=== PATIENT | male | born 1955 | race Caucasian/White ===

== ENCOUNTER 2024-07-18 14:52 | Inpatient (IN) | payer OTHER ==
[~2024-07-18] VITALS: Ht 193 cm; Wt 127.5 kg
[~2024-07-18 14:52] MED LIST: ALBU18HF7 IH; AMIO200T68 PO; APIX5TAB PO; ATOR10 PO; BUDE0.5A3 IH; BUPR-113 PO; DAPA10TA PO; FISH1CAP27 PO; FLUT1BLS3 IH; FURO20TA6 PO; IBUP-1554 PO; LEVO750T68 PO; MELA5TAB66 PO; METO-408 PO; METO2.5T2 PO; PANT40TA PO; ZOLP5TAB8 PO
--- NOTE | 2024-07-18 15:03 | ERN ---
ED Note History of Present Illness Stated Complaint: FLUID RETENTION Chief Complaint: Shortness of Breath Time Seen by MD: 14:56 Dictation: PATIENT IS A 69-YEAR-OLD MALE COMING IN TODAY WITH A APPROXIMATE 30 LB WEIGHT LOSS IN THE LAST TWO WEEKS AND THREE TO 4+ EDEMA TO LOWER EXTREMITIES. HE HAS SHORTNESS A BREATH ON EXERTION. ADDITIONALLY HIS ABDOMEN IS DISTENDED HE HAS A HISTORY OF CHF/STAGE 3 CHRONIC KIDNEY DISEASE AND HAS BEEN ON TWO DIFFERENT TYPES OF DIURETICS PER THE AND LAST SEVERAL YEARS HOWEVER WAS CUT DOWN TO ONE DIURETIC. SAW TODAY WHO ADVISED HIM GO TO THE EMERGENCY ROOM FOR IV DIURETICS AND ADMISSION. NO FEVER NO CHILLS NO CHEST PAIN. Allergies: Coded Allergies: No Known Allergies (Verified Allergy, Unknown, 10/31/23) Home Meds Active Scripts Bumetanide (Bumex) 1 Mg Tab, 1 TAB PO BID for 30 Days, #30 TAB 1 Refill Prov:JEAN FERNANDEZ MD 07/30/24 [miDODRine HCL 5 MG TABLET] 5 MG TABLET No Conflict Check, 5 MG PO TID for 30 Days, #90 1 Refill Prov:JEAN FERNANDEZ MD 07/30/24 [Folic Acid/Vitamin B Comp W-C] 1 CAP TAB No Conflict Check, 1 CAP PO DAILY for 30 Days, #30 1 Refill Prov:JEAN FERNANDEZ MD 07/30/24 Pantoprazole Sodium (Protonix) 40 Mg Tablet.dr, 40 MG PO DAILY, #60 TAB Prov:JOAQUIM MOMIN [facility] 06/11/24 Melatonin (Melatonin) 5 Mg Tablet, 10 MG PO HS, #15 TAB Prov:JOAQUIM MOMIN [facility] 06/11/24 Apixaban (Eliquis) 5 Mg Tablet, 5 MG PO BID, #60 TAB Prov:JOAQUIM MOMIN [facility] 06/11/24 Reported Medications Gabapentin (Gabapentin) 100 Mg Capsule, 1 CAP PO HS for 30 Days, #90 CAP 0 Refills 07/18/24 Levothyroxine Sodium (Levothyroxine Sodium) 25 Mcg Tablet, 1 TAB PO DAILY for 30 Days, #30 TAB 0 Refills 07/18/24 Potassium Citrate (Potassium Citrate ER) 15 Meq (1620 Mg) Tablet.er, 20 MEQ PO DAILY, TAB 07/18/24 Dapagliflozin Propanediol (Farxiga) 10 Mg Tablet, 1 TAB PO DAILY for 30 Days, #30 TAB 0 Refills 05/31/24 Amiodarone HCl (Amiodarone HCl) 200 Mg Tablet, 1 TAB PO QMOWEFR for 30 Days, #30 TAB 0 Refills 05/31/24 Albuterol Sulfate (Ventolin Hfa) 90 Mcg Hfa.aer.ad, 2 PUFF IH Q4HPRN PRN for wheezing for 30 Days, #18 GM 0 Refills 05/31/24 Bupropion HCl (Bupropion HCl Sr) 150 Mg Tablet.er, 1 TAB PO BID for 30 Days, #60 TAB 0 Refills 05/31/24 Metoprolol Succinate (Metoprolol Succinate) 25 Mg Tab.er.24h, 25 MG PO DAILY, TAB 10/31/23 Frederick-3 Fatty Acids/Fish Oil ([place] 3 1,000 mg Softgel) 300 Mg-1,000 Mg Capsule, 2 EACH PO BID, CAP 10/31/23 Atorvastatin Calcium (LIPITOR) 10 Mg Tab, 10 MG PO HS, TAB 10/31/23 Discontinued Reported Medications Furosemide (Furosemide) 40 Mg Tablet, 1 TAB PO HS for 30 Days, #30 TAB 0 Refills 07/18/24 Furosemide (Furosemide) 20 Mg Tablet, 1 TAB PO DAILY for 30 Days, #30 TAB 0 Refills 07/18/24 Amiodarone HCl (Amiodarone HCl) 200 Mg Tablet, 200 MG PO AD, TAB 10/31/23 Discontinued Scripts Metolazone (Metolazone) 2.5 Mg Tablet, 5 MG PO DAILY, #60 TAB Prov:JOAQUIM MOMIN [employer] 06/11/24 Past Medical History Past Medical History: High Cholesterol, Heart Disease, Hypertension, Liver Disease, Renal Disese Additional Past Medical Hx: CARDIAC VALVE REPLACEMENT, LT KNEE SX, LT SHOULDER SX Surgical History: Other Surgical History Other: AORTIC VALVE REPLAEMENT RN Note Reviewed/Agreed w/PFSH: Yes Review of System Dictation CONSTITUTIONAL: NEGATIVE EXCEPT FOR HPI HEAD/FACE: NEGATIVE EXCEPT FOR HPI EENT: NEGATIVE EXCEPT FOR HPI RESPIRATORY: NEGATIVE EXCEPT FOR HPI SHORTNESS A BREATH THREE TO 4+ EDEMA LOWER EXTREMITY GASTROINTESTINAL/ABDOMINAL: NEGATIVE EXCEPT FOR HPI DISTENTION GENITOURINARY: NEGATIVE EXCEPT FOR HPI MUSCULOSKELETAL: NEGATIVE EXCEPT FOR HPI INTEGUMENTARY: NEGATIVE EXCEPT FOR HPI NEUROLOGICAL/PSYCH: NEGATIVE EXCEPT FOR HPI HEMATOLOGIC/LYMPHATIC: NEGATIVE EXCEPT FOR HPI ALL SYSTEMS NEGATIVE, EXCEPT NOTED ABOVE. 13 POINT REVIEW OF SYSTEMS ASSESSED AND ALL NEGATIVE EXCEPT FOR ABOVE. Initial Vital Sign VS Vital Signs Date Time Temp Pulse Resp B/P (MAP) Pulse Ox O2 Delivery O2 Flow Rate FiO2 07/18/24 14:54 98.2 89 16 121/57 92 Room Air* 0 21 Physical Exam Dictation VITAL SIGNS REVIEWED GENERAL APPEARANCE: ALERT, ORIENTED X 3, NO ACUTE DISTRESS, WELL DEVELOPED, NOURISHED. OBESE HEAD AND FACE: NON-TRAUMATIC. EYES: PERRL, PINK CONJUNCTIVAS, EYELID NO TRAUMA, ANTERIOR CHAMBER WITH ARCUS SENILIS. EARS: PINNAS INTACT AND NO SIGNS OF TRAUMA OR ERYTHEMA EAR CANALS CLEAR AND NO DISCHARGE TM NO ERYTHEMA NOSE: NO DISCHARGE, NO BLEEDING. OROPHARYNX: MOUTH NORMAL, TONGUE PINK, PHARYNX CLEAR,NO ERYTHEMA, TONSILS NO EXUDATES, NO ABSCESSES NOTED, MUCOUS MEMBRANE MOIST NECK: SUPPLE, NON-TENDER, NO THYROMEGALY, NO MASSES, NO JVD, NO BRUITS BREAST:DEFERRED CHEST:NO TENDERNESS, NO CREPITUS, NO PARADOXICAL MOVEMENT, NO RETRACTIONS LUNGS:CLEAR, WELL-VENTILATED, SYMMETRIC, NO RALES, NO WHEEZING, NO RHONCHI, NO STRIDOR, GOOD BREATH SOUNDS BILATERALLY HEART: REGULAR RATE, REGULAR RHYTHM, NO MURMUR, NO GALLOPS VASCULAR: THREE TO 4+ EDEMA PERIPHERAL MERVIN LATERAL LOWER EXTREMITIES TO KNEES, ABDOMEN: SOFT, POSITIVE BOWEL SOUNDS, NONDISTENDED, NO GUARDING, NONTENDER, NO REBOUND, NO MASSES NO HEPATOMEGALY, NO SPLENOMEGALY, NO HARTMAN'S SIGN, NO HERNIAS. RECTAL: DEFERRED GENITAL: DEFERRED NEUROLOGICAL: NORMAL SPEECH, MOTOR FUNCTION INTACT, SENSORY FUNCTION INTACT MUSCULOSKELETAL: NECK NONTENDER, FULL RANGE OF MOTION, BACK NONTENDER, FULL RANGE OF MOTION, EXTREMITIES: NONTENDER, FULL RANGE OF MOTION SKIN: COLOR PINK, DRY, NO TURGOR, NO RASH, NO LACERATIONS, NO ABRASIONS, NO CONTUSIONS. LYMPHATIC: DEFERRED Results (Laboratory/Radiology) Laboratory/Radiology Laboratory Tests Test 07/28/24 05:03 07/29/24 03:16 07/30/24 05:56 White Blood Count 7.5 K/uL (4.8-10.8) 7.8 K/uL (4.8-10.8) 8.2 K/uL (4.8-10.8) Red Blood Count 4.54 MIL/uL (4.50-6.20) 4.65 MIL/uL (4.50-6.20) 4.68 MIL/uL (4.50-6.20) Hemoglobin 13.9 g/dL (14.0-18.0) L 14.2 g/dL (14.0-18.0) 14.4 g/dL (14.0-18.0) Hematocrit 42.4 % (42-54) 43.6 % (42-54) 43.9 % (42-54) Mean Corpuscular Volume 93.4 fL (79-99) 93.8 fL (79-99) 93.8 fL (79-99) Mean Corpuscular Hemoglobin 30.6 pg (27.0-33.0) 30.5 pg (27.0-33.0) 30.8 pg (27.0-33.0) Mean Corpuscular Hemoglobin Concent 32.8 g/dL (32.0-36.0) 32.6 g/dL (32.0-36.0) 32.8 g/dL (32.0-36.0) Red Cell Distribution Width 15.9 % (11.0-15.5) H 15.9 % (11.0-15.5) H 15.9 % (11.0-15.5) H Platelet Count 140 K/uL (130-400) 135 K/uL (130-400) 139 K/uL (130-400) Mean Platelet Volume 12.1 fL (7.5-10.5) H 12.2 fL (7.5-10.5) H 11.9 fL (7.5-10.5) H Immature Granulocyte % (Auto) 0.4 % (0-1) 0.4 % (0-1) 0.4 % (0-1) Neutrophils (%) (Auto) 67.3 % (40.0-77.0) 71.8 % (40.0-77.0) 65.7 % (40.0-77.0) Lymphocytes (%) (Auto) 19.4 % (21.0-51.0) L 15.9 % (21.0-51.0) L 20.3 % (21.0-51.0) L Monocytes (%) (Auto) 10.2 % (3.0-13.0) 9.3 % (3.0-13.0) 10.9 % (3.0-13.0) Eosinophils (%) (Auto) 1.5 % (0.0-8.0) 1.2 % (0.0-8.0) 1.7 % (0.0-8.0) Basophils (%) (Auto) 1.2 % (0.0-5.0) 1.4 % (0.0-5.0) 1.0 % (0.0-5.0) Neutrophils # (Auto) 5.0 K/uL (1.8-7.7) 5.6 K/uL (1.8-7.7) 5.4 K/uL (1.8-7.7) Lymphocytes # (Auto) 1.5 K/uL (1.0-4.8) 1.2 K/uL (1.0-4.8) 1.7 K/uL (1.0-4.8) Monocytes # (Auto) 0.8 K/uL (0.1-1.0) 0.7 K/uL (0.1-1.0) 0.9 K/uL (0.1-1.0) Eosinophils # (Auto) 0.11 K/uL (0.00-0.70) 0.09 K/uL (0.00-0.70) 0.14 K/uL (0.00-0.70) Basophils # (Auto) 0.09 K/uL (0.00-0.20) 0.11 K/uL (0.00-0.20) 0.08 K/uL (0.00-0.20) Absolute Immature Granulocyte (auto 0.03 K/uL (0-1) 0.03 K/uL (0-1) 0.03 K/uL (0-1) Nucleated Red Blood Cells 0.0 % (0.0-0.19) 0.0 % (0.0-0.19) 0.0 % (0.0-0.19) Sodium Level 141 mmol/L (136-145) 141 mmol/L (136-145) 139 mmol/L (136-145) Potassium Level 3.3 mmol/L (3.5-5.1) L 4.3 mmol/L (3.5-5.1) 3.8 mmol/L (3.5-5.1) Chloride Level 101 mmol/L (101-111) 103 mmol/L (101-111) 101 mmol/L (101-111) Carbon Dioxide Level 32 mmol/L (21-32) 33 mmol/L (21-32) H 30 mmol/L (21-32) Blood Urea Nitrogen 55 mg/dL (7-18) H 57 mg/dL (7-18) H 58 mg/dL (7-18) H Creatinine 2.7 mg/dL (0.5-1.3) H 2.7 mg/dL (0.5-1.3) H 2.7 mg/dL (0.5-1.3) H Glomerular Filtration Rate Calc 25 mL/min (>90) 25 mL/min (>90) 25 mL/min (>90) Random Glucose 103 mg/dL (70-105) 106 mg/dL (70-105) H 96 mg/dL (70-105) Total Calcium 9.4 mg/dL (8.5-10.1) 9.3 mg/dL (8.5-10.1) 9.5 mg/dL (8.5-10.1) Phosphorus Level 4.0 mg/dL (2.5-4.9) 3.9 mg/dL (2.5-4.9) Magnesium Level 2.40 mg/dL (1.80-2.40) 2.40 mg/dL (1.80-2.40) Total Bilirubin 2.9 mg/dL (0.2-1.0) H Aspartate Amino Transf (AST/SGOT) 50 U/L (10-37) H Alanine Aminotransferase (ALT/SGPT) 53 U/L (12-78) Alkaline Phosphatase 84 U/L (50-136) Total Protein 6.1 g/dL (6.0-8.3) Albumin 3.1 g/dL (3.5-5.0) L HEST 1VW HISTORY: Shortness of breath COMPARISON: None FINDINGS: A frontal projection of the chest was obtained. Mild bilateral pulmonary infiltrates are seen may be related to mild pulmonary vascular congestion with possible superimposed pneumonitis. Small bilateral pleural effusions are seen. The heart is borderline enlarged. Degenerative changes are seen. Aortic calcifications are seen. IMPRESSION: 1. Mild bilateral pulmonary infiltrates are seen may be related to mild pulmonary vascular congestion with possible superimposed pneumonitis. Small bilateral pleural effusions are seen. Labs Reviewed?: Yes EKG Comment: EKG IS ATRIAL FIBRILLATION VENTRICULAR RATE 87/LEFT AXIS DEVIATION ED Course ED Course Orders Procedure Category Date Status Time Midodrine Hcl 5 Mg PHA 07/28/24 Complete Tablet (Proamatine 5 13:00 Midodrine Hcl 5 Mg PHA 07/28/24 Complete Tablet (Proamatine 5 21:00 Orthostatic Vital CPOE 07/28/24 Transmitted Signs 15:11 Comprehensive LAB 07/30/24 Complete Metabolic Panel 04:00 Magnesium LAB 07/30/24 Complete 04:00 Phosphorus LAB 07/30/24 Complete 04:00 *Nursing CPOE 07/30/24 Transmitted Communication: 11:18 *General Dc DS 07/30/24 Transmitted Instructions 11:19 Vital Signs Date Time Temp Pulse Resp B/P (MAP) Pulse Ox O2 Delivery O2 Flow Rate FiO2 07/30/24 12:50 97.9 72 20 100/52 97 Room Air 07/30/24 08:10 97 Room Air* 0 07/30/24 07:35 97.3 74 20 104/51 97 Room Air 07/30/24 04:09 98.2 71 18 105/59 97 Room Air 07/30/24 02:00 97 Room Air* 0 07/30/24 00:00 97.5 75 18 110/42 98 Room Air 07/29/24 20:00 97.5 71 20 118/47 94 Room Air 07/29/24 20:00 94 Room Air* 0 07/29/24 17:23 98.1 88 19 109/54 99 Room Air 07/29/24 12:00 98.6 77 19 103/47 97 Room Air 07/29/24 08:00 94 Room Air* 0 07/29/24 08:00 98.2 66 19 117/49 97 Room Air 07/29/24 04:00 98.2 89 20 105/48 94 Room Air 07/29/24 00:00 96.4 78 20 101/60 99 Room Air 07/28/24 20:00 97.3 79 20 97/48 92 Room Air 07/28/24 16:15 76 92/50 Room Air 07/28/24 16:13 73 86/45 Room Air 07/28/24 16:11 87 93/55 Room Air 07/28/24 16:00 97.5 80 18 88/43 95 Room Air 07/28/24 12:00 97.5 77 20 96/54 92 Room Air 07/28/24 08:00 97 Room Air* 0 07/28/24 08:00 97.0 67 18 98/38 97 Room Air 07/28/24 04:00 97.3 73 22 97/63 96 Room Air 07/28/24 00:00 97.3 101 20 105/70 98 Room Air 07/27/24 20:00 93 Room Air* 0 07/27/24 20:00 97.5 72 20 100/41 99 Room Air SIXTEEN 40, PATIENT IN ATRIAL FIBRILLATION WITH CONTROLLED RATE, 87. HISTORY OF AFIB AND IS ON ELIQUIS. HE IS ALSO HAS A BNP OF 12 80 WITH VASCULAR CONGESTION IN HIS CHEST X-RAY. AND DEPENDENT EDEMA THREE TO 4+. WE WILL BEGIN DIURESIS WIT LASIX 80 MG AND PATIENT WILL BE ADMITTED TO THE HOSPITAL. SPOKE WITH AND PATIENT AT BEDSIDE AND THEY AGREED TO ADMISSION [id number] SPOKE WITH REVIEWED CHEST X-RAY EKG LABS AND INTERVENTIONS FOR CHF EXACERBATION. HE AGREED TO ADMIT HEART Score Response (Comments) Value EKG: Repolarization changes 1 Age: > 65yrs (+2) 2 Risk Factors: 1-2 risk factors (+1) 1 Initial Troponin: Normal limit (0) 0 Total 4 Medical Decision Making MDM MDM: DIFFERENTIAL DIAGNOSIS: ACS/AMI/CHF EXACERBATION/CHRONIC KIDNEY DISEASE/FLUID OVERLOAD/ELECTROLYTE IMBALANCE/DEHYDRATION/PNEUMONIA RATIONALE: TESTS CONSIDERED AND ORDERED SECONDARY TO SHARED DECISION MAKING INCLUDE: LABS, ECG AND RADIOLOGY PREVIOUS OUTSIDE RECORDS REVIEWED: OLD ER VISITS. REVIEWED RISK OF COMPLICATION AND/OR MORBIDITY OR MORTALITY OF PATIENT MANAGEMENT: MODERATE MEDICATIONS-PER MEDICATION RECONCILIATION REVIEWED NEED FOR HOSPITALIZATION: PATIENT DOES MEET CRITERIA FOR HOSPITALIZATION. PATIENT WILL NEED ADMISSION FOR DIURESIS ELECTROLYTE MAINTENANCE AND POSSIBLE NEPHROLOGY CONSULTATION DUE TO GFR 30 NEED FOR EMERGENCY MAJOR/MINOR SURGERY: NO THERE ARE NO SOCIAL CONCERNS WITH THIS PATIENT. PRESCRIPTION DRUG MANAGEMENT PRESCRIPTIONS WILL INCLUDE SYMPTOMATIC CARE PATIENT'S PRIOR EXTERNAL MEDICAL RECORDS FROM OTHER ER VISITS WERE REVIEWED BY ME INDICATED. PRIOR TESTING AND RESULTS FROM PREVIOUS VISITS WERE REVIEWED. PRIOR TESTS WERE TAKEN INTO ACCOUNT WITH MEDICAL DECISION MAKING AND RESOURCE UTILIZATION, INDEPENDENT HISTORIAN/HISTORIANS WERE USED TO OBTAIN COMPLETE MEDICAL HISTORY. I INDEPENDENTLY INTERPRETED THE TEST THAT WERE PERFORMED, RESULTS WERE REVIEWED BY ME AND CONSIDERED FINDINGS ON RADIOLOGY IF ORDERED. MEDICAL MANAGEMENT AND EXAMINATION INTERPRETATION DISCUSSIONS WERE HAD BY ME WITH OTHER QUALIFIED HEALTHCARE PROFESSIONALS INDICATED FOR THE PATIENT'S CARE. DX & DISP Disposition: Inpatient Decision to Admit Time: 16:45 Departure Impression: Primary Impression: Acute exacerbation of CHF (congestive heart failure) Additional Impressions: Atrial fibrillation by electrocardiogram, Stage 3 chronic kidney disease, Dyspnea on minimal exertion Condition: Stable Scripts Bumetanide (Bumex) 1 Mg Tab 1 TAB PO BID for 30 Days, #30 TAB 1 Refill Prov: JEAN FERNANDEZ MD 07/30/24 [miDODRine HCL 5 MG TABLET] 5 MG TABLET No Conflict Check 5 MG PO TID for 30 Days, #90 1 Refill Prov: JEAN FERNANDEZ MD 07/30/24 [Folic Acid/Vitamin B Comp W-C] 1 CAP TAB No Conflict Check 1 CAP PO DAILY for 30 Days, #30 1 Refill Prov: JEAN FERNANDEZ MD 07/30/24 Referrals: CARO ANDERSON NP (PCP) Time of Disposition: 16:45 I have reviewed the case, and I agree with, Diagnosis and Plan I performed this substantive portion of this visit. I have reviewed and personally made and approve the management plan that is documented in the note by myself or the [facility]. I acknowledge full responsibility for the patient's management plan. CINTHIA VICENTE NP Jul 18, 2024 15:02 DERRICK WHITE MD Jul 30, 2024 18:37
--- NOTE | 2024-07-18 15:17 | EKG ---
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 : 1955 Requested By: CINTHIA VICENTE Order Number: [id number] Reading MD: Pedro Owens Measurements Intervals [place] Rate: 87 P: 0 NV: 0 QRS: -33 QRSD: 98 T: 68 QT: 384 QTc: 463 Interpretive Statements Atrial fibrillation Ventricular premature complex Left axis deviation Compared to ECG 05/31/2024 13:22:32 Ventricular premature complex(es) now present Left-axis deviation now present Myocardial infarct finding no longer present T-wave abnormality no longer present Electronically Signed On 07-21-2024 17:29:17 RESOURCE PARAPROFESSIONAL by Pedro Owens Please click the below link to view image of tracing.
[2024-07-18] MEDS: furoSEMIDE 100MG VIAL 10 MG/ML VIAL IVP ONE (15:25)
--- NOTE | 2024-07-18 15:32 | HMCIMG ---
CHEST 1VW HISTORY: Shortness of breath COMPARISON: 06/11/2024 FINDINGS: A frontal projection of the chest was obtained. Mild bilateral pulmonary infiltrates are seen may be related to mild pulmonary vascular congestion with possible superimposed pneumonitis. The heart is enlarged. Degenerative changes are seen. No evidence of aortic calcification is seen. IMPRESSION: 1. Mild bilateral pulmonary infiltrates are seen may be related to mild pulmonary vascular congestion with possible superimposed pneumonitis.
[2024-07-18 15:33] LABS: BASOPHILS # (AUTO) 0.08 K/uL (0.00-0.20); BASOPHILS % (AUTO) 0.8 % (0.0-5.0); EOSINOPHILS # (AUTO) 0.12 K/uL (0.00-0.70); EOSINOPHILS % (AUTO) 1.3 % (0.0-8.0); HEMATOCRIT 45.7 % (42-54); IMMATURE GRANULOCYTE ABSOLUTE 0.04 K/uL (0-1); LYMPHOCYTES # (AUTO) 1.4 K/uL (1.0-4.8); LYMPHOCYTES % (AUTO) 15.2 % (21.0-51.0); MEAN CORPUSCULAR HEMOGLOBIN 30.6 pg (27.0-33.0); MEAN CORPUSCULAR HGB CONC 32.4 g/dL (32.0-36.0); MEAN CORPUSCULAR VOLUME 94.4 fL (79-99); MONOCYTES # (AUTO) 0.8 K/uL (0.1-1.0); MONOCYTES % (AUTO) 8.6 % (3.0-13.0); NEUTROPHILS % (AUTO) 73.7 % (40.0-77.0); PLATELET COUNT (AUTO) 166 K/uL (130-400); RED BLOOD CELL COUNT(AUTO) 4.84 MIL/uL (4.50-6.20); RED CELL DISTRIBUTION WIDTH 16.6 % (11.0-15.5); WHITE BLOOD COUNT (AUTO) 9.5 K/uL (4.8-10.8)
[2024-07-18 16:13] LABS: B-TYPE NATRIURETIC PEPTIDE 1210 pg/mL (0-100)
[2024-07-18 16:16] LABS: CREATININE 2.3 mg/dL (0.5-1.3); POTASSIUM 4.2 mmol/L (3.5-5.1)
[2024-07-18 17:03] LABS: APPEARANCE,URINE CLEAR (CLEAR); BILIRUBIN,URINE NEGATIVE (NEGATIVE); COLOR,URINE LIGHT-YELLOW (YELLOW); GLUCOSE, URINE (UA) 30 mg/dL (NEGATIVE); KETONES,URINE NEGATIVE (NEGATIVE); LEUKOCYTE ESTERASE ,URINE NEGATIVE Leu/uL (NEGATIVE); NITRATE,URINE NEGATIVE (NEGATIVE); OCCULT BLOOD,URINE NEGATIVE (NEGATIVE); PROTEIN,URINE NEGATIVE (NEGATIVE); UROBILINOGEN,URINE 0.2 mg/dL (0.2-1.0)
[2024-07-18 17:05] LABS: ADD UA MICROSCOPIC YES
[2024-07-18 17:08] LABS: RBC,URINE 0-1 /HPF (0-1); WBC,URINE 0-1 /HPF (0-1)
--- NOTE | 2024-07-18 17:50 | NUR ---
NEPHROLOGY CONSULT: DR VALENZUELA GIVEN PT REPORT BY DR JESUS
--- NOTE | 2024-07-18 17:59 | NUR ---
CARDIO CONSULT: DR ARLYN KAPOOR PAGED. NO ANSWER.
[2024-07-18] MEDS ORDERED: IpraTROPium 0.5 MG/2.5 ML INH IH PRN (18:00)
[2024-07-18] MEDS ORDERED: acetaMINOPHEN 500 MG TABLET PO PRN ×2 (18:00)
[2024-07-18] MEDS ORDERED: MAGNESIUM 2GM PREMIX 50ML 50 ML IV SCH (18:00)
[2024-07-18 18:30] LABS: ALBUMIN 3.6 g/dL (3.5-5.0); BILIRUBIN,DIRECT 0.6 mg/dL (0.0-0.3); BILIRUBIN,TOTAL 1.8 mg/dL (0.2-1.0); MAGNESIUM 2.3 mg/dL (1.80-2.40); TOTAL PROTEIN, SERUM 7.1 g/dL (6.0-8.3)
--- NOTE | 2024-07-18 18:39 | HMCIMG ---
ULTRASOUND VENOUS DOPPLER, BILATERAL LOWER EXTREMITIES INDICATION: Bilateral lower extremity pain and swelling TECHNIQUE: Routine grayscale and color Doppler ultrasound of the bilateral lower extremity veins performed. COMPARISON: No priors. FINDINGS: The demonstrated veins of the bilateral lower extremity including the common femoral vein, femoral vein, and popliteal vein are associated with normal compressibility, augmentation, and flow. Normal respiratory variation was identified. No evidence for echogenic intraluminal thrombus formation. Pulsatile flow may be related to known history of congestive heart failure. IMPRESSION: No sonographic evidence for deep venous thrombosis within the bilateral lower extremity veins.
--- NOTE | 2024-07-18 18:44 | NUR ---
CARDIOGLOGY CONSULT: DR JESUS GAVE PATIENT REPORT TO DR STODDARD
--- NOTE | 2024-07-18 18:45 | NUR ---
PULMO CONSULT: DR JESUS GAVE PATIENT REPORT TO [facility]
[2024-07-18] MEDS: BUDESONIDE 0.5 MG/2 ML INH IH SCH (18:48)
[2024-07-18 18:52] VITALS: PULSE 77; PULSE 79; RESP 18; O2SAT 95
--- NOTE | 2024-07-18 20:09 | HP ---
[facility] HISTORY AND PHYSICAL Date of Service: Jul 18, 2024 Time of Service: 20:09 HISTORY OF PRESENT ILLNESS: Date of service: 07/18/2024, patient was seen in ER room 15 69-year-old male with underlying history of hypertension, hyperlipidemia, CKD stage 3, underlying history of atrial fibrillation, heart failure with mildly reduced ejection fraction of 45-50% (RVSP of 54 concerning for severe pulmonary hypertension), history of chronic anticoagulation with Eliquis, history of severe aortic stenosis secondary to bicuspid aortic valve status post bioprosthetic aortic valve replacement in 2018 who presented to the ER for further evaluation of progressive lower extremity edema and weight gain. Patient was hospitalized in [facility] on 05/31/2024 and discharged from the hospital on 06/12/2024 for heart failure exacerbation, respiratory failure, MYA on CKD and received IV diuretics, IV antibiotics and steroids during hospitalization. Patient states that over the past two weeks, he has noticed significant lower extremity edema with weight gain of 30 lb. He had seen his primary care provider recently who stopped his outpatient Lasix and was recommended to continue with metolazone. Since stopping Lasix, patient has continued to develop significant lower extremity edema, shortness of breath, dyspnea on exertion as well. Denies any active chest pain, nausea, vomiting or abdominal pain. He reports having significant abdominal distention as well. Patient states that prior to February,, he was very active and could walk about 3-4 miles daily. After February, he has had progressive loss of functional status with significant dyspnea on exertion. Currently shortness of breath is worse with minimal activity. Patient is followed by Dr. Bocanegra with Cardiology as outpatient. Patient is followed by Dr. Deras with pulmonology as outpatient. Patient will be admitted for further management of decompensated heart failure and will receive IV diuresis with Bumex. Anticipate hospitalization for 72 hours at least. Renal function will be monitored closely. We will request consultation with Cardiology, pulmonology, Nephrology this admission. Patient may need further workup for pulmonary hypertension this admission and may need to consider workup to rule out pulmonary arterial/pre capillary pulmonary hypert ension given significantly elevated RVSP on previous 2D echocardiogram 05/2024. REVIEW OF SYSTEMS CONSTITUTIONAL: Denies fevers, chills, or night sweats. No unintentional weight loss reported. NEUROLOGICAL: Denies headache, amaurosis fugax, motor weakness, sensory deficit, vertigo/spinning sensation, gait abnormalities, or tremors. ENT: No hearing loss, otalgia, otorrhea, rhinitis, rhinorrhea, hoarseness, or sore throat. CARDIOVASCULAR: Denies any exertional angina, dyspnea on exertion, orthopnea, paroxysmal nocturnal dyspnea, palpitations, life-threatening arrhythmias, claudication. PULMONARY: Shortness of breath, dyspnea on exertion, PND, orthopnea SLEEP: Denies morning headaches, daytime somnolence or napping. Denies difficulty falling asleep, staying asleep, waking from sleep. Denies knowledge of snoring. GASTROINTESTINAL: Denies any type of dysphagia to either liquids or solids. Denies nausea, vomiting, pyrosis, early satiety, abdominal pain, diarrhea, c onstipation, or changes in stool consistency or caliber. Denies coffee-ground emesis, hematemesis, hematochezia, or melanotic stools. GENITOURINARY: Denies frequency, urgency, nocturia, hematuria or incontinence (Storage/Irritative symptoms.) Low urinary stream, straining to void, urinary intermittency or hesitancy, splitting of the voiding stream, terminal dribbling. ENDOCRINOLOGIC: Denies polyuria, polydipsia, polyphagia or heat/cold intolerances. HEMATOLOGIC: Denies thrombophilia/previous clots, or coagulopathy/bleeding disorders. ONCOLOGIC: Denies personal history of malignancy. DERMATOLOGIC: Denies rashes or pruritus. PSYCHIATRIC: Denies any suicidal or homicidal ideation. Denies hallucinations. PAST MEDICAL HISTORY: Underlying history of hypertension, hyperlipidemia, atrial fibrillation maintained on chronic anticoagulation with Eliquis, history of pulmonary hypertension attributed to underlying heart disease, history of cardiomyopathy with LVEF of 45-50% with diastolic dysfunction, history of moderate aortic regurgitation, history of moderate tricuspid regurgitation, history of severe aortic stenosis secondary to bicuspid aortic valve status post surgical aortic valve replacement in 2018, CKD stage 3 PAST SURGICAL HISTORY: Surgical aortic wall replacement in 2018, left knee ACL surgery, history of left shoulder surgery PAST SOCIAL HISTORY: Patient is a retired tanker truck driver, currently denies active smoking or alcohol consumption, quit vaping FAMILY HISTORY: Patient has a family history of heart disease, hypertension Allergies: Patient denies known drug allergies Medications: Home medications will be reconciled and updated once available Coded Allergies: No Known Allergies (Verified Allergy, Unknown, 10/31/23) PHYSICAL EXAM GENERAL APPEARANCE: The patient is awake, alert, and oriented, in no acute cardiopulmonary distress. NEUROLOGICAL: Cranial nerves II-XII grossly intact. Motor is 5/5 in bilateral upper and lower extremities proximal to distal. No sensory deficits. HEENT: Face is symmetric. Pupils are equal and reactive. Extraocular movements are intact. NECK: Supple. No JVD. No thyromegaly. No submental, submandibular, pre- /postauricular, occipital or supraclavicular lymphadenopathy. CHEST: Normal chest expansion. No Telemetry. LUNGS: Crackles noted at bilateral lung base CARDIOVASCULAR: Regular. S1 and S2 normal. No appreciable rubs, murmurs or gallops. ABDOMEN: Soft, nontender, and nondistended. There is no rebound, voluntary guarding, or rigidity. : Deferred. No [place]. EXTREMITIES: 3+ pitting edema noted of bilateral lower extremities SKIN: No skin breakdown. Vital Sign (Last 24 Hours) 07/18/24 19:28 Temp 98.4 Pulse 82 Resp 17 B/P (MAP) 120/48 Pulse Ox 100 O2 Delivery Room Air* O2 Flow Rate 0 FiO2 21 LABS: Laboratory: Test 07/18/24 16:36 07/18/24 16:00 07/18/24 15:20 Range/Units Urine Color LIGHT-YELLOW YELLOW Urine Appearance CLEAR CLEAR Urine pH 6.0 5.0-8.0 Urine Specific [place] 1.009 1.001-1.031 Urine Protein NEGATIVE NEGATIVE mg/dL Urine Glucose (UA) 30 H NEGATIVE mg/dL Urine Ketones NEGATIVE NEGATIVE mg/dL Urine Occult Blood NEGATIVE NEGATIVE Urine Nitrate NEGATIVE NEGATIVE Urine Bilirubin NEGATIVE NEGATIVE mg/dL Urine Urobilinogen 0.2 0.2-1.0 mg/dL Urine Leukocyte Esterase NEGATIVE NEGATIVE Rolanda/uL Urine RBC 0-1 0-1 /HPF Urine WBC 0-1 0-1 /HPF Urine Bacteria None None Seen /HPF Sodium Level 141 136-145 mmol/L Potassium Level 4.2 3.5-5.1 mmol/L Chloride Level 102 101-111 mmol/L Carbon Dioxide Level 31 21-32 mmol/L Blood Urea Nitrogen 52 H 7-18 mg/dL Creatinine 2.3 H 0.5-1.3 mg/dL Glomerular Filtration Rate Calc 30 >90 mL/min Random Glucose 106 H 70-105 mg/dL Total Calcium 9.8 8.5-10.1 mg/dL Magnesium Level 2.30 1.80-2.40 mg/dL Total Bilirubin 1.8 H 0.2-1.0 mg/dL Direct Bilirubin 0.6 H 0.0-0.3 mg/dL Aspartate Amino Transf (AST/SGOT) 57 H 10-37 U/L Alanine Aminotransferase (ALT/SGPT) 61 12-78 U/L Alkaline Phosphatase 107 50-136 U/L C-Reactive Protein, Quantitative 10.00 H 0.5-3.0 mg/L Total Protein 7.1 6.0-8.3 g/dL Albumin 3.6 3.5-5.0 g/dL Procalcitonin 0.07 0.05-0.5 ng/mL White Blood Count 9.5 4.8-10.8 K/uL Red Blood Count 4.84 4.50-6.20 MIL/uL Hemoglobin 14.8 14.0-18.0 g/dL Hematocrit 45.7 42-54 % Mean Corpuscular Volume 94.4 79-99 fL Mean Corpuscular Hemoglobin 30.6 27.0-33.0 pg Mean Corpuscular Hemoglobin Concent 32.4 32.0-36.0 g/dL Red Cell Distribution Width 16.6 H 11.0-15.5 % Platelet Count 166 130-400 K/uL Mean Platelet Volume 10.9 H 7.5-10.5 fL Immature Granulocyte % (Auto) 0.4 0-1 % Neutrophils (%) (Auto) 73.7 40.0-77.0 % Lymphocytes (%) (Auto) 15.2 L 21.0-51.0 % Monocytes (%) (Auto) 8.6 3.0-13.0 % Eosinophils (%) (Auto) 1.3 0.0-8.0 % Basophils (%) (Auto) 0.8 0.0-5.0 % Neutrophils # (Auto) 7.0 1.8-7.7 K/uL Lymphocytes # (Auto) 1.4 1.0-4.8 K/uL Monocytes # (Auto) 0.8 0.1-1.0 K/uL Eosinophils # (Auto) 0.12 0.00-0.70 K/uL Basophils # (Auto) 0.08 0.00-0.20 K/uL Absolute Immature Granulocyte (auto 0.04 0-1 K/uL Nucleated Red Blood Cells 0.0 0.0-0.19 % Troponin I High Sensitivity 27 4-75 ng/L B-Type Natriuretic Peptide 1210 H 0-100 pg/mL Current Medications Medications (Trade) Dose Ordered Sig/Samantha Route PRN Reason Start Time Stop Time Status Last Admin Dose Admin Acetaminophen (TYLenol 500MG TAB) 500 mg Q6H PRN PO MILD PAIN (1-3) 07/18/24 18:00 08/17/24 17:59 Acetaminophen (TYLenol 500MG TAB) 500 mg Q6H PRN PO MILD PAIN (1-3) 07/18/24 18:00 08/17/24 17:59 Amiodarone HCl (pacERONE 200MG) 200 mg QMOWEFR PO 07/19/24 09:00 08/18/24 08:59 Apixaban (EliquIS) 5 mg BID PO 07/18/24 21:00 08/17/24 20:59 Atorvastatin Calcium (LIPItor 10MG) 10 mg DAILY PO 07/19/24 09:00 08/18/24 08:59 Budesonide (Pulmicort 0.5 Mg/2ml) 0.5 mg BIDRESP IH 07/18/24 18:00 08/17/24 17:59 07/18/24 18:48 0.5 MG Bumetanide (Bumex 1mg Vial) 1 mg Q8H IVP 07/18/24 21:00 08/17/24 20:59 Ipratropium Malone (AtrovENT UD) 1 mg Q6H PRN IH SHORTNESS OF BREATH 07/18/24 18:00 08/17/24 17:59 Levothyroxine Sodium (SYNTHroid 25MCG TAB) 25 mcg DAILY@0630 PO 07/19/24 06:30 08/18/24 06:29 Magnesium Sulfate 50 ml @ 0 mls/hr PROTOCOL IV 07/18/24 18:00 08/17/24 17:59 Metoprolol Succinate (TopROL XL) 25 mg DAILY PO 07/19/24 09:00 08/18/24 08:59 Ondansetron HCl (zoFRAN 4MG INJ) 4 mg Q6H PRN IVP NAUSEA/VOMITING 07/18/24 18:00 1/4/25 17:59 Pantoprazole Sodium (PROTonix 40MG TAB) 40 mg DAILY PO 07/19/24 09:00 08/18/24 08:59 Potassium Chloride 100 ml @ 100 mls/hr AD PRN IV POTASSIUM PROTOCOL 07/18/24 18:00 08/17/24 17:59 Potassium Chloride (K-Dur/Klor-Con 20meq) 10 meq AD PRN PO POTASSIUM PROTOCOL 07/18/24 18:00 08/17/24 17:59 Potassium Chloride (KCl 10% Elixir 20meq/15ml) 10 meq AD PRN PO POTASSIUM PROTOCOL 07/18/24 18:00 08/17/24 17:59 Vitamin B Complex/ Vit C/Folic Acid (Nephrovite Tablet) 1 cap DAILY PO 07/19/24 09:00 08/18/24 08:59 DIAGNOSTICS / RADIOLOGY: SERVICE 777 REASON: significant lower extremity edema, r/o any DVT ORDERING PHYSICIAN: BETO ADAME MD PROCEDURE: VENOUS JACE - US VENOUS DOPPLER BILATERAL ULTRASOUND VENOUS DOPPLER, BILATERAL LOWER EXTREMITIES INDICATION: Bilateral lower extremity pain and swelling TECHNIQUE: Routine grayscale and color Doppler ultrasound of the bilateral lower extremity veins performed. COMPARISON: No priors. FINDINGS: The demonstrated veins of the bilateral lower extremity including the common femoral vein, femoral vein, and popliteal vein are associated with normal compressibility, augmentation, and flow. Normal respiratory variation was identified. No evidence for echogenic intraluminal thrombus formation. Pulsatile flow may be related to known history of congestive heart failure. IMPRESSION: No sonographic evidence for deep venous thrombosis within the bilateral lower extremity veins. DICTATED BY: MARLON PINZON MD DATE: 07/18/241836 ELECTRONICALLY SIGNED BY: MARLON PINZON MD DATE: 07/18/241838 SERVICE 1500 REASON: SHORTNESS A BREATH ORDERING PHYSICIAN: CINTHIA VICENTE NP PROCEDURE: CXR1VW - CHEST 1VW CHEST 1VW HISTORY: Shortness of breath COMPARISON: 06/11/2024 FINDINGS: A frontal projection of the chest was obtained. Mild bilateral pulmonary infiltrates are seen may be related to mild pulmonary vascular congestion with possible superimposed pneumonitis. The heart is enlarged. Degenerative changes are seen. No evidence of aortic calcification is seen. IMPRESSION: 1. Mild bilateral pulmonary infiltrates are seen may be related to mild pulmonary vascular congestion with possible superimposed pneumonitis. DICTATED BY: LORE KNIGHT MD DATE: 07/18/241528 ELECTRONICALLY SIGNED BY: LORE KNIGHT MD DATE: 07/18/24 153 ASSESSMENT: 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, POA, (LV EF 45-50%) Acute hypoxemic respiratory failure, POA History of severe pulmonary hypertension with RVSP of 54, attributed secondary t o underlying cardiac comorbidities, group 2, POA Rule out pulmonary arterial hypertension, POA History of moderate aortic regurgitation, POA History of moderate tricuspid regurgitation, POA Severe volume overload, POA Congestive hepatopathy, POA CKD stage 3, likely chronic cardiorenal syndrome, POA Underlying history of atrial fibrillation, POA History of chronic anticoagulation with Eliquis as outpatient, POA Obesity, POA History of severe aortic stenosis status post bioprosthetic aortic valve repla cement in 2018, POA PLAN: Patient will be admitted to PCCU under telemetry monitoring Patient is significantly volume overloaded, patient received 80 mg of IV Lasix in the ER, we will start IV diuresis with Bumex 1 mg q.8 hour Monitor urine output closely, obtain daily weight Monitor renal function closely Maintain K greater than four and magnesium greater than two, electrolytes will be repleted per protocol We will obtain 2D echocardiogram to assess LVEF as well as right-sided pressures We will request consultation with Cardiology, pulmonology and Nephrology We will discuss with pulmonology and Cardiology if patient will benefit from right heart catheterization once volume status is optimized, patient has underlying diagnosis of pulmonary hypertension attributed to underlying cardiac comorbidities (group two), we will see if we need to rule out pulmonary arterial hypertension/ pre capillary hypertension as well significantly elevated RVSP on 2D echocardiogram from 06/06 Patient to resume home dose of amiodarone, Eliquis, metoprolol succinate and home medications were reconciled and updated once available We will monitor BMP closely tonight and All labs will be repeated in the morning We will see if patient has undergone prior sleep study to rule out obstructive sleep apnea Date of service: 07/18/2024, Plan of care was discussed with patient at bedside, Beto Adame MD Advanced Care Planning: Which of the following were discussed: Hospice care: Yes __ No _X_ Therapeutic options: Yes _X_ No __ Advance directives: Yes _X_ No __ Other discussions: Discussed with who?: Patient Voluntary nature of this service was explained to the patient? Yes _x_ No __ Amount of time spent: 20 minutes BETO ADAME MD Jul 18, 2024 20:09
[2024-07-18 20:30] LABS: CREATININE 2.3 mg/dL (0.5-1.3); MAGNESIUM 2.3 mg/dL (1.80-2.40); POTASSIUM 3.7 mmol/L (3.5-5.1)
[2024-07-18] MEDS ORDERED: MELATONIN 5 MG TABLET PO PRN (20:30)
[2024-07-18] MEDS: APIXaban 5 MG TABLET PO SCH (21:02)
[2024-07-18] MEDS: BUMETANIDE 1MG/4ML VIAL IVP SCH (21:02)
[2024-07-18 21:45] VITALS: BP 118/51; PULSE 86; RESP 20; TEMP 97.6
--- NOTE | 2024-07-18 21:45 | NUR ---
ADMIT NOTE ADMIT TO ROOM 432 VIA WHEEL CHAIR, AWAKE, ALERT, OX3, NO SOB AT THIS TIME, PER PATIENT SOB WITH EXERTION ONLY, NO FAMILY AT BEDSIDE, TEACH PATIENT PLAN OF CARE, STRICT 1 AND 0 , FLUID RESTRICTION 1.5 L, EXPECTED OUTCOME, PATIENT VERBALIZES UNDERSTANDING VIA TEACH BACK
[2024-07-18] MEDS ORDERED: LEVO25TA54 PO (22:00)
[2024-07-18] MEDS ORDERED: FURO20TA4 PO (22:00)
[2024-07-18] MEDS ORDERED: POTA15TA11 PO (22:00)
[2024-07-18] MEDS ORDERED: GABA-529 PO (22:00)
[2024-07-18] MEDS ORDERED: FURO40TA5 PO (22:00)
--- NOTE | 2024-07-18 22:25 | NUR ---
CT DOWN TO CT VIA W/C FOR CT ABD AND CHEST
--- NOTE | 2024-07-18 22:45 | NUR ---
RADIOLOGY BACK FROM CT, BACK TO ROOM , TOLERATED WELL, CALL FIGUEROA AT REACH
[2024-07-18 23:07] LABS: CREATININE,URINE RANDOM 36.69 mg/dL (30-135); PROTEIN,URINE RANDOM 19.6 mg/dL (0-11.9)
--- NOTE | 2024-07-18 23:17 | HMCIMG ---
CT CHEST/ABD/PELV W/O CONTRAST HISTORY: Pleural effusion COMPARISON: None TECHNIQUE: Multiple sequential axial images of the chest were obtained from the thoracic inlet through upper abdomen. Patient was not given contrast through intravenous route. FINDINGS: There are small bilateral pleural effusions with compressive atelectasis. Bibasilar linear atelectasis changes are seen. Aortic calcifications are seen. Minimal left lower lung pulmonary infiltrates are seen. No pericardial effusion is seen. There is no evidence of pneumothorax. There are normal size mediastinal and hilar lymph nodes. The heart is not enlarged. Degenerative changes of the thoracolumbar spine are present. There is no evidence of adrenal nodule. IMPRESSION: 1. Small bilateral pleural effusions with compressive atelectasis. Minimal left lower lung pulmonary infiltrates are seen. Minimal left lower lung pulmonary infiltrates are seen. CT CHEST/ABD/PELV W/O CONTRAST HISTORY: Elevated liver enzymes COMPARISON: None TECHNIQUE: Multiple sequential axial images of the abdomen and pelvis were obtained from the dome of the diaphragm through symphysis pubis. Patient was not given contrast through intravenous route. Oral contrast was not given. FINDINGS: Liver is enlarged measuring 21 cm. The liver, spleen, adrenal glands and pancreas are unremarkable. There is no evidence of hydronephrosis bilaterally. No evidence of renal stone is seen. Fecal material is seen in the colon. There are normal size retroperitoneal and mesenteric lymph nodes. Small ascites fluid is seen in the pelvis. Atherosclerotic changes are present. There is left iliac stent. Pelvic sidewalls are symmetric bilaterally. Bladder is poorly distended. Fat stranding is seen adjacent to the bladder may be related to cystitis and urinary analysis correlation may be helpful. There is mild diverticulosis. IMPRESSION: 1. Small amount of fluid is seen in the pelvis. CT was performed with one or more following dose reduction techniques: automated exposure control, adjustment of the mA and kv according to patient's size, or use of a iterative reconstruction technique.
[2024-07-18 23:27] VITALS: BP 106/51; PULSE 87; RESP 20; TEMP 97.6
[2024-07-19] VITALS (10 sets, daily range): BP systolic 98–121; BP diastolic 44–72; PULSE 72–87; RESP 17–19; TEMP 97.6–98.6; O2SAT 96–97
[2024-07-19] MEDS: levoTHYROxine 25 MCG TABLET PO SCH (05:06)
[2024-07-19 05:37] LABS: BASOPHILS # (AUTO) 0.09 K/uL (0.00-0.20); BASOPHILS % (AUTO) 1.1 % (0.0-5.0); EOSINOPHILS # (AUTO) 0.18 K/uL (0.00-0.70); EOSINOPHILS % (AUTO) 2.2 % (0.0-8.0); IMMATURE GRANULOCYTE ABSOLUTE 0.03 K/uL (0-1); LYMPHOCYTES # (AUTO) 1.5 K/uL (1.0-4.8); LYMPHOCYTES % (AUTO) 17.9 % (21.0-51.0); MEAN CORPUSCULAR HEMOGLOBIN 30.3 pg (27.0-33.0); MEAN CORPUSCULAR HGB CONC 32.3 g/dL (32.0-36.0); MEAN CORPUSCULAR VOLUME 93.9 fL (79-99); MONOCYTES # (AUTO) 0.8 K/uL (0.1-1.0); NEUTROPHILS # (AUTO) 5.8 K/uL (1.8-7.7); NEUTROPHILS % (AUTO) 69.4 % (40.0-77.0); NUCLEATED RED BLOOD CELLS 0.2 % (0.0-0.19); PLATELET COUNT (AUTO) 141 K/uL (130-400); RED BLOOD CELL COUNT(AUTO) 4.58 MIL/uL (4.50-6.20); RED CELL DISTRIBUTION WIDTH 16.2 % (11.0-15.5); WHITE BLOOD COUNT (AUTO) 8.3 K/uL (4.8-10.8)
[2024-07-19 06:05] LABS: ALBUMIN 3.1 g/dL (3.5-5.0); BILIRUBIN,TOTAL 1.7 mg/dL (0.2-1.0); CREATININE 2.2 mg/dL (0.5-1.3); MAGNESIUM 2.1 mg/dL (1.80-2.40); POTASSIUM 3.2 mmol/L (3.5-5.1)
[2024-07-19] MEDS: PoTASSium chloRIDE 20MEQ ER 20 MEQ ERTAB PO PRN (06:21)
--- NOTE | 2024-07-19 07:15 | NUR ---
NUCLEAR MEDICINE PATIENT WAS EXPLAINED PROCEDURE FOR V/Q SCAN PATIENT INFORMED BOTH NURSE GENESIS AND I, HE IS NOT ABLE TO LAY FLAT DUE TO SHORTNESS OF BREATH.
[2024-07-19] MEDS: AMIOdarone 200 MG TABLET PO SCH (09:16)
[2024-07-19] MEDS: PANTOPrazole 40 MG TAB DR PO SCH (09:16)
[2024-07-19] MEDS: metOPROLol sucCINATE 25 MG TAB.SR.24H PO SCH (09:16)
[2024-07-19] MEDS: atorVAStatin 10 MG TABLET PO SCH (09:16)
[2024-07-19] MEDS: Vitamin B Complex/Vit C/Folic Acid PO SCH (09:16)
--- NOTE | 2024-07-19 10:26 | PN ---
[facility] PROGRESS NOTE Date of Service: Jul 19, 2024 Time of Service: 10:26 SUBJECTIVE: [ ] The patient has been seen and examined today during my rounding, no acute events overnight, patient resting comfortably in bed, alert oriented x3, hemodynamically stable, BP 121/62, afebrile, saturating normal on room air. The patient continue diuretics, having good urine output, has urinated several times throughout this hospitalization. He admits less swollen to both lower extremities. Results of Doppler extremities negative for DVT. The patient with the elevated D-dimer. No chest pain, no shortness a breath at the time of my visit, unable to do V/Q scan or CT PE protocol as the patient elevated creatinine and unable to stay flat on his back. is at bedside during my visit. REVIEW OF SYSTEMS CONSTITUTIONAL: Denies fevers, chills, or night sweats. No unintentional weight loss reported. NEUROLOGICAL: Denies headache, amaurosis fugax, motor weakness, sensory deficit, vertigo/spinning sensation, gait abnormalities, or tremors. ENT: No hearing loss, otalgia, otorrhea, rhinitis, rhinorrhea, hoarseness, or sore throat. CARDIOVASCULAR: Denies any exertional angina, dyspnea on exertion, orthopnea, paroxysmal nocturnal dyspnea, palpitations, life-threatening arrhythmias, claudication. PULMONARY: Shortness of breath, dyspnea on exertion, PND, orthopnea SLEEP: Denies morning headaches, daytime somnolence or napping. Denies difficulty falling asleep, staying asleep, waking from sleep. Denies knowledge of snoring. GASTROINTESTINAL: Denies any type of dysphagia to either liquids or solids. Denies nausea, vomiting, pyrosis, early satiety, abdominal pain, diarrhea, constipation, or changes in stool consistency or caliber. Denies coffee-ground emesis, hematemesis, hematochezia, or melanotic stools. GENITOURINARY: Denies frequency, urgency, nocturia, hematuria or incontinence (Storage/Irritative symptoms.) Low urinary stream, straining to void, urinary intermittency or hesitancy, splitting of the voiding stream, terminal dribbling. ENDOCRINOLOGIC: Denies polyuria, polydipsia, polyphagia or heat/cold intolerances. HEMATOLOGIC: Denies thrombophilia/previous clots, or coagulopathy/bleeding disorders. ONCOLOGIC: Denies personal history of malignancy. DERMATOLOGIC: Denies rashes or pruritus. PSYCHIATRIC: Denies any suicidal or homicidal ideation. Denies hallucinations. PHYSICAL EXAM GENERAL APPEARANCE: The patient is awake, alert, and oriented, in no acute cardiopulmonary distress. NEUROLOGICAL: Cranial nerves II-XII grossly intact. Motor is 5/5 in bilateral upper and lower extremities proximal to distal. No sensory deficits. HEENT: Face is symmetric. Pupils are equal and reactive. Extraocular movements are intact. NECK: Supple. No JVD. No thyromegaly. No submental, submandibular, pre- /postauricular, occipital or supraclavicular lymphadenopathy. CHEST: Normal chest expansion. No Telemetry. LUNGS: Crackles noted at bilateral lung base CARDIOVASCULAR: Regular. S1 and S2 normal. No appreciable rubs, murmurs or gallops. ABDOMEN: Soft, nontender, and nondistended. There is no rebound, voluntary guarding, or rigidity. : Deferred. No [place]. EXTREMITIES: 3+ pitting edema noted of bilateral lower extremities SKIN: No skin breakdown. Vital Signs (last 8hr) Date Time Temp Pulse Resp B/P (MAP) Pulse Ox O2 Delivery O2 Flow Rate FiO2 07/19/24 08:00 98.2 87 17 115/44 91 Room Air 21 07/19/24 06:48 80 18 N/A Room Air 07/19/24 06:45 80 18 07/19/24 05:00 97.7 72 18 114/72 97 Room Air 21 07/19/24 04:26 97.5 76 19 98/58 96 Room Air 21 LABS: Laboratory: Test 07/19/24 05:00 07/18/24 22:00 07/18/24 16:36 07/18/24 16:00 Range/Units White Blood Count 8.3 4.8-10.8 K/uL Red Blood Count 4.58 4.50-6.20 MIL/uL Hemoglobin 13.9 L 14.0-18.0 g/dL Hematocrit 43.0 42-54 % Mean Corpuscular Volume 93.9 79-99 fL Mean Corpuscular Hemoglobin 30.3 27.0-33.0 pg Mean Corpuscular Hemoglobin Concent 32.3 32.0-36.0 g/dL Red Cell Distribution Width 16.2 H 11.0-15.5 % Platelet Count 141 130-400 K/uL Mean Platelet Volume 11.3 H 7.5-10.5 fL Immature Granulocyte % (Auto) 0.4 0-1 % Neutrophils (%) (Auto) 69.4 40.0-77.0 % Lymphocytes (%) (Auto) 17.9 L 21.0-51.0 % Monocytes (%) (Auto) 9.0 3.0-13.0 % Eosinophils (%) (Auto) 2.2 0.0-8.0 % Basophils (%) (Auto) 1.1 0.0-5.0 % Neutrophils # (Auto) 5.8 1.8-7.7 K/uL Lymphocytes # (Auto) 1.5 1.0-4.8 K/uL Monocytes # (Auto) 0.8 0.1-1.0 K/uL Eosinophils # (Auto) 0.18 0.00-0.70 K/uL Basophils # (Auto) 0.09 0.00-0.20 K/uL Absolute Immature Granulocyte (auto 0.03 0-1 K/uL Nucleated Red Blood Cells 0.2 H 0.0-0.19 % Sodium Level 142 136-145 mmol/L Potassium Level 3.2 L 3.5-5.1 mmol/L Chloride Level 102 101-111 mmol/L Carbon Dioxide Level 30 21-32 mmol/L Blood Urea Nitrogen 50 H 7-18 mg/dL Creatinine 2.2 H 0.5-1.3 mg/dL Glomerular Filtration Rate Calc 32 >90 mL/min Random Glucose 91 70-105 mg/dL Total Calcium 9.7 8.5-10.1 mg/dL Magnesium Level 2.10 1.80-2.40 mg/dL Total Bilirubin 1.7 H 0.2-1.0 mg/dL Aspartate Amino Transf (AST/SGOT) 44 H 10-37 U/L Alanine Aminotransferase (ALT/SGPT) 42 # 12-78 U/L Alkaline Phosphatase 80 # 50-136 U/L Total Protein 6.0 6.0-8.3 g/dL Albumin 3.1 L 3.5-5.0 g/dL D-Dimer Quantitative (PE/DVT) 2368 *H 0-500 ng/mL Urine Color LIGHT-YELLOW YELLOW Urine Appearance CLEAR CLEAR Urine pH 6.0 5.0-8.0 Urine Specific [place] 1.009 1.001-1.031 Urine Protein NEGATIVE NEGATIVE mg/dL Urine Glucose (UA) 30 H NEGATIVE mg/dL Urine Ketones NEGATIVE NEGATIVE mg/dL Urine Occult Blood NEGATIVE NEGATIVE Urine Nitrate NEGATIVE NEGATIVE Urine Bilirubin NEGATIVE NEGATIVE mg/dL Urine Urobilinogen 0.2 0.2-1.0 mg/dL Urine Leukocyte Esterase NEGATIVE NEGATIVE Rolanda/uL Urine RBC 0-1 0-1 /HPF Urine WBC 0-1 0-1 /HPF Urine Bacteria None None Seen /HPF Urine Random Creatinine 36.69 30-135 mg/dL Urine Random Total Protein 19.6 H 0-11.9 mg/dL Direct Bilirubin 0.6 H 0.0-0.3 mg/dL C-Reactive Protein, Quantitative 10.00 H 0.5-3.0 mg/L Procalcitonin 0.07 0.05-0.5 ng/mL Test 07/18/24 15:20 Range/Units Troponin I High Sensitivity 27 4-75 ng/L B-Type Natriuretic Peptide 1210 H 0-100 pg/mL Current Medications Medications (Trade) Dose Ordered Sig/Samantha Route PRN Reason Start Time Stop Time Status Last Admin Dose Admin Acetaminophen (TYLenol 500MG TAB) 500 mg Q6H PRN PO MILD PAIN (1-3) 07/18/24 18:00 08/17/24 17:59 Acetaminophen (TYLenol 500MG TAB) 500 mg Q6H PRN PO MILD PAIN (1-3) 07/18/24 18:00 08/17/24 17:59 Amiodarone HCl (pacERONE 200MG) 200 mg QMOWEFR PO 07/19/24 09:00 08/18/24 08:59 07/19/24 09:16 200 MG Apixaban (EliquIS) 5 mg BID PO 07/18/24 21:00 08/17/24 20:59 07/19/24 09:17 5 MG Atorvastatin Calcium (LIPItor 10MG) 10 mg DAILY PO 07/19/24 09:00 08/18/24 08:59 07/19/24 09:16 10 MG Budesonide (Pulmicort 0.5 Mg/2ml) 0.5 mg BIDRESP IH 07/18/24 18:00 08/17/24 17:59 07/19/24 06:45 0.5 MG Bumetanide (Bumex 1mg Vial) 1 mg Q8H IVP 07/18/24 21:00 08/17/24 20:59 07/19/24 05:03 1 MG Ipratropium [place] (AtrovENT UD) 1 mg Q6H PRN IH SHORTNESS OF BREATH 07/18/24 18:00 08/17/24 17:59 Levothyroxine Sodium (SYNTHroid 25MCG TAB) 25 mcg DAILY@0630 PO 07/19/24 06:30 08/18/24 06:29 07/19/24 05:06 25 MCG Magnesium Sulfate 50 ml @ 0 mls/hr PROTOCOL IV 07/18/24 18:00 08/17/24 17:59 Melatonin (Melatonin) 5 mg HS PRN PO insomnia 07/18/24 20:30 08/17/24 20:29 Metoprolol Succinate (TopROL XL) 25 mg DAILY PO 07/19/24 09:00 08/18/24 08:59 07/19/24 09:16 25 MG Ondansetron HCl (zoFRAN 4MG INJ) 4 mg Q6H PRN IVP NAUSEA/VOMITING 07/18/24 18:00 08/17/24 17:59 Pantoprazole Sodium (PROTonix 40MG TAB) 40 mg DAILY PO 07/19/24 09:00 08/18/24 08:59 07/19/24 09:16 40 MG Potassium Chloride 100 ml @ 100 mls/hr AD PRN IV POTASSIUM PROTOCOL 07/18/24 18:00 08/17/24 17:59 Potassium Chloride (K-Dur/Klor-Con 20meq) 10 meq AD PRN PO POTASSIUM PROTOCOL 07/18/24 18:00 08/17/24 17:59 07/19/24 09:17 10 MEQ Potassium Chloride (KCl 10% Elixir 20meq/15ml) 10 meq AD PRN PO POTASSIUM PROTOCOL 07/18/24 18:00 08/17/24 17:59 Vitamin B Complex/ Vit C/Folic Acid (Nephrovite Tablet) 1 cap DAILY PO 07/19/24 09:00 08/18/24 08:59 07/19/24 09:16 1 CAP DIAGNOSTICS / RADIOLOGY: [ ] ASSESSMENT: 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, POA, (LV EF 45-50%) Acute hypoxemic respiratory failure, POA History of severe pulmonary hypertension with RVSP of 54, attributed secondary to underlying cardiac comorbidities, group 2, POA Rule out pulmonary arterial hypertension, POA History of moderate aortic regurgitation, POA History of moderate tricuspid regurgitation, POA Severe volume overload, POA Congestive hepatopathy, POA CKD stage 3, likely chronic cardiorenal syndrome, POA Underlying history of atrial fibrillation, POA History of chronic anticoagulation with Eliquis as outpatient, POA Obesity, POA History of severe aortic stenosis status post bioprosthetic aortic wall replacement in 2018, POA PLAN: Patient remains admitted to PCCU under telemetry monitoring Patient is significantly volume overloaded, patient received 80 mg of IV Lasix in the ER, continue with Bumex 1 mg q.8 hour Monitor urine output closely, obtain daily weight Monitor renal function closely Maintain K greater than four and magnesium greater than two, electrolytes will be repleted per protocol We will obtain 2D echocardiogram to assess LVF as well as right-sided pressures We will request consultation with Cardiology, pulmonology and Nephrology, we will follow input and recommendation. Patient to continue home dose of amiodarone, Eliquis, metoprolol succinate and home medications were reconciled and updated once available We will monitor BMP closely tonight and All labs will be repeated in the morning We will see if patient has undergone prior sleep study to rule out obstructive sleep apnea GI and DVT prophylaxis Plan of action discussed with both the patient and the at bedside, all questions answered, agreed and understood the information provided. Date of service: 07/18/2024, Plan of care was discussed with patient at bedside, Diony Adame MD Advanced Care Planning: Which of the following were discussed: Hospice care: Yes __ No _X_ Therapeutic options: Yes _X_ No __ Advance directives: Yes _X_ No __ Other discussions: Discussed with who?: Patient Voluntary nature of this service was explained to the patient? Yes _x_ No __ Amount of time spent: 20 minutes JEAN EFRNANDEZ MD Jul 19, 2024 10:26
--- NOTE | 2024-07-19 10:28 | HMCIMG ---
US ABDOMINAL COMPLETE HISTORY: Abdominal distention, ascites COMPARISON: None TECHNIQUE: Multiple transverse and longitudinal ultrasound images of the abdomen were obtained. FINDINGS: Abdominal aorta and inferior vena cava are unremarkable. There are bilateral pleural effusions. Pancreas is not well seen. Liver measures 16 cm. Liver is echogenic consistent with liver parenchymal disease. No gallstone is seen. Common duct measures 4 mm. No evidence of gallbladder wall thickening is seen. Both kidneys are seen. Right kidney measures 10 x 6 x 7 cm. Left kidney measures 11 x 7 x 6 cm. No hydronephrosis is seen of the both kidneys. The spleen is grossly unremarkable. IMPRESSION: 1. No gallstone or ductal dilatation is seen. Bilateral pleural effusions. 2. No hydronephrosis is seen.
[2024-07-19 11:43] LABS: ABG HCO3 27.8 mmol/L (21.0-28.0); ABG OXYGEN SATURATION 92.3 % (94.0-98.0); ABG PCO2 39 mmHg (35-48); DEVICE COMMENT RR CATHY; PO2, ARTERIAL BG 59.4 mmHg (83.0-108.0); VENT MODE, BG RA (ROOM AIR)
--- NOTE | 2024-07-19 12:15 | NUR ---
Nutritional Note: Chart, meds, and labs Reviewed. Patient states that over the past two weeks, he has noticed significant lower extremity edema with weight gain of 30 lb. Recommend: -fluid restriction 1500ml -add Heart healthy modifier to diet order targe <2000mg/day -Check HA1C to obtain the three-month average of blood sugar. -Check folate, iron, vit b12, and Vit D levels to rule out deficiencies. Per research low vitamin D may contribute to insulin resistance + vit. D deficiency may impair wound healing. -Check Lipid Panel -Pending labs to provide nutrition education, educate prior to d/c. educate on low na diet guidelines. -Monitor PO intake%, wt, and labs -If No BM >3days consider bowel stimulant. - Please notify RD if additional nutrition concerns arise. SEE RD Nutritional Assessment for additional assessment information. Addendum: 07/19/24 at [address] Amended: Links added.
--- NOTE | 2024-07-19 15:37 | NUR ---
DCP: HOME met with pt and his Pam Vences [phone]. Pt reports he is very active, independent of "everything". Unhappy that he is missing another weekend of deer hunting due to hospitalization. Pt uses no DME or in home care services. PCP is Kat Coley and uses [facility] for rx. DCP is home Addendum: 07/19/24 at 1543 by CHINA ANTONIO Amended: Links added.
[2024-07-19] MEDS ORDERED: PHARMACY COMMUNICATION 1 EACH EACH MISC SCH (17:30)
--- NOTE | 2024-07-19 18:45 | CONS ---
[facility] CONSULTATION NOTE Date Patient Seen: Jul 19, 2024 Time of Visit: 1234 Supervising Physician: Dr. Cook Reason for Consultation: Respiratory failure pulmonary hypertension volume overload Inpatient Consults: ERIC PROBLEM LIST: Acute on chronic HEART FAILURE REDUCED EJECTION FRACTION EXACERBATION EF 45-50% PER ECHOCARDIOGRAM 06/01/2024 WITH STAGE II DIASTOLIC DYSFUNCTION POA, Acute hypoxemic respiratory failure, POA Severe pulmonary hypertension with RVSP of 54mmHg, attributed secondary to underlying cardiac comorbidities, group 2, POA Rule out pulmonary arterial hypertension, POA History of moderate aortic regurgitation, POA History of moderate tricuspid regurgitation, POA Congestive hepatopathy, POA CKD stage 3, likely chronic cardiorenal syndrome, POA Underlying history of atrial fibrillation, POA History of chronic anticoagulation with Eliquis as outpatient, POA Obesity, POA History of severe aortic stenosis status post bioprosthetic aortic wall replacement in 2018, POA HPI: 69-year-old male with underlying history of hypertension, hyperlipidemia, CKD stage 3, underlying history of atrial fibrillation, heart failure with mildly reduced ejection fraction of 45-50% (RVSP of 54 concerning for severe pulmonary hypertension), history of chronic anticoagulation with Eliquis, history of severe aortic stenosis secondary to bicuspid aortic valve status post bioprost hetic aortic valve replacement in 2018 who presented to the ER for further evaluation of progressive lower extremity edema and weight gain. Patient was hospitalized in [facility] on 05/31/2024 and discharged from the hospital on 06/12/2024 for heart failure exacerbation, respiratory failure, MYA on CKD and received IV diuretics, IV antibiotics and steroids during hospitalization. Patient states that over the past two weeks, he has noticed significant lower extremity edema with weight gain of 30 lb. He had seen his primary care provider recently who stopped his outpatient Lasix and was recommended to continue with metolazone. Since stopping Lasix, patient has continued to develop significant lower extremity edema, shortness of breath, dyspnea on exertion as well. Denies any active chest pain, nausea, vomiting or abdominal pain. He reports having significant abdominal distention as well. Patient states that prior to February,, he was very active and could walk about 3-4 miles daily. After February, he has had progressive loss of functional status with significant dyspnea on exertion. Currently shortness of breath is worse with minimal activity. Patient is followed by Dr. oBcanegra with Cardiology as outpatient. Patient is followed by Dr. Deras with pulmonology as outpatient. Patient will be admitted for further management of decompensated heart failure and will receive IV diuresis with Bumex. Anticipate hospitalization for 72 hours at least. Renal function will be monitored closely. We will request consultation with Cardiology, pulmonology, Nephrology this admission. Patient may need further workup for pulmonary hypertension this admission and may need to consider workup to rule out pulmonary arterial/pre capillary pulmonary hypertension significantly elevated RVSP on previous 2D echocardiogram 05/2024. Patient was seen and examined by bedside with present. Patient is awake alert able to answer simple questions appropriately. Patient denies any chest pain denies any shortness of breath at this time, however does report shortness of breath upon minimal to moderate exertion. Patient is currently on room air appears to be tolerating well. Patient denies nausea vomiting or abdominal pain. Patient noted to have some bilateral plus two lower extremity edema. Patient's [id number] upon admission, with an elevated D-dimer of 2368, is currently pending V/Q scan. However patient states can not tolerate lying flat. Pulmonology were consulted for respiratory failure pulmonary hypertension volume overload. Thank you for allowing us to participate in the care of this patient we will continue to monitor while patient is in the hospital. Recommendations listed below. Plan summary Patient has pulmonary hypertension from most recent echocardiogram done on 06/01/2024 shows RVSP of 54 mmHg which which is classified as WHO group two classification Recommend treatment is to continue with current cardiac medications, at this time no indication for right heart catheterization Patient has respiratory issues appears to be more cardiac related in pulmonary, patient to continue with Bumex1 mg every 8 hours Patient is bilateral effusion not enough fluid to safely remove, so no indication for thoracentesis at this time Follow up patient's V/Q scan Continue to monitor respiratory status and maintain adequate oxygenation Keep O2 sats greater or equal to 90% Patient require 6 minute walk prior to discharge Patient will need to follow [facility] with sports medicine masseur Dr. Deras within 3-5 days upon discharge We will continue to monitor closely PAST MEDICAL HX: see above PAST SURGICAL HX: noncontributory SOCIAL HISTORY: No tobacco, ETOH, or illicit drug use Coded Allergies: No Known Allergies (Verified Allergy, Unknown, 10/31/23) REVIEW OF SYSTEMS: 12 point ROS reviewed with patient. Pertinent positives mentioned above. Otherwise negative. PHYSICAL EXAM: GENERAL: alert, weak, awake oriented x 3 HEENT: EOMI, Sclera non icteric, moist mucosa NECK: Supple, no JVD, trachea midline LUNGS: Clear breath sounds bilaterally. No wheezes HEART: Regular rate and rhythm. Normal S1 and S2, without murmurs ABD: Abdomen soft, nontender. Bowel sounds present EXT: No clubbing cyanosis or edema NEURO: Alert and oriented to person, follows commands Vital Signs (last 8hr) Date Time Temp Pulse Resp B/P (MAP) Pulse Ox O2 Delivery O2 Flow Rate FiO2 07/19/24 18:14 82 18 07/19/24 18:14 79 18 N/A Room Air 21 07/19/24 17:04 98.1 72 17 106/54 95 Room Air 21 07/19/24 11:27 98.1 77 18 121/62 96 Room Air 21 LABS: Hematology Labs: Test 07/19/24 05:00 Range/Units White Blood Count 8.3 4.8-10.8 K/uL Red Blood Count 4.58 4.50-6.20 MIL/uL Hemoglobin 13.9 L 14.0-18.0 g/dL Hematocrit 43.0 42-54 % Mean Corpuscular Volume 93.9 79-99 fL Mean Corpuscular Hemoglobin 30.3 27.0-33.0 pg Mean Corpuscular Hemoglobin Concent 32.3 32.0-36.0 g/dL Red Cell Distribution Width 16.2 H 11.0-15.5 % Platelet Count 141 130-400 K/uL Mean Platelet Volume 11.3 H 7.5-10.5 fL Immature Granulocyte % (Auto) 0.4 0-1 % Neutrophils (%) (Auto) 69.4 40.0-77.0 % Lymphocytes (%) (Auto) 17.9 L 21.0-51.0 % Monocytes (%) (Auto) 9.0 3.0-13.0 % Eosinophils (%) (Auto) 2.2 0.0-8.0 % Basophils (%) (Auto) 1.1 0.0-5.0 % Neutrophils # (Auto) 5.8 1.8-7.7 K/uL Lymphocytes # (Auto) 1.5 1.0-4.8 K/uL Monocytes # (Auto) 0.8 0.1-1.0 K/uL Eosinophils # (Auto) 0.18 0.00-0.70 K/uL Basophils # (Auto) 0.09 0.00-0.20 K/uL Absolute Immature Granulocyte (auto 0.03 0-1 K/uL Nucleated Red Blood Cells 0.2 H 0.0-0.19 % Chemistry Labs: Test 07/19/24 05:00 07/18/24 16:00 07/18/24 15:20 Range/Units Sodium Level 142 136-145 mmol/L Potassium Level 3.2 L 3.5-5.1 mmol/L Chloride Level 102 101-111 mmol/L Carbon Dioxide Level 30 21-32 mmol/L Blood Urea Nitrogen 50 H 7-18 mg/dL Creatinine 2.2 H 0.5-1.3 mg/dL Glomerular Filtration Rate Calc 32 >90 mL/min Random Glucose 91 70-105 mg/dL Total Calcium 9.7 8.5-10.1 mg/dL Magnesium Level 2.10 1.80-2.40 mg/dL Total Bilirubin 1.7 H 0.2-1.0 mg/dL Aspartate Amino Transf (AST/SGOT) 44 H 10-37 U/L Alanine Aminotransferase (ALT/SGPT) 42 # 12-78 U/L Alkaline Phosphatase 80 # 50-136 U/L Total Protein 6.0 6.0-8.3 g/dL Albumin 3.1 L 3.5-5.0 g/dL Direct Bilirubin 0.6 H 0.0-0.3 mg/dL C-Reactive Protein, Quantitative 10.00 H 0.5-3.0 mg/L Procalcitonin 0.07 0.05-0.5 ng/mL Troponin I High Sensitivity 27 4-75 ng/L B-Type Natriuretic Peptide 1210 H 0-100 pg/mL Coagulation Labs: Test 07/18/24 22:00 Range/Units D-Dimer Quantitative (PE/DVT) 2368 *H 0-500 ng/mL DIAGNOSTICS / RADIOLOGY RESULTS: na PLAN NEURO: Minimize central acting medications as possible. Maintain fall precautions, adequate lighting during the day PULMONARY: Supplemental 02 as needed. Maintain aspiration precautions at all times CARDIOVASCULAR: Follow hemodynamics. Vital signs per facility protocol GI & NUTRITION: Continue with nutritional support. Continue stool softeners and laxatives as needed. KIDNEYS & ELECTROLYTES: Strict monitoring of intake, output and overall fluid balance. Avoid nephrotoxic medications to the extent possible. Medications to be dosed according to renal function. Monitor electrolytes and replace as needed ENDOCRINE: Maintain blood glucose between 100-180 at all times. Hypoglycemia protocol in place INFECTIOUS DISEASE: Trend temperature, WBC and procalcitonin level Follow cultures, deescalate antibiotics as soon as possible. Panculture if new onset fever ONCOLOGY/HEMATOLOGY/COAGULATION: Monitor for s/s of bleeding Monitor hemoglobin, coagulation studies as needed SKIN: Pressure ulcer prevention per facility protocol Specialty mattress ORTHO/REHAB: Continue PT/OT Prophylaxis: Continue GI and DVT prophylaxis Code Status: Full Resuscitation Disposition: Per primary team Other: Case discussed with supervising physician plan of care agreed upon Total critical care: 35 minutes ROSA LONGO Jul 19, 2024 18:[address] MD Jul 20, 2024 07:21
--- NOTE | 2024-07-19 19:06 | CONS ---
NEPHROLOGY CONSULTATION NOTE Date/Time Patient Seen: Jul 19, 2024 Reason for Consultation: 18:53 HISTORY OF PRESENT ILLNESS: This is a 69-year-old male with underlying history of hypertension, hyperlipidemia, CKD stage 3, underlying history of atrial fibrillation, heart failure with mildly reduced ejection fraction of 45-50% (RVSP of 54 concerning for severe pulmonary hypertension), history of chronic anticoagulation with Eliquis, history of severe aortic stenosis secondary to bicuspid aortic valve status post bioprosthetic aortic valve replacement in 2018 who presented to the ER for further evaluation of progressive lower extremity edema and weight gain. He has been started on Diuretics He was noted to have elevated BUN/creatinine We are consulted for renal failure Renal function remains [id number] Electrolytes are stable REVIEW OF SYSTEMS: GENERAL: Negative for any nausea, vomiting, fevers, chills, or weight loss. NEUROLOGIC: Negative for any blurry vision, blind spots, double vision, facial asymmetry, dysphagia, dysarthria, hemiparesis, hemisensory deficits, vertigo, ataxia. HEENT: Negative for any head trauma, neck trauma, neck stiffness, photophobia, phonophobia, sinusitis, rhinitis. CARDIAC: Negative for any chest pain, dyspnea on exertion, paroxysmal nocturnal dyspnea, peripheral edema. PULMONARY: Negative for any shortness of breath, wheezing, COPD, or TB exposure. GASTROINTESTINAL: Negative for any abdominal pain, nausea, vomiting, bright red blood per rectum, melena. GENITOURINARY: Negative for any dysuria, hematuria, incontinence. INTEGUMENTARY: Negative for any rashes, cuts, insect bites. RHEUMATOLOGIC: Negative for any joint pains, photosensitive rashes, history of vasculitis or kidney problems. HEMATOLOGIC: Negative for any abnormal bruising, frequent infections or bleeding. PAST MEDICAL HISTORY: Underlying history of hypertension, hyperlipidemia, atrial fibrillation maintained on chronic anticoagulation with Eliquis, history of pulmonary hypertension attributed to underlying heart disease, history of cardiomyopathy with LVEF of 45-50% with diastolic dysfunction, history of moderate aortic regurgitation, history of moderate tricuspid regurgitation, history of severe a ortic stenosis secondary to bicuspid aortic valve status post surgical aortic valve replacement in 2018, CKD stage 3 PAST SURGICAL HISTORY: Surgical aortic wall replacement in 2018, left knee ACL surgery, history of left shoulder surgery PAST SOCIAL HISTORY: Denies FAMILY HISTORY: Noncontributory PHYSICAL EXAM: GENERAL: Alert and oriented x 3. No acute distress. Well-nourished. EYES: EOMI. Anicteric. HENT: Moist mucous membranes. No scleral icterus. No cervical lymphadenopathy. LUNGS: Clear to auscultation bilaterally. No accessory muscle use. CARDIOVASCULAR: Regular rate and rhythm. No murmur. No JVD. ABDOMEN: Soft, non-tender and non-distended. No palpable masses. EXTREMITIES: No edema. Non-tender.?SKIN: No rashes or lesions. Warm. NEUROLOGIC: No focal neurological deficits. CN II-XII grossly intact, but not individually tested. PSYCHIATRIC: Cooperative. Appropriate mood and affect. MEDICATIONS: [ ] Current Medications Medications (Trade) Dose Ordered Sig/Samantha Route PRN Reason Start Time Stop Time Status Last Admin Dose Admin Acetaminophen (TYLenol 500MG TAB) 500 mg Q6H PRN PO MILD PAIN (1-3) 07/18/24 18:00 08/17/24 17:59 Acetaminophen (TYLenol 500MG TAB) 500 mg Q6H PRN PO MILD PAIN (1-3) 07/18/24 18:00 08/17/24 17:59 Amiodarone HCl (pacERONE 200MG) 200 mg QMOWEFR PO 07/19/24 09:00 08/18/24 08:59 07/19/24 09:16 200 MG Apixaban (EliquIS) 5 mg BID PO 07/18/24 21:00 08/17/24 20:59 07/19/24 09:17 5 MG Atorvastatin Calcium (LIPItor 10MG) 10 mg DAILY PO 07/19/24 09:00 08/18/24 08:59 07/19/24 09:16 10 MG Budesonide (Pulmicort 0.5 Mg/2ml) 0.5 mg BIDRESP IH 07/18/24 18:00 08/17/24 17:59 07/19/24 18:12 0.5 MG Bumetanide (Bumex 1mg Vial) 1 mg Q8H IVP 07/18/24 21:00 08/17/24 20:59 07/19/24 13:40 1 MG Bupropion HCl (WellBUTrin SR 150MG) 150 mg BID PO 07/19/24 21:00 08/18/24 20:59 Fish Oil (Fish Oil 1000 Mg/Cap) 1,000 mg BID PO 07/19/24 21:00 08/18/24 20:59 Gabapentin (NEURontin 100 mg CAP) 100 mg HS PO 07/19/24 21:00 08/18/24 20:59 Home Med (Home Medication) (Dapagliflozin Propanediol (Farxiga... DAILY PO 07/20/24 09:00 08/19/24 08:59 Ipratropium [place] (AtrovENT UD) 1 mg Q6H PRN IH SHORTNESS OF BREATH 07/18/24 18:00 08/17/24 17:59 Levothyroxine Sodium (SYNTHroid 25MCG TAB) 25 mcg DAILY@0630 PO 07/19/24 06:30 08/18/24 06:29 07/19/24 05:06 25 MCG Magnesium Sulfate 50 ml @ 0 mls/hr PROTOCOL IV 07/18/24 18:00 08/17/24 17:59 Melatonin (Melatonin) 5 mg HS PRN PO insomnia 07/18/24 20:30 08/17/24 20:29 Melatonin (Melatonin) 10 mg HS PO 07/19/24 21:00 08/18/24 20:59 Metoprolol Succinate (TopROL XL) 25 mg DAILY PO 07/19/24 09:00 08/18/24 08:59 07/19/24 09:16 25 MG Ondansetron HCl (zoFRAN 4MG INJ) 4 mg Q6H PRN IVP NAUSEA/VOMITING 07/18/24 18:00 08/17/24 17:59 Pantoprazole Sodium (PROTonix 40MG TAB) 40 mg DAILY PO 07/19/24 09:00 08/18/24 08:59 07/19/24 09:16 40 MG Pharmacy Profile Note (Lace Assessment) 1 each AD MISC 07/19/24 17:30 07/26/24 17:29 UNV Potassium Chloride 100 ml @ 100 mls/hr AD PRN IV POTASSIUM PROTOCOL 07/18/24 18:00 08/17/24 17:59 Potassium Chloride (K-Dur/Klor-Con 20meq) 10 meq AD PRN PO POTASSIUM PROTOCOL 07/18/24 18:00 08/17/24 17:59 07/19/24 09:17 10 MEQ Potassium Chloride (KCl 10% Elixir 20meq/15ml) 10 meq AD PRN PO POTASSIUM PROTOCOL 07/18/24 18:00 08/17/24 17:59 Vitamin B Complex/ Vit C/Folic Acid (Nephrovite Tablet) 1 cap DAILY PO 07/19/24 09:00 08/18/24 08:59 07/19/24 09:16 1 CAP Vital Signs (last 8hr) Date Time Temp Pulse Resp B/P (MAP) Pulse Ox O2 Delivery O2 Flow Rate FiO2 07/19/24 18:14 82 18 07/19/24 18:14 79 18 N/A Room Air 21 07/19/24 17:04 98.1 72 17 106/54 95 Room Air 21 07/19/24 11:27 98.1 77 18 121/62 96 Room Air 21 DIAGNOSTICS / RADIOLOGY: LABORATORY: [ ] Hematology Labs: Test 07/19/24 05:00 Range/Units White Blood Count 8.3 4.8-10.8 K/uL Red Blood Count 4.58 4.50-6.20 MIL/uL Hemoglobin 13.9 L 14.0-18.0 g/dL Hematocrit 43.0 42-54 % Mean Corpuscular Volume 93.9 79-99 fL Mean Corpuscular Hemoglobin 30.3 27.0-33.0 pg Mean Corpuscular Hemoglobin Concent 32.3 32.0-36.0 g/dL Red Cell Distribution Width 16.2 H 11.0-15.5 % Platelet Count 141 130-400 K/uL Mean Platelet Volume 11.3 H 7.5-10.5 fL Immature Granulocyte % (Auto) 0.4 0-1 % Neutrophils (%) (Auto) 69.4 40.0-77.0 % Lymphocytes (%) (Auto) 17.9 L 21.0-51.0 % Monocytes (%) (Auto) 9.0 3.0-13.0 % Eosinophils (%) (Auto) 2.2 0.0-8.0 % Basophils (%) (Auto) 1.1 0.0-5.0 % Neutrophils # (Auto) 5.8 1.8-7.7 K/uL Lymphocytes # (Auto) 1.5 1.0-4.8 K/uL Monocytes # (Auto) 0.8 0.1-1.0 K/uL Eosinophils # (Auto) 0.18 0.00-0.70 K/uL Basophils # (Auto) 0.09 0.00-0.20 K/uL Absolute Immature Granulocyte (auto 0.03 0-1 K/uL Nucleated Red Blood Cells 0.2 H 0.0-0.19 % Chemistry Labs: Test 07/19/24 05:00 07/18/24 16:00 07/18/24 15:20 Range/Units Sodium Level 142 136-145 mmol/L Potassium Level 3.2 L 3.5-5.1 mmol/L Chloride Level 102 101-111 mmol/L Carbon Dioxide Level 30 21-32 mmol/L Blood Urea Nitrogen 50 H 7-18 mg/dL Creatinine 2.2 H 0.5-1.3 mg/dL Glomerular Filtration Rate Calc 32 >90 mL/min Random Glucose 91 70-105 mg/dL Total Calcium 9.7 8.5-10.1 mg/dL Magnesium Level 2.10 1.80-2.40 mg/dL Total Bilirubin 1.7 H 0.2-1.0 mg/dL Aspartate Amino Transf (AST/SGOT) 44 H 10-37 U/L Alanine Aminotransferase (ALT/SGPT) 42 # 12-78 U/L Alkaline Phosphatase 80 # 50-136 U/L Total Protein 6.0 6.0-8.3 g/dL Albumin 3.1 L 3.5-5.0 g/dL Direct Bilirubin 0.6 H 0.0-0.3 mg/dL C-Reactive Protein, Quantitative 10.00 H 0.5-3.0 mg/L Procalcitonin 0.07 0.05-0.5 ng/mL Troponin I High Sensitivity 27 4-75 ng/L B-Type Natriuretic Peptide 1210 H 0-100 pg/mL Coagulation Labs: Test 07/18/24 22:00 Range/Units D-Dimer Quantitative (PE/DVT) 2368 *H 0-500 ng/mL ASSESSMENT: Acute on chronic renal failure 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, POA, (LV EF 45-50%) Acute hypoxemic respiratory failure, POA History of severe pulmonary hypertension with RVSP of 54, attributed secondary to underlying cardiac comorbidities, group 2, POA Rule out pulmonary arterial hypertension, POA History of moderate aortic regurgitation, POA History of moderate tricuspid regurgitation, POA Severe volume overload, POA Congestive hepatopathy, POA CKD stage 3, likely chronic cardiorenal syndrome, POA Underlying history of atrial fibrillation, POA History of chronic anticoagulation with Eliquis as outpatient, POA Obesity, POA History of severe aortic stenosis status post bioprosthetic aortic wall replacement in 2018, POA PLAN: Labs, diagnostic, radiologic exams reviewed and interpreted by myself and supervising physician. We have reviewed external records in detail Continue with diuretic Continue with Farxiga Require close monitoring of renal function and electrolytes Order CBC, CMP, uric acid, TSH and electrolytes in am Continue with antibiotics Renal diabetic diet BiPAP as necessary, for respiratory distress Monitor blood pressure adjust medication doses as needed Avoid hypotensive episodes May use Dilaudid 0.5 mg IV every 6 hours as needed for severe pain Monitor blood sugars Strict intake, output, and daily weight should be monitored Please renally adjust medications Avoid nephrotoxic and nonsteroidal drugs Avoid contrast if possible Will continue to monitor renal function, anemia, electrolytes Treatment plan discussed with patient Questions were answered We have discussed with the other team physicians in detail about the care plan We will continue to monitor the patient closely ATTESTATION BY PHYSICIAN I have seen and examined the patient. I reviewed the documentation, medical decision making, and treatment plan as noted by the mid-level provider above. I agree with the findings and plan of care. JOSS AYALA MD, [facility] Jul 19, 2024 19:06 JOSS AYALA MD Jul 19, 2024 22:30
[2024-07-19] MEDS: MELATONIN 5 MG TABLET PO SCH (19:50)
[2024-07-19] MEDS: buPROPion HCL 150 MG TABLET.SA PO SCH (19:50)
[2024-07-19] MEDS: FISH OIL 1000 MG/CAP PO SCH (19:50)
[2024-07-19] MEDS: GABApentin 100 MG CAPSULE PO SCH (19:50)
[2024-07-20] VITALS (10 sets, daily range): BP systolic 99–115; BP diastolic 45–56; PULSE 72–84; RESP 17–19; TEMP 97.5–98.2; O2SAT 93–96
[2024-07-20 04:15] LABS: HEMATOCRIT 40.6 % (42-54); MEAN CORPUSCULAR HEMOGLOBIN 30.8 pg (27.0-33.0); MEAN CORPUSCULAR HGB CONC 33.3 g/dL (32.0-36.0); MEAN CORPUSCULAR VOLUME 92.5 fL (79-99); RED BLOOD CELL COUNT(AUTO) 4.39 MIL/uL (4.50-6.20); RED CELL DISTRIBUTION WIDTH 16.1 % (11.0-15.5); WHITE BLOOD COUNT (AUTO) 8.5 K/uL (4.8-10.8)
[2024-07-20 05:02] LABS: BILIRUBIN,TOTAL 1.6 mg/dL (0.2-1.0); CREATININE 2.3 mg/dL (0.5-1.3); MAGNESIUM 1.9 mg/dL (1.80-2.40); POTASSIUM 3.1 mmol/L (3.5-5.1)
--- NOTE | 2024-07-20 07:00 | PN ---
[facility] PROGRESS NOTE Date of Service: Jul 20, 2024 Time of Service: 07:00 SUBJECTIVE: [ ] The patient has been seen and examined today during my rounding, no acute events overnight, patient resting comfortably in bed, alert oriented x3, hemodynamically stable, BP 121/62, afebrile, saturating normal on room air. The patient continue diuretics, having good urine output, has urinated several times throughout this hospitalization. He admits less swollen to both lower extremities. Results of Doppler extremities negative for DVT. The patient with the elevated D-dimer. No chest pain, no shortness a breath at the time of my visit, unable to do V/Q scan or CT PE protocol as the patient elevated creatinine and unable to stay flat on his back. is at bedside during my visit. 07/20 the patient has been seen and examined earlier this morning during my rounding, no acute events overnight, he remains hemodynamically stable, afebrile, saturating normal on room air. The patient has been very good urine output. Per my discussion with the nurse that is taking care of the patient, the patient's weight has improved from 291.8 lb to 283.4 today. He denies chest pain, no shortness a breath, he admits less swollen to both lower extremities compared to time of admission. is not present at the bedside during my visit. REVIEW OF SYSTEMS CONSTITUTIONAL: Denies fevers, chills, or night sweats. No unintentional weight loss reported. NEUROLOGICAL: Denies headache, amaurosis fugax, motor weakness, sensory deficit, vertigo/spinning sensation, gait abnormalities, or tremors. ENT: No hearing loss, otalgia, otorrhea, rhinitis, rhinorrhea, hoarseness, or sore throat. CARDIOVASCULAR: Denies any exertional angina, dyspnea on exertion, orthopnea, paroxysmal nocturnal dyspnea, palpitations, life-threatening arrhythmias, claudication. PULMONARY: Shortness of breath, dyspnea on exertion, PND, orthopnea SLEEP: Denies morning headaches, daytime somnolence or napping. Denies difficulty falling asleep, staying asleep, waking from sleep. Denies knowledge of snoring. GASTROINTESTINAL: Denies any type of dysphagia to either liquids or solids. Denies nausea, vomiting, pyrosis, early satiety, abdominal pain, diarrhea, constipation, or changes in stool consistency or caliber. Denies coffee-ground emesis, hematemesis, hematochezia, or melanotic stools. GENITOURINARY: Denies frequency, urgency, nocturia, hematuria or incontinence (Storage/Irritative symptoms.) Low urinary stream, straining to void, urinary intermittency or hesitancy, splitting of the voiding stream, terminal dribbling. ENDOCRINOLOGIC: Denies polyuria, polydipsia, polyphagia or heat/cold intolerances. HEMATOLOGIC: Denies thrombophilia/previous clots, or coagulopathy/bleeding disorders. ONCOLOGIC: Denies personal history of malignancy. DERMATOLOGIC: Denies rashes or pruritus. PSYCHIATRIC: Denies any suicidal or homicidal ideation. Denies hallucinations. PHYSICAL EXAM GENERAL APPEARANCE: The patient is awake, alert, and oriented, in no acute cardiopulmonary distress. NEUROLOGICAL: Cranial nerves II-XII grossly intact. Motor is 5/5 in bilateral upper and lower extremities proximal to distal. No sensory deficits. HEENT: Face is symmetric. Pupils are equal and reactive. Extraocular movements are intact. NECK: Supple. No JVD. No thyromegaly. No submental, submandibular, pre- /postauricular, occipital or supraclavicular lymphadenopathy. CHEST: Normal chest expansion. No Telemetry. LUNGS: Crackles noted at bilateral lung base CARDIOVASCULAR: Regular. S1 and S2 normal. No appreciable rubs, murmurs or gallops. ABDOMEN: Soft, nontender, and nondistended. There is no rebound, voluntary guarding, or rigidity. : Deferred. No [place]. EXTREMITIES: 3+ pitting edema noted of bilateral lower extremities SKIN: No skin breakdown. Vital Signs (last 8hr) Date Time Temp Pulse Resp B/P (MAP) Pulse Ox O2 Delivery O2 Flow Rate FiO2 07/20/24 06:58 79 18 N/A Room Air 21 07/20/24 04:00 98.1 72 18 99/45 96 Room Air 07/19/24 23:56 98.6 75 18 101/52 97 Room Air LABS: Laboratory: Test 07/20/24 04:02 07/19/24 11:41 07/19/24 05:00 07/18/24 22:00 Range/Units White Blood Count 8.5 4.8-10.8 K/uL Red Blood Count 4.39 L 4.50-6.20 MIL/uL Hemoglobin 13.5 L 14.0-18.0 g/dL Hematocrit 40.6 L 42-54 % Mean Corpuscular Volume 92.5 79-99 fL Mean Corpuscular Hemoglobin 30.8 27.0-33.0 pg Mean Corpuscular Hemoglobin Concent 33.3 32.0-36.0 g/dL Red Cell Distribution Width 16.1 H 11.0-15.5 % Platelet Count 143 130-400 K/uL Mean Platelet Volume 11.0 H 7.5-10.5 fL Nucleated Red Blood Cells 0.0 0.0-0.19 % Sodium Level 145 136-145 mmol/L Potassium Level 3.1 L 3.5-5.1 mmol/L Chloride Level 104 101-111 mmol/L Carbon Dioxide Level 33 H 21-32 mmol/L Blood Urea Nitrogen 48 H 7-18 mg/dL Creatinine 2.3 H 0.5-1.3 mg/dL Glomerular Filtration Rate Calc 30 >90 mL/min Random Glucose 107 H 70-105 mg/dL Total Calcium 9.2 8.5-10.1 mg/dL Magnesium Level 1.90 1.80-2.40 mg/dL Total Bilirubin 1.6 H 0.2-1.0 mg/dL Aspartate Amino Transf (AST/SGOT) 38 H 10-37 U/L Alanine Aminotransferase (ALT/SGPT) 51 # 12-78 U/L Alkaline Phosphatase 79 50-136 U/L Total Protein 6.0 6.0-8.3 g/dL Albumin 3.0 L 3.5-5.0 g/dL Blood Gas Specimen Type Arterial Arterial Blood pH 7.470 H 7.350-7.450 Arterial Blood Partial Pressure CO2 39 35-48 mmHg Arterial Blood Partial Pressure O2 59.4 L 83.0-108.0 mmHg Arterial Blood HCO3 27.8 21.0-28.0 mmol/L Arterial Blood Oxygen Saturation 92.3 L 94.0-98.0 % Arterial Blood Base Excess 4.0 H -2.0-3.0 mmol/L Blood Gas Temperature 37.0 35.5-37.0 CELSIUS Blood Gas Vent Mode RA ROOM AIR FiO2 21.0 % Blood Gas Specimen Comment RR GENESIS Immature Granulocyte % (Auto) 0.4 0-1 % Neutrophils (%) (Auto) 69.4 40.0-77.0 % Lymphocytes (%) (Auto) 17.9 L 21.0-51.0 % Monocytes (%) (Auto) 9.0 3.0-13.0 % Eosinophils (%) (Auto) 2.2 0.0-8.0 % Basophils (%) (Auto) 1.1 0.0-5.0 % Neutrophils # (Auto) 5.8 1.8-7.7 K/uL Lymphocytes # (Auto) 1.5 1.0-4.8 K/uL Monocytes # (Auto) 0.8 0.1-1.0 K/uL Eosinophils # (Auto) 0.18 0.00-0.70 K/uL Basophils # (Auto) 0.09 0.00-0.20 K/uL Absolute Immature Granulocyte (auto 0.03 0-1 K/uL D-Dimer Quantitative (PE/DVT) 2368 *H 0-500 ng/mL Test 07/18/24 16:36 07/18/24 16:00 07/18/24 15:20 Range/Units Urine Color LIGHT-YELLOW YELLOW Urine Appearance CLEAR CLEAR Urine pH 6.0 5.0-8.0 Urine Specific [place] 1.009 1.001-1.031 Urine Protein NEGATIVE NEGATIVE mg/dL Urine Glucose (UA) 30 H NEGATIVE mg/dL Urine Ketones NEGATIVE NEGATIVE mg/dL Urine Occult Blood NEGATIVE NEGATIVE Urine Nitrate NEGATIVE NEGATIVE Urine Bilirubin NEGATIVE NEGATIVE mg/dL Urine Urobilinogen 0.2 0.2-1.0 mg/dL Urine Leukocyte Esterase NEGATIVE NEGATIVE Rolanda/uL Urine RBC 0-1 0-1 /HPF Urine WBC 0-1 0-1 /HPF Urine Bacteria None None Seen /HPF Urine Random Creatinine 36.69 30-135 mg/dL Urine Random Total Protein 19.6 H 0-11.9 mg/dL Direct Bilirubin 0.6 H 0.0-0.3 mg/dL C-Reactive Protein, Quantitative 10.00 H 0.5-3.0 mg/L Procalcitonin 0.07 0.05-0.5 ng/mL Troponin I High Sensitivity 27 4-75 ng/L B-Type Natriuretic Peptide 1210 H 0-100 pg/mL Current Medications Medications (Trade) Dose Ordered Sig/Samantha Route PRN Reason Start Time Stop Time Status Last Admin Dose Admin Acetaminophen (TYLenol 500MG TAB) 500 mg Q6H PRN PO MILD PAIN (1-3) 07/18/24 18:00 08/17/24 17:59 Acetaminophen (TYLenol 500MG TAB) 500 mg Q6H PRN PO MILD PAIN (1-3) 07/18/24 18:00 08/17/24 17:59 Amiodarone HCl (pacERONE 200MG) 200 mg QMOWEFR PO 07/19/24 09:00 08/18/24 08:59 07/19/24 09:16 200 MG Apixaban (EliquIS) 5 mg BID PO 07/18/24 21:00 08/17/24 20:59 07/19/24 19:50 5 MG Atorvastatin Calcium (LIPItor 10MG) 10 mg DAILY PO 07/19/24 09:00 08/18/24 08:59 07/19/24 09:16 10 MG Budesonide (Pulmicort 0.5 Mg/2ml) 0.5 mg BIDRESP IH 07/18/24 18:00 08/17/24 17:59 07/20/24 06:56 0.5 MG Bumetanide (Bumex 1mg Vial) 1 mg Q8H IVP 07/18/24 21:00 08/17/24 20:59 07/20/24 05:21 1 MG Bupropion HCl (WellBUTrin SR 150MG) 150 mg BID PO 07/19/24 21:00 08/18/24 20:59 07/19/24 19:50 150 MG Fish Oil (Fish Oil 1000 Mg/Cap) 1,000 mg BID PO 07/19/24 21:00 08/18/24 20:59 07/19/24 19:50 1,000 MG Gabapentin (NEURontin 100 mg CAP) 100 mg HS PO 07/19/24 21:00 08/18/24 20:59 Home Med (Home Medication) (Dapagliflozin Propanediol (Farxiga... DAILY PO 07/20/24 09:00 08/19/24 08:59 Ipratropium [place] (AtrovENT UD) 1 mg Q6H PRN IH SHORTNESS OF BREATH 07/18/24 18:00 08/17/24 17:59 Levothyroxine Sodium (SYNTHroid 25MCG TAB) 25 mcg DAILY@0630 PO 07/19/24 06:30 08/18/24 06:29 07/20/24 06:34 25 MCG Magnesium Sulfate 50 ml @ 0 mls/hr PROTOCOL IV 07/18/24 18:00 08/17/24 17:59 Melatonin (Melatonin) 5 mg HS PRN PO insomnia 07/18/24 20:30 08/17/24 20:29 Melatonin (Melatonin) 10 mg HS PO 07/19/24 21:00 08/18/24 20:59 07/19/24 19:50 10 MG Metoprolol Succinate (TopROL XL) 25 mg DAILY PO 07/19/24 09:00 08/18/24 08:59 07/19/24 09:16 25 MG Ondansetron HCl (zoFRAN 4MG INJ) 4 mg Q6H PRN IVP NAUSEA/VOMITING 07/18/24 18:00 08/17/24 17:59 Pantoprazole Sodium (PROTonix 40MG TAB) 40 mg DAILY PO 07/19/24 09:00 08/18/24 08:59 07/19/24 09:16 40 MG Pharmacy Profile Note (Lace Assessment) 1 each AD MISC 07/19/24 17:30 07/19/24 20:58 DC Potassium Chloride 100 ml @ 100 mls/hr AD PRN IV POTASSIUM PROTOCOL 07/18/24 18:00 08/17/24 17:59 Potassium Chloride (K-Dur/Klor-Con 20meq) 10 meq AD PRN PO POTASSIUM PROTOCOL 07/18/24 18:00 08/17/24 17:59 07/20/24 06:35 10 MEQ Potassium Chloride (KCl 10% Elixir 20meq/15ml) 10 meq AD PRN PO POTASSIUM PROTOCOL 07/18/24 18:00 08/17/24 17:59 Vitamin B Complex/ Vit C/Folic Acid (Nephrovite Tablet) 1 cap DAILY PO 07/19/24 09:00 08/18/24 08:59 07/19/24 09:16 1 CAP DIAGNOSTICS / RADIOLOGY: [ ] ASSESSMENT: 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, POA, (LV EF 45-50%) Acute hypoxemic respiratory failure, POA History of severe pulmonary hypertension with RVSP of 54, attributed secondary to underlying cardiac comorbidities, group 2, POA Rule out pulmonary arterial hypertension, POA History of moderate aortic regurgitation, POA History of moderate tricuspid regurgitation, POA Severe volume overload, POA Congestive hepatopathy, POA CKD stage 3, likely chronic cardiorenal syndrome, POA Underlying history of atrial fibrillation, POA History of chronic anticoagulation with Eliquis as outpatient, POA Obesity, POA History of severe aortic stenosis status post bioprosthetic aortic valve replacement in 2018, POA PLAN: Patient remains admitted to the medical floor Continue monitor technician Continue diuresis Monitor urine output closely, obtain daily weight Monitor renal function closely Maintain K greater than four and magnesium greater than two, electrolytes will be repleted per protocol Echocardiogram to evaluate ejection fraction, follow Cardiology input and recommendation Replace electrolytes IV per protocol Continue amiodarone, Eliquis, metoprolol succinate and home medications were reconciled and updated once available We will monitor BMP closely tonight and All labs will be repeated in the morning We will see if patient has undergone prior sleep study to rule out obstructive sleep apnea Disposition: Overall the patient is doing better, continue current diuresis, continue daily weight, monitor intake and. Cardiology consultation requested, follow input and recommendation. Possible discharge home in the next 24 hours if medically stable. Plan of action discussed with the patient, agreed and understood the information provided. JEAN FERNANDEZ MD Jul 20, 2024 07:00
[2024-07-20] MEDS: DAPAGLIFLOZIN PROPANEDIOL PO SCH (09:00)
[2024-07-20] MEDS: PoTASSium chloRIDE 20MEQ ER 20 MEQ ERTAB PO ONE (09:35)
--- NOTE | 2024-07-20 10:07 | PN ---
NEPHROLOGY PROGRESS NOTE Date/Time Patient Seen: Jul 20, 2024 SUBJECTIVE: This is a 69-year-old male with underlying history of hypertension, hyperlipidemia, CKD stage 3, underlying history of atrial fibrillation, heart failure with mildly reduced ejection fraction of 45-50% (RVSP of 54 concerning for severe pulmonary hypertension), history of chronic anticoagulation with Eliquis, history of severe aortic stenosis secondary to bicuspid aortic valve status post bioprosthetic aortic valve replacement in 2018 who He presented to the ER for further evaluation of progressive lower extremity edema and weight gain. Patient states diuretics were stopped and his urine output decreased Pending further cardiology recommendations He has been started on Diuretics He was noted to have elevated BUN/creatinine We are consulted for renal failure Renal function is stable Electrolytes are stable 24 hour urine output was 1.6 L Weight is trending down. He was seen in the medical floor, in no acute distress Patient states symptoms have improved. REVIEW OF SYSTEMS: GENERAL: Negative for any nausea, vomiting, fevers, chills, or weight loss. NEUROLOGIC: Negative for any blurry vision, blind spots, double vision, facial asymmetry, dysphagia, dysarthria, hemiparesis, hemisensory deficits, vertigo, ataxia. HEENT: Negative for any head trauma, neck trauma, neck stiffness, photophobia, phonophobia, sinusitis, rhinitis. CARDIAC: Negative for any chest pain, dyspnea on exertion, paroxysmal nocturnal dyspnea, peripheral edema. PULMONARY: Negative for any shortness of breath, wheezing, COPD, or TB exposure. GASTROINTESTINAL: Negative for any abdominal pain, nausea, vomiting, bright red blood per rectum, melena. GENITOURINARY: Negative for any dysuria, hematuria, incontinence. INTEGUMENTARY: Negative for any rashes, cuts, insect bites. RHEUMATOLOGIC: Negative for any joint pains, photosensitive rashes, history of vasculitis or kidney problems. HEMATOLOGIC: Negative for any abnormal bruising, frequent infections or bleeding. PHYSICAL EXAM: GENERAL: Alert and oriented x 3. No acute distress. Well-nourished. EYES: EOMI. Anicteric. HENT: Moist mucous membranes. No scleral icterus. No cervical lymphadenopathy. LUNGS: Clear to auscultation bilaterally. No accessory muscle use. CARDIOVASCULAR: Regular rate and rhythm. No murmur. No JVD. ABDOMEN: Soft, non-tender and non-distended. No palpable masses. EXTREMITIES: No edema. Non-tender. SKIN: No rashes or lesions. Warm. NEUROLOGIC: No focal neurological deficits. CN II-XII grossly intact, but not individually tested. PSYCHIATRIC: Cooperative. Appropriate mood and affect. LABORATORY: [ ] Hematology Labs: Test 07/20/24 04:02 07/19/24 05:00 Range/Units White Blood Count 8.5 4.8-10.8 K/uL Red Blood Count 4.39 L 4.50-6.20 MIL/uL Hemoglobin 13.5 L 14.0-18.0 g/dL Hematocrit 40.6 L 42-54 % Mean Corpuscular Volume 92.5 79-99 fL Mean Corpuscular Hemoglobin 30.8 27.0-33.0 pg Mean Corpuscular Hemoglobin Concent 33.3 32.0-36.0 g/dL Red Cell Distribution Width 16.1 H 11.0-15.5 % Platelet Count 143 130-400 K/uL Mean Platelet Volume 11.0 H 7.5-10.5 fL Nucleated Red Blood Cells 0.0 0.0-0.19 % Immature Granulocyte % (Auto) 0.4 0-1 % Neutrophils (%) (Auto) 69.4 40.0-77.0 % Lymphocytes (%) (Auto) 17.9 L 21.0-51.0 % Monocytes (%) (Auto) 9.0 3.0-13.0 % Eosinophils (%) (Auto) 2.2 0.0-8.0 % Basophils (%) (Auto) 1.1 0.0-5.0 % Neutrophils # (Auto) 5.8 1.8-7.7 K/uL Lymphocytes # (Auto) 1.5 1.0-4.8 K/uL Monocytes # (Auto) 0.8 0.1-1.0 K/uL Eosinophils # (Auto) 0.18 0.00-0.70 K/uL Basophils # (Auto) 0.09 0.00-0.20 K/uL Absolute Immature Granulocyte (auto 0.03 0-1 K/uL Chemistry Labs: Test 07/20/24 04:02 07/18/24 16:00 07/18/24 15:20 Range/Units Sodium Level 145 136-145 mmol/L Potassium Level 3.1 L 3.5-5.1 mmol/L Chloride Level 104 101-111 mmol/L Carbon Dioxide Level 33 H 21-32 mmol/L Blood Urea Nitrogen 48 H 7-18 mg/dL Creatinine 2.3 H 0.5-1.3 mg/dL Glomerular Filtration Rate Calc 30 >90 mL/min Random Glucose 107 H 70-105 mg/dL Total Calcium 9.2 8.5-10.1 mg/dL Magnesium Level 1.90 1.80-2.40 mg/dL Total Bilirubin 1.6 H 0.2-1.0 mg/dL Aspartate Amino Transf (AST/SGOT) 38 H 10-37 U/L Alanine Aminotransferase (ALT/SGPT) 51 # 12-78 U/L Alkaline Phosphatase 79 50-136 U/L Total Protein 6.0 6.0-8.3 g/dL Albumin 3.0 L 3.5-5.0 g/dL Direct Bilirubin 0.6 H 0.0-0.3 mg/dL C-Reactive Protein, Quantitative 10.00 H 0.5-3.0 mg/L Procalcitonin 0.07 0.05-0.5 ng/mL Troponin I High Sensitivity 27 4-75 ng/L B-Type Natriuretic Peptide 1210 H 0-100 pg/mL Coagulation Labs: Test 07/18/24 22:00 Range/Units D-Dimer Quantitative (PE/DVT) 2368 *H 0-500 ng/mL DIAGNOSTICS / RADIOLOGY: REASON: PLEURAL EFFUSION/TRANSAMINITIS ORDERING PHYSICIAN: LEIDA THOMAS PROCEDURE: CAP WO - CT CHEST/ABD/PELV W/O CONTRAST CT CHEST/ABD/PELV W/O CONTRAST HISTORY: Pleural effusion COMPARISON: None TECHNIQUE: Multiple sequential axial images of the chest were obtained from the thoracic inlet through upper abdomen. Patient was not given contrast through intravenous route. FINDINGS: There are small bilateral pleural effusions with compressive atelectasis. Bibasilar linear atelectasis changes are seen. Aortic calcifications are seen. Minimal left lower lung pulmonary infiltrates are seen. No pericardial effusion is seen. There is no evidence of pneumothorax. There are normal size mediastinal and hilar lymph nodes. The heart is not enlarged. Degenerative changes of the thoracolumbar spine are present. There is no evidence of adrenal nodule. IMPRESSION: 1. Small bilateral pleural effusions with compressive atelectasis. Minimal left lower lung pulmonary infiltrates are seen. Minimal left lower lung pulmonary infiltrates are seen. CT CHEST/ABD/PELV W/O CONTRAST HISTORY: Elevated liver enzymes COMPARISON: None TECHNIQUE: Multiple sequential axial images of the abdomen and pelvis were obtained from the dome of the diaphragm through symphysis pubis. Patient was not given contrast through intravenous route. Oral contrast was not given. FINDINGS: Liver is enlarged measuring 21 cm. The liver, spleen, adrenal glands and pancreas are unremarkable. There is no evidence of hydronephrosis bilaterally. No evidence of renal stone is seen. Fecal material is seen in the colon. There are normal size retroperitoneal and mesenteric lymph nodes. Small ascites fluid is seen in the pelvis. Atherosclerotic changes are present. There is left iliac stent. Pelvic sidewalls are symmetric bilaterally. Bladder is poorly distended. Fat stranding is seen adjacent to the bladder may be related to cystitis and urinary analysis correlation may be helpful. There is mild diverticulosis. IMPRESSION: 1. Small amount of fluid is seen in the pelvis. CT was performed with one or more following dose reduction techniques: automated exposure control, adjustment of the mA and kv according to patient's size, or use of a iterative reconstruction technique. DICTATED BY: LORE KNIGHT MD DATE: 07/18/24 2301 REASON: assess for ascites, abdominal distension, hx of fatty liver ORDERING PHYSICIAN: BETO JESUS MD PROCEDURE: ABDOMEN - US ABDOMINAL COMPLETE US ABDOMINAL COMPLETE HISTORY: Abdominal distention, ascites COMPARISON: None TECHNIQUE: Multiple transverse and longitudinal ultrasound images of the abdomen were obtained. FINDINGS: Abdominal aorta and inferior vena cava are unremarkable. There are bilateral pleural effusions. Pancreas is not well seen. Liver measures 16 cm. Liver is echogenic consistent with liver parenchymal disease. No gallstone is seen. Common duct measures 4 mm. No evidence of gallbladder wall thickening is seen. Both kidneys are seen. Right kidney measures 10 x 6 x 7 cm. Left kidney measures 11 x 7 x 6 cm. No hydronephrosis is seen of the both kidneys. The spleen is grossly unremarkable. IMPRESSION: 1. No gallstone or ductal dilatation is seen. Bilateral pleural effusions. 2. No hydronephrosis is seen. DICTATED BY: LORE KNIGHT MD DATE: 07/19/24 1024 REASON: significant lower extremity edema, r/o any DVT ORDERING PHYSICIAN: BETO JESUS MD PROCEDURE: VENOUS JACE - US VENOUS DOPPLER BILATERAL ULTRASOUND VENOUS DOPPLER, BILATERAL LOWER EXTREMITIES INDICATION: Bilateral lower extremity pain and swelling TECHNIQUE: Routine grayscale and color Doppler ultrasound of the bilateral lower extremity veins performed. COMPARISON: No priors. FINDINGS: The demonstrated veins of the bilateral lower extremity including the common femoral vein, femoral vein, and popliteal vein are associated with normal compressibility, augmentation, and flow. Normal respiratory variation was identified. No evidence for echogenic intraluminal thrombus formation. Pulsatile flow may be related to known history of congestive heart failure. IMPRESSION: No sonographic evidence for deep venous thrombosis within the bilateral lower extremity veins. DICTATED BY: MARLON PINZON MD DATE: 07/18/24 183 REASON: SHORTNESS A BREATH ORDERING PHYSICIAN: CINTHIA VICENTE NP PROCEDURE: CXR1VW - CHEST 1VW CHEST 1VW HISTORY: Shortness of breath COMPARISON: 06/11/2024 FINDINGS: A frontal projection of the chest was obtained. Mild bilateral pulmonary infiltrates are seen may be related to mild pulmonary vascular congestion with possible superimposed pneumonitis. The heart is enlarged. Degenerative changes are seen. No evidence of aortic calcification is seen. IMPRESSION: 1. Mild bilateral pulmonary infiltrates are seen may be related to mild pulmonary vascular congestion with possible superimposed pneumonitis. 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, POA, (LV EF 45-50%) Acute hypoxemic respiratory failure, POA History of severe pulmonary hypertension with RVSP of 54, attributed secondary to underlying cardiac comorbidities, group 2, POA Rule out pulmonary arterial hypertension, POA History of moderate aortic regurgitation, POA History of moderate tricuspid regurgitation, POA Severe volume overload, POA Congestive hepatopathy, POA CKD stage 3, likely chronic cardiorenal syndrome, POA Underlying history of atrial fibrillation, POA History of chronic anticoagulation with Eliquis as outpatient, POA Obesity, POA History of severe aortic stenosis status post bioprosthetic aortic wall replacement in 2018, POA PLAN: Labs, diagnostic, radiologic exams reviewed and interpreted by myself and supervising physician. We have reviewed external records in detail Continue with Bumex 1.5 L fluid restriction is advised. Patient may be transitioned to p.o. Bumex or torsemide Require close monitoring of renal function and electrolytes Order CBC, CMP, uric acid, TSH and electrolytes in am Continue with antibiotics Renal diabetic diet BiPAP as necessary, for respiratory distress Monitor blood pressure adjust medication doses as needed Avoid hypotensive episodes May use Dilaudid 0.5 mg IV every 6 hours as needed for severe pain Monitor blood sugars Strict intake, output, and daily weight should be monitored Please renally adjust medications Avoid nephrotoxic and nonsteroidal drugs Avoid contrast if possible Will continue to monitor renal function, anemia, electrolytes Treatment plan discussed with patient Questions were answered We have discussed with the other team physicians in detail about the care plan We will continue to monitor the patient closely ATTESTATION BY PHYSICIAN I have seen and examined the patient. I reviewed the documentation, medical decision making, and treatment plan as noted by the mid-level provider above. I agree with the findings and plan of care. JOSS AYALA MD, [facility] Jul 20, 2024 10:07
--- NOTE | 2024-07-20 16:12 | PN ---
[facility] PROGRESS NOTE Date Patient Seen: Jul 20, 2024 Time of Visit: 1204 Supervising Physician: Dr. Cook Inpatient Consults: BIS PROBLEM LIST: Acute on chronic HEART FAILURE REDUCED EJECTION FRACTION EXACERBATION EF 45-50% PER ECHOCARDIOGRAM 06/01/2024 WITH STAGE II DIASTOLIC DYSFUNCTION POA, Acute hypoxemic respiratory failure, POA Severe pulmonary hypertension with RVSP of 54mmHg, attributed secondary to underlying cardiac comorbidities, group 2, POA Rule out pulmonary arterial hypertension, POA History of moderate aortic regurgitation, POA History of moderate tricuspid regurgitation, POA Congestive hepatopathy, POA CKD stage 3, likely chronic cardiorenal syndrome, POA Underlying history of atrial fibrillation, POA History of chronic anticoagulation with Eliquis as outpatient, POA Obesity, POA History of severe aortic stenosis status post bioprosthetic aortic wall replacement in 2018, POA INTERVAL HISTORY: 07/20 patient was seen and examined at bedside no family present. Patient is awake alert able to answer simple questions appropriately. Patient remains on room air appears to be tolerating well. Patient denies any chest pain report shortness of breath has improved significantly. Patient denies any nausea vomiting or abdominal pain. Patient currently pending evaluation from [facility]. As per primary nurse no acute events to be reported. Plan summary Patient has pulmonary hypertension from most recent echocardiogram done on 06/01/2024 shows RVSP of 54 mmHg which which is classified as WHO group two classification Recommend treatment is to continue with current cardiac medications, at this time no indication for right heart catheterization Patient has respiratory issues appears to be more cardiac related than pulmonary, patient to continue with Bumex1 mg every 8 hours Patient is bilateral effusion not enough fluid to safely remove, so no indication for thoracentesis at this time Follow up patient's V/Q scan Continue to monitor respiratory status and maintain adequate oxygenation Keep O2 sats greater or equal to 90% Patient require 6 minute walk prior to discharge Patient will need to follow up [facility] with 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 Deras within 3-5 days upon discharge We will continue to monitor closely REVIEW OF SYSTEMS: 12 point ROS reviewed with patient. Pertinent positives mentioned above. Otherwise negative. PHYSICAL EXAM: GENERAL: alert, weak, awake oriented x 3 HEENT: EOMI, Sclera non icteric, moist mucosa NECK: Supple, no JVD, trachea midline LUNGS: Clear breath sounds bilaterally. No wheezes HEART: Regular rate and rhythm. Normal S1 and S2, without murmurs ABD: Abdomen soft, nontender. Bowel sounds present EXT: No clubbing cyanosis or edema NEURO: Alert and oriented to person, follows commands Vital Signs (last 8hr) Date Time Temp Pulse Resp B/P (MAP) Pulse Ox O2 Delivery O2 Flow Rate FiO2 07/20/24 12:00 97.5 80 18 107/50 96 Room Air LABS: Hematology Labs: Test 07/20/24 04:02 07/19/24 05:00 Range/Units White Blood Count 8.5 4.8-10.8 K/uL Red Blood Count 4.39 L 4.50-6.20 MIL/uL Hemoglobin 13.5 L 14.0-18.0 g/dL Hematocrit 40.6 L 42-54 % Mean Corpuscular Volume 92.5 79-99 fL Mean Corpuscular Hemoglobin 30.8 27.0-33.0 pg Mean Corpuscular Hemoglobin Concent 33.3 32.0-36.0 g/dL Red Cell Distribution Width 16.1 H 11.0-15.5 % Platelet Count 143 130-400 K/uL Mean Platelet Volume 11.0 H 7.5-10.5 fL Nucleated Red Blood Cells 0.0 0.0-0.19 % Immature Granulocyte % (Auto) 0.4 0-1 % Neutrophils (%) (Auto) 69.4 40.0-77.0 % Lymphocytes (%) (Auto) 17.9 L 21.0-51.0 % Monocytes (%) (Auto) 9.0 3.0-13.0 % Eosinophils (%) (Auto) 2.2 0.0-8.0 % Basophils (%) (Auto) 1.1 0.0-5.0 % Neutrophils # (Auto) 5.8 1.8-7.7 K/uL Lymphocytes # (Auto) 1.5 1.0-4.8 K/uL Monocytes # (Auto) 0.8 0.1-1.0 K/uL Eosinophils # (Auto) 0.18 0.00-0.70 K/uL Basophils # (Auto) 0.09 0.00-0.20 K/uL Absolute Immature Granulocyte (auto 0.03 0-1 K/uL Chemistry Labs: Test 07/20/24 04:02 Range/Units Sodium Level 145 136-145 mmol/L Potassium Level 3.1 L 3.5-5.1 mmol/L Chloride Level 104 101-111 mmol/L Carbon Dioxide Level 33 H 21-32 mmol/L Blood Urea Nitrogen 48 H 7-18 mg/dL Creatinine 2.3 H 0.5-1.3 mg/dL Glomerular Filtration Rate Calc 30 >90 mL/min Random Glucose 107 H 70-105 mg/dL Total Calcium 9.2 8.5-10.1 mg/dL Magnesium Level 1.90 1.80-2.40 mg/dL Total Bilirubin 1.6 H 0.2-1.0 mg/dL Aspartate Amino Transf (AST/SGOT) 38 H 10-37 U/L Alanine Aminotransferase (ALT/SGPT) 51 # 12-78 U/L Alkaline Phosphatase 79 50-136 U/L Total Protein 6.0 6.0-8.3 g/dL Albumin 3.0 L 3.5-5.0 g/dL Coagulation Labs: Test 07/18/24 22:00 Range/Units D-Dimer Quantitative (PE/DVT) 2368 *H 0-500 ng/mL DIAGNOSTICS / RADIOLOGY RESULTS: na PLAN NEURO: Minimize central acting medications as possible. Maintain fall precautions, adequate lighting during the day PULMONARY: Supplemental 02 as needed. Maintain aspiration precautions at all times CARDIOVASCULAR: Follow hemodynamics. Vital signs per facility protocol GI & NUTRITION: Continue with nutritional support. Continue stool softeners and laxatives as needed. KIDNEYS & ELECTROLYTES: Strict monitoring of intake, output and overall fluid balance. Avoid nephrotoxic medications to the extent possible. Medications to be dosed according to renal function. Monitor electrolytes and replace as needed ENDOCRINE: Maintain blood glucose between 100-180 at all times. Hypoglycemia protocol in place INFECTIOUS DISEASE: Trend temperature, WBC and procalcitonin level Follow cultures, deescalate antibiotics as soon as possible. Panculture if new onset fever ONCOLOGY/HEMATOLOGY/COAGULATION: Monitor for s/s of bleeding Monitor hemoglobin, coagulation studies as needed SKIN: Pressure ulcer prevention per facility protocol Specialty mattress ORTHO/REHAB: Continue PT/OT Prophylaxis: Continue GI and DVT prophylaxis Code Status: Full Resuscitation Disposition: Per primary team Other: Case discussed with supervising physician plan of care agreed upon ROSA LONGO Jul 20, 2024 16:12
[2024-07-20] MEDS ORDERED: SIMETHICONE 40 MG/0.6 ML ML PO ONE (20:00)
[2024-07-20] MEDS ORDERED: SIMETHICONE 80 MG TAB.CHEW PO SCH (21:00)
[2024-07-20] MEDS: SIMETHICONE 80 MG TAB.CHEW PO ONE (21:12)
[2024-07-21] VITALS (13 sets, daily range): BP systolic 98–118; BP diastolic 50–67; PULSE 69–87; RESP 16–20; TEMP 97.5–98.1; O2SAT 93–96
[2024-07-21 04:30] LABS: HEMATOCRIT 41.9 % (42-54); MEAN CORPUSCULAR HEMOGLOBIN 30.3 pg (27.0-33.0); MEAN CORPUSCULAR VOLUME 94.8 fL (79-99); RED BLOOD CELL COUNT(AUTO) 4.42 MIL/uL (4.50-6.20); RED CELL DISTRIBUTION WIDTH 16.2 % (11.0-15.5); WHITE BLOOD COUNT (AUTO) 8.1 K/uL (4.8-10.8)
[2024-07-21 05:02] LABS: ALBUMIN 2.9 g/dL (3.5-5.0); BILIRUBIN,TOTAL 1.6 mg/dL (0.2-1.0); CREATININE 2.2 mg/dL (0.5-1.3); POTASSIUM 3.1 mmol/L (3.5-5.1); TOTAL PROTEIN, SERUM 5.9 g/dL (6.0-8.3)
[2024-07-21] MEDS: PoTASSium chloRIDE 20MEQ ER 20 MEQ ERTAB PO ONE (11:24)
[2024-07-21] MEDS: BUMETANIDE 1MG/4ML VIAL IM ONE (11:24)
--- NOTE | 2024-07-21 12:01 | PN ---
NEPHROLOGY PROGRESS NOTE Date/Time Patient Seen: Jul 21, 2024 SUBJECTIVE: This is a 69-year-old male with underlying history of hypertension, hyperlipidemia, CKD stage 3, underlying history of atrial fibrillation, heart failure with mildly reduced ejection fraction of 45-50% (RVSP of 54 concerning for severe pulmonary hypertension), history of chronic anticoagulation with Eliquis, history of severe aortic stenosis secondary to bicuspid aortic valve status post bioprosthetic aortic valve replacement in 2018 who He presented to the ER for further evaluation of progressive lower extremity edema and weight gain. Patient states diuretics were stopped and his urine output decreased Pending further cardiology recommendations He has been started on Diuretics He was noted to have elevated BUN/creatinine We are consulted for renal failure Renal function is stable Electrolytes are stable 24 hour urine output was noted Daily weight was noted. Patient reports decreased urine output today. He was seen in the medical floor, in no acute distress Patient states symptoms have improved. REVIEW OF SYSTEMS: GENERAL: Negative for any nausea, vomiting, fevers, chills, or weight loss. NEUROLOGIC: Negative for any blurry vision, blind spots, double vision, facial asymmetry, dysphagia, dysarthria, hemiparesis, hemisensory deficits, vertigo, ataxia. HEENT: Negative for any head trauma, neck trauma, neck stiffness, photophobia, phonophobia, sinusitis, rhinitis. CARDIAC: Negative for any chest pain, dyspnea on exertion, paroxysmal nocturnal dyspnea, peripheral edema. PULMONARY: Negative for any shortness of breath, wheezing, COPD, or TB exposure. GASTROINTESTINAL: Negative for any abdominal pain, nausea, vomiting, bright red blood per rectum, melena. GENITOURINARY: Negative for any dysuria, hematuria, incontinence. INTEGUMENTARY: Negative for any rashes, cuts, insect bites. RHEUMATOLOGIC: Negative for any joint pains, photosensitive rashes, history of vasculitis or kidney problems. HEMATOLOGIC: Negative for any abnormal bruising, frequent infections or bleeding. PHYSICAL EXAM: GENERAL: Alert and oriented x 3. No acute distress. Well-nourished. EYES: EOMI. Anicteric. HENT: Moist mucous membranes. No scleral icterus. No cervical lymphadenopathy. LUNGS: Clear to auscultation bilaterally. No accessory muscle use. CARDIOVASCULAR: Regular rate and rhythm. No murmur. No JVD. ABDOMEN: Soft, non-tender and non-distended. No palpable masses. EXTREMITIES: No edema. Non-tender. SKIN: No rashes or lesions. Warm. NEUROLOGIC: No focal neurological deficits. CN II-XII grossly intact, but not individually tested. PSYCHIATRIC: Cooperative. Appropriate mood and affect. LABORATORY: [ ] Hematology Labs: Test 07/21/24 03:45 Range/Units White Blood Count 8.1 4.8-10.8 K/uL Red Blood Count 4.42 L 4.50-6.20 MIL/uL Hemoglobin 13.4 L 14.0-18.0 g/dL Hematocrit 41.9 L 42-54 % Mean Corpuscular Volume 94.8 79-99 fL Mean Corpuscular Hemoglobin 30.3 27.0-33.0 pg Mean Corpuscular Hemoglobin Concent 32.0 32.0-36.0 g/dL Red Cell Distribution Width 16.2 H 11.0-15.5 % Platelet Count 135 130-400 K/uL Mean Platelet Volume 11.4 H 7.5-10.5 fL Nucleated Red Blood Cells 0.0 0.0-0.19 % Chemistry Labs: Test 07/21/24 03:45 Range/Units Sodium Level 144 136-145 mmol/L Potassium Level 3.1 L 3.5-5.1 mmol/L Chloride Level 104 101-111 mmol/L Carbon Dioxide Level 33 H 21-32 mmol/L Blood Urea Nitrogen 44 H 7-18 mg/dL Creatinine 2.2 H 0.5-1.3 mg/dL Glomerular Filtration Rate Calc 32 >90 mL/min Random Glucose 103 70-105 mg/dL Total Calcium 9.0 8.5-10.1 mg/dL Magnesium Level 2.00 1.80-2.40 mg/dL Total Bilirubin 1.6 H 0.2-1.0 mg/dL Aspartate Amino Transf (AST/SGOT) 33 10-37 U/L Alanine Aminotransferase (ALT/SGPT) 47 12-78 U/L Alkaline Phosphatase 72 50-136 U/L Total Protein 5.9 L 6.0-8.3 g/dL Albumin 2.9 L 3.5-5.0 g/dL DIAGNOSTICS / RADIOLOGY: REASON: PLEURAL EFFUSION/TRANSAMINITIS ORDERING PHYSICIAN: LEIDA THOMAS PROCEDURE: CAP WO - CT CHEST/ABD/PELV W/O CONTRAST CT CHEST/ABD/PELV W/O CONTRAST HISTORY: Pleural effusion COMPARISON: None TECHNIQUE: Multiple sequential axial images of the chest were obtained from the thoracic inlet through upper abdomen. Patient was not given contrast through intravenous route. FINDINGS: There are small bilateral pleural effusions with compressive atelectasis. Bibasilar linear atelectasis changes are seen. Aortic calcifications are seen. Minimal left lower lung pulmonary infiltrates are seen. No pericardial effusion is seen. There is no evidence of pneumothorax. There are normal size mediastinal and hilar lymph nodes. The heart is not enlarged. Degenerative changes of the thoracolumbar spine are present. There is no evidence of adrenal nodule. IMPRESSION: 1. Small bilateral pleural effusions with compressive atelectasis. Minimal left lower lung pulmonary infiltrates are seen. Minimal left lower lung pulmonary infiltrates are seen. CT CHEST/ABD/PELV W/O CONTRAST HISTORY: Elevated liver enzymes COMPARISON: None TECHNIQUE: Multiple sequential axial images of the abdomen and pelvis were obtained from the dome of the diaphragm through symphysis pubis. Patient was not given contrast through intravenous route. Oral contrast was not given. FINDINGS: Liver is enlarged measuring 21 cm. The liver, spleen, adrenal glands and pancreas are unremarkable. There is no evidence of hydronephrosis bilaterally. No evidence of renal stone is seen. Fecal material is seen in the colon. There are normal size retroperitoneal and mesenteric lymph nodes. Small ascites fluid is seen in the pelvis. Atherosclerotic changes are present. There is left iliac stent. Pelvic sidewalls are symmetric bilaterally. Bladder is poorly distended. Fat stranding is seen adjacent to the bladder may be related to cystitis and urinary analysis correlation may be helpful. There is mild diverticulosis. IMPRESSION: 1. Small amount of fluid is seen in the pelvis. CT was performed with one or more following dose reduction techniques: automated exposure control, adjustment of the mA and kv according to patient's size, or use of a iterative reconstruction technique. DICTATED BY: LORE KNIGHT MD DATE: 07/18/242300 REASON: assess for ascites, abdominal distension, hx of fatty liver ORDERING PHYSICIAN: BETO JESUS MD PROCEDURE: ABDOMEN - US ABDOMINAL COMPLETE US ABDOMINAL COMPLETE HISTORY: Abdominal distention, ascites COMPARISON: None TECHNIQUE: Multiple transverse and longitudinal ultrasound images of the abdomen were obtained. FINDINGS: Abdominal aorta and inferior vena cava are unremarkable. There are bilateral pleural effusions. Pancreas is not well seen. Liver measures 16 cm. Liver is echogenic consistent with liver parenchymal disease. No gallstone is seen. Common duct measures 4 mm. No evidence of gallbladder wall thickening is seen. Both kidneys are seen. Right kidney measures 10 x 6 x 7 cm. Left kidney measures 11 x 7 x 6 cm. No hydronephrosis is seen of the both kidneys. The spleen is grossly unremarkable. IMPRESSION: 1. No gallstone or ductal dilatation is seen. Bilateral pleural effusions. 2. No hydronephrosis is seen. DICTATED BY: LORE KNIGHT MD DATE: 07/19/24 1024 REASON: significant lower extremity edema, r/o any DVT ORDERING PHYSICIAN: BETO JESUS MD PROCEDURE: VENOUS JACE - US VENOUS DOPPLER BILATERAL ULTRASOUND VENOUS DOPPLER, BILATERAL LOWER EXTREMITIES INDICATION: Bilateral lower extremity pain and swelling TECHNIQUE: Routine grayscale and color Doppler ultrasound of the bilateral lower extremity veins performed. COMPARISON: No priors. FINDINGS: The demonstrated veins of the bilateral lower extremity including the common femoral vein, femoral vein, and popliteal vein are associated with normal compressibility, augmentation, and flow. Normal respiratory variation was identified. No evidence for echogenic intraluminal thrombus formation. Pulsatile flow may be related to known history of congestive heart failure. IMPRESSION: No sonographic evidence for deep venous thrombosis within the bilateral lower extremity veins. DICTATED BY: MARLON PINZON MD DATE: 07/18/24 1837 REASON: SHORTNESS A BREATH ORDERING PHYSICIAN: CINTHIA VICENTE NP PROCEDURE: CXR1VW - CHEST 1VW CHEST 1VW HISTORY: Shortness of breath COMPARISON: 06/11/2024 FINDINGS: A frontal projection of the chest was obtained. Mild bilateral pulmonary infiltrates are seen may be related to mild pulmonary vascular congestion with possible superimposed pneumonitis. The heart is enlarged. Degenerative changes are seen. No evidence of aortic calcification is seen. IMPRESSION: 1. Mild bilateral pulmonary infiltrates are seen may be related to mild pulmonary vascular congestion with possible superimposed pneumonitis. 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, POA, (LV EF 45-50%) Acute hypoxemic respiratory failure, POA History of severe pulmonary hypertension with RVSP of 54, attributed secondary to underlying cardiac comorbidities, group 2, POA Rule out pulmonary arterial hypertension, POA History of moderate aortic regurgitation, POA History of moderate tricuspid regurgitation, POA Severe volume overload, POA Congestive hepatopathy, POA CKD stage 3, likely chronic cardiorenal syndrome, POA Underlying history of atrial fibrillation, POA History of chronic anticoagulation with Eliquis as outpatient, POA Obesity, POA History of severe aortic stenosis status post bioprosthetic aortic wall replacement in 2018, POA PLAN: Labs, diagnostic, radiologic exams reviewed and interpreted by myself and supervising physician. We have reviewed external records in detail Patient to have extra dose of Bumex1 mg IV now Potassium replacement has been ordered He was counseled on the importance of 1.5 L fluid restriction Require close monitoring of renal function and electrolytes Order CBC, CMP, and electrolytes in am Continue with antibiotics Renal diabetic diet BiPAP as necessary, for respiratory distress Monitor blood pressure adjust medication doses as needed Avoid hypotensive episodes May use Dilaudid 0.5 mg IV every 6 hours as needed for severe pain Monitor blood sugars Strict intake, output, and daily weight should be monitored Please renally adjust medications Avoid nephrotoxic and nonsteroidal drugs Avoid contrast if possible Will continue to monitor renal function, anemia, electrolytes Treatment plan discussed with patient Questions were answered We have discussed with the other team physicians in detail about the care plan We will continue to monitor the patient closely ATTESTATION BY PHYSICIAN I have seen and examined the patient. I reviewed the documentation, medical decision making, and treatment plan as noted by the mid-level provider above. I agree with the findings and plan of care. JOSS AYALA MD, ELIZABETH FNP Jul 21, 2024 12:01
--- NOTE | 2024-07-21 13:32 | PN ---
[facility] PROGRESS NOTE Date of Service: Jul 21, 2024 Time of Service: 13:31 SUBJECTIVE: [ ] The patient has been seen and examined today during my rounding, no acute events overnight, patient resting comfortably in bed, alert oriented x3, hemodynamically stable, BP 121/62, afebrile, saturating normal on room air. The patient continue diuretics, having good urine output, has urinated several times throughout this hospitalization. He admits less swollen to both lower extremities. Results of Doppler extremities negative for DVT. The patient with the elevated D-dimer. No chest pain, no shortness a breath at the time of my visit, unable to do V/Q scan or CT PE protocol as the patient elevated creatinine and unable to stay flat on his back. is at bedside during my visit. 07/20 the patient has been seen and examined earlier this morning during my rounding, no acute events overnight, he remains hemodynamically stable, afebrile, saturating normal on room air. The patient has been very good urine output. Per my discussion with the nurse that is taking care of the patient, the patient's weight has improved from 291.8 lb to 283.4 today. He denies chest pain, no shortness a breath, he admits less swollen to both lower extremities compared to time of admission. is not present at the bedside during my visit. 07/21/24 patient was seen and examined and case discussed with RN. He feels that his swelling is going down. We will continue with Bumex. Monitor electrolytes. Monitor weight REVIEW OF SYSTEMS CONSTITUTIONAL: Denies fevers, chills, or night sweats. No unintentional weight loss reported. NEUROLOGICAL: Denies headache, amaurosis fugax, motor weakness, sensory deficit, vertigo/spinning sensation, gait abnormalities, or tremors. ENT: No hearing loss, otalgia, otorrhea, rhinitis, rhinorrhea, hoarseness, or sore throat. CARDIOVASCULAR: Denies any exertional angina, dyspnea on exertion, orthopnea, paroxysmal nocturnal dyspnea, palpitations, life-threatening arrhythmias, claudication. PULMONARY: Shortness of breath, dyspnea on exertion, PND, orthopnea SLEEP: Denies morning headaches, daytime somnolence or napping. Denies difficulty falling asleep, staying asleep, waking from sleep. Denies knowledge of snoring. GASTROINTESTINAL: Denies any type of dysphagia to either liquids or solids. Denies nausea, vomiting, pyrosis, early satiety, abdominal pain, diarrhea, constipation, or changes in stool consistency or caliber. Denies coffee-ground emesis, hematemesis, hematochezia, or melanotic stools. GENITOURINARY: Denies frequency, urgency, nocturia, hematuria or incontinence (Storage/Irritative symptoms.) Low urinary stream, straining to void, urinary intermittency or hesitancy, splitting of the voiding stream, terminal dribbling. ENDOCRINOLOGIC: Denies polyuria, polydipsia, polyphagia or heat/cold intolerances. HEMATOLOGIC: Denies thrombophilia/previous clots, or coagulopathy/bleeding disorders. ONCOLOGIC: Denies personal history of malignancy. DERMATOLOGIC: Denies rashes or pruritus. PSYCHIATRIC: Denies any suicidal or homicidal ideation. Denies hallucinations. PHYSICAL EXAM GENERAL APPEARANCE: The patient is awake, alert, and oriented, in no acute cardiopulmonary distress. NEUROLOGICAL: Cranial nerves II-XII grossly intact. Motor is 5/5 in bilateral upper and lower extremities proximal to distal. No sensory deficits. HEENT: Face is symmetric. Pupils are equal and reactive. Extraocular movements are intact. NECK: Supple. No JVD. No thyromegaly. No submental, submandibular, pre- /postauricular, occipital or supraclavicular lymphadenopathy. CHEST: Normal chest expansion. No Telemetry. LUNGS: Crackles noted at bilateral lung base CARDIOVASCULAR: Regular. S1 and S2 normal. No appreciable rubs, murmurs or gallops. ABDOMEN: Soft, nontender, and nondistended. There is no rebound, voluntary guarding, or rigidity. : Deferred. No [place]chard. EXTREMITIES: 3+ pitting edema noted of bilateral lower extremities SKIN: No skin breakdown. Vital Signs (last 8hr) Date Time Temp Pulse Resp B/P (MAP) Pulse Ox O2 Delivery O2 Flow Rate FiO2 07/21/24 11:11 98.1 85 16 108/50 100 Room Air 07/21/24 08:14 97.5 73 18 110/56 97 Room Air 07/21/24 07:50 93 Room Air* 0 21 07/21/24 06:56 82 16 N/A Room Air 21 07/21/24 06:55 82 16 07/21/24 06:00 118/56 LABS: Laboratory: Test 07/21/24 03:45 Range/Units White Blood Count 8.1 4.8-10.8 K/uL Red Blood Count 4.42 L 4.50-6.20 MIL/uL Hemoglobin 13.4 L 14.0-18.0 g/dL Hematocrit 41.9 L 42-54 % Mean Corpuscular Volume 94.8 79-99 fL Mean Corpuscular Hemoglobin 30.3 27.0-33.0 pg Mean Corpuscular Hemoglobin Concent 32.0 32.0-36.0 g/dL Red Cell Distribution Width 16.2 H 11.0-15.5 % Platelet Count 135 130-400 K/uL Mean Platelet Volume 11.4 H 7.5-10.5 fL Nucleated Red Blood Cells 0.0 0.0-0.19 % Sodium Level 144 136-145 mmol/L Potassium Level 3.1 L 3.5-5.1 mmol/L Chloride Level 104 101-111 mmol/L Carbon Dioxide Level 33 H 21-32 mmol/L Blood Urea Nitrogen 44 H 7-18 mg/dL Creatinine 2.2 H 0.5-1.3 mg/dL Glomerular Filtration Rate Calc 32 >90 mL/min Random Glucose 103 70-105 mg/dL Total Calcium 9.0 8.5-10.1 mg/dL Magnesium Level 2.00 1.80-2.40 mg/dL Total Bilirubin 1.6 H 0.2-1.0 mg/dL Aspartate Amino Transf (AST/SGOT) 33 10-37 U/L Alanine Aminotransferase (ALT/SGPT) 47 12-78 U/L Alkaline Phosphatase 72 50-136 U/L Total Protein 5.9 L 6.0-8.3 g/dL Albumin 2.9 L 3.5-5.0 g/dL Current Medications Medications (Trade) Dose Ordered Sig/Samantha Route PRN Reason Start Time Stop Time Status Last Admin Dose Admin Acetaminophen (TYLenol 500MG TAB) 500 mg Q6H PRN PO MILD PAIN (1-3) 07/18/24 18:00 08/17/24 17:59 Acetaminophen (TYLenol 500MG TAB) 500 mg Q6H PRN PO MILD PAIN (1-3) 07/18/24 18:00 08/17/24 17:59 Amiodarone HCl (pacERONE 200MG) 200 mg QMOWEFR PO 07/19/24 09:00 08/18/24 08:59 07/21/24 09:17 200 MG Apixaban (EliquIS) 5 mg BID PO 07/18/24 21:00 08/17/24 20:59 07/21/24 09:17 5 MG Atorvastatin Calcium (LIPItor 10MG) 10 mg DAILY PO 07/19/24 09:00 08/18/24 08:59 07/21/24 09:17 10 MG Budesonide (Pulmicort 0.5 Mg/2ml) 0.5 mg BIDRESP IH 07/18/24 18:00 08/17/24 17:59 07/21/24 06:54 0.5 MG Bumetanide (Bumex 1mg Vial) 1 mg Q8H IVP 07/18/24 21:00 08/17/24 20:59 07/21/24 06:02 1 MG Bupropion HCl (WellBUTrin SR 150MG) 150 mg BID PO 07/19/24 21:00 08/18/24 20:59 07/21/24 09:17 150 MG Fish Oil (Fish Oil 1000 Mg/Cap) 1,000 mg BID PO 07/19/24 21:00 08/18/24 20:59 07/21/24 09:17 1,000 MG Gabapentin (NEURontin 100 mg CAP) 100 mg HS PO 07/19/24 21:00 08/18/24 20:59 07/20/24 21:12 100 MG Home Med (Home Medication) (Dapagliflozin Propanediol (Farxiga... DAILY PO 07/20/24 09:00 08/19/24 08:59 Ipratropium Caruthers (AtrovENT UD) 1 mg Q6H PRN IH SHORTNESS OF BREATH 07/18/24 18:00 08/17/24 17:59 Levothyroxine Sodium (SYNTHroid 25MCG TAB) 25 mcg DAILY@0630 PO 07/19/24 06:30 08/18/24 06:29 07/21/24 06:07 25 MCG Magnesium Sulfate 50 ml @ 0 mls/hr PROTOCOL IV 07/18/24 18:00 08/17/24 17:59 Melatonin (Melatonin) 5 mg HS PRN PO insomnia 07/18/24 20:30 08/17/24 20:29 Melatonin (Melatonin) 10 mg HS PO 07/19/24 21:00 08/18/24 20:59 07/20/24 21:12 10 MG Metoprolol Succinate (TopROL XL) 25 mg DAILY PO 07/19/24 09:00 08/18/24 08:59 07/21/24 09:17 25 MG Ondansetron HCl (zoFRAN 4MG INJ) 4 mg Q6H PRN IVP NAUSEA/VOMITING 07/18/24 18:00 08/17/24 17:59 Pantoprazole Sodium (PROTonix 40MG TAB) 40 mg DAILY PO 07/19/24 09:00 08/18/24 08:59 07/21/24 09:17 40 MG Pharmacy Profile Note (Lace Assessment) 1 each AD MISC 07/19/24 17:30 07/19/24 20:58 DC Potassium Chloride 100 ml @ 100 mls/hr AD PRN IV POTASSIUM PROTOCOL 07/18/24 18:00 08/17/24 17:59 Potassium Chloride (K-Dur/Klor-Con 20meq) 10 meq AD PRN PO POTASSIUM PROTOCOL 07/18/24 18:00 08/17/24 17:59 07/21/24 09:17 10 MEQ Potassium Chloride (KCl 10% Elixir 20meq/15ml) 10 meq AD PRN PO POTASSIUM PROTOCOL 07/18/24 18:00 08/17/24 17:59 Simethicone (Mylicon) 40 mg ONCE PO 07/20/24 21:00 07/20/24 20:35 DC Vitamin B Complex/ Vit C/Folic Acid (Nephrovite Tablet) 1 cap DAILY PO 07/19/24 09:00 08/18/24 08:59 07/21/24 09:17 1 CAP DIAGNOSTICS / RADIOLOGY: [ ] ASSESSMENT: 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, POA, (LV EF 45-50%) Acute hypoxemic respiratory failure, POA History of severe pulmonary hypertension with RVSP of 54, attributed secondary to underlying cardiac comorbidities, group 2, POA Rule out pulmonary arterial hypertension, POA History of moderate aortic regurgitation, POA History of moderate tricuspid regurgitation, POA Severe volume overload, POA Congestive hepatopathy, POA CKD stage 3, likely chronic cardiorenal syndrome, POA Underlying history of atrial fibrillation, POA History of chronic anticoagulation with Eliquis as outpatient, POA Obesity, POA History of severe aortic stenosis status post bioprosthetic aortic valve replacement in 2018, POA PLAN: Patient remains admitted to the medical floor Continue quality assurance monitor body Continue diuresis Monitor urine output closely, obtain daily weight Monitor renal function closely Maintain K greater than four and magnesium greater than two, electrolytes will be repleted per protocol Echocardiogram to evaluate ejection fraction, follow Cardiology input and recommendation Replace electrolytes IV per protocol Continue amiodarone, Eliquis, metoprolol succinate and home medications were reconciled and updated once available We will monitor BMP closely tonight and All labs will be repeated in the morning We will see if patient has undergone prior sleep study to rule out obstructive sleep apnea Disposition: Overall the patient is doing better, continue current diuresis, continue daily weight, monitor intake and. Cardiology consultation requested, follow input and recommendation. Possible discharge home in the next 24 hours if medically stable. Plan of action discussed with the patient, agreed and understood the information provided. SHOSHANA PARRA MD Jul 21, 2024 13:32
--- NOTE | 2024-07-21 14:14 | PN ---
[facility] PROGRESS NOTE Date Patient Seen: Jul 21, 2024 Time of Visit: 1157 Supervising Physician: Dr. Cook Inpatient Consults: ERIC PROBLEM LIST: Acute on chronic HEART FAILURE REDUCED EJECTION FRACTION EXACERBATION EF 45-50% PER ECHOCARDIOGRAM 06/01/2024 WITH STAGE II DIASTOLIC DYSFUNCTION POA, Acute hypoxemic respiratory failure, POA Severe pulmonary hypertension with RVSP of 54mmHg, attributed secondary to underlying cardiac comorbidities, group 2, POA Rule out pulmonary arterial hypertension, POA History of moderate aortic regurgitation, POA History of moderate tricuspid regurgitation, POA Congestive hepatopathy, POA CKD stage 3, likely chronic cardiorenal syndrome, POA Underlying history of atrial fibrillation, POA History of chronic anticoagulation with Eliquis as outpatient, POA Obesity, POA History of severe aortic stenosis status post bioprosthetic aortic wall replacement in 2018, POA INTERVAL HISTORY: 07/20 patient was seen and examined at bedside no family present. Patient is awake alert able to answer simple questions appropriately. Patient remains on room air appears to be tolerating well. Patient denies any chest pain report shortness of breath has improved significantly. Patient denies any nausea vomiting or abdominal pain. Patient currently pending evaluation from [facility]ology. As per primary nurse no acute events to be reported. 07/21 patient was seen and examined at bedside no family present. Patient remains on room air tolerating well. At time of visit patient has no specific complaints. Patient remains hemodynamically stable. Patient's report shortness of breath has improved significantly. Is tolerating p.o. diet. He is having bowel movements. As per primary nurse no acute events to be reported. Patient is still currently pending evaluation from Cardiology. Plan summary Patient has pulmonary hypertension from most recent echocardiogram done on 06/01/2024 shows RVSP of 54 mmHg which which is classified as WHO group two classification Recommend treatment is to continue with current cardiac medications, at this time no indication for right heart catheterization Patient has respiratory issues appears to be more cardiac related than pulmonary, patient to continue with Bumex1 mg every 8 hours Patient is bilateral effusion not enough fluid to safely remove, so no indication for thoracentesis at this time Follow up patient's V/Q scan Continue to monitor respiratory status and maintain adequate oxygenation Keep O2 sats greater or equal to 90% Patient require 6 minute walk prior to discharge Patient will need to follow up [facility] with blood bank laboratory technologist Dr. Deras within 3-5 days upon discharge We will continue to monitor closely REVIEW OF SYSTEMS: 12 point ROS reviewed with patient. Pertinent positives mentioned above. Otherwise negative. PHYSICAL EXAM: GENERAL: alert, weak, awake oriented x 3 HEENT: EOMI, Sclera non icteric, moist mucosa NECK: Supple, no JVD, trachea midline LUNGS: Clear breath sounds bilaterally. No wheezes HEART: Regular rate and rhythm. Normal S1 and S2, without murmurs ABD: Abdomen soft, nontender. Bowel sounds present EXT: No clubbing cyanosis or edema NEURO: Alert and oriented to person, follows commands Vital Signs (last 8hr) Date Time Temp Pulse Resp B/P (MAP) Pulse Ox O2 Delivery O2 Flow Rate FiO2 07/21/24 11:11 98.1 85 16 108/50 100 Room Air 07/21/24 08:14 97.5 73 18 110/56 97 Room Air 07/21/24 07:50 93 Room Air* 0 21 07/21/24 06:56 82 16 N/A Room Air 07/21/24 06:55 82 16 LABS: Hematology Labs: Test 07/21/24 03:45 Range/Units White Blood Count 8.1 4.8-10.8 K/uL Red Blood Count 4.42 L 4.50-6.20 MIL/uL Hemoglobin 13.4 L 14.0-18.0 g/dL Hematocrit 41.9 L 42-54 % Mean Corpuscular Volume 94.8 79-99 fL Mean Corpuscular Hemoglobin 30.3 27.0-33.0 pg Mean Corpuscular Hemoglobin Concent 32.0 32.0-36.0 g/dL Red Cell Distribution Width 16.2 H 11.0-15.5 % Platelet Count 135 130-400 K/uL Mean Platelet Volume 11.4 H 7.5-10.5 fL Nucleated Red Blood Cells 0.0 0.0-0.19 % Chemistry Labs: Test 07/21/24 03:45 Range/Units Sodium Level 144 136-145 mmol/L Potassium Level 3.1 L 3.5-5.1 mmol/L Chloride Level 104 101-111 mmol/L Carbon Dioxide Level 33 H 21-32 mmol/L Blood Urea Nitrogen 44 H 7-18 mg/dL Creatinine 2.2 H 0.5-1.3 mg/dL Glomerular Filtration Rate Calc 32 >90 mL/min Random Glucose 103 70-105 mg/dL Total Calcium 9.0 8.5-10.1 mg/dL Magnesium Level 2.00 1.80-2.40 mg/dL Total Bilirubin 1.6 H 0.2-1.0 mg/dL Aspartate Amino Transf (AST/SGOT) 33 10-37 U/L Alanine Aminotransferase (ALT/SGPT) 47 12-78 U/L Alkaline Phosphatase 72 50-136 U/L Total Protein 5.9 L 6.0-8.3 g/dL Albumin 2.9 L 3.5-5.0 g/dL DIAGNOSTICS / RADIOLOGY RESULTS: na PLAN NEURO: Minimize central acting medications as possible. Maintain fall precautions, adequate lighting during the day PULMONARY: Supplemental 02 as needed. Maintain aspiration precautions at all times CARDIOVASCULAR: Follow hemodynamics. Vital signs per facility protocol GI & NUTRITION: Continue with nutritional support. Continue stool softeners and laxatives as needed. KIDNEYS & ELECTROLYTES: Strict monitoring of intake, output and overall fluid balance. Avoid nephrotoxic medications to the extent possible. Medications to be dosed according to renal function. Monitor electrolytes and replace as needed ENDOCRINE: Maintain blood glucose between 100-180 at all times. Hypoglycemia protocol in place INFECTIOUS DISEASE: Trend temperature, WBC and procalcitonin level Follow cultures, deescalate antibiotics as soon as possible. Panculture if new onset fever ONCOLOGY/HEMATOLOGY/COAGULATION: Monitor for s/s of bleeding Monitor hemoglobin, coagulation studies as needed SKIN: Pressure ulcer prevention per facility protocol Specialty mattress ORTHO/REHAB: Continue PT/OT Prophylaxis: Continue GI and DVT prophylaxis Code Status: Full Resuscitation Disposition: Per primary team Other: Case discussed with supervising physician plan of care agreed upon ROSA LONGO Jul 21, 2024 14:13
[2024-07-22] VITALS (11 sets, daily range): BP systolic 104–124; BP diastolic 46–70; PULSE 74–88; RESP 16–20; TEMP 96.3–99.2; O2SAT 95–98
[2024-07-22 04:18] LABS: BASOPHILS # (AUTO) 0.09 K/uL (0.00-0.20); BASOPHILS % (AUTO) 1.1 % (0.0-5.0); EOSINOPHILS # (AUTO) 0.12 K/uL (0.00-0.70); EOSINOPHILS % (AUTO) 1.5 % (0.0-8.0); HEMATOCRIT 41.4 % (42-54); IMMATURE GRANULOCYTE ABSOLUTE 0.04 K/uL (0-1); LYMPHOCYTES # (AUTO) 1.7 K/uL (1.0-4.8); LYMPHOCYTES % (AUTO) 21.3 % (21.0-51.0); MEAN CORPUSCULAR HEMOGLOBIN 30.2 pg (27.0-33.0); MEAN CORPUSCULAR HGB CONC 32.4 g/dL (32.0-36.0); MEAN CORPUSCULAR VOLUME 93.5 fL (79-99); MONOCYTES # (AUTO) 0.8 K/uL (0.1-1.0); MONOCYTES % (AUTO) 9.7 % (3.0-13.0); NEUTROPHILS # (AUTO) 5.2 K/uL (1.8-7.7); NEUTROPHILS % (AUTO) 65.9 % (40.0-77.0); PLATELET COUNT (AUTO) 134 K/uL (130-400); RED BLOOD CELL COUNT(AUTO) 4.43 MIL/uL (4.50-6.20); RED CELL DISTRIBUTION WIDTH 16.2 % (11.0-15.5); WHITE BLOOD COUNT (AUTO) 7.8 K/uL (4.8-10.8)
[2024-07-22 04:43] LABS: ALBUMIN 2.9 g/dL (3.5-5.0); BILIRUBIN,TOTAL 1.6 mg/dL (0.2-1.0); CREATININE 2.4 mg/dL (0.5-1.3); POTASSIUM 3.2 mmol/L (3.5-5.1); TOTAL PROTEIN, SERUM 5.8 g/dL (6.0-8.3)
[2024-07-22] MEDS: PoTASSium chl 10% ELIXIR 20MEQ 20 MEQ/15 ML UDCUP PO PRN (09:07)
[2024-07-22] MEDS: PoTASSium chloRIDE 10MEQ SR 10 MEQ/TAB TAB.SR.24H PO PRN (12:15)
[2024-07-22] MEDS: metoLAZONE 2.5 MG TABLET PO STA (14:24)
--- NOTE | 2024-07-22 14:32 | NUR ---
PAGED AGAIN DR. TITUS'S OFFICE PAGED AGAIN FOR NEW CONSULT FOR CHF EXACERBATION. PER BRENNAN REBOLLEDO DR. HAD GIVEN REPORT TO DR. TITUS. PER NOTES WAS PAGED, BUT NO ANSWER. PATIENT'S DAUGHTER AT BEDSIDE UPSET BECAUSE NO ONE FROM DR. TITUS'S TEAM HAS SEEN THE PATIENT. ADVISED PATIENT AND FAMILY THAT DR. AYALA HAD ADDED AN ADDITIONAL MEDICATION TO AID WITH EDEMA AND THAT WE ARE MONITORING URINE OUTPUT AT THIS TIME.
--- NOTE | 2024-07-22 15:01 | PN ---
NEPHROLOGY PROGRESS NOTE Date/Time Patient Seen: Jul 22, 2024 SUBJECTIVE: This is a 69-year-old male with underlying history of hypertension, hyperlipidemia, CKD stage 3, underlying history of atrial fibrillation, heart failure with mildly reduced ejection fraction of 45-50% (RVSP of 54 concerning for severe pulmonary hypertension), history of chronic anticoagulation with Eliquis, history of severe aortic stenosis secondary to bicuspid aortic valve status post bioprosthetic aortic valve replacement in 2018 who He presented to the ER for further evaluation of progressive lower extremity edema and weight gain. Patient states diuretics were stopped and his urine output decreased Pending further cardiology recommendations He has been started on Diuretics He was noted to have elevated BUN/creatinine We are consulted for renal failure Renal function is stable Electrolytes are stable 24 hour urine output was noted Daily weight was noted. Patient reports continues with decreased urine output He was seen in the medical floor, in no acute distress Family at the bedside. REVIEW OF SYSTEMS: GENERAL: Negative for any nausea, vomiting, fevers, chills, or weight loss. NEUROLOGIC: Negative for any blurry vision, blind spots, double vision, facial asymmetry, dysphagia, dysarthria, hemiparesis, hemisensory deficits, vertigo, ataxia. HEENT: Negative for any head trauma, neck trauma, neck stiffness, photophobia, phonophobia, sinusitis, rhinitis. CARDIAC: Negative for any chest pain, dyspnea on exertion, paroxysmal nocturnal dyspnea, peripheral edema. PULMONARY: Negative for any shortness of breath, wheezing, COPD, or TB exposure. GASTROINTESTINAL: Negative for any abdominal pain, nausea, vomiting, bright red blood per rectum, melena. GENITOURINARY: Negative for any dysuria, hematuria, incontinence. INTEGUMENTARY: Negative for any rashes, cuts, insect bites. RHEUMATOLOGIC: Negative for any joint pains, photosensitive rashes, history of vasculitis or kidney problems. HEMATOLOGIC: Negative for any abnormal bruising, frequent infections or bleeding. PHYSICAL EXAM: GENERAL: Alert and oriented x 3. No acute distress. Well-nourished. EYES: EOMI. Anicteric. HENT: Moist mucous membranes. No scleral icterus. No cervical lymphadenopathy. LUNGS: Clear to auscultation bilaterally. No accessory muscle use. CARDIOVASCULAR: Regular rate and rhythm. No murmur. No JVD. ABDOMEN: Soft, non-tender and non-distended. No palpable masses. EXTREMITIES: No edema. Non-tender. SKIN: No rashes or lesions. Warm. NEUROLOGIC: No focal neurological deficits. CN II-XII grossly intact, but not individually tested. PSYCHIATRIC: Cooperative. Appropriate mood and affect. LABORATORY: [ ] Hematology Labs: Test 07/22/24 03:38 Range/Units White Blood Count 7.8 4.8-10.8 K/uL Red Blood Count 4.43 L 4.50-6.20 MIL/uL Hemoglobin 13.4 L 14.0-18.0 g/dL Hematocrit 41.4 L 42-54 % Mean Corpuscular Volume 93.5 79-99 fL Mean Corpuscular Hemoglobin 30.2 27.0-33.0 pg Mean Corpuscular Hemoglobin Concent 32.4 32.0-36.0 g/dL Red Cell Distribution Width 16.2 H 11.0-15.5 % Platelet Count 134 130-400 K/uL Mean Platelet Volume 11.5 H 7.5-10.5 fL Immature Granulocyte % (Auto) 0.5 0-1 % Neutrophils (%) (Auto) 65.9 40.0-77.0 % Lymphocytes (%) (Auto) 21.3 21.0-51.0 % Monocytes (%) (Auto) 9.7 3.0-13.0 % Eosinophils (%) (Auto) 1.5 0.0-8.0 % Basophils (%) (Auto) 1.1 0.0-5.0 % Neutrophils # (Auto) 5.2 1.8-7.7 K/uL Lymphocytes # (Auto) 1.7 1.0-4.8 K/uL Monocytes # (Auto) 0.8 0.1-1.0 K/uL Eosinophils # (Auto) 0.12 0.00-0.70 K/uL Basophils # (Auto) 0.09 0.00-0.20 K/uL Absolute Immature Granulocyte (auto 0.04 0-1 K/uL Nucleated Red Blood Cells 0.0 0.0-0.19 % Chemistry Labs: Test 07/22/24 03:38 07/21/24 03:45 Range/Units Sodium Level 144 136-145 mmol/L Potassium Level 3.2 L 3.5-5.1 mmol/L Chloride Level 105 101-111 mmol/L Carbon Dioxide Level 30 21-32 mmol/L Blood Urea Nitrogen 45 H 7-18 mg/dL Creatinine 2.4 H 0.5-1.3 mg/dL Glomerular Filtration Rate Calc 28 >90 mL/min Random Glucose 102 70-105 mg/dL Total Calcium 8.8 8.5-10.1 mg/dL Total Bilirubin 1.6 H 0.2-1.0 mg/dL Aspartate Amino Transf (AST/SGOT) 33 10-37 U/L Alanine Aminotransferase (ALT/SGPT) 42 12-78 U/L Alkaline Phosphatase 74 50-136 U/L Total Protein 5.8 L 6.0-8.3 g/dL Albumin 2.9 L 3.5-5.0 g/dL Magnesium Level 2.00 1.80-2.40 mg/dL DIAGNOSTICS / RADIOLOGY: REASON: PLEURAL EFFUSION/TRANSAMINITIS ORDERING PHYSICIAN: LEIDA THOMAS PROCEDURE: CAP WO - CT CHEST/ABD/PELV W/O CONTRAST CT CHEST/ABD/PELV W/O CONTRAST HISTORY: Pleural effusion COMPARISON: None TECHNIQUE: Multiple sequential axial images of the chest were obtained from the thoracic inlet through upper abdomen. Patient was not given contrast through intravenous route. FINDINGS: There are small bilateral pleural effusions with compressive atelectasis. Bibasilar linear atelectasis changes are seen. Aortic calcifications are seen. Minimal left lower lung pulmonary infiltrates are seen. No pericardial effusion is seen. There is no evidence of pneumothorax. There are normal size mediastinal and hilar lymph nodes. The heart is not enlarged. Degenerative changes of the thoracolumbar spine are present. There is no evidence of adrenal nodule. IMPRESSION: 1. Small bilateral pleural effusions with compressive atelectasis. Minimal left lower lung pulmonary infiltrates are seen. Minimal left lower lung pulmonary infiltrates are seen. CT CHEST/ABD/PELV W/O CONTRAST HISTORY: Elevated liver enzymes COMPARISON: None TECHNIQUE: Multiple sequential axial images of the abdomen and pelvis were obtained from the dome of the diaphragm through symphysis pubis. Patient was not given contrast through intravenous route. Oral contrast was not given. FINDINGS: Liver is enlarged measuring 21 cm. The liver, spleen, adrenal glands and pancreas are unremarkable. There is no evidence of hydronephrosis bilaterally. No evidence of renal stone is seen. Fecal material is seen in the colon. There are normal size retroperitoneal and mesenteric lymph nodes. Small ascites fluid is seen in the pelvis. Atherosclerotic changes are present. There is left iliac stent. Pelvic sidewalls are symmetric bilaterally. Bladder is poorly distended. Fat stranding is seen adjacent to the bladder may be related to cystitis and urinary analysis correlation may be helpful. There is mild diverticulosis. IMPRESSION: 1. Small amount of fluid is seen in the pelvis. CT was performed with one or more following dose reduction techniques: automated exposure control, adjustment of the mA and kv according to patient's size, or use of a iterative reconstruction technique. DICTATED BY: LORE KNIGHT MD DATE: 07/18/24 230 REASON: assess for ascites, abdominal distension, hx of fatty liver ORDERING PHYSICIAN: BETO JESUS MD PROCEDURE: ABDOMEN - US ABDOMINAL COMPLETE US ABDOMINAL COMPLETE HISTORY: Abdominal distention, ascites COMPARISON: None TECHNIQUE: Multiple transverse and longitudinal ultrasound images of the abdomen were obtained. FINDINGS: Abdominal aorta and inferior vena cava are unremarkable. There are bilateral pleural effusions. Pancreas is not well seen. Liver measures 16 cm. Liver is echogenic consistent with liver parenchymal disease. No gallstone is seen. Common duct measures 4 mm. No evidence of gallbladder wall thickening is seen. Both kidneys are seen. Right kidney measures 10 x 6 x 7 cm. Left kidney measures 11 x 7 x 6 cm. No hydronephrosis is seen of the both kidneys. The spleen is grossly unremarkable. IMPRESSION: 1. No gallstone or ductal dilatation is seen. Bilateral pleural effusions. 2. No hydronephrosis is seen. DICTATED BY: LORE KNIGHT MD DATE: 07/19/24 1024 REASON: significant lower extremity edema, r/o any DVT ORDERING PHYSICIAN: BETO JESUS MD PROCEDURE: VENOUS JACE - US VENOUS DOPPLER BILATERAL ULTRASOUND VENOUS DOPPLER, BILATERAL LOWER EXTREMITIES INDICATION: Bilateral lower extremity pain and swelling TECHNIQUE: Routine grayscale and color Doppler ultrasound of the bilateral lower extremity veins performed. COMPARISON: No priors. FINDINGS: The demonstrated veins of the bilateral lower extremity including the common femoral vein, femoral vein, and popliteal vein are associated with normal compressibility, augmentation, and flow. Normal respiratory variation was identified. No evidence for echogenic intraluminal thrombus formation. Pulsatile flow may be related to known history of congestive heart failure. IMPRESSION: No sonographic evidence for deep venous thrombosis within the bilateral lower extremity veins. DICTATED BY: MARLON PINZON MD DATE: 07/18/24 183 REASON: SHORTNESS A BREATH ORDERING PHYSICIAN: CINTHIA VICENTE NP PROCEDURE: CXR1VW - CHEST 1VW CHEST 1VW HISTORY: Shortness of breath COMPARISON: 06/11/2024 FINDINGS: A frontal projection of the chest was obtained. Mild bilateral pulmonary infiltrates are seen may be related to mild pulmonary vascular congestion with possible superimposed pneumonitis. The heart is enlarged. Degenerative changes are seen. No evidence of aortic calcification is seen. IMPRESSION: 1. Mild bilateral pulmonary infiltrates are seen may be related to mild pulmonary vascular congestion with possible superimposed pneumonitis. 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, POA, (LV EF 45-50%) Acute hypoxemic respiratory failure, POA History of severe pulmonary hypertension with RVSP of 54, attributed secondary to underlying cardiac comorbidities, group 2, POA Rule out pulmonary arterial hypertension, POA History of moderate aortic regurgitation, POA History of moderate tricuspid regurgitation, POA Severe volume overload, POA Congestive hepatopathy, POA CKD stage 3, likely chronic cardiorenal syndrome, POA Underlying history of atrial fibrillation, POA History of chronic anticoagulation with Eliquis as outpatient, POA Obesity, POA History of severe aortic stenosis status post bioprosthetic aortic wall replacement in 2018, POA PLAN: Labs, diagnostic, radiologic exams reviewed and interpreted by myself and supervising physician. We have reviewed external records in detail Give one dose of Zaroxolyn5 mg p.o. Continue 1.5 L fluid restriction Pending further cardiology recommendations Require close monitoring of renal function and electrolytes Order CBC, CMP, and electrolytes in am Continue with antibiotics Renal diabetic diet BiPAP as necessary, for respiratory distress Monitor blood pressure adjust medication doses as needed Avoid hypotensive episodes May use Dilaudid 0.5 mg IV every 6 hours as needed for severe pain Monitor blood sugars Strict intake, output, and daily weight should be monitored Please renally adjust medications Avoid nephrotoxic and nonsteroidal drugs Avoid contrast if possible Will continue to monitor renal function, anemia, electrolytes Treatment plan discussed with patient Questions were answered We have discussed with the other team physicians in detail about the care plan We will continue to monitor the patient closely ATTESTATION BY PHYSICIAN I have seen and examined the patient. I reviewed the documentation, medical decision making, and treatment plan as noted by the mid-level provider above. I agree with the findings and plan of care. JOSS AYALA MD, [facility] Jul 22, 2024 15:01
--- NOTE | 2024-07-22 15:16 | PN ---
[facility] PROGRESS NOTE Date Patient Seen: Jul 22, 2024 Time of Visit: 1133 Supervising Physician: Dr. Pastrana Inpatient Consults: BIS PROBLEM LIST: Acute on chronic HEART FAILURE REDUCED EJECTION FRACTION EXACERBATION EF 45-50% PER ECHOCARDIOGRAM 06/01/2024 WITH STAGE II DIASTOLIC DYSFUNCTION POA, Acute hypoxemic respiratory failure, POA Severe pulmonary hypertension with RVSP of 54mmHg, attributed secondary to underlying cardiac comorbidities, group 2, POA Rule out pulmonary arterial hypertension, POA History of moderate aortic regurgitation, POA History of moderate tricuspid regurgitation, POA Congestive hepatopathy, POA CKD stage 3, likely chronic cardiorenal syndrome, POA Underlying history of atrial fibrillation, POA History of chronic anticoagulation with Eliquis as outpatient, POA Obesity, POA History of severe aortic stenosis status post bioprosthetic aortic wall replacement in 2018, POA INTERVAL HISTORY: 07/20 patient was seen and examined at bedside no family present. Patient is awake alert able to answer simple questions appropriately. Patient remains on room air appears to be tolerating well. Patient denies any chest pain report shortness of breath has improved significantly. Patient denies any nausea vomiting or abdominal pain. Patient currently pending evaluation from Cardiolo gy. As per primary nurse no acute events to be reported. 07/21 patient was seen and examined at bedside no family present. Patient remains on room air tolerating well. At time of visit patient has no specific complaints. Patient remains hemodynamically stable. Patient's report shortness of breath has improved significantly. Is tolerating p.o. diet. He is having bowel movements. As per primary nurse no acute events to be reported. Patient is still currently pending evaluation from Cardiology. 07/22 patient was seen and examined at bedside with present. Patient remains on room air is tolerating well. At time of visit patient denies chest pain, however still reporting shortness of breath upon minimal exertion, patient states is now feeling that is getting worse. Patient states does not urinating as much as she was before with the Bumex. Patient is still currently pending evaluation from Cardiology. We will follow up for results. Patient to continue with all cardiac medications. Plan summary Patient has pulmonary hypertension from most recent echocardiogram done on 06/01/2024 shows RVSP of 54 mmHg which which is classified as WHO group two classification Recommend treatment is to continue with current cardiac medications, at this time no indication for right heart catheterization Patient has respiratory issues appears to be more cardiac related than pulmon caroline, patient to continue with Bumex1 mg every 8 hours Patient is bilateral effusion not enough fluid to safely remove, so no ind ication for thoracentesis at this time Follow up patient's V/Q scan Continue to monitor respiratory status and maintain adequate oxygenation Keep O2 sats greater or equal to 90% Patient require 6 minute walk prior to discharge Patient will need to follow up with [facility] with car [facility] Dr. Deras within 3-5 days upon discharge We will continue to monitor closely REVIEW OF SYSTEMS: 12 point ROS reviewed with patient. Pertinent positives mentioned above. Otherwise negative. PHYSICAL EXAM: GENERAL: alert, weak, awake oriented x 3 HEENT: EOMI, Sclera non icteric, moist mucosa NECK: Supple, no JVD, trachea midline LUNGS: Clear breath sounds bilaterally. No wheezes HEART: Regular rate and rhythm. Normal S1 and S2, without murmurs ABD: Abdomen soft, nontender. Bowel sounds present EXT: No clubbing cyanosis or edema NEURO: Alert and oriented to person, follows commands Vital Signs (last 8hr) Date Time Temp Pulse Resp B/P (MAP) Pulse Ox O2 Delivery O2 Flow Rate FiO2 07/22/24 12:00 97.7 74 19 115/56 97 Room Air 07/22/24 08:00 95 Room Air* 0 21 07/22/24 07:56 96.3 79 19 124/52 95 Room Air LABS: Hematology Labs: Test 07/22/24 03:38 Range/Units White Blood Count 7.8 4.8-10.8 K/uL Red Blood Count 4.43 L 4.50-6.20 MIL/uL Hemoglobin 13.4 L 14.0-18.0 g/dL Hematocrit 41.4 L 42-54 % Mean Corpuscular Volume 93.5 79-99 fL Mean Corpuscular Hemoglobin 30.2 27.0-33.0 pg Mean Corpuscular Hemoglobin Concent 32.4 32.0-36.0 g/dL Red Cell Distribution Width 16.2 H 11.0-15.5 % Platelet Count 134 130-400 K/uL Mean Platelet Volume 11.5 H 7.5-10.5 fL Immature Granulocyte % (Auto) 0.5 0-1 % Neutrophils (%) (Auto) 65.9 40.0-77.0 % Lymphocytes (%) (Auto) 21.3 21.0-51.0 % Monocytes (%) (Auto) 9.7 3.0-13.0 % Eosinophils (%) (Auto) 1.5 0.0-8.0 % Basophils (%) (Auto) 1.1 0.0-5.0 % Neutrophils # (Auto) 5.2 1.8-7.7 K/uL Lymphocytes # (Auto) 1.7 1.0-4.8 K/uL Monocytes # (Auto) 0.8 0.1-1.0 K/uL Eosinophils # (Auto) 0.12 0.00-0.70 K/uL Basophils # (Auto) 0.09 0.00-0.20 K/uL Absolute Immature Granulocyte (auto 0.04 0-1 K/uL Nucleated Red Blood Cells 0.0 0.0-0.19 % Chemistry Labs: Test 07/22/24 03:38 07/21/24 03:45 Range/Units Sodium Level 144 136-145 mmol/L Potassium Level 3.2 L 3.5-5.1 mmol/L Chloride Level 105 101-111 mmol/L Carbon Dioxide Level 30 21-32 mmol/L Blood Urea Nitrogen 45 H 7-18 mg/dL Creatinine 2.4 H 0.5-1.3 mg/dL Glomerular Filtration Rate Calc 28 >90 mL/min Random Glucose 102 70-105 mg/dL Total Calcium 8.8 8.5-10.1 mg/dL Total Bilirubin 1.6 H 0.2-1.0 mg/dL Aspartate Amino Transf (AST/SGOT) 33 10-37 U/L Alanine Aminotransferase (ALT/SGPT) 42 12-78 U/L Alkaline Phosphatase 74 50-136 U/L Total Protein 5.8 L 6.0-8.3 g/dL Albumin 2.9 L 3.5-5.0 g/dL Magnesium Level 2.00 1.80-2.40 mg/dL DIAGNOSTICS / RADIOLOGY RESULTS: na PLAN NEURO: Minimize central acting medications as possible. Maintain fall precautions, adequate lighting during the day PULMONARY: Supplemental 02 as needed. Maintain aspiration precautions at all times CARDIOVASCULAR: Follow hemodynamics. Vital signs per facility protocol GI & NUTRITION: Continue with nutritional support. Continue stool softeners and laxatives as needed. KIDNEYS & ELECTROLYTES: Strict monitoring of intake, output and overall fluid balance. Avoid nephrotoxic medications to the extent possible. Medications to be dosed according to renal function. Monitor electrolytes and replace as needed ENDOCRINE: Maintain blood glucose between 100-180 at all times. Hypoglycemia protocol in place INFECTIOUS DISEASE: Trend temperature, WBC and procalcitonin level Follow cultures, deescalate antibiotics as soon as possible. Panculture if new onset fever ONCOLOGY/HEMATOLOGY/COAGULATION: Monitor for s/s of bleeding Monitor hemoglobin, coagulation studies as needed SKIN: Pressure ulcer prevention per facility protocol Specialty mattress ORTHO/REHAB: Continue PT/OT Prophylaxis: Continue GI and DVT prophylaxis Code Status: Full Resuscitation Disposition: Per primary team Other: Case discussed with supervising physician plan of care agreed upon ROSA LONGO Jul 22, 2024 15:16
--- NOTE | 2024-07-22 18:13 | PN ---
[facility] PROGRESS NOTE Date of Service: Jul 22, 2024 Time of Service: 18:08 SUBJECTIVE: [ ] The patient has been seen and examined today during my rounding, no acute events overnight, patient resting comfortably in bed, alert oriented x3, hemodynamically stable, BP 121/62, afebrile, saturating normal on room air. The patient continue diuretics, having good urine output, has urinated several times throughout this hospitalization. He admits less swollen to both lower extremities. Results of Doppler extremities negative for DVT. The patient with the elevated D-dimer. No chest pain, no shortness a breath at the time of my visit, unable to do V/Q scan or CT PE protocol as the patient elevated creatinine and unable to stay flat on his back. is at bedside during my visit. 07/20 the patient has been seen and examined earlier this morning during my rounding, no acute events overnight, he remains hemodynamically stable, afebrile, saturating normal on room air. The patient has been very good urine output. Per my discussion with the nurse that is taking care of the patient, the patient's weight has improved from 291.8 lb to 283.4 today. He denies chest pain, no shortness a breath, he admits less swollen to both lower extremities compared to time of admission. is not present at the bedside during my visit. 07/21/24 patient was seen and examined and case discussed with RN. He feels that his swelling is going down. We will continue with Bumex. Monitor electrolytes. Monitor weight 07/22 patient seen at bedside, no acute events overnight. Patient continues with diuresis, he was evaluated by Cardiology today, recommendations still pending we will follow up. Patient with notable chronic kidney disease and pulmonary hypertension which likely are contributing to his peripheral pitting edema. Surprisingly his ejection fraction is near normal with 45 to 50% and is unlikely the cause his pitting edema. He does have some valvular dysfunction with some moderate regurgitation. He has ventricle and atria are dilated likely due to increased pressures possibly due to dilated cardiomyopathy. At bedside he is saturating well on room air has no complaints at this time. Further recommendations per Cardiology, pulmonology and Nephrology. Pulmonology recommending to treat underlying causes no direct interventions for pulmonary hypertension at this time as he has a grade 2 in the guidelines state to treat the underlying causes. REVIEW OF SYSTEMS 12 point review of systems negative unless noted in HPI PHYSICAL EXAM GENERAL APPEARANCE: The patient is awake, alert, and oriented, in no acute cardiopulmonary distress. NEUROLOGICAL: Cranial nerves II-XII grossly intact. Motor is 5/5 in bilateral upper and lower extremities proximal to distal. No sensory deficits. HEENT: Face is symmetric. Pupils are equal and reactive. Extraocular movements are intact. NECK: Supple. No JVD. No thyromegaly. No submental, submandibular, pre- /postauricular, occipital or supraclavicular lymphadenopathy. CHEST: Normal chest expansion. No Telemetry. LUNGS: Crackles noted at bilateral lung base CARDIOVASCULAR: Regular. S1 and S2 normal. No appreciable rubs, murmurs or gallops. ABDOMEN: Soft, nontender, and nondistended. There is no rebound, voluntary guarding, or rigidity. : Deferred. No [place]chard. EXTREMITIES: 3+ pitting edema noted of bilateral lower extremities SKIN: No skin breakdown. Vital Signs (last 8hr) Date Time Temp Pulse Resp B/P (MAP) Pulse Ox O2 Delivery O2 Flow Rate FiO2 07/22/24 16:00 99.1 78 19 104/56 92 Room Air 07/22/24 12:00 97.7 74 19 115/56 97 Room Air LABS: Laboratory: Test 07/22/24 03:38 07/21/24 03:45 Range/Units White Blood Count 7.8 4.8-10.8 K/uL Red Blood Count 4.43 L 4.50-6.20 MIL/uL Hemoglobin 13.4 L 14.0-18.0 g/dL Hematocrit 41.4 L 42-54 % Mean Corpuscular Volume 93.5 79-99 fL Mean Corpuscular Hemoglobin 30.2 27.0-33.0 pg Mean Corpuscular Hemoglobin Concent 32.4 32.0-36.0 g/dL Red Cell Distribution Width 16.2 H 11.0-15.5 % Platelet Count 134 130-400 K/uL Mean Platelet Volume 11.5 H 7.5-10.5 fL Immature Granulocyte % (Auto) 0.5 0-1 % Neutrophils (%) (Auto) 65.9 40.0-77.0 % Lymphocytes (%) (Auto) 21.3 21.0-51.0 % Monocytes (%) (Auto) 9.7 3.0-13.0 % Eosinophils (%) (Auto) 1.5 0.0-8.0 % Basophils (%) (Auto) 1.1 0.0-5.0 % Neutrophils # (Auto) 5.2 1.8-7.7 K/uL Lymphocytes # (Auto) 1.7 1.0-4.8 K/uL Monocytes # (Auto) 0.8 0.1-1.0 K/uL Eosinophils # (Auto) 0.12 0.00-0.70 K/uL Basophils # (Auto) 0.09 0.00-0.20 K/uL Absolute Immature Granulocyte (auto 0.04 0-1 K/uL Nucleated Red Blood Cells 0.0 0.0-0.19 % Sodium Level 144 136-145 mmol/L Potassium Level 3.2 L 3.5-5.1 mmol/L Chloride Level 105 101-111 mmol/L Carbon Dioxide Level 30 21-32 mmol/L Blood Urea Nitrogen 45 H 7-18 mg/dL Creatinine 2.4 H 0.5-1.3 mg/dL Glomerular Filtration Rate Calc 28 >90 mL/min Random Glucose 102 70-105 mg/dL Total Calcium 8.8 8.5-10.1 mg/dL Total Bilirubin 1.6 H 0.2-1.0 mg/dL Aspartate Amino Transf (AST/SGOT) 33 10-37 U/L Alanine Aminotransferase (ALT/SGPT) 42 12-78 U/L Alkaline Phosphatase 74 50-136 U/L Total Protein 5.8 L 6.0-8.3 g/dL Albumin 2.9 L 3.5-5.0 g/dL Magnesium Level 2.00 1.80-2.40 mg/dL Current Medications Medications (Trade) Dose Ordered Sig/Samantha Route PRN Reason Start Time Stop Time Status Last Admin Dose Admin Acetaminophen (TYLenol 500MG TAB) 500 mg Q6H PRN PO MILD PAIN (1-3) 07/18/24 18:00 08/17/24 17:59 Acetaminophen (TYLenol 500MG TAB) 500 mg Q6H PRN PO MILD PAIN (1-3) 07/18/24 18:00 08/17/24 17:59 Amiodarone HCl (pacERONE 200MG) 200 mg QMOWEFR PO 07/19/24 09:00 08/18/24 08:59 07/22/24 09:06 200 MG Apixaban (EliquIS) 5 mg BID PO 07/18/24 21:00 08/17/24 20:59 07/22/24 09:06 5 MG Atorvastatin Calcium (LIPItor 10MG) 10 mg DAILY PO 07/19/24 09:00 07/22/24 10:33 DC 07/22/24 09:06 10 MG Atorvastatin Calcium (LIPItor 10MG) 10 mg HS PO 07/23/24 21:00 08/18/24 08:59 Budesonide (Pulmicort 0.5 Mg/2ml) 0.5 mg BIDRESP IH 07/18/24 18:00 08/17/24 17:59 07/22/24 06:44 0.5 MG Bumetanide (Bumex 1mg Vial) 1 mg Q8H IVP 07/18/24 21:00 08/17/24 20:59 07/22/24 12:15 1 MG Bupropion HCl (WellBUTrin SR 150MG) 150 mg BID PO 07/19/24 21:00 08/18/24 20:59 07/22/24 09:06 150 MG Fish Oil (Fish Oil 1000 Mg/Cap) 1,000 mg BID PO 07/19/24 21:00 08/18/24 20:59 07/22/24 09:06 1,000 MG Gabapentin (NEURontin 100 mg CAP) 100 mg HS PO 07/19/24 21:00 08/18/24 20:59 07/21/24 20:49 100 MG Home Med (Home Medication) (Dapagliflozin Propanediol (Farxiga... DAILY PO 07/20/24 09:00 08/19/24 08:59 Ipratropium [place] (AtrovENT UD) 1 mg Q6H PRN IH SHORTNESS OF BREATH 07/18/24 18:00 08/17/24 17:59 Levothyroxine Sodium (SYNTHroid 25MCG TAB) 25 mcg DAILY@0630 PO 07/19/24 06:30 08/18/24 06:29 07/22/24 06:21 25 MCG Magnesium Sulfate 50 ml @ 0 mls/hr PROTOCOL IV 07/18/24 18:00 08/17/24 17:59 Melatonin (Melatonin) 5 mg HS PRN PO insomnia 07/18/24 20:30 08/17/24 20:29 Melatonin (Melatonin) 10 mg HS PO 07/19/24 21:00 08/18/24 20:59 07/21/24 20:50 10 MG Metolazone (zarOXOlyn) 5 mg ONCE STAT PO 07/22/24 14:07 07/22/24 14:12 DC 07/22/24 14:24 5 MG Metoprolol Succinate (TopROL XL) 25 mg DAILY PO 07/19/24 09:00 08/18/24 08:59 07/22/24 09:07 25 MG Ondansetron HCl (zoFRAN 4MG INJ) 4 mg Q6H PRN IVP NAUSEA/VOMITING 07/18/24 18:00 08/17/24 17:59 Pantoprazole Sodium (PROTonix 40MG TAB) 40 mg DAILY PO 07/19/24 09:00 08/18/24 08:59 07/22/24 09:06 40 MG Pharmacy Profile Note (Lace Assessment) 1 each AD MISC 07/19/24 17:30 07/19/24 20:58 DC Potassium Chloride 100 ml @ 100 mls/hr AD PRN IV POTASSIUM PROTOCOL 07/18/24 18:00 08/17/24 17:59 Potassium Chloride (K-Dur 10meq Sr Tab) 10 meq AD PRN PO POTASSIUM PROTOCOL 07/22/24 11:00 08/17/24 17:59 07/22/24 14:24 10 MEQ Potassium Chloride (K-Dur/Klor-Con 20meq) 10 meq AD PRN PO POTASSIUM PROTOCOL 07/18/24 18:00 07/22/24 10:35 DC 07/21/24 15:29 10 MEQ Potassium Chloride (KCl 10% Elixir 20meq/15ml) 10 meq AD PRN PO POTASSIUM PROTOCOL 07/18/24 18:00 08/17/24 17:59 07/22/24 09:07 10 MEQ Simethicone (Mylicon) 40 mg ONCE PO 07/20/24 21:00 07/20/24 20:35 DC Vitamin B Complex/ Vit C/Folic Acid (Nephrovite Tablet) 1 cap DAILY PO 07/19/24 09:00 08/18/24 08:59 07/22/24 09:06 1 CAP DIAGNOSTICS / RADIOLOGY: [ ] ASSESSMENT: 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, POA, (LV EF 45-50%) Acute hypoxemic respiratory failure, POA History of severe pulmonary hypertension with RVSP of 54, attributed secondary to underlying cardiac comorbidities, group 2, POA Rule out pulmonary arterial hypertension, POA History of moderate aortic regurgitation, POA History of moderate tricuspid regurgitation, POA Severe volume overload, POA Congestive hepatopathy, POA CKD stage 3, likely chronic cardiorenal syndrome, POA Underlying history of atrial fibrillation, POA History of chronic anticoagulation with Eliquis as outpatient, POA Obesity, POA History of severe aortic stenosis status post bioprosthetic aortic valve replacement in 2018, POA PLAN: Patient remains admitted to the medical floor Continue threat monitoring analyst Continue diuresis Monitor urine output closely, obtain daily weight Monitor renal function closely Maintain K greater than four and magnesium greater than two, electrolytes will be repleted per protocol Echocardiogram to evaluate ejection fraction, follow Cardiology input and recommendation Replace electrolytes IV per protocol Continue amiodarone, Eliquis, metoprolol succinate and home medications were reconciled and updated once available We will monitor BMP closely tonight and All labs will be repeated in the morning We will see if patient has undergone prior sleep study to rule out obstructive sleep apnea Disposition: Diuresis, pulmonology, cardiology, nephrology recommendations TAWANDA CALVIN MD Jul 22, 2024 18:12
--- NOTE | 2024-07-22 21:45 | CONS ---
cardiology consult HPI: This is a 69-year-old male with past medical history of severe arctic stenosis secondary to bicuspid valve underwent a bioprosthetic aortic valve replacement in 2018,, history of atrial fibrillation on oral anticoagulation, in 2018 patient also underwent a left cardiac catheterization during that time he had mid RCA with 20 to 30% tubular stenosis no other significant disease was seen. pt underwent cadx workup with us in office couple months ago which was negative, pt presented to the ed for sob we have been consulted for chf pmhx as mentioned above surgical history SAVR ros General: No malaise or fever. Neurological: No fainting episodes or seizures. HEENT: No nasal congestion or nasal secretion. Cardiac: No chest pain or palpitations. Gastrointestinal: No vomiting or diarrhea. Skin: No rashes or lesions. Hematological: No bruises or bleeding. Musculoskeletal: No joint pains or arthralgias. Psychiatric: No depression or panic attacks. PE GENERAL: alert, weak, awake oriented x 3; on BiPAP HEENT: EOMI, Sclera non icteric, moist mucosa NECK: Supple, no JVD, trachea midline LUNGS: Titer entry, more so on the right HEART: Regular rate and rhythm. Normal S1 and S2, without murmurs ABD: soft, mild distention, bowel sounds present, limited exam given enlarged pannus EXT: No clubbing cyanosis trace pitting edema bilateral lower extremity NEURO: Alert and oriented to person, follows commands Patient History: Alzheimer's disease Carcinomas SISTER SON Cardiovascular disease MOTHER BROTHER BROTHER Chronic obstructive pulmonary disease SISTER Vitals/Labs Vital Signs Date Time Temp Pulse Resp B/P (MAP) Pulse Ox O2 Delivery O2 Flow Rate FiO2 07/22/24 19:58 97.2 88 20 113/51 98 Room Air 07/22/24 08:00 0 21 Laboratory Tests 07/22/24 03:38 Allergies: Coded Allergies: No Known Allergies (Verified Allergy, Unknown, 10/31/23) Medications Current Medications Furosemide 80 mg ONCE ONCE IVP Last administered on 07/18/24at 15:25; Start 07/18/24 at 15:00; Stop 07/18/24 at 15:01; Status DC Bumetanide 1 mg Q8H IVP Last administered on 07/22/24at 21:02; Start 07/18/24 at 21:00; Stop 08/17/24 at 20:59 Magnesium Sulfate 50 ml @ 0 mls/hr PROTOCOL IV; Start 07/18/24 at 18:00; Stop 08/17/24 at 17:59 Potassium Chloride 100 ml @ 100 mls/hr AD PRN IV; Start 07/18/24 at 18:00; Stop 08/17/24 at 17:59 Potassium Chloride 10 meq AD PRN PO Last administered on 07/22/24at 09:07; Start 07/18/24 at 18:00; Stop 08/17/24 at 17:59 Potassium Chloride 10 meq AD PRN PO Last administered on 07/21/24at 15:29; Start 07/18/24 at 18:00; Stop 07/22/24 at 10:35; Status DC Acetaminophen 500 mg Q6H PRN PO; Start 07/18/24 at 18:00; Stop 08/17/24 at 17:59 Ondansetron HCl 4 mg Q6H PRN IVP; Start 07/18/24 at 18:00; Stop 08/17/24 at 17:59 Vitamin B Complex/ Vit C/Folic Acid 1 cap DAILY PO Last administered on 07/22/24at 09:06; Start 07/19/24 at 09:00; Stop 08/18/24 at 08:59 Acetaminophen 500 mg Q6H PRN PO; Start 07/18/24 at 18:00; Stop 08/17/24 at 17:59 Budesonide 0.5 mg BIDRESP IH Last administered on 07/22/24at 20:16; Start 07/18/24 at 18:00; Stop 08/17/24 at 17:59 Ipratropium [place] 1 mg Q6H PRN IH; Start 07/18/24 at 18:00; Stop 08/17/24 at 17:59 Pantoprazole Sodium 40 mg DAILY PO Last administered on 07/22/24at 09:06; Start 07/19/24 at 09:00; Stop 08/18/24 at 08:59 Apixaban 5 mg BID PO Last administered on 07/22/24at 21:01; Start 07/18/24 at 21:00; Stop 08/17/24 at 20:59 Atorvastatin Calcium 10 mg DAILY PO Last administered on 07/22/24at 09:06; Start 07/19/24 at 09:00; Stop 07/22/24 at 10:33; Status DC Metoprolol Succinate 25 mg DAILY PO Last administered on 07/22/24at 09:07; Start 07/19/24 at 09:00; Stop 08/18/24 at 08:59 Levothyroxine Sodium 25 mcg DAILY@0630 PO Last administered on 07/22/24at 06:21; Start 07/19/24 at 06:30; Stop 08/18/24 at 06:29 Amiodarone HCl 200 mg QMOWEFR PO Last administered on 07/22/24at 09:06; Start 07/19/24 at 09:00; Stop 08/18/24 at 08:59 Melatonin 5 mg HS PRN PO; Start 07/18/24 at 20:30; Stop 08/17/24 at 20:29 Bupropion HCl 150 mg BID PO Last administered on 07/22/24at 21:01; Start 07/19/24 at 21:00; Stop 08/18/24 at 20:59 Gabapentin 100 mg HS PO Last administered on 07/22/24at 21:02; Start 07/19/24 at 21:00; Stop 08/18/24 at 20:59 Melatonin 10 mg HS PO Last administered on 07/22/24at 21:02; Start 07/19/24 at 21:00; Stop 08/18/24 at 20:59 Fish Oil 1,000 mg BID PO Last administered on 07/22/24at 21:01; Start 07/19/24 at 21:00; Stop 08/18/24 at 20:59 Home Med (Dapagliflozin Propanediol (Farxiga... DAILY PO; Start 07/20/24 at 09:00; Stop 08/19/24 at 08:59 Pharmacy Profile Note 1 each AD [facility]; Start 07/19/24 at 17:30; Stop 07/19/24 at 20:58; Status DC Potassium Chloride 40 meq ONCE ONCE PO Last administered on 07/20/24at 09:35; Start 07/20/24 at 07:30; Stop 07/20/24 at 07:31; Status DC Simethicone 40 mg ONCE ONCE PO; Start 07/20/24 at 20:00; Stop 07/20/24 at 20:34; Status DC Simethicone 40 mg ONCE PO; Start 12/7/24 at 21:00; Stop 07/20/24 at 20:35; Status DC Simethicone 40 mg ONCE ONCE PO Last administered on 07/20/24at 21:12; Start 07/20/24 at 21:00; Stop 07/20/24 at 21:01; Status DC Bumetanide 1 mg ONCE ONCE IM Last administered on 07/21/24at 11:24; Start 07/21/24 at 11:30; Stop 07/21/24 at 11:31; Status DC Potassium Chloride 20 meq ONCE ONCE PO Last administered on 07/21/24at 11:24; Start 07/21/24 at 11:30; Stop 07/21/24 at 11:31; Status DC Atorvastatin Calcium 10 mg HS PO; Start 07/23/24 at 21:00; Stop 08/18/24 at 08:59 Potassium Chloride 10 meq AD PRN PO Last administered on 07/22/24at 14:24; Start 07/22/24 at 11:00; Stop 08/17/24 at 17:59 Metolazone 5 mg ONCE STAT PO Last administered on 07/22/24at 14:24; Start 07/22/24 at 14:07; Stop 07/22/24 at 14:12; Status DC ASSESSMENT: 1. history of SAVR in 2018 2.afib with cvr 3. no significant cadx on [facility] 2017 4. worsening renal function 5. ef of 45-50% ,modearte mR PLAN: from a cardiovascular standpoint echo shoed ef of 45-50% moderate ai and normal functioning aortic valve 05/2024 recommending continue eliquis and beta blockers pt has worsening renal function which precludes us from proceed with [facility] we recommend continuing RTC diuretics will continue to follow PRISCILLA GUY Jul 22, 2024 21:45
[2024-07-23] VITALS (13 sets, daily range): BP systolic 105–131; BP diastolic 46–59; PULSE 63–85; RESP 16–22; TEMP 97.5–98.7; O2SAT 97–98
[2024-07-23 05:22] LABS: BASOPHILS # (AUTO) 0.07 K/uL (0.00-0.20); BASOPHILS % (AUTO) 0.8 % (0.0-5.0); EOSINOPHILS # (AUTO) 0.15 K/uL (0.00-0.70); EOSINOPHILS % (AUTO) 1.8 % (0.0-8.0); HEMATOCRIT 42.4 % (42-54); IMMATURE GRANULOCYTE ABSOLUTE 0.04 K/uL (0-1); LYMPHOCYTES # (AUTO) 1.5 K/uL (1.0-4.8); LYMPHOCYTES % (AUTO) 18.1 % (21.0-51.0); MEAN CORPUSCULAR HEMOGLOBIN 30.2 pg (27.0-33.0); MEAN CORPUSCULAR HGB CONC 32.5 g/dL (32.0-36.0); MEAN CORPUSCULAR VOLUME 92.8 fL (79-99); MONOCYTES # (AUTO) 0.7 K/uL (0.1-1.0); MONOCYTES % (AUTO) 8.9 % (3.0-13.0); NEUTROPHILS # (AUTO) 5.8 K/uL (1.8-7.7); NEUTROPHILS % (AUTO) 69.9 % (40.0-77.0); PLATELET COUNT (AUTO) 133 K/uL (130-400); RED BLOOD CELL COUNT(AUTO) 4.57 MIL/uL (4.50-6.20); RED CELL DISTRIBUTION WIDTH 15.9 % (11.0-15.5); WHITE BLOOD COUNT (AUTO) 8.3 K/uL (4.8-10.8)
[2024-07-23 05:32] LABS: CREATININE 2.2 mg/dL (0.5-1.3); MAGNESIUM 2.1 mg/dL (1.80-2.40); PHOSPHORUS 4.2 mg/dL (2.5-4.9)
[2024-07-23 05:41] LABS: POTASSIUM 2.8 mmol/L (3.5-5.1)
[2024-07-23] MEDS: metoLAZONE 2.5 MG TABLET PO ONE (13:50)
--- NOTE | 2024-07-23 15:13 | PN ---
NEPHROLOGY PROGRESS NOTE Date/Time Patient Seen: Jul 23, 2024 SUBJECTIVE: This is a 69-year-old male with underlying history of hypertension, hyperlipidemia, CKD stage 3, underlying history of atrial fibrillation, heart failure with mildly reduced ejection fraction of 45-50% (RVSP of 54 concerning for severe pulmonary hypertension), history of chronic anticoagulation with Eliquis, history of severe aortic stenosis secondary to bicuspid aortic valve status post bioprosthetic aortic valve replacement in 2018 who He presented to the ER for further evaluation of progressive lower extremity edema and weight gain. Patient states diuretics were stopped and his urine output decreased Pending echocardiogram as per cardiology He has been started on Diuretics He was noted to have elevated BUN/creatinine We are consulted for renal failure Renal function is stable Electrolytes show a potassium of 2.8 He received one dose of Zaroxolyn and responded well. 24 hour urine output was noted Daily weight was noted. He was seen in the medical floor, in no acute distress No Family at the bedside. REVIEW OF SYSTEMS: GENERAL: Negative for any nausea, vomiting, fevers, chills, or weight loss. NEUROLOGIC: Negative for any blurry vision, blind spots, double vision, facial asymmetry, dysphagia, dysarthria, hemiparesis, hemisensory deficits, vertigo, ataxia. HEENT: Negative for any head trauma, neck trauma, neck stiffness, photophobia, phonophobia, sinusitis, rhinitis. CARDIAC: Negative for any chest pain, dyspnea on exertion, paroxysmal nocturnal dyspnea, peripheral edema. PULMONARY: Negative for any shortness of breath, wheezing, COPD, or TB exposure. GASTROINTESTINAL: Negative for any abdominal pain, nausea, vomiting, bright red blood per rectum, melena. GENITOURINARY: Negative for any dysuria, hematuria, incontinence. INTEGUMENTARY: Negative for any rashes, cuts, insect bites. RHEUMATOLOGIC: Negative for any joint pains, photosensitive rashes, history of vasculitis or kidney problems. HEMATOLOGIC: Negative for any abnormal bruising, frequent infections or bleeding. PHYSICAL EXAM: GENERAL: Alert and oriented x 3. No acute distress. Well-nourished. EYES: EOMI. Anicteric. HENT: Moist mucous membranes. No scleral icterus. No cervical lymphadenopathy. LUNGS: Clear to auscultation bilaterally. No accessory muscle use. CARDIOVASCULAR: Regular rate and rhythm. No murmur. No JVD. ABDOMEN: Soft, non-tender and non-distended. No palpable masses. EXTREMITIES: No edema. Non-tender. SKIN: No rashes or lesions. Warm. NEUROLOGIC: No focal neurological deficits. CN II-XII grossly intact, but not individually tested. PSYCHIATRIC: Cooperative. Appropriate mood and affect. LABORATORY: [ ] Hematology Labs: Test 07/23/24 04:37 Range/Units White Blood Count 8.3 4.8-10.8 K/uL Red Blood Count 4.57 4.50-6.20 MIL/uL Hemoglobin 13.8 L 14.0-18.0 g/dL Hematocrit 42.4 42-54 % Mean Corpuscular Volume 92.8 79-99 fL Mean Corpuscular Hemoglobin 30.2 27.0-33.0 pg Mean Corpuscular Hemoglobin Concent 32.5 32.0-36.0 g/dL Red Cell Distribution Width 15.9 H 11.0-15.5 % Platelet Count 133 130-400 K/uL Mean Platelet Volume 11.6 H 7.5-10.5 fL Immature Granulocyte % (Auto) 0.5 0-1 % Neutrophils (%) (Auto) 69.9 40.0-77.0 % Lymphocytes (%) (Auto) 18.1 L 21.0-51.0 % Monocytes (%) (Auto) 8.9 3.0-13.0 % Eosinophils (%) (Auto) 1.8 0.0-8.0 % Basophils (%) (Auto) 0.8 0.0-5.0 % Neutrophils # (Auto) 5.8 1.8-7.7 K/uL Lymphocytes # (Auto) 1.5 1.0-4.8 K/uL Monocytes # (Auto) 0.7 0.1-1.0 K/uL Eosinophils # (Auto) 0.15 0.00-0.70 K/uL Basophils # (Auto) 0.07 0.00-0.20 K/uL Absolute Immature Granulocyte (auto 0.04 0-1 K/uL Nucleated Red Blood Cells 0.0 0.0-0.19 % Chemistry Labs: Test 07/23/24 04:37 07/22/24 03:38 Range/Units Sodium Level 143 136-145 mmol/L Potassium Level 2.8 *L 3.5-5.1 mmol/L Chloride Level 102 101-111 mmol/L Carbon Dioxide Level 32 21-32 mmol/L Blood Urea Nitrogen 44 H 7-18 mg/dL Creatinine 2.2 H 0.5-1.3 mg/dL Glomerular Filtration Rate Calc 32 >90 mL/min Random Glucose 107 H 70-105 mg/dL Total Calcium 9.3 8.5-10.1 mg/dL Phosphorus Level 4.2 2.5-4.9 mg/dL Magnesium Level 2.10 1.80-2.40 mg/dL Total Bilirubin 1.6 H 0.2-1.0 mg/dL Aspartate Amino Transf (AST/SGOT) 33 10-37 U/L Alanine Aminotransferase (ALT/SGPT) 42 12-78 U/L Alkaline Phosphatase 74 50-136 U/L Total Protein 5.8 L 6.0-8.3 g/dL Albumin 2.9 L 3.5-5.0 g/dL DIAGNOSTICS / RADIOLOGY: REASON: PLEURAL EFFUSION/TRANSAMINITIS ORDERING PHYSICIAN: LEIDA THOMAS PROCEDURE: CAP WO - CT CHEST/ABD/PELV W/O CONTRAST CT CHEST/ABD/PELV W/O CONTRAST HISTORY: Pleural effusion COMPARISON: None TECHNIQUE: Multiple sequential axial images of the chest were obtained from the thoracic inlet through upper abdomen. Patient was not given contrast through intravenous route. FINDINGS: There are small bilateral pleural effusions with compressive atelectasis. Bibasilar linear atelectasis changes are seen. Aortic calcifications are seen. Minimal left lower lung pulmonary infiltrates are seen. No pericardial effusion is seen. There is no evidence of pneumothorax. There are normal size mediastinal and hilar lymph nodes. The heart is not enlarged. Degenerative changes of the thoracolumbar spine are present. There is no evidence of adrenal nodule. IMPRESSION: 1. Small bilateral pleural effusions with compressive atelectasis. Minimal left lower lung pulmonary infiltrates are seen. Minimal left lower lung pulmonary infiltrates are seen. CT CHEST/ABD/PELV W/O CONTRAST HISTORY: Elevated liver enzymes COMPARISON: None TECHNIQUE: Multiple sequential axial images of the abdomen and pelvis were obtained from the dome of the diaphragm through symphysis pubis. Patient was not given contrast through intravenous route. Oral contrast was not given. FINDINGS: Liver is enlarged measuring 21 cm. The liver, spleen, adrenal glands and pancreas are unremarkable. There is no evidence of hydronephrosis bilaterally. No evidence of renal stone is seen. Fecal material is seen in the colon. There are normal size retroperitoneal and mesenteric lymph nodes. Small ascites fluid is seen in the pelvis. Atherosclerotic changes are present. There is left iliac stent. Pelvic sidewalls are symmetric bilaterally. Bladder is poorly distended. Fat stranding is seen adjacent to the bladder may be related to cystitis and urinary analysis correlation may be helpful. There is mild diverticulosis. IMPRESSION: 1. Small amount of fluid is seen in the pelvis. CT was performed with one or more following dose reduction techniques: automated exposure control, adjustment of the mA and kv according to patient's size, or use of a iterative reconstruction technique. DICTATED BY: LORE KNIGHT MD DATE: 07/18/24 2301 REASON: assess for ascites, abdominal distension, hx of fatty liver ORDERING PHYSICIAN: BETO JESUS MD PROCEDURE: ABDOMEN - US ABDOMINAL COMPLETE US ABDOMINAL COMPLETE HISTORY: Abdominal distention, ascites COMPARISON: None TECHNIQUE: Multiple transverse and longitudinal ultrasound images of the abdomen were obtained. FINDINGS: Abdominal aorta and inferior vena cava are unremarkable. There are bilateral pleural effusions. Pancreas is not well seen. Liver measures 16 cm. Liver is echogenic consistent with liver parenchymal disease. No gallstone is seen. Common duct measures 4 mm. No evidence of gallbladder wall thickening is seen. Both kidneys are seen. Right kidney measures 10 x 6 x 7 cm. Left kidney measures 11 x 7 x 6 cm. No hydronephrosis is seen of the both kidneys. The spleen is grossly unremarkable. IMPRESSION: 1. No gallstone or ductal dilatation is seen. Bilateral pleural effusions. 2. No hydronephrosis is seen. DICTATED BY: LORE KNIGHT MD DATE: 07/19/24 1024 REASON: significant lower extremity edema, r/o any DVT ORDERING PHYSICIAN: BETO JESUS MD PROCEDURE: VENOUS JACE - US VENOUS DOPPLER BILATERAL ULTRASOUND VENOUS DOPPLER, BILATERAL LOWER EXTREMITIES INDICATION: Bilateral lower extremity pain and swelling TECHNIQUE: Routine grayscale and color Doppler ultrasound of the bilateral lower extremity veins performed. COMPARISON: No priors. FINDINGS: The demonstrated veins of the bilateral lower extremity including the common femoral vein, femoral vein, and popliteal vein are associated with normal compressibility, augmentation, and flow. Normal respiratory variation was identified. No evidence for echogenic intraluminal thrombus formation. Pulsatile flow may be related to known history of congestive heart failure. IMPRESSION: No sonographic evidence for deep venous thrombosis within the bilateral lower extremity veins. DICTATED BY: MARLON PINZON MD DATE: 07/18/24 183 REASON: SHORTNESS A BREATH ORDERING PHYSICIAN: CINTHIA VICENTE NP PROCEDURE: CXR1VW - CHEST 1VW CHEST 1VW HISTORY: Shortness of breath COMPARISON: 06/11/2024 FINDINGS: A frontal projection of the chest was obtained. Mild bilateral pulmonary infiltrates are seen may be related to mild pulmonary vascular congestion with possible superimposed pneumonitis. The heart is enlarged. Degenerative changes are seen. No evidence of aortic calcification is seen. IMPRESSION: 1. Mild bilateral pulmonary infiltrates are seen may be related to mild pulmonary vascular congestion with possible superimposed pneumonitis. 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, POA, (LV EF 45-50%) Acute hypoxemic respiratory failure, POA History of severe pulmonary hypertension with RVSP of 54, attributed secondary to underlying cardiac comorbidities, group 2, POA Rule out pulmonary arterial hypertension, POA History of moderate aortic regurgitation, POA History of moderate tricuspid regurgitation, POA Severe volume overload, POA Congestive hepatopathy, POA CKD stage 3, likely chronic cardiorenal syndrome, POA Underlying history of atrial fibrillation, POA History of chronic anticoagulation with Eliquis as outpatient, POA Obesity, POA History of severe aortic stenosis status post bioprosthetic aortic wall replacement in 2018, POA PLAN: Labs, diagnostic, radiologic exams reviewed and interpreted by myself and supervising physician. We have reviewed external records in detail Give one dose of Zaroxolyn 5 mg p.o. Start KCL 20 mEq po BID. Continue 1.5 L fluid restriction Pending further cardiology recommendations Require close monitoring of renal function and electrolytes Order CBC, CMP, and electrolytes in am Continue with antibiotics Renal diabetic diet BiPAP as necessary, for respiratory distress Monitor blood pressure adjust medication doses as needed Avoid hypotensive episodes May use Dilaudid 0.5 mg IV every 6 hours as needed for severe pain Monitor blood sugars Strict intake, output, and daily weight should be monitored Please renally adjust medications Avoid nephrotoxic and nonsteroidal drugs Avoid contrast if possible Will continue to monitor renal function, anemia, electrolytes Treatment plan discussed with patient Questions were answered We have discussed with the other team physicians in detail about the care plan We will continue to monitor the patient closely ATTESTATION BY PHYSICIAN I have seen and examined the patient. I reviewed the documentation, medical decision making, and treatment plan as noted by the mid-level provider above. I agree with the findings and plan of care. JOSS AYALA MD, [facility] Jul 23, 2024 15:13
--- NOTE | 2024-07-23 15:50 | PN ---
[facility] PROGRESS NOTE Date of Service: Jul 23, 2024 Time of Service: 15:48 SUBJECTIVE: [ ] The patient has been seen and examined today during my rounding, no acute events overnight, patient resting comfortably in bed, alert oriented x3, hemodynamically stable, BP 121/62, afebrile, saturating normal on room air. The patient continue diuretics, having good urine output, has urinated several times throughout this hospitalization. He admits less swollen to both lower extremities. Results of Doppler extremities negative for DVT. The patient with the elevated D-dimer. No chest pain, no shortness a breath at the time of my visit, unable to do V/Q scan or CT PE protocol as the patient elevated creatinine and unable to stay flat on his back. is at bedside during my visit. 07/20 the patient has been seen and examined earlier this morning during my rounding, no acute events overnight, he remains hemodynamically stable, afebrile, saturating normal on room air. The patient has been very good urine output. Per my discussion with the nurse that is taking care of the patient, the patient's weight has improved from 291.8 lb to 283.4 today. He denies chest pain, no shortness a breath, he admits less swollen to both lower extremities compared to time of admission. is not present at the bedside during my visit. 07/21/24 patient was seen and examined and case discussed with RN. He feels that his swelling is going down. We will continue with Bumex. Monitor electrolytes. Monitor weight 07/22 patient seen at bedside, no acute events overnight. Patient continues with diuresis, he was evaluated by Cardiology today, recommendations still pending we will follow up. Patient with notable chronic kidney disease and pulmonary hypertension which likely are contributing to his peripheral pitting edema. Surprisingly his ejection fraction is near normal with 45 to 50% and is unlikely the cause his pitting edema. He does have some valvular dysfunction with some moderate regurgitation. He has ventricle and atria are dilated likely due to increased pressures possibly due to dilated cardiomyopathy. At bedside he is saturating well on room air has no complaints at this time. Further recommendations per Cardiology, pulmonology and Nephrology. Pulmonology recommending to treat underlying causes no direct interventions for pulmonary hypertension at this time as he has a grade 2 in the guidelines state to treat the underlying causes. 07/23 patient seen at bedside, no acute events overnight. He continues with diuresis. Creatinine appears to be at baseline at 2.2, similar to yesterday. Due to renal function he is not able to undergo a left heart catheterization per Cardiology. We will focus on optimal medical management at this time. We will follow up with pulmonology, Nephrology and Cardiology recommendations for clearance for discharge vs further workup REVIEW OF SYSTEMS 12 point review of systems negative unless noted in HPI PHYSICAL EXAM GENERAL APPEARANCE: The patient is awake, alert, and oriented, in no acute cardiopulmonary distress. NEUROLOGICAL: Cranial nerves II-XII grossly intact. Motor is 5/5 in bilateral upper and lower extremities proximal to distal. No sensory deficits. HEENT: Face is symmetric. Pupils are equal and reactive. Extraocular movements are intact. NECK: Supple. No JVD. No thyromegaly. No submental, submandibular, pre-/postauricular, occipital or supraclavicular lymphadenopathy. CHEST: Normal chest expansion. No Telemetry. LUNGS: Crackles noted at bilateral lung base CARDIOVASCULAR: Regular. S1 and S2 normal. No appreciable rubs, murmurs or gallops. ABDOMEN: Soft, nontender, and nondistended. There is no rebound, voluntary guarding, or rigidity. : Deferred. No [place]. EXTREMITIES: 3+ pitting edema noted of bilateral lower extremities SKIN: No skin breakdown. Vital Signs (last 8hr) Date Time Temp Pulse Resp B/P (MAP) Pulse Ox O2 Delivery O2 Flow Rate FiO2 07/23/24 12:00 98.8 76 19 131/59 92 Room Air 07/23/24 08:20 78 18 N/A Room Air 21 07/23/24 08:15 97.9 78 19 118/47 95 Room Air 07/23/24 08:00 98 Room Air* 0 21 LABS: Laboratory: Test 07/23/24 04:37 07/22/24 03:38 Range/Units White Blood Count 8.3 4.8-10.8 K/uL Red Blood Count 4.57 4.50-6.20 MIL/uL Hemoglobin 13.8 L 14.0-18.0 g/dL Hematocrit 42.4 42-54 % Mean Corpuscular Volume 92.8 79-99 fL Mean Corpuscular Hemoglobin 30.2 27.0-33.0 pg Mean Corpuscular Hemoglobin Concent 32.5 32.0-36.0 g/dL Red Cell Distribution Width 15.9 H 11.0-15.5 % Platelet Count 133 130-400 K/uL Mean Platelet Volume 11.6 H 7.5-10.5 fL Immature Granulocyte % (Auto) 0.5 0-1 % Neutrophils (%) (Auto) 69.9 40.0-77.0 % Lymphocytes (%) (Auto) 18.1 L 21.0-51.0 % Monocytes (%) (Auto) 8.9 3.0-13.0 % Eosinophils (%) (Auto) 1.8 0.0-8.0 % Basophils (%) (Auto) 0.8 0.0-5.0 % Neutrophils # (Auto) 5.8 1.8-7.7 K/uL Lymphocytes # (Auto) 1.5 1.0-4.8 K/uL Monocytes # (Auto) 0.7 0.1-1.0 K/uL Eosinophils # (Auto) 0.15 0.00-0.70 K/uL Basophils # (Auto) 0.07 0.00-0.20 K/uL Absolute Immature Granulocyte (auto 0.04 0-1 K/uL Nucleated Red Blood Cells 0.0 0.0-0.19 % Sodium Level 143 136-145 mmol/L Potassium Level 2.8 *L 3.5-5.1 mmol/L Chloride Level 102 101-111 mmol/L Carbon Dioxide Level 32 21-32 mmol/L Blood Urea Nitrogen 44 H 7-18 mg/dL Creatinine 2.2 H 0.5-1.3 mg/dL Glomerular Filtration Rate Calc 32 >90 mL/min Random Glucose 107 H 70-105 mg/dL Total Calcium 9.3 8.5-10.1 mg/dL Phosphorus Level 4.2 2.5-4.9 mg/dL Magnesium Level 2.10 1.80-2.40 mg/dL Total Bilirubin 1.6 H 0.2-1.0 mg/dL Aspartate Amino Transf (AST/SGOT) 33 10-37 U/L Alanine Aminotransferase (ALT/SGPT) 42 12-78 U/L Alkaline Phosphatase 74 50-136 U/L Total Protein 5.8 L 6.0-8.3 g/dL Albumin 2.9 L 3.5-5.0 g/dL Current Medications Medications (Trade) Dose Ordered Sig/Samantha Route PRN Reason Start Time Stop Time Status Last Admin Dose Admin Acetaminophen (TYLenol 500MG TAB) 500 mg Q6H PRN PO MILD PAIN (1-3) 07/18/24 18:00 08/17/24 17:59 Acetaminophen (TYLenol 500MG TAB) 500 mg Q6H PRN PO MILD PAIN (1-3) 07/18/24 18:00 08/17/24 17:59 Amiodarone HCl (pacERONE 200MG) 200 mg QMOWEFR PO 07/19/24 09:00 08/18/24 08:59 07/22/24 09:06 200 MG Apixaban (EliquIS) 5 mg BID PO 07/18/24 21:00 08/17/24 20:59 07/23/24 09:13 5 MG Atorvastatin Calcium (LIPItor 10MG) 10 mg DAILY PO 07/19/24 09:00 07/22/24 10:33 DC 07/22/24 09:06 10 MG Atorvastatin Calcium (LIPItor 10MG) 10 mg HS PO 07/23/24 21:00 08/18/24 08:59 Budesonide (Pulmicort 0.5 Mg/2ml) 0.5 mg BIDRESP IH 07/18/24 18:00 08/17/24 17:59 07/23/24 06:53 0.5 MG Bumetanide (Bumex 1mg Vial) 1 mg Q8H IVP 07/18/24 21:00 08/17/24 20:59 07/23/24 13:51 1 MG Bupropion HCl (WellBUTrin SR 150MG) 150 mg BID PO 07/19/24 21:00 08/18/24 20:59 07/23/24 09:14 150 MG Fish Oil (Fish Oil 1000 Mg/Cap) 1,000 mg BID PO 07/19/24 21:00 08/18/24 20:59 07/23/24 09:14 1,000 MG Gabapentin (NEURontin 100 mg CAP) 100 mg HS PO 07/19/24 21:00 08/18/24 20:59 07/22/24 21:02 100 MG Home Med (Home Medication) (Dapagliflozin Propanediol (Farxiga... DAILY PO 07/20/24 09:00 08/19/24 08:59 Ipratropium [place] (AtrovENT UD) 1 mg Q6H PRN IH SHORTNESS OF BREATH 07/18/24 18:00 08/17/24 17:59 Levothyroxine Sodium (SYNTHroid 25MCG TAB) 25 mcg DAILY@0630 PO 07/19/24 06:30 08/18/24 06:29 07/23/24 06:42 25 MCG Magnesium Sulfate 50 ml @ 0 mls/hr PROTOCOL IV 07/18/24 18:00 08/17/24 17:59 Melatonin (Melatonin) 5 mg HS PRN PO insomnia 07/18/24 20:30 08/17/24 20:29 Melatonin (Melatonin) 10 mg HS PO 07/19/24 21:00 08/18/24 20:59 07/22/24 21:02 10 MG Metolazone (zarOXOlyn) 5 mg ONCE STAT PO 07/22/24 14:07 07/22/24 14:12 DC 07/22/24 14:24 5 MG Metoprolol Succinate (TopROL XL) 25 mg DAILY PO 07/19/24 09:00 08/18/24 08:59 07/23/24 09:14 25 MG Ondansetron HCl (zoFRAN 4MG INJ) 4 mg Q6H PRN IVP NAUSEA/VOMITING 07/18/24 18:00 08/17/24 17:59 Pantoprazole Sodium (PROTonix 40MG TAB) 40 mg DAILY PO 07/19/24 09:00 08/18/24 08:59 07/23/24 09:13 40 MG Pharmacy Profile Note (Lace Assessment) 1 each AD MISC 07/19/24 17:30 07/19/24 20:58 DC Potassium Chloride 100 ml @ 100 mls/hr AD PRN IV POTASSIUM PROTOCOL 07/18/24 18:00 08/17/24 17:59 Potassium Chloride (K-Dur 10meq Sr Tab) 10 meq AD PRN PO POTASSIUM PROTOCOL 07/22/24 11:00 08/17/24 17:59 07/23/24 13:51 10 MEQ Potassium Chloride (K-Dur/Klor-Con 20meq) 10 meq AD PRN PO POTASSIUM PROTOCOL 07/18/24 18:00 07/22/24 10:35 DC 07/21/24 15:29 10 MEQ Potassium Chloride (K-Dur/Klor-Con 20meq) 20 meq BID PO 07/23/24 21:00 08/22/24 20:59 Potassium Chloride (KCl 10% Elixir 20meq/15ml) 10 meq AD PRN PO POTASSIUM PROTOCOL 07/18/24 18:00 08/17/24 17:59 07/22/24 09:07 10 MEQ Simethicone (Mylicon) 40 mg ONCE PO 07/20/24 21:00 07/20/24 20:35 DC Vitamin B Complex/ Vit C/Folic Acid (Nephrovite Tablet) 1 cap DAILY PO 07/19/24 09:00 08/18/24 08:59 07/23/24 09:13 1 CAP DIAGNOSTICS / RADIOLOGY: [ ] ASSESSMENT: 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, POA, (LV EF 45-50%) Acute hypoxemic respiratory failure, POA History of severe pulmonary hypertension with RVSP of 54, attributed secondary to underlying cardiac comorbidities, group 2, POA Rule out pulmonary arterial hypertension, POA History of moderate aortic regurgitation, POA History of moderate tricuspid regurgitation, POA Severe volume overload, POA Congestive hepatopathy, POA CKD stage 3, likely chronic cardiorenal syndrome, POA Underlying history of atrial fibrillation, POA History of chronic anticoagulation with Eliquis as outpatient, POA Obesity, POA History of severe aortic stenosis status post bioprosthetic aortic valve replacement in 2018, POA PLAN: Patient remains admitted to the medical floor Continue director global Continue diuresis Monitor urine output closely, obtain daily weight Monitor renal function closely Maintain K greater than four and magnesium greater than two, electrolytes will be repleted per protocol Echocardiogram to evaluate ejection fraction, follow Cardiology input and recommendation Replace electrolytes IV per protocol Continue amiodarone, Eliquis, metoprolol succinate and home medications were reconciled and updated once available We will monitor BMP closely tonight and All labs will be repeated in the morning We will see if patient has undergone prior sleep study to rule out obstructive sleep apnea Disposition: Diuresis, pulmonology, cardiology, nephrology recommendations TAWANDA CALVIN MD Jul 23, 2024 15:50
--- NOTE | 2024-07-23 17:12 | PN ---
HPI: pt was seen and examined today he states he is feeling alot better he has more urine outpt today Vitals/Labs GENERAL: alert, weak, awake oriented x 3; on BiPAP HEENT: EOMI, Sclera non icteric, moist mucosa NECK: Supple, no JVD, trachea midline LUNGS: Titer entry, more so on the right HEART: Regular rate and rhythm. Normal S1 and S2, without murmurs ABD: bowel sounds present, limited exam given enlarged pannus EXT: No clubbing cyanosis trace pitting edema bilateral lower extremity, hyperpigmentation to lower ext NEURO: Alert and oriented to person, follows commands Vital Signs Date Time Temp Pulse Resp B/P (MAP) Pulse Ox O2 Delivery O2 Flow Rate FiO2 07/23/24 16:10 97.7 85 19 111/49 93 Room Air 07/23/24 08:20 21 07/23/24 08:00 0 Laboratory Tests 07/23/24 04:37 Medications Current Medications Furosemide 80 mg ONCE ONCE IVP Last administered on 07/18/24at 15:25; Start 07/18/24 at 15:00; Stop 07/18/24 at 15:01; Status DC Bumetanide 1 mg Q8H IVP Last administered on 07/23/24at 13:51; Start 07/18/24 at 21:00; Stop 08/17/24 at 20:59 Magnesium Sulfate 50 ml @ 0 mls/hr PROTOCOL IV; Start 07/18/24 at 18:00; Stop 08/17/24 at 17:59 Potassium Chloride 100 ml @ 100 mls/hr AD PRN IV; Start 07/18/24 at 18:00; Stop 08/17/24 at 17:59 Potassium Chloride 10 meq AD PRN PO Last administered on 07/22/24at 09:07; Start 07/18/24 at 18:00; Stop 08/17/24 at 17:59 Potassium Chloride 10 meq AD PRN PO Last administered on 07/21/24at 15:29; Start 07/18/24 at 18:00; Stop 07/22/24 at 10:35; Status DC Acetaminophen 500 mg Q6H PRN PO; Start 07/18/24 at 18:00; Stop 08/17/24 at 17:59 Ondansetron HCl 4 mg Q6H PRN IVP; Start 07/18/24 at 18:00; Stop 08/17/24 at 17:59 Vitamin B Complex/ Vit C/Folic Acid 1 cap DAILY PO Last administered on 07/23/24at 09:13; Start 07/19/24 at 09:00; Stop 08/18/24 at 08:59 Acetaminophen 500 mg Q6H PRN PO; Start 07/18/24 at 18:00; Stop 08/17/24 at 17:59 Budesonide 0.5 mg BIDRESP IH Last administered on 07/23/24at 06:53; Start 07/18/24 at 18:00; Stop 08/17/24 at 17:59 Ipratropium [place] 1 mg Q6H PRN IH; Start 07/18/24 at 18:00; Stop 08/17/24 at 17:59 Pantoprazole Sodium 40 mg DAILY PO Last administered on 07/23/24at 09:13; Start 07/19/24 at 09:00; Stop 08/18/24 at 08:59 Apixaban 5 mg BID PO Last administered on 07/23/24at 09:13; Start 07/18/24 at 21:00; Stop 08/17/24 at 20:59 Atorvastatin Calcium 10 mg DAILY PO Last administered on 07/22/24at 09:06; Start 07/19/24 at 09:00; Stop 07/22/24 at 10:33; Status DC Metoprolol Succinate 25 mg DAILY PO Last administered on 07/23/24at 09:14; Start 07/19/24 at 09:00; Stop 08/18/24 at 08:59 Levothyroxine Sodium 25 mcg DAILY@0630 PO Last administered on 07/23/24at 06:42; Start 07/19/24 at 06:30; Stop 08/18/24 at 06:29 Amiodarone HCl 200 mg QMOWEFR PO Last administered on 07/22/24at 09:06; Start 07/19/24 at 09:00; Stop 08/18/24 at 08:59 Melatonin 5 mg HS PRN PO; Start 07/18/24 at 20:30; Stop 08/17/24 at 20:29 Bupropion HCl 150 mg BID PO Last administered on 07/23/24at 09:14; Start 07/19/24 at 21:00; Stop 08/18/24 at 20:59 Gabapentin 100 mg HS PO Last administered on 07/22/24at 21:02; Start 07/19/24 at 21:00; Stop 08/18/24 at 20:59 Melatonin 10 mg HS PO Last administered on 07/22/24at 21:02; Start 07/19/24 at 21:00; Stop 08/18/24 at 20:59 Fish Oil 1,000 mg BID PO Last administered on 07/23/24at 09:14; Start 07/19/24 at 21:00; Stop 08/18/24 at 20:59 Home Med (Dapagliflozin Propanediol (Farxiga... DAILY PO; Start 07/20/24 at 09:00; Stop 08/19/24 at 08:59 Pharmacy Profile Note 1 each AD MISC; Start 07/19/24 at 17:30; Stop 07/19/24 at 20:58; Status DC Potassium Chloride 40 meq ONCE ONCE PO Last administered on 07/20/24at 09:35; Start 07/20/24 at 07:30; Stop 07/20/24 at 07:31; Status DC Simethicone 40 mg ONCE ONCE PO; Start 07/20/24 at 20:00; Stop 07/20/24 at 20:34; Status DC Simethicone 40 mg ONCE PO; Start 07/20/24 at 21:00; Stop 07/20/24 at 20:35; Status DC Simethicone 40 mg ONCE ONCE PO Last administered on 07/20/24at 21:12; Start 07/20/24 at 21:00; Stop 07/20/24 at 21:01; Status DC Bumetanide 1 mg ONCE ONCE IM Last administered on 07/21/24at 11:24; Start 07/21/24 at 11:30; Stop 07/21/24 at 11:31; Status DC Potassium Chloride 20 meq ONCE ONCE PO Last administered on 07/21/24at 11:24; Start 07/21/24 at 11:30; Stop 07/21/24 at 11:31; Status DC Atorvastatin Calcium 10 mg HS PO; Start 07/23/24 at 21:00; Stop 08/18/24 at 08:59 Potassium Chloride 10 meq AD PRN PO Last administered on 07/23/24at 13:51; Start 07/22/24 at 11:00; Stop 08/17/24 at 17:59 Metolazone 5 mg ONCE STAT PO Last administered on 07/22/24at 14:24; Start 07/22/24 at 14:07; Stop 07/22/24 at 14:12; Status DC Metolazone 5 mg ONCE ONCE PO Last administered on 07/23/24at 13:50; Start 07/23/24 at 12:30; Stop 07/23/24 at 12:34; Status DC Potassium Chloride 20 meq BID PO; Start 07/23/24 at 21:00; Stop 08/22/24 at 20:59 ASSESSMENT: 1. history of SAVR in 2018 2.afib with cvr 3. no significant cadx on [facility] 2017 4. worsening renal function 5. ef of 45-50% ,modearte mR PLAN: from a cardiovascular standpoint echo shoed ef of 45-50% moderate ai and normal functioning aortic valve 05/2024 recommending continue eliquis and beta blockers pt has worsening renal function which precludes us from proceed with [facility] we will switch pt iv bumex to po adn monitoring for another day or so to see how pt can tolerate the same will continue to follow PRISCILLA GUY Jul 23, 2024 17:12
--- NOTE | 2024-07-23 17:21 | HMCSR ---
APPROVED REPORT EXAM: Limited Two-dimensional and M-mode echocardiogram with Doppler and color Doppler. INDICATION ICD: Heart Failure 2D Dimensions RVDd5.2 cmLVEF(%)41.8 (>50%)LVED Vol(simp.)175.0 mL IVSd1.1 (0.7-1.1cm)FS(%)21 %LVES Vol(simp.)75.3 mL LVDd6.2 (3.8-5.6cm)LA (2D)4.6 (1.6-4.0cm)LVEF(%, simp.)57 % PWd1.2 (0.7-1.1cm)LVOT diam2.7 (1.8-2.4cm)LA ESV INDEX (4CH)34.00 mL/m2 IVSs1.4 cmLA ESV INDEX (2CH)30.90 mL/m2 LVDs4.9 (2.5-4.0cm) PWs1.6 cm Aortic Valve AoV VTI0.4 mAo Mean GR9.0 mmHgLVOT VTI0.20 m TIM (VMAX)3.1 cm2AVA (VTI) 3.1 cm2 Mitral Valve MV E Vmax83.4 cm/sDECEL Yqri314 ms MR Max PG37 mmHgP 1/2 T49 ms MVA (PHT)4.5 cm2 TDI E/E' Eafqqi83.3E/E' Lateral8.3 Medial E' Peak V8.10 cm/sLateral E' Peak V10.10 cm/s Tricuspid Valve RAP (EST) 15 ggZkESHF74.0 mmHg Left Ventricle The left ventricle is severely dilated. There is normal LV segmental wall motion. There is normal l eft ventricular wall thickness. LVEF is 55-60%. The left ventricular diastolic function is normal. Right Ventricle The right ventricle is moderately dilated. The right ventricular systolic function is normal. Atria The left atrium size is normal. The right atrium is severely dilated. Aortic Valve Bioprosthetic aortic valve. Prosthetic aortic valve is normal in appearance and well seated. Trivial aortic regurgitation. No paravalvular leak or perivalvular leak noted. There is no aortic valvular st enosis. Mitral Valve The mitral valve is normal in structure. Mitral regurgitation is trace to mild. There is no mitral va lve stenosis. Tricuspid Valve The tricuspid valve is normal in structure. There is mild tricuspid valve regurgitation noted. Pulmonic Valve The pulmonary valve is normal in structure. There is no pulmonic valvular regurgitation. Great Vessels The aortic root is normal in size. IVC is dilated and collapses <50% with inspiration. Pericardium There is no pericardial effusion. Other Information Quality : Adequate Conclusion LVEF is 55-60%. LVEF is 55-60%. There is normal LV segmental wall motion. The left ventricular diastolic function is normal. The right ventricular systolic function is normal. Bioprosthetic aortic valve. Prosthetic aortic valve is normal in appearance and well seated. There is no pericardial effusion. The aortic root is normal in size.
[2024-07-23] MEDS: BUMETANIDE 1 MG TAB PO SCH (20:47)
[2024-07-23] MEDS: PoTASSium chloRIDE 20MEQ ER 20 MEQ ERTAB PO SCH (20:48)
[2024-07-23] MEDS: atorVAStatin 10 MG TABLET PO SCH (20:53)
--- NOTE | 2024-07-23 23:21 | PN ---
[facility] PROGRESS NOTE Date Patient Seen: Jul 23, 2024 Time of Visit: 23:16 Supervising Physician: HUMAIRA LUNSFORD MD Inpatient Consults: ERIC PROBLEM LIST: Acute on chronic HEART FAILURE REDUCED EJECTION FRACTION EXACERBATION EF 45-50% PER ECHOCARDIOGRAM 06/01/2024 WITH STAGE II DIASTOLIC DYSFUNCTION POA, Acute hypoxemic respiratory failure, POA , home 02 Severe pulmonary hypertension with RVSP of 54mmHg, attributed secondary to underlying cardiac comorbidities, group 2, POA History of moderate aortic regurgitation, POA History of moderate tricuspid regurgitation, POA Congestive hepatopathy, POA CKD stage 3, likely chronic cardiorenal syndrome, POA Underlying history of atrial fibrillation, POA History of chronic anticoagulation with Eliquis as outpatient, POA Obesity, POA History of severe aortic stenosis status post bioprosthetic aortic wall replacement in 2018, POA INTERVAL HISTORY: Patient seen and examined, in good spirits , He is awake , alert without complaints of sob. Able to speak full sentences without dyspnea. He of note has been diuresing well . He already has home 02 arranged but states he has not had to use it recently AT this time cardiology was consulted for further optimization of his congestive heart failure regimen. Plan summary Patient has pulmonary hypertension from most recent echocardiogram done on 06/01/2024 shows RVSP of 54 mmHg which which is classified as WHO group two classification Recommend treatment is to continue with current cardiac medications, at this time no indication for right heart catheterization Patient has respiratory issues appears to be more cardiac related than pulmonary, patient to continue with Bumex Patient is bilateral effusion not enough fluid to safely remove, so no indication for thoracentesis at this time pdg VQ scan as per admitting Mds. Continue to monitor respiratory status and maintain adequate oxygenation Keep O2 sats greater or equal to 90% Patient require 6 minute walk prior to discharge Patient will need to follow up with [facility] with yeast tender Dr. Nithin bansal within5-7 days upon discharge We will continue to monitor closely REVIEW OF SYSTEMS: 12 point ROS reviewed with patient. Pertinent positives mentioned above. Otherwise negative. PHYSICAL EXAM: GENERAL: alert, weak, awake oriented x 3 HEENT: EOMI, Sclera non icteric, moist mucosa NECK: Supple, no JVD, trachea midline LUNGS: Clear breath sounds bilaterally. No wheezes HEART: Regular rate and rhythm. Normal S1 and S2, without murmurs ABD: Abdomen soft, nontender. Bowel sounds present EXT: No clubbing cyanosis or edema NEURO: Alert and oriented to person, follows commands Vital Signs (last 8hr) Date Time Temp Pulse Resp B/P (MAP) Pulse Ox O2 Delivery O2 Flow Rate FiO2 07/23/24 20:46 97.5 77 20 105/48 95 Room Air 07/23/24 18:49 84 18 07/23/24 18:48 84 18 N/A Room Air 21 07/23/24 16:10 97.7 85 19 111/49 93 Room Air LABS: Hematology Labs: Test 07/23/24 04:37 Range/Units White Blood Count 8.3 4.8-10.8 K/uL Red Blood Count 4.57 4.50-6.20 MIL/uL Hemoglobin 13.8 L 14.0-18.0 g/dL Hematocrit 42.4 42-54 % Mean Corpuscular Volume 92.8 79-99 fL Mean Corpuscular Hemoglobin 30.2 27.0-33.0 pg Mean Corpuscular Hemoglobin Concent 32.5 32.0-36.0 g/dL Red Cell Distribution Width 15.9 H 11.0-15.5 % Platelet Count 133 130-400 K/uL Mean Platelet Volume 11.6 H 7.5-10.5 fL Immature Granulocyte % (Auto) 0.5 0-1 % Neutrophils (%) (Auto) 69.9 40.0-77.0 % Lymphocytes (%) (Auto) 18.1 L 21.0-51.0 % Monocytes (%) (Auto) 8.9 3.0-13.0 % Eosinophils (%) (Auto) 1.8 0.0-8.0 % Basophils (%) (Auto) 0.8 0.0-5.0 % Neutrophils # (Auto) 5.8 1.8-7.7 K/uL Lymphocytes # (Auto) 1.5 1.0-4.8 K/uL Monocytes # (Auto) 0.7 0.1-1.0 K/uL Eosinophils # (Auto) 0.15 0.00-0.70 K/uL Basophils # (Auto) 0.07 0.00-0.20 K/uL Absolute Immature Granulocyte (auto 0.04 0-1 K/uL Nucleated Red Blood Cells 0.0 0.0-0.19 % Chemistry Labs: Test 07/23/24 04:37 07/22/24 03:38 Range/Units Sodium Level 143 136-145 mmol/L Potassium Level 2.8 *L 3.5-5.1 mmol/L Chloride Level 102 101-111 mmol/L Carbon Dioxide Level 32 21-32 mmol/L Blood Urea Nitrogen 44 H 7-18 mg/dL Creatinine 2.2 H 0.5-1.3 mg/dL Glomerular Filtration Rate Calc 32 >90 mL/min Random Glucose 107 H 70-105 mg/dL Total Calcium 9.3 8.5-10.1 mg/dL Phosphorus Level 4.2 2.5-4.9 mg/dL Magnesium Level 2.10 1.80-2.40 mg/dL Total Bilirubin 1.6 H 0.2-1.0 mg/dL Aspartate Amino Transf (AST/SGOT) 33 10-37 U/L Alanine Aminotransferase (ALT/SGPT) 42 12-78 U/L Alkaline Phosphatase 74 50-136 U/L Total Protein 5.8 L 6.0-8.3 g/dL Albumin 2.9 L 3.5-5.0 g/dL DIAGNOSTICS / RADIOLOGY RESULTS: [ ] PLAN NEURO: Minimize central acting medications as possible. Maintain fall precautions, adequate lighting during the day PULMONARY: Supplemental 02 as needed. Maintain aspiration precautions at all times CARDIOVASCULAR: Follow hemodynamics. Vital signs per facility protocol GI & NUTRITION: Continue with nutritional support. Continue stool softeners and laxatives as needed. KIDNEYS & ELECTROLYTES: Strict monitoring of intake, output and overall fluid balance. Avoid nephrotoxic medications to the extent possible. Medications to be dosed according to renal function. Monitor electrolytes and replace as needed ENDOCRINE: Maintain blood glucose between 100-180 at all times. Hypoglycemia protocol in place INFECTIOUS DISEASE: Trend temperature, WBC and procalcitonin level Follow cultures, deescalate antibiotics as soon as possible. Panculture if new onset fever ONCOLOGY/HEMATOLOGY/COAGULATION: Monitor for s/s of bleeding Monitor hemoglobin, coagulation studies as needed SKIN: Pressure ulcer prevention per facility protocol Specialty mattress ORTHO/REHAB: Continue PT/OT Prophylaxis: Continue GI and DVT prophylaxis Code Status: Full Resuscitation Disposition: Per primary team Other: Case discussed with supervising physician plan of care agreed upon MICA JOHNSON Jul 23, 2024 23:21
[2024-07-24] VITALS (9 sets, daily range): BP systolic 96–127; BP diastolic 43–53; PULSE 71–81; RESP 18–20; TEMP 97.5–98; O2SAT 95–97
[2024-07-24 05:40] LABS: BASOPHILS # (AUTO) 0.12 K/uL (0.00-0.20); BASOPHILS % (AUTO) 1.4 % (0.0-5.0); EOSINOPHILS # (AUTO) 0.17 K/uL (0.00-0.70); HEMATOCRIT 42.4 % (42-54); IMMATURE GRANULOCYTE ABSOLUTE 0.04 K/uL (0-1); LYMPHOCYTES # (AUTO) 1.3 K/uL (1.0-4.8); LYMPHOCYTES % (AUTO) 15.7 % (21.0-51.0); MEAN CORPUSCULAR HEMOGLOBIN 30.5 pg (27.0-33.0); MEAN CORPUSCULAR HGB CONC 32.8 g/dL (32.0-36.0); MONOCYTES # (AUTO) 0.8 K/uL (0.1-1.0); MONOCYTES % (AUTO) 9.3 % (3.0-13.0); NEUTROPHILS # (AUTO) 6.1 K/uL (1.8-7.7); NEUTROPHILS % (AUTO) 71.1 % (40.0-77.0); PLATELET COUNT (AUTO) 134 K/uL (130-400); RED BLOOD CELL COUNT(AUTO) 4.56 MIL/uL (4.50-6.20); RED CELL DISTRIBUTION WIDTH 15.9 % (11.0-15.5); WHITE BLOOD COUNT (AUTO) 8.5 K/uL (4.8-10.8)
[2024-07-24 06:07] LABS: BILIRUBIN,TOTAL 2.2 mg/dL (0.2-1.0); CREATININE 2.2 mg/dL (0.5-1.3); MAGNESIUM 1.9 mg/dL (1.80-2.40); TOTAL PROTEIN, SERUM 5.9 g/dL (6.0-8.3)
[2024-07-24 07:40] LABS: POTASSIUM 2.5 mmol/L (3.5-5.1)
[2024-07-24] MEDS: PoTASSium chloRIDE 10MEQ/100ML 100 ML IV PRN (08:19)
--- NOTE | 2024-07-24 16:37 | PN ---
[facility] PROGRESS NOTE Date of Service: Jul 24, 2024 Time of Service: 16:34 SUBJECTIVE: [ ] The patient has been seen and examined today during my rounding, no acute events overnight, patient resting comfortably in bed, alert oriented x3, hemodynamically stable, BP 121/62, afebrile, saturating normal on room air. The patient continue diuretics, having good urine output, has urinated several times throughout this hospitalization. He admits less swollen to both lower extremities. Results of Doppler extremities negative for DVT. The patient with the elevated D-dimer. No chest pain, no shortness a breath at the time of my visit, unable to do V/Q scan or CT PE protocol as the patient elevated creatinine and unable to stay flat on his back. is at bedside during my visit. 07/20 the patient has been seen and examined earlier this morning during my rounding, no acute events overnight, he remains hemodynamically stable, afebrile, saturating normal on room air. The patient has been very good urine output. Per my discussion with the nurse that is taking care of the patient, the patient's weight has improved from 291.8 lb to 283.4 today. He denies chest pain, no shortness a breath, he admits less swollen to both lower extremities compared to time of admission. is not present at the bedside during my visit. 07/21/24 patient was seen and examined and case discussed with RN. He feels that his swelling is going down. We will continue with Bumex. Monitor electrolytes. Monitor weight 07/22 patient seen at bedside, no acute events overnight. Patient continues with diuresis, he was evaluated by Cardiology today, recommendations still pending we will follow up. Patient with notable chronic kidney disease and pulmonary hypertension which likely are contributing to his peripheral pitting edema. Surprisingly his ejection fraction is near normal with 45 to 50% and is unlikely the cause his pitting edema. He does have some valvular dysfunction with some moderate regurgitation. He has ventricle and atria are dilated likely due to increased pressures possibly due to dilated cardiomyopathy. At bedside he is saturating well on room air has no complaints at this time. Further recommendations per Cardiology, pulmonology and Nephrology. Pulmonology recommending to treat underlying causes no direct interventions for pulmonary hypertension at this time as he has a grade 2 in the guidelines state to treat the underlying causes. 07/23 patient seen at bedside, no acute events overnight. He continues with diuresis. Creatinine appears to be at baseline at 2.2, similar to yesterday. Due to renal function he is not able to undergo a left heart catheterization per Cardiology. We will focus on optimal medical management at this time. We will follow up with pulmonology, Nephrology and Cardiology recommendations for clearance for discharge vs further workup 07/24 patient seen at bedside, no acute events overnight. He continues with diuresis. Creatinine at 2.2, same as yesterday. Continue optimal medical management at this time. We will follow up with pulmonology, Nephrology and Cardiology recommendations for clearance for discharge vs further workup. Cardiology recommending continued diuresis REVIEW OF SYSTEMS 12 point review of systems negative unless noted in HPI PHYSICAL EXAM GENERAL APPEARANCE: The patient is awake, alert, and oriented, in no acute cardiopulmonary distress. NEUROLOGICAL: Cranial nerves II-XII grossly intact. Motor is 5/5 in bilateral upper and lower extremities proximal to distal. No sensory deficits. HEENT: Face is symmetric. Pupils are equal and reactive. Extraocular movements are intact. NECK: Supple. No JVD. No thyromegaly. No submental, submandibular, pre- /postauricular, occipital or supraclavicular lymphadenopathy. CHEST: Normal chest expansion. No Telemetry. LUNGS: Crackles noted at bilateral lung base CARDIOVASCULAR: Regular. S1 and S2 normal. No appreciable rubs, murmurs or gallops. ABDOMEN: Soft, nontender, and nondistended. There is no rebound, voluntary guarding, or rigidity. : Deferred. No Pritchard. EXTREMITIES: 3+ pitting edema noted of bilateral lower extremities SKIN: No skin breakdown. Vital Signs (last 8hr) Date Time Temp Pulse Resp B/P (MAP) Pulse Ox O2 Delivery O2 Flow Rate FiO2 07/24/24 12:00 98.1 78 19 102/46 94 Room Air LABS: Laboratory: Test 07/24/24 13:28 07/24/24 05:08 Range/Units Potassium Level 3.6 3.5-5.1 mmol/L White Blood Count 8.5 4.8-10.8 K/uL Red Blood Count 4.56 4.50-6.20 MIL/uL Hemoglobin 13.9 L 14.0-18.0 g/dL Hematocrit 42.4 42-54 % Mean Corpuscular Volume 93.0 79-99 fL Mean Corpuscular Hemoglobin 30.5 27.0-33.0 pg Mean Corpuscular Hemoglobin Concent 32.8 32.0-36.0 g/dL Red Cell Distribution Width 15.9 H 11.0-15.5 % Platelet Count 134 130-400 K/uL Mean Platelet Volume 11.3 H 7.5-10.5 fL Immature Granulocyte % (Auto) 0.5 0-1 % Neutrophils (%) (Auto) 71.1 40.0-77.0 % Lymphocytes (%) (Auto) 15.7 L 21.0-51.0 % Monocytes (%) (Auto) 9.3 3.0-13.0 % Eosinophils (%) (Auto) 2.0 0.0-8.0 % Basophils (%) (Auto) 1.4 0.0-5.0 % Neutrophils # (Auto) 6.1 1.8-7.7 K/uL Lymphocytes # (Auto) 1.3 1.0-4.8 K/uL Monocytes # (Auto) 0.8 0.1-1.0 K/uL Eosinophils # (Auto) 0.17 0.00-0.70 K/uL Basophils # (Auto) 0.12 0.00-0.20 K/uL Absolute Immature Granulocyte (auto 0.04 0-1 K/uL Nucleated Red Blood Cells 0.0 0.0-0.19 % Sodium Level 142 136-145 mmol/L Chloride Level 101 101-111 mmol/L Carbon Dioxide Level 32 21-32 mmol/L Blood Urea Nitrogen 45 H 7-18 mg/dL Creatinine 2.2 H 0.5-1.3 mg/dL Glomerular Filtration Rate Calc 32 >90 mL/min Random Glucose 105 70-105 mg/dL Total Calcium 9.2 8.5-10.1 mg/dL Phosphorus Level 4.0 2.5-4.9 mg/dL Magnesium Level 1.90 1.80-2.40 mg/dL Total Bilirubin 2.2 H 0.2-1.0 mg/dL Aspartate Amino Transf (AST/SGOT) 34 10-37 U/L Alanine Aminotransferase (ALT/SGPT) 40 12-78 U/L Alkaline Phosphatase 71 50-136 U/L Total Protein 5.9 L 6.0-8.3 g/dL Albumin 3.0 L 3.5-5.0 g/dL Current Medications Medications (Trade) Dose Ordered Sig/Samantha Route PRN Reason Start Time Stop Time Status Last Admin Dose Admin Acetaminophen (TYLenol 500MG TAB) 500 mg Q6H PRN PO MILD PAIN (1-3) 07/18/24 18:00 08/17/24 17:59 Acetaminophen (TYLenol 500MG TAB) 500 mg Q6H PRN PO MILD PAIN (1-3) 07/18/24 18:00 08/17/24 17:59 Amiodarone HCl (pacERONE 200MG) 200 mg QMOWEFR PO 07/19/24 09:00 08/18/24 08:59 07/24/24 08:17 200 MG Apixaban (EliquIS) 5 mg BID PO 07/18/24 21:00 08/17/24 20:59 07/24/24 08:18 5 MG Atorvastatin Calcium (LIPItor 10MG) 10 mg DAILY PO 07/19/24 09:00 07/22/24 10:33 DC 07/22/24 09:06 10 MG Atorvastatin Calcium (LIPItor 10MG) 10 mg HS PO 07/23/24 21:00 08/18/24 08:59 07/23/24 20:53 10 MG Budesonide (Pulmicort 0.5 Mg/2ml) 0.5 mg BIDRESP IH 07/18/24 18:00 07/24/24 09:25 DC 07/24/24 06:13 0.5 MG Bumetanide (Bumex 1mg Tab) 2 mg BID PO 07/23/24 21:00 08/22/24 20:59 07/24/24 08:18 2 MG Bumetanide (Bumex 1mg Vial) 1 mg Q8H IVP 07/18/24 21:00 07/23/24 17:15 DC 07/23/24 13:51 1 MG Bupropion HCl (WellBUTrin SR 150MG) 150 mg BID PO 07/19/24 21:00 08/18/24 20:59 07/24/24 08:18 150 MG Fish Oil (Fish Oil 1000 Mg/Cap) 1,000 mg BID PO 07/19/24 21:00 08/18/24 20:59 07/24/24 08:18 1,000 MG Gabapentin (NEURontin 100 mg CAP) 100 mg HS PO 07/19/24 21:00 08/18/24 20:59 07/23/24 20:51 100 MG Home Med (Home Medication) (Dapagliflozin Propanediol (Farxiga... DAILY PO 07/20/24 09:00 08/19/24 08:59 Ipratropium [place] (AtrovENT UD) 1 mg Q6H PRN IH SHORTNESS OF BREATH 07/18/24 18:00 08/17/24 17:59 Levothyroxine Sodium (SYNTHroid 25MCG TAB) 25 mcg DAILY@0630 PO 07/19/24 06:30 08/18/24 06:29 07/24/24 06:17 25 MCG Magnesium Sulfate 50 ml @ 0 mls/hr PROTOCOL IV 07/18/24 18:00 08/17/24 17:59 Melatonin (Melatonin) 5 mg HS PRN PO insomnia 07/18/24 20:30 08/17/24 20:29 Melatonin (Melatonin) 10 mg HS PO 07/19/24 21:00 08/18/24 20:59 07/23/24 20:52 10 MG Metolazone (zarOXOlyn) 5 mg ONCE STAT PO 07/22/24 14:07 07/22/24 14:12 DC 07/22/24 14:24 5 MG Metoprolol Succinate (TopROL XL) 25 mg DAILY PO 07/19/24 09:00 08/18/24 08:59 07/24/24 08:18 25 MG Ondansetron HCl (zoFRAN 4MG INJ) 4 mg Q6H PRN IVP NAUSEA/VOMITING 07/18/24 18:00 08/17/24 17:59 Pantoprazole Sodium (PROTonix 40MG TAB) 40 mg DAILY PO 07/19/24 09:00 08/18/24 08:59 07/24/24 08:18 40 MG Pharmacy Profile Note (Lace Assessment) 1 each AD MISC 07/19/24 17:30 07/19/24 20:58 DC Potassium Chloride 100 ml @ 100 mls/hr AD PRN IV POTASSIUM PROTOCOL 07/18/24 18:00 08/17/24 17:59 07/24/24 08:19 100 MLS/HR Potassium Chloride (K-Dur 10meq Sr Tab) 10 meq AD PRN PO POTASSIUM PROTOCOL 07/22/24 11:00 08/17/24 17:59 07/24/24 13:27 10 MEQ Potassium Chloride (K-Dur/Klor-Con 20meq) 10 meq AD PRN PO POTASSIUM PROTOCOL 07/18/24 18:00 07/22/24 10:35 DC 07/21/24 15:29 10 MEQ Potassium Chloride (K-Dur/Klor-Con 20meq) 20 meq BID PO 07/23/24 21:00 08/22/24 20:59 07/24/24 08:18 20 MEQ Potassium Chloride (KCl 10% Elixir 20meq/15ml) 10 meq AD PRN PO POTASSIUM PROTOCOL 07/18/24 18:00 08/17/24 17:59 07/22/24 09:07 10 MEQ Simethicone (Mylicon) 40 mg ONCE PO 07/20/24 21:00 07/20/24 20:35 DC Vitamin B Complex/ Vit C/Folic Acid (Nephrovite Tablet) 1 cap DAILY PO 07/19/24 09:00 08/18/24 08:59 07/24/24 08:18 1 CAP DIAGNOSTICS / RADIOLOGY: [ ] ASSESSMENT: 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, POA, (LV EF 45-50%) Acute hypoxemic respiratory failure, POA History of severe pulmonary hypertension with RVSP of 54, attributed secondary to underlying cardiac comorbidities, group 2, POA Rule out pulmonary arterial hypertension, POA History of moderate aortic regurgitation, POA History of moderate tricuspid regurgitation, POA Severe volume overload, POA Congestive hepatopathy, POA CKD stage 3, likely chronic cardiorenal syndrome, POA Underlying history of atrial fibrillation, POA History of chronic anticoagulation with Eliquis as outpatient, POA Obesity, POA History of severe aortic stenosis status post bioprosthetic aortic valve replacement in 2018, POA PLAN: Patient remains admitted to the medical floor Continue yard jacker Continue diuresis Monitor urine output closely, obtain daily weight Monitor renal function closely Maintain K greater than four and magnesium greater than two, electrolytes will be repleted per protocol Echocardiogram to evaluate ejection fraction, follow Cardiology input and recommendation Replace electrolytes IV per protocol Continue amiodarone, Eliquis, metoprolol succinate and home medications were reconciled and updated once available We will monitor BMP closely tonight and All labs will be repeated in the morning We will see if patient has undergone prior sleep study to rule out obstructive sleep apnea Disposition: Diuresis, pulmonology, cardiology, nephrology recommendations TAWANDA CALVIN MD Jul 24, 2024 16:37
--- NOTE | 2024-07-24 17:15 | PN ---
[facility] PROGRESS NOTE Date Patient Seen: Jul 24, 2024 Time of Visit: 17:11 Supervising Physician: RAPHAEL BRINK Inpatient Consults: BIS PROBLEM LIST: Acute on chronic HEART FAILURE REDUCED EJECTION FRACTION EXACERBATION EF 45-50% PER ECHOCARDIOGRAM 06/01/2024 WITH STAGE II DIASTOLIC DYSFUNCTION POA, Acute hypoxemic respiratory failure, POA , home 02 , at baseline Pulmonary hypertension with RVSP of 54mmHg, attributed secondary to underlying cardiac comorbidities, group 2, POA History of moderate aortic regurgitation, POA History of moderate tricuspid regurgitation, POA Congestive hepatopathy, POA CKD stage 3, likely chronic cardiorenal syndrome, POA Underlying history of atrial fibrillation, POA History of chronic anticoagulation with Eliquis as outpatient, POA Obesity, POA History of severe aortic stenosis status post bioprosthetic aortic wall replacement in 2018, POA INTERVAL HISTORY: Patient seen and examined, in good spirits , He is awake , alert without complaints of sob. Able to speak full sentences without dyspnea. He of note has been diuresing well . Optimized to Bumex and tolerated well. Has had a total of 3.5L output with -2.9 L fluid balance . REpeat Echo revals EF of 55% He already has home 02 arranged Plan summary Patient has pulmonary hypertension from most recent echocardiogram done on 06/01/2024 shows RVSP of 54 mmHg which which is classified as WHO group two classification Recommend treatment is to continue with current cardiac medications, at this time no indication for right heart catheterization. Can have this done outpatient when indicated. Patient has respiratory issues appears to be more cardiac related than pulmonary, patient to continue with Bumex Patient is bilateral effusion not enough fluid to safely remove, so no indication for thoracentesis at this time Continue to monitor respiratory status and maintain adequate oxygenation Keep O2 sats greater or equal to 90% Patient will need to follow up with [facility] with executive associate Dr. Deras within5-7 days upon discharge We will continue to monitor closely REVIEW OF SYSTEMS: 12 point ROS reviewed with patient. Pertinent positives mentioned above. Otherwise negative. PHYSICAL EXAM: GENERAL: alert, weak, awake oriented x 3 HEENT: EOMI, Sclera non icteric, moist mucosa NECK: Supple, no JVD, trachea midline LUNGS: Clear breath sounds bilaterally. No wheezes HEART: Regular rate and rhythm. Normal S1 and S2, without murmurs ABD: Abdomen soft, nontender. Bowel sounds present EXT: No clubbing cyanosis or edema NEURO: Alert and oriented to person, follows commands Vital Signs (last 8hr) Date Time Temp Pulse Resp B/P (MAP) Pulse Ox O2 Delivery O2 Flow Rate FiO2 07/24/24 16:00 97.9 72 19 108/48 92 Room Air 07/24/24 12:00 98.1 78 19 102/46 94 Room Air LABS: Hematology Labs: Test 07/24/24 05:08 Range/Units White Blood Count 8.5 4.8-10.8 K/uL Red Blood Count 4.56 4.50-6.20 MIL/uL Hemoglobin 13.9 L 14.0-18.0 g/dL Hematocrit 42.4 42-54 % Mean Corpuscular Volume 93.0 79-99 fL Mean Corpuscular Hemoglobin 30.5 27.0-33.0 pg Mean Corpuscular Hemoglobin Concent 32.8 32.0-36.0 g/dL Red Cell Distribution Width 15.9 H 11.0-15.5 % Platelet Count 134 130-400 K/uL Mean Platelet Volume 11.3 H 7.5-10.5 fL Immature Granulocyte % (Auto) 0.5 0-1 % Neutrophils (%) (Auto) 71.1 40.0-77.0 % Lymphocytes (%) (Auto) 15.7 L 21.0-51.0 % Monocytes (%) (Auto) 9.3 3.0-13.0 % Eosinophils (%) (Auto) 2.0 0.0-8.0 % Basophils (%) (Auto) 1.4 0.0-5.0 % Neutrophils # (Auto) 6.1 1.8-7.7 K/uL Lymphocytes # (Auto) 1.3 1.0-4.8 K/uL Monocytes # (Auto) 0.8 0.1-1.0 K/uL Eosinophils # (Auto) 0.17 0.00-0.70 K/uL Basophils # (Auto) 0.12 0.00-0.20 K/uL Absolute Immature Granulocyte (auto 0.04 0-1 K/uL Nucleated Red Blood Cells 0.0 0.0-0.19 % Chemistry Labs: Test 07/24/24 13:28 07/24/24 05:08 Range/Units Potassium Level 3.6 3.5-5.1 mmol/L Sodium Level 142 136-145 mmol/L Chloride Level 101 101-111 mmol/L Carbon Dioxide Level 32 21-32 mmol/L Blood Urea Nitrogen 45 H 7-18 mg/dL Creatinine 2.2 H 0.5-1.3 mg/dL Glomerular Filtration Rate Calc 32 >90 mL/min Random Glucose 105 70-105 mg/dL Total Calcium 9.2 8.5-10.1 mg/dL Phosphorus Level 4.0 2.5-4.9 mg/dL Magnesium Level 1.90 1.80-2.40 mg/dL Total Bilirubin 2.2 H 0.2-1.0 mg/dL Aspartate Amino Transf (AST/SGOT) 34 10-37 U/L Alanine Aminotransferase (ALT/SGPT) 40 12-78 U/L Alkaline Phosphatase 71 50-136 U/L Total Protein 5.9 L 6.0-8.3 g/dL Albumin 3.0 L 3.5-5.0 g/dL DIAGNOSTICS / RADIOLOGY RESULTS: [ ] PLAN NEURO: Minimize central acting medications as possible. Maintain fall precautions, adequate lighting during the day PULMONARY: Supplemental 02 as needed. Maintain aspiration precautions at all times see plan above CARDIOVASCULAR: Follow hemodynamics. Vital signs per facility protocol GI & NUTRITION: Continue with nutritional support. Continue stool softeners and laxatives as needed. KIDNEYS & ELECTROLYTES: Strict monitoring of intake, output and overall fluid balance. Avoid nephrotoxic medications to the extent possible. Medications to be dosed according to renal function. Monitor electrolytes and replace as needed ENDOCRINE: Maintain blood glucose between 100-180 at all times. Hypoglycemia protocol in place INFECTIOUS DISEASE: Trend temperature, WBC and procalcitonin level Follow cultures, deescalate antibiotics as soon as possible. Panculture if new onset fever ONCOLOGY/HEMATOLOGY/COAGULATION: Monitor for s/s of bleeding Monitor hemoglobin, coagulation studies as needed SKIN: Pressure ulcer prevention per facility protocol Specialty mattress ORTHO/REHAB: Continue PT/OT Prophylaxis: Continue GI and DVT prophylaxis Code Status: Full Resuscitation Disposition: Per primary team-discussed with team Other: Case discussed with supervising physician plan of care agreed upon MICA JOHNSON Jul 24, 2024 17:15
--- NOTE | 2024-07-24 20:39 | PN ---
HPI: pt was seen and examined he is feeling alot better Vitals/Labs GENERAL: alert, weak, awake oriented x 3; on BiPAP HEENT: EOMI, Sclera non icteric, moist mucosa NECK: Supple, no JVD, trachea midline LUNGS: Titer entry, more so on the right HEART: Regular rate and rhythm. Normal S1 and S2, without murmurs ABD: bowel sounds present, limited exam given enlarged pannus EXT: No clubbing cyanosis trace pitting edema bilateral lower extremity, hyperpigmentation to lower ext NEURO: Alert and oriented to person, follows commands Vital Signs Date Time Temp Pulse Resp B/P (MAP) Pulse Ox O2 Delivery O2 Flow Rate FiO2 07/24/24 16:00 97.9 72 19 108/48 92 Room Air 07/24/24 08:00 0 21 Laboratory Tests 07/24/24 05:08 07/24/24 13:28 Medications Current Medications Furosemide 80 mg ONCE ONCE IVP Last administered on 07/18/24at 15:25; Start 07/18/24 at 15:00; Stop 07/18/24 at 15:01; Status DC Bumetanide 1 mg Q8H IVP Last administered on 07/23/24at 13:51; Start 07/18/24 at 21:00; Stop 07/23/24 at 17:15; Status DC Magnesium Sulfate 50 ml @ 0 mls/hr PROTOCOL IV; Start 07/18/24 at 18:00; Stop 08/17/24 at 17:59 Potassium Chloride 100 ml @ 100 mls/hr AD PRN IV Last administered on 07/24/24at 08:19; Start 07/18/24 at 18:00; Stop 08/17/24 at 17:59 Potassium Chloride 10 meq AD PRN PO Last administered on 07/22/24at 09:07; Start 07/18/24 at 18:00; Stop 08/17/24 at 17:59 Potassium Chloride 10 meq AD PRN PO Last administered on 07/21/24at 15:29; Start 07/18/24 at 18:00; Stop 07/22/24 at 10:35; Status DC Acetaminophen 500 mg Q6H PRN PO; Start 07/18/24 at 18:00; Stop 08/17/24 at 17:59 Ondansetron HCl 4 mg Q6H PRN IVP; Start 07/18/24 at 18:00; Stop 08/17/24 at 17:59 Vitamin B Complex/ Vit C/Folic Acid 1 cap DAILY PO Last administered on 07/24/24at 08:18; Start 07/19/24 at 09:00; Stop 08/18/24 at 08:59 Acetaminophen 500 mg Q6H PRN PO; Start 07/18/24 at 18:00; Stop 08/17/24 at 17:59 Budesonide 0.5 mg BIDRESP IH Last administered on 07/24/24at 06:13; Start 07/18/24 at 18:00; Stop 07/24/24 at 09:25; Status DC Ipratropium [place] 1 mg Q6H PRN IH; Start 07/18/24 at 18:00; Stop 08/17/24 at 17:59 Pantoprazole Sodium 40 mg DAILY PO Last administered on 07/24/24at 08:18; Start 07/19/24 at 09:00; Stop 08/18/24 at 08:59 Apixaban 5 mg BID PO Last administered on 07/24/24at 08:18; Start 07/18/24 at 21:00; Stop 08/17/24 at 20:59 Atorvastatin Calcium 10 mg DAILY PO Last administered on 07/22/24at 09:06; Start 07/19/24 at 09:00; Stop 07/22/24 at 10:33; Status DC Metoprolol Succinate 25 mg DAILY PO Last administered on 07/24/24at 08:18; Start 07/19/24 at 09:00; Stop 08/18/24 at 08:59 Levothyroxine Sodium 25 mcg DAILY@0630 PO Last administered on 07/24/24at 06:17; Start 07/19/24 at 06:30; Stop 08/18/24 at 06:29 Amiodarone HCl 200 mg QMOWEFR PO Last administered on 07/24/24at 08:17; Start 07/19/24 at 09:00; Stop 08/18/24 at 08:59 Melatonin 5 mg HS PRN PO; Start 07/18/24 at 20:30; Stop 08/17/24 at 20:29 Bupropion HCl 150 mg BID PO Last administered on 07/24/24at 08:18; Start 07/19/24 at 21:00; Stop 08/18/24 at 20:59 Gabapentin 100 mg HS PO Last administered on 07/23/24at 20:51; Start 07/19/24 at 21:00; Stop 08/18/24 at 20:59 Melatonin 10 mg HS PO Last administered on 07/23/24at 20:52; Start 07/19/24 at 21:00; Stop 08/18/24 at 20:59 Fish Oil 1,000 mg BID PO Last administered on 07/24/24at 08:18; Start 07/19/24 at 21:00; Stop 08/18/24 at 20:59 Home Med (Dapagliflozin Propanediol (Farxiga... DAILY PO; Start 07/20/24 at 09:00; Stop 08/19/24 at 08:59 Pharmacy Profile Note 1 each AD MISC; Start 07/19/24 at 17:30; Stop 07/19/24 at 20:58; Status DC Potassium Chloride 40 meq ONCE ONCE PO Last administered on 07/20/24at 09:35; Start 07/20/24 at 07:30; Stop 07/20/24 at 07:31; Status DC Simethicone 40 mg ONCE ONCE PO; Start 07/20/24 at 20:00; Stop 07/20/24 at 20:34; Status DC Simethicone 40 mg ONCE PO; Start 07/20/24 at 21:00; Stop 07/20/24 at 20:35; Status DC Simethicone 40 mg ONCE ONCE PO Last administered on 07/20/24at 21:12; Start 07/20/24 at 21:00; Stop 07/20/24 at 21:01; Status DC Bumetanide 1 mg ONCE ONCE IM Last administered on 07/21/24at 11:24; Start 07/21/24 at 11:30; Stop 07/21/24 at 11:31; Status DC Potassium Chloride 20 meq ONCE ONCE PO Last administered on 07/21/24at 11:24; Start 07/21/24 at 11:30; Stop 07/21/24 at 11:31; Status DC Atorvastatin Calcium 10 mg HS PO Last administered on 07/23/24at 20:53; Start 07/23/24 at 21:00; Stop 08/18/24 at 08:59 Potassium Chloride 10 meq AD PRN PO Last administered on 07/24/24at 13:27; Start 07/22/24 at 11:00; Stop 08/17/24 at 17:59 Metolazone 5 mg ONCE STAT PO Last administered on 07/22/24at 14:24; Start 07/22/24 at 14:07; Stop 07/22/24 at 14:12; Status DC Metolazone 5 mg ONCE ONCE PO Last administered on 07/23/24at 13:50; Start 07/23/24 at 12:30; Stop 07/23/24 at 12:34; Status DC Potassium Chloride 20 meq BID PO Last administered on 07/24/24at 08:18; Start 07/23/24 at 21:00; Stop 08/22/24 at 20:59 Bumetanide 2 mg BID PO Last administered on 07/24/24at 08:18; Start 07/23/24 at 21:00; Stop 08/22/24 at 20:59 ASSESSMENT: 1. history of SAVR in 2017 2.afib with cvr 3. no significant cadx on [facility] 2017 4. worsening renal function 5. ef of 45-50% ,modearte mR PLAN: from a cardiovascular standpoint repeat echo shows normal ef recommending continue eliquis and beta blockers pt has worsening renal function which precludes us from proceed with [facility] pt has been doing well with bumex po and has good urine output will continue to follow PRISCILLA GUY PAC Jul 24, 2024 20:39
--- NOTE | 2024-07-24 22:24 | PN ---
NEPHROLOGY NOTE SUBJECTIVE: This patient has renal failure, anemia, heart failure, combined acute on chronic diastolic and systolic. This patient has hypoxic respiratory failure, pulmonary hypertension, aortic valve replacement before, history of atrial fibrillation. No other associated finding. This patient continues to be on aggressive diuresis with now hypokalemia also developing. No other associated finding. No other aggravating or relieving factor. The patient remains generally weak. REVIEW OF SYSTEMS: CONSTITUTIONAL: With no fever, chills or rigors. HEENT: With no headache, no oral ulcers, sore throat or difficulty swallowing. RESPIRATORY: Has no cough, expectoration, hemoptysis or pleuritic pain. CARDIOVASCULAR: Has shortness of breath. No orthopnea or PND. GASTROINTESTINAL: Negative for nausea, vomiting, diarrhea. GENITOURINARY: Negative for dysuria or hematuria. DERMATOLOGICAL: No rashes, pruritus or skin lesions. PHYSICAL EXAMINATION: GENERAL: Pale, no other distress, obese. VITAL SIGNS: Blood pressure is borderline 108/48, pulse 72, respirations 19. HEENT: Head is atraumatic. Pupils are round and reactive. Sclerae are anicteric. Conjunctivae not pale. Oral mucosa is not dry. NECK: Without masses or bruits. Thyroid is palpable. Neck has no bruits. CHEST: Shows diminished in both bases, prolonged expiration, percussion note being resonant in all areas. CARDIAC: Regular rhythm, no rub, no S3, S4. No parasternal heave. Apical beat is not localized. ABDOMEN: With no guarding or tenderness. Bowel sounds are normoactive. No free fluid. EXTREMITIES: With edema and no cyanosis or clubbing. BACK: No tenderness or back deformities. LABORATORY DATA: We have reviewed the labs in detail. Labs have shown BUN of 45, creatinine 2.2, low potassium of 2.5. Imaging studies are personally reviewed. Old records have been reviewed. PROBLEMS: Renal failure, anemia, congestive heart failure, cardiomyopathy, pulmonary hypertension, aortic valve replacement, aortic stenosis, aortic regurgitation now and weakness. PLAN: * Continue Bumex, high dose. * I will suggest the intermittent use of metolazone. * Continue with potassium replacement. * I have reviewed the x-rays labs personally. * Prognosis remained guarded. * Monitor weight. The patient has been counseled on diet and electrolytes will be monitored. Echocardiogram reviewed. I have discussed with other team members in detail. Intake, output, weight, electrolytes and overall status will be monitored. Overall condition remained guarded. Seen several times today. We have reviewed the previous record, external records in detail and we have ordered followup CBC, CMP, and mag level. Condition guarded. TID: [id number] RECEIPT: [id number]
[2024-07-25] VITALS (9 sets, daily range): BP systolic 93–107; BP diastolic 43–59; PULSE 69–92; RESP 18–21; TEMP 97.3–98.8; O2SAT 94–95
[2024-07-25 04:25] LABS: BASOPHILS # (AUTO) 0.08 K/uL (0.00-0.20); EOSINOPHILS % (AUTO) 2.4 % (0.0-8.0); HEMATOCRIT 42.2 % (42-54); IMMATURE GRANULOCYTE ABSOLUTE 0.03 K/uL (0-1); LYMPHOCYTES # (AUTO) 1.5 K/uL (1.0-4.8); LYMPHOCYTES % (AUTO) 18.4 % (21.0-51.0); MEAN CORPUSCULAR HEMOGLOBIN 30.2 pg (27.0-33.0); MEAN CORPUSCULAR HGB CONC 32.2 g/dL (32.0-36.0); MEAN CORPUSCULAR VOLUME 93.8 fL (79-99); MONOCYTES # (AUTO) 0.8 K/uL (0.1-1.0); MONOCYTES % (AUTO) 10.2 % (3.0-13.0); NEUTROPHILS # (AUTO) 5.5 K/uL (1.8-7.7); NEUTROPHILS % (AUTO) 67.6 % (40.0-77.0); PLATELET COUNT (AUTO) 141 K/uL (130-400); RED CELL DISTRIBUTION WIDTH 16.1 % (11.0-15.5); WHITE BLOOD COUNT (AUTO) 8.2 K/uL (4.8-10.8)
[2024-07-25 05:10] LABS: CREATININE 2.9 mg/dL (0.5-1.3); PHOSPHORUS 4.6 mg/dL (2.5-4.9)
[2024-07-25 05:18] LABS: POTASSIUM 2.9 mmol/L (3.5-5.1)
[2024-07-25 05:38] LABS: B-TYPE NATRIURETIC PEPTIDE 1290 pg/mL (0-100)
--- NOTE | 2024-07-25 12:00 | PN ---
[facility] PROGRESS NOTE Date Patient Seen: Jul 25, 2024 Time of Visit: 11:55 Supervising Physician: MD LISSA Inpatient Consults: BIS PROBLEM LIST: Acute on chronic diastolic Heart failure, ProBNP of 1290 Acute hypoxemic respiratory failure, POA , home 02 , at baseline Pulmonary hypertension with RVSP of 54mmHg, attributed secondary to underlying cardiac comorbidities, group 2, POA History of moderate aortic regurgitation, POA History of moderate tricuspid regurgitation, POA Congestive hepatopathy, POA CKD stage 3, likely chronic cardiorenal syndrome, POA Underlying history of atrial fibrillation, POA History of chronic anticoagulation with Eliquis as outpatient, POA Obesity, POA History of severe aortic stenosis status post bioprosthetic aortic wall replacement in 2018, POA INTERVAL HISTORY: Patient was seen and examined today by me at bedside, the patient continues with hypokalemia as he is on aggressive diuresis with Bumex b.i.d.. With marginal blood pressures in the 90 systolic to 102 systolic. His proBNP is downtrending. The patient clinically feels improved and edema has been reduced. He now has fair air entry and has responded to treatment well. Of concern is the patient at this time would benefit from holding Bumex, replacing his electrolytes and adjusting dose thereafter as his renal function is now starting to worsen . Dr. Bang is followign closely. total Urine output in last 48 hours is documented as 6770 cc . Plan summary At this time we recommend renal bladder US to assess renal status , Also we recommend Holding bumex x 24 hours and adjusting dose thereafter . Patient has pulmonary hypertension from most recent echocardiogram done on 06/01/2024 shows RVSP of 54 mmHg which which is classified as WHO group two classification Recommend treatment is to continue with current cardiac medications, at this time no indication for right heart catheterization. Can have this done outpatient when indicated. Patient has respiratory issues appears to be more cardiac related than pulmonary Patient is bilateral effusion not enough fluid to safely remove, so no indication for thoracentesis at this time Continue to monitor respiratory status and maintain adequate oxygenation Keep O2 sats greater or equal to 90% Patient will need to follow up [facility] with bench assembly inspector Dr. Deras within5-7 days upon discharge We will continue to monitor closely REVIEW OF SYSTEMS: 12 point ROS reviewed with patient. Pertinent positives mentioned above. Otherwise negative. PHYSICAL EXAM: GENERAL: alert, weak, awake oriented x 3 HEENT: EOMI, Sclera non icteric, moist mucosa NECK: Supple, no JVD, trachea midline LUNGS: Clear breath sounds bilaterally. No wheezes HEART: Regular rate and rhythm. Normal S1 and S2, without murmurs ABD: Abdomen soft, nontender. Bowel sounds present EXT: No clubbing cyanosis , 1+ edema to RLE and 2+edema to LLE NEURO: Alert and oriented to person, follows commands Vital Signs (last 8hr) Date Time Temp Pulse Resp B/P (MAP) Pulse Ox O2 Delivery O2 Flow Rate FiO2 07/25/24 08:00 98.8 80 19 102/46 94 Room Air 07/25/24 06:41 80 18 N/A Room Air 21 07/25/24 04:38 97.3 75 18 104/52 94 Room Air LABS: Hematology Labs: Test 07/25/24 04:10 Range/Units White Blood Count 8.2 4.8-10.8 K/uL Red Blood Count 4.50 4.50-6.20 MIL/uL Hemoglobin 13.6 L 14.0-18.0 g/dL Hematocrit 42.2 42-54 % Mean Corpuscular Volume 93.8 79-99 fL Mean Corpuscular Hemoglobin 30.2 27.0-33.0 pg Mean Corpuscular Hemoglobin Concent 32.2 32.0-36.0 g/dL Red Cell Distribution Width 16.1 H 11.0-15.5 % Platelet Count 141 130-400 K/uL Mean Platelet Volume 11.6 H 7.5-10.5 fL Immature Granulocyte % (Auto) 0.4 0-1 % Neutrophils (%) (Auto) 67.6 40.0-77.0 % Lymphocytes (%) (Auto) 18.4 L 21.0-51.0 % Monocytes (%) (Auto) 10.2 3.0-13.0 % Eosinophils (%) (Auto) 2.4 0.0-8.0 % Basophils (%) (Auto) 1.0 0.0-5.0 % Neutrophils # (Auto) 5.5 1.8-7.7 K/uL Lymphocytes # (Auto) 1.5 1.0-4.8 K/uL Monocytes # (Auto) 0.8 0.1-1.0 K/uL Eosinophils # (Auto) 0.20 0.00-0.70 K/uL Basophils # (Auto) 0.08 0.00-0.20 K/uL Absolute Immature Granulocyte (auto 0.03 0-1 K/uL Nucleated Red Blood Cells 0.0 0.0-0.19 % Chemistry Labs: Test 07/25/24 04:10 07/24/24 05:08 Range/Units Sodium Level 142 136-145 mmol/L Potassium Level 2.9 *L 3.5-5.1 mmol/L Chloride Level 100 L 101-111 mmol/L Carbon Dioxide Level 33 H 21-32 mmol/L Blood Urea Nitrogen 49 H 7-18 mg/dL Creatinine 2.9 H 0.5-1.3 mg/dL Glomerular Filtration Rate Calc 23 >90 mL/min Random Glucose 107 H 70-105 mg/dL Total Calcium 9.2 8.5-10.1 mg/dL Phosphorus Level 4.6 2.5-4.9 mg/dL Magnesium Level 2.00 1.80-2.40 mg/dL B-Type Natriuretic Peptide 1290 H 0-100 pg/mL Total Bilirubin 2.2 H 0.2-1.0 mg/dL Aspartate Amino Transf (AST/SGOT) 34 10-37 U/L Alanine Aminotransferase (ALT/SGPT) 40 12-78 U/L Alkaline Phosphatase 71 50-136 U/L Total Protein 5.9 L 6.0-8.3 g/dL Albumin 3.0 L 3.5-5.0 g/dL DIAGNOSTICS / RADIOLOGY RESULTS: [ ] PLAN NEURO: Minimize central acting medications as possible. Maintain fall precautions, adequate lighting during the day PULMONARY: Supplemental 02 as needed. Maintain aspiration precautions at all times see plan above CARDIOVASCULAR: Follow hemodynamics. Vital signs per facility protocol GI & NUTRITION: Continue with nutritional support. Continue stool softeners and laxatives as needed. KIDNEYS & ELECTROLYTES: Strict monitoring of intake, output and overall fluid balance. Hold Bumex , Us of renal system Avoid nephrotoxic medications to the extent possible. Medications to be dosed according to renal function. Monitor electrolytes and replace as needed ENDOCRINE: Maintain blood glucose between 100-180 at all times. Hypoglycemia protocol in place INFECTIOUS DISEASE: Trend temperature, WBC and procalcitonin level Follow cultures, deescalate antibiotics as soon as possible. Panculture if new onset fever ONCOLOGY/HEMATOLOGY/COAGULATION: Monitor for s/s of bleeding Monitor hemoglobin, coagulation studies as needed SKIN: Pressure ulcer prevention per facility protocol Specialty mattress ORTHO/REHAB: Continue PT/OT Prophylaxis: Continue GI and DVT prophylaxis Code Status: Full Resuscitation Disposition: Per primary team-discussed with team Other: Case discussed with supervising physician plan of care agreed upon Total time 35 minutes MICA JOHNSON Jul 25, 2024 12:00
[2024-07-25] MEDS: PoTASSium BIcarbonate/CIT AC 25 MEQ TABLET.EFF PO ONE (13:15)
--- NOTE | 2024-07-25 15:44 | PN ---
NEPHROLOGY PROGRESS NOTE Date/Time Patient Seen: Jul 25, 2024 SUBJECTIVE: This is a 69-year-old male with underlying history of hypertension, hyperlipidemia, CKD stage 3, underlying history of atrial fibrillation, heart failure with mildly reduced ejection fraction of 45-50% (RVSP of 54 concerning for severe pulmonary hypertension), history of chronic anticoagulation with Eliquis, history of severe aortic stenosis secondary to bicuspid aortic valve status post bioprosthetic aortic valve replacement in 2018 who He presented to the ER for further evaluation of progressive lower extremity edema and weight gain. Patient states diuretics were stopped and his urine output decreased Pending echocardiogram as per cardiology He has been started on Diuretics He was noted to have elevated BUN/creatinine We are consulted for renal failure Renal function is stable Electrolytes show a potassium of 2.9. Continues on Bumex2 mg p.o. b.i.d.. 24 hour urine output was noted Daily weight was noted. He was seen in the medical floor, in no acute distress Family at the bedside. REVIEW OF SYSTEMS: GENERAL: Negative for any nausea, vomiting, fevers, chills, or weight loss. NEUROLOGIC: Negative for any blurry vision, blind spots, double vision, facial asymmetry, dysphagia, dysarthria, hemiparesis, hemisensory deficits, vertigo, ataxia. HEENT: Negative for any head trauma, neck trauma, neck stiffness, photophobia, phonophobia, sinusitis, rhinitis. CARDIAC: Negative for any chest pain, dyspnea on exertion, paroxysmal nocturnal dyspnea, peripheral edema. PULMONARY: Negative for any shortness of breath, wheezing, COPD, or TB exposure. GASTROINTESTINAL: Negative for any abdominal pain, nausea, vomiting, bright red blood per rectum, melena. GENITOURINARY: Negative for any dysuria, hematuria, incontinence. INTEGUMENTARY: Negative for any rashes, cuts, insect bites. RHEUMATOLOGIC: Negative for any joint pains, photosensitive rashes, history of vasculitis or kidney problems. HEMATOLOGIC: Negative for any abnormal bruising, frequent infections or bleeding. PHYSICAL EXAM: GENERAL: Alert and oriented x 3. No acute distress. Well-nourished. EYES: EOMI. Anicteric. HENT: Moist mucous membranes. No scleral icterus. No cervical lymphadenopathy. LUNGS: Clear to auscultation bilaterally. No accessory muscle use. CARDIOVASCULAR: Regular rate and rhythm. No murmur. No JVD. ABDOMEN: Soft, non-tender and non-distended. No palpable masses. EXTREMITIES: No edema. Non-tender. SKIN: No rashes or lesions. Warm. NEUROLOGIC: No focal neurological deficits. CN II-XII grossly intact, but not individually tested. PSYCHIATRIC: Cooperative. Appropriate mood and affect. LABORATORY: [ ] Hematology Labs: Test 07/25/24 04:10 Range/Units White Blood Count 8.2 4.8-10.8 K/uL Red Blood Count 4.50 4.50-6.20 MIL/uL Hemoglobin 13.6 L 14.0-18.0 g/dL Hematocrit 42.2 42-54 % Mean Corpuscular Volume 93.8 79-99 fL Mean Corpuscular Hemoglobin 30.2 27.0-33.0 pg Mean Corpuscular Hemoglobin Concent 32.2 32.0-36.0 g/dL Red Cell Distribution Width 16.1 H 11.0-15.5 % Platelet Count 141 130-400 K/uL Mean Platelet Volume 11.6 H 7.5-10.5 fL Immature Granulocyte % (Auto) 0.4 0-1 % Neutrophils (%) (Auto) 67.6 40.0-77.0 % Lymphocytes (%) (Auto) 18.4 L 21.0-51.0 % Monocytes (%) (Auto) 10.2 3.0-13.0 % Eosinophils (%) (Auto) 2.4 0.0-8.0 % Basophils (%) (Auto) 1.0 0.0-5.0 % Neutrophils # (Auto) 5.5 1.8-7.7 K/uL Lymphocytes # (Auto) 1.5 1.0-4.8 K/uL Monocytes # (Auto) 0.8 0.1-1.0 K/uL Eosinophils # (Auto) 0.20 0.00-0.70 K/uL Basophils # (Auto) 0.08 0.00-0.20 K/uL Absolute Immature Granulocyte (auto 0.03 0-1 K/uL Nucleated Red Blood Cells 0.0 0.0-0.19 % Chemistry Labs: Test 07/25/24 04:10 07/24/24 05:08 Range/Units Sodium Level 142 136-145 mmol/L Potassium Level 2.9 *L 3.5-5.1 mmol/L Chloride Level 100 L 101-111 mmol/L Carbon Dioxide Level 33 H 21-32 mmol/L Blood Urea Nitrogen 49 H 7-18 mg/dL Creatinine 2.9 H 0.5-1.3 mg/dL Glomerular Filtration Rate Calc 23 >90 mL/min Random Glucose 107 H 70-105 mg/dL Total Calcium 9.2 8.5-10.1 mg/dL Phosphorus Level 4.6 2.5-4.9 mg/dL Magnesium Level 2.00 1.80-2.40 mg/dL B-Type Natriuretic Peptide 1290 H 0-100 pg/mL Total Bilirubin 2.2 H 0.2-1.0 mg/dL Aspartate Amino Transf (AST/SGOT) 34 10-37 U/L Alanine Aminotransferase (ALT/SGPT) 40 12-78 U/L Alkaline Phosphatase 71 50-136 U/L Total Protein 5.9 L 6.0-8.3 g/dL Albumin 3.0 L 3.5-5.0 g/dL DIAGNOSTICS / RADIOLOGY: REASON: acute chf ORDERING PHYSICIAN: PRISCILLA GUY PAC PROCEDURE: ECHO FU LD - ECHO 2-D F/U-LTD APPROVED REPORT EXAM: Limited Two-dimensional and M-mode echocardiogram with Doppler and color Doppler. INDICATION ICD: Heart Failure 2D Dimensions RVDd 5.2 cm LVEF(%) 41.8 (>50%) LVED Vol(simp.) 175.0 mL IVSd 1.1 (0.7-1.1cm) FS(%) 21 % LVES Vol(simp.) 75.3 mL LVDd 6.2 (3.8-5.6cm) LA (2D) 4.6 (1.6-4.0cm) LVEF(%, simp.) 57 % PWd 1.2 (0.7-1.1cm) LVOT diam 2.7 (1.8-2.4cm) LA ESV INDEX (4CH) 34.00 mL/m2 IVSs 1.4 cm LA ESV INDEX (2CH) 30.90 mL/m2 LVDs 4.9 (2.5-4.0cm) PWs 1.6 cm Aortic Valve AoV VTI 0.4 m Ao Mean GR 9.0 mmHg LVOT VTI 0.20 m TIM (VMAX) 3.1 cm2 TIM (VTI) 3.1 cm2 Mitral Valve MV E Vmax 83.4 cm/s DECEL Time 127 ms MR Max PG 37 mmHg P 1/2 T 49 ms MVA (PHT) 4.5 cm2 TDI E/E' Medial 10.3 E/E' Lateral 8.3 Medial E' Peak V 8.10 cm/s Lateral E' Peak V 10.10 cm/s Tricuspid Valve RAP (EST) 15 mmHg RVSP 15.0 mmHg Left Ventricle The left ventricle is severely dilated. There is normal LV segmental wall motion. There is normal left ventricular wall thickness. LVEF is 55-60%. The left ventricular diastolic function is normal. Right Ventricle The right ventricle is moderately dilated. The right ventricular systolic function is normal. Atria The left atrium size is normal. The right atrium is severely dilated. Aortic Valve Bioprosthetic aortic valve. Prosthetic aortic valve is normal in appearance and well seated. Trivial aortic regurgitation. No paravalvular leak or perivalvular leak noted. There is no aortic valvular stenosis. Mitral Valve The mitral valve is normal in structure. Mitral regurgitation is trace to mild. There is no mitral valve stenosis. Tricuspid Valve The tricuspid valve is normal in structure. There is mild tricuspid valve regu rgitation noted. Pulmonic Valve The pulmonary valve is normal in structure. There is no pulmonic valvular regurgitation. Great Vessels The aortic root is normal in size. IVC is dilated and collapses <50% with inspiration. Pericardium There is no pericardial effusion. Other Information Quality : Adequate Conclusion LVEF is 55-60%. LVEF is 55-60%. There is normal LV segmental wall motion. The left ventricular diastolic function is normal. The right ventricular systolic function is normal. Bioprosthetic aortic valve. Prosthetic aortic valve is normal in appearance and well seated. There is no pericardial effusion. The aortic root is normal in size. DICTATED BY: JANETTE THORPE MD DATE: 07/23/24 1015 REASON: PLEURAL EFFUSION/TRANSAMINITIS ORDERING PHYSICIAN: LEIDA THOMAS PROCEDURE: CAP WO - CT CHEST/ABD/PELV W/O CONTRAST CT CHEST/ABD/PELV W/O CONTRAST HISTORY: Pleural effusion COMPARISON: None TECHNIQUE: Multiple sequential axial images of the chest were obtained from the thoracic inlet through upper abdomen. Patient was not given contrast through intravenous route. FINDINGS: There are small bilateral pleural effusions with compressive atelectasis. Bibasilar linear atelectasis changes are seen. Aortic calcifications are seen. Minimal left lower lung pulmonary infiltrates are seen. No pericardial effusion is seen. There is no evidence of pneumothorax. There are normal size mediastinal and hilar lymph nodes. The heart is not enlarged. Degenerative changes of the thoracolumbar spine are present. There is no evidence of adrenal nodule. IMPRESSION: 1. Small bilateral pleural effusions with compressive atelectasis. Minimal left lower lung pulmonary infiltrates are seen. Minimal left lower lung pulmonary infiltrates are seen. CT CHEST/ABD/PELV W/O CONTRAST HISTORY: Elevated liver enzymes COMPARISON: None TECHNIQUE: Multiple sequential axial images of the abdomen and pelvis were obtained from the dome of the diaphragm through symphysis pubis. Patient was not given contrast through intravenous route. Oral contrast was not given. FINDINGS: Liver is enlarged measuring 21 cm. The liver, spleen, adrenal glands and pancreas are unremarkable. There is no evidence of hydronephrosis bilaterally. No evidence of renal stone is seen. Fecal material is seen in the colon. There are normal size retroperitoneal and mesenteric lymph nodes. Small ascites fluid is seen in the pelvis. Atherosclerotic changes are present. There is left iliac stent. Pelvic sidewalls are symmetric bilaterally. Bladder is poorly distended. Fat stranding is seen adjacent to the bladder may be related to cystitis and urinary analysis correlation may be helpful. There is mild diverticulosis. IMPRESSION: 1. Small amount of fluid is seen in the pelvis. CT was performed with one or more following dose reduction techniques: automated exposure control, adjustment of the mA and kv according to patient's size, or use of a iterative reconstruction technique. DICTATED BY: LORE KNIGHT MD DATE: 07/18/242300 REASON: assess for ascites, abdominal distension, hx of fatty liver ORDERING PHYSICIAN: BETO JESUS MD PROCEDURE: ABDOMEN - US ABDOMINAL COMPLETE US ABDOMINAL COMPLETE HISTORY: Abdominal distention, ascites COMPARISON: None TECHNIQUE: Multiple transverse and longitudinal ultrasound images of the abdomen were obtained. FINDINGS: Abdominal aorta and inferior vena cava are unremarkable. There are bilateral pleural effusions. Pancreas is not well seen. Liver measures 16 cm. Liver is echogenic consistent with liver parenchymal disease. No gallstone is seen. Common duct measures 4 mm. No evidence of gallbladder wall thickening is seen. Both kidneys are seen. Right kidney measures 10 x 6 x 7 cm. Left kidney measures 11 x 7 x 6 cm. No hydronephrosis is seen of the both kidneys. The spleen is grossly unremarkable. IMPRESSION: 1. No gallstone or ductal dilatation is seen. Bilateral pleural effusions. 2. No hydronephrosis is seen. DICTATED BY: LORE KNIGHT MD DATE: 07/19/24 1024 REASON: significant lower extremity edema, r/o any DVT ORDERING PHYSICIAN: BETO JESUS MD PROCEDURE: VENOUS JACE - US VENOUS DOPPLER BILATERAL ULTRASOUND VENOUS DOPPLER, BILATERAL LOWER EXTREMITIES INDICATION: Bilateral lower extremity pain and swelling TECHNIQUE: Routine grayscale and color Doppler ultrasound of the bilateral lower extremity veins performed. COMPARISON: No priors. FINDINGS: The demonstrated veins of the bilateral lower extremity including the common femoral vein, femoral vein, and popliteal vein are associated with normal compressibility, augmentation, and flow. Normal respiratory variation was identified. No evidence for echogenic intraluminal thrombus formation. Pulsatile flow may be related to known history of congestive heart failure. IMPRESSION: No sonographic evidence for deep venous thrombosis within the bilateral lower extremity veins. DICTATED BY: MARLON PINZON MD DATE: 07/18/24 1837 REASON: SHORTNESS A BREATH ORDERING PHYSICIAN: CINTHIA VICENTE NP PROCEDURE: CXR1VW - CHEST 1VW CHEST 1VW HISTORY: Shortness of breath COMPARISON: 06/11/2024 FINDINGS: A frontal projection of the chest was obtained. Mild bilateral pulmonary infiltrates are seen may be related to mild pulmonary vascular congestion with possible superimposed pneumonitis. The heart is enlarged. Degenerative changes are seen. No evidence of aortic calcification is seen. IMPRESSION: 1. Mild bilateral pulmonary infiltrates are seen may be related to mild pulmonary vascular congestion with possible superimposed pneumonitis. DICTATED BY: LORE KNGIHT MD DATE: 07/18/24 1529 ASSESSMENT: Acute on chronic renal failure Hypokalemia 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, POA, (LV EF 45-50%) Acute hypoxemic respiratory failure, POA History of severe pulmonary hypertension with RVSP of 54, attributed secondary to underlying cardiac comorbidities, group 2, POA Rule out pulmonary arterial hypertension, POA History of moderate aortic regurgitation, POA History of moderate tricuspid regurgitation, POA Severe volume overload, POA Congestive hepatopathy, POA CKD stage 3, likely chronic cardiorenal syndrome, POA Underlying history of atrial fibrillation, POA History of chronic anticoagulation with Eliquis as outpatient, POA Obesity, POA History of severe aortic stenosis status post bioprosthetic aortic wall replacement in 2018, POA PLAN: Labs, diagnostic, radiologic exams reviewed and interpreted by myself and supervising physician. We have reviewed external records in detail Start spironolactone 12.5 mg p.o. q.day. Continue with Bumex2 mg p.o. b.i.d.. Continue with potassium supplements. Renal function electrolytes were noted, we will continue to monitor renal function electrolytes closely. Continue 1.5 L fluid restriction Require close monitoring of renal function and electrolytes Order CBC, CMP, and electrolytes in am Continue with antibiotics Renal diabetic diet BiPAP as necessary, for respiratory distress Monitor blood pressure adjust medication doses as needed Avoid hypotensive episodes May use Dilaudid 0.5 mg IV every 6 hours as needed for severe pain Monitor blood sugars Strict intake, output, and daily weight should be monitored Please renally adjust medications Avoid nephrotoxic and nonsteroidal drugs Avoid contrast if possible Will continue to monitor renal function, anemia, electrolytes Treatment plan discussed with patient Questions were answered We have discussed with the other team physicians in detail about the care plan We will continue to monitor the patient closely ATTESTATION BY PHYSICIAN I have seen and examined the patient. I reviewed the documentation, medical decision making, and treatment plan as noted by the mid-level provider above. I agree with the findings and plan of care. JOSS AYALA MD, [facility] Jul 25, 2024 15:44
[2024-07-25] MEDS: BUMETANIDE 1 MG TAB PO SCH (20:32)
--- NOTE | 2024-07-25 22:37 | PN ---
NEPHROLOGY NOTE SUBJECTIVE: The patient has been evaluated and seen for dialysis and seen several times. Dictation Ends Here. TID: [id number] RECEIPT: [id number]
[2024-07-26] VITALS (7 sets, daily range): BP systolic 105–121; BP diastolic 56–73; PULSE 57–85; RESP 18–20; TEMP 97.6–99; O2SAT 95–96
[2024-07-26 04:11] LABS: BASOPHILS # (AUTO) 0.09 K/uL (0.00-0.20); BASOPHILS % (AUTO) 1.1 % (0.0-5.0); EOSINOPHILS # (AUTO) 0.17 K/uL (0.00-0.70); EOSINOPHILS % (AUTO) 2.1 % (0.0-8.0); HEMATOCRIT 41.7 % (42-54); IMMATURE GRANULOCYTE ABSOLUTE 0.03 K/uL (0-1); LYMPHOCYTES # (AUTO) 1.4 K/uL (1.0-4.8); LYMPHOCYTES % (AUTO) 17.4 % (21.0-51.0); MEAN CORPUSCULAR HEMOGLOBIN 30.3 pg (27.0-33.0); MEAN CORPUSCULAR HGB CONC 32.9 g/dL (32.0-36.0); MEAN CORPUSCULAR VOLUME 92.3 fL (79-99); MONOCYTES # (AUTO) 0.8 K/uL (0.1-1.0); MONOCYTES % (AUTO) 9.7 % (3.0-13.0); NEUTROPHILS # (AUTO) 5.6 K/uL (1.8-7.7); NEUTROPHILS % (AUTO) 69.3 % (40.0-77.0); PLATELET COUNT (AUTO) 141 K/uL (130-400); RED BLOOD CELL COUNT(AUTO) 4.52 MIL/uL (4.50-6.20); RED CELL DISTRIBUTION WIDTH 15.9 % (11.0-15.5)
[2024-07-26 04:25] LABS: ALBUMIN 3.1 g/dL (3.5-5.0); BILIRUBIN,TOTAL 2.2 mg/dL (0.2-1.0); CREATININE 2.5 mg/dL (0.5-1.3); MAGNESIUM 2.1 mg/dL (1.80-2.40); PHOSPHORUS 4.5 mg/dL (2.5-4.9); TOTAL PROTEIN, SERUM 6.1 g/dL (6.0-8.3)
[2024-07-26 04:57] LABS: POTASSIUM 2.3 mmol/L (3.5-5.1)
[2024-07-26] MEDS ORDERED: PoTASSium chloRIDE 10MEQ SR 10 MEQ/TAB TAB.SR.24H PO SCH (09:00)
[2024-07-26] MEDS: SPIRONOLACTONE 25 MG TAB PO SCH (09:36)
[2024-07-26] MEDS: SPIRONOLACTONE 25 MG TAB PO ONE (11:32)
--- NOTE | 2024-07-26 11:32 | NUR ---
spoke to pharmacist azar, and he stated patients gfr is velow 30 so it is contraindicated to give spironolactone patient resting in bed call light in reach
--- NOTE | 2024-07-26 14:30 | PN ---
NEPHROLOGY PROGRESS NOTE Date/Time Patient Seen: Jul 26, 2024 SUBJECTIVE: This is a 69-year-old male with underlying history of hypertension, hyperlipidemia, CKD stage 3, underlying history of atrial fibrillation, heart failure with mildly reduced ejection fraction of 45-50% (RVSP of 54 concerning for severe pulmonary hypertension), history of chronic anticoagulation with Eliquis, history of severe aortic stenosis secondary to bicuspid aortic valve status post bioprosthetic aortic valve replacement in 2018 He presented to the ER for further evaluation of progressive lower extremity edema and weight gain. Patient states diuretics were stopped and his urine output decreased He was noted to have elevated BUN/creatinine We are consulted for renal failure Renal function is stable Electrolytes show a potassium of 2.3. Continues on Bumex2 mg p.o. b.i.d.. and KCL 20 mEq PO BID. 24 hour urine output and daily weight noted. Continue with lower extremity edema Patient states pulmonary symptoms are improving He was seen in the medical floor, in no acute distress Family at the bedside. REVIEW OF SYSTEMS: GENERAL: Negative for any nausea, vomiting, fevers, chills, or weight loss. NEUROLOGIC: Negative for any blurry vision, blind spots, double vision, facial asymmetry, dysphagia, dysarthria, hemiparesis, hemisensory deficits, vertigo, ataxia. HEENT: Negative for any head trauma, neck trauma, neck stiffness, photophobia, phonophobia, sinusitis, rhinitis. CARDIAC: Negative for any chest pain, dyspnea on exertion, paroxysmal nocturnal dyspnea, peripheral edema. PULMONARY: Negative for any shortness of breath, wheezing, COPD, or TB exposure. GASTROINTESTINAL: Negative for any abdominal pain, nausea, vomiting, bright red blood per rectum, melena. GENITOURINARY: Negative for any dysuria, hematuria, incontinence. INTEGUMENTARY: Negative for any rashes, cuts, insect bites. RHEUMATOLOGIC: Negative for any joint pains, photosensitive rashes, history of vasculitis or kidney problems. HEMATOLOGIC: Negative for any abnormal bruising, frequent infections or bleeding. Current Medications Medications (Trade) Dose Ordered Sig/Samantha Route Start Time Stop Time Status Last Admin Dose Admin Amiodarone HCl (pacERONE 200MG) 200 mg QMOWEFR PO 07/19/24 09:00 08/18/24 08:59 07/26/24 09:34 200 MG Apixaban (EliquIS) 5 mg BID PO 07/18/24 21:00 08/17/24 20:59 07/26/24 09:37 5 MG Atorvastatin Calcium (LIPItor 10MG) 10 mg DAILY PO 07/19/24 09:00 07/22/24 10:33 DC 07/22/24 09:06 10 MG Atorvastatin Calcium (LIPItor 10MG) 10 mg HS PO 07/23/24 21:00 08/18/24 08:59 07/25/24 20:33 10 MG Budesonide (Pulmicort 0.5 Mg/2ml) 0.5 mg BIDRESP IH 07/18/24 18:00 07/24/24 09:25 DC 07/24/24 06:13 0.5 MG Bumetanide (Bumex 1mg Tab) 1 mg BID PO 07/26/24 21:00 08/25/24 20:59 Bumetanide (Bumex 1mg Tab) 2 mg BID PO 07/23/24 21:00 07/25/24 11:56 DC 07/25/24 09:25 2 MG Bumetanide (Bumex 1mg Tab) 2 mg BID PO 07/25/24 21:00 07/26/24 11:26 DC 07/25/24 20:32 2 MG Bumetanide (Bumex 1mg Vial) 1 mg Q8H IVP 07/18/24 21:00 07/23/24 17:15 DC 07/23/24 13:51 1 MG Bupropion HCl (WellBUTrin SR 150MG) 150 mg BID PO 07/19/24 21:00 08/18/24 20:59 07/26/24 09:37 150 MG Fish Oil (Fish Oil 1000 Mg/Cap) 1,000 mg BID PO 07/19/24 21:00 08/18/24 20:59 07/26/24 09:35 1,000 MG Gabapentin (NEURontin 100 mg CAP) 100 mg HS PO 07/19/24 21:00 08/18/24 20:59 07/25/24 20:33 100 MG Home Med (Home Medication) (Dapagliflozin Propanediol (Farxiga... DAILY PO 07/20/24 09:00 08/19/24 08:59 Levothyroxine Sodium (SYNTHroid 25MCG TAB) 25 mcg DAILY@0630 PO 07/19/24 06:30 08/18/24 06:29 07/26/24 06:03 25 MCG Magnesium Sulfate 50 ml @ 0 mls/hr PROTOCOL IV 07/18/24 18:00 08/17/24 17:59 Melatonin (Melatonin) 10 mg HS PO 07/19/24 21:00 08/18/24 20:59 07/25/24 20:32 10 MG Metolazone (zarOXOlyn) 5 mg ONCE STAT PO 07/22/24 14:07 07/22/24 14:12 DC 07/22/24 14:24 5 MG Metoprolol Succinate (TopROL XL) 25 mg DAILY PO 07/19/24 09:00 08/18/24 08:59 07/26/24 09:35 25 MG Pantoprazole Sodium (PROTonix 40MG TAB) 40 mg DAILY PO 07/19/24 09:00 08/18/24 08:59 07/26/24 09:37 40 MG Pharmacy Profile Note (Lace Assessment) 1 each AD MISC 07/19/24 17:30 07/19/24 20:58 DC Potassium Chloride (K-Dur 10meq Sr Tab) 10 meq BID PO 07/26/24 09:00 07/26/24 07:45 DC Potassium Chloride (K-Dur/Klor-Con 20meq) 20 meq BID PO 07/23/24 21:00 08/22/24 20:59 07/26/24 09:36 20 MEQ Simethicone (Mylicon) 40 mg ONCE PO 07/20/24 21:00 07/20/24 20:35 DC Spironolactone (Aldactone 25mg) 12.5 mg DAILY PO 07/26/24 09:00 07/26/24 11:26 DC 07/26/24 09:36 12.5 MG Spironolactone (Aldactone 25mg) 25 mg DAILY PO 07/27/24 09:00 07/26/24 12:03 DC Vitamin B Complex/ Vit C/Folic Acid (Nephrovite Tablet) 1 cap DAILY PO 07/19/24 09:00 08/18/24 08:59 07/26/24 09:32 1 CAP PHYSICAL EXAM: GENERAL: Alert and oriented x 3. No acute distress. Well-nourished. EYES: EOMI. Anicteric. HENT: Moist mucous membranes. No scleral icterus. No cervical lymphadenopathy. LUNGS: Clear to auscultation bilaterally. No accessory muscle use. CARDIOVASCULAR: Regular rate and rhythm. No murmur. No JVD. ABDOMEN: Soft, non-tender and non-distended. No palpable masses. EXTREMITIES: No edema. Non-tender. SKIN: No rashes or lesions. Warm. NEUROLOGIC: No focal neurological deficits. CN II-XII grossly intact, but not individually tested. PSYCHIATRIC: Cooperative. Appropriate mood and affect. Intake and Output 07/26/24 07:00 Intake Total 100.0 ml Output Total 2200 ml Balance -2100.0 ml IV Total 100.0 ml Output Urine Total 2200 ml Vital Signs (last 8hr) Date Time Temp Pulse Resp B/P (MAP) Pulse Ox O2 Delivery O2 Flow Rate FiO2 07/26/24 12:00 97.5 77 19 118/58 90 Room Air 07/26/24 08:08 97.7 57 19 109/73 99 Room Air 07/26/24 08:00 96 Room Air* 0 21 07/26/24 07:35 75 18 N/A Room Air 21 LABORATORY: [ ] Hematology Labs: Test 07/26/24 03:18 Range/Units White Blood Count 8.0 4.8-10.8 K/uL Red Blood Count 4.52 4.50-6.20 MIL/uL Hemoglobin 13.7 L 14.0-18.0 g/dL Hematocrit 41.7 L 42-54 % Mean Corpuscular Volume 92.3 79-99 fL Mean Corpuscular Hemoglobin 30.3 27.0-33.0 pg Mean Corpuscular Hemoglobin Concent 32.9 32.0-36.0 g/dL Red Cell Distribution Width 15.9 H 11.0-15.5 % Platelet Count 141 130-400 K/uL Mean Platelet Volume 11.6 H 7.5-10.5 fL Immature Granulocyte % (Auto) 0.4 0-1 % Neutrophils (%) (Auto) 69.3 40.0-77.0 % Lymphocytes (%) (Auto) 17.4 L 21.0-51.0 % Monocytes (%) (Auto) 9.7 3.0-13.0 % Eosinophils (%) (Auto) 2.1 0.0-8.0 % Basophils (%) (Auto) 1.1 0.0-5.0 % Neutrophils # (Auto) 5.6 1.8-7.7 K/uL Lymphocytes # (Auto) 1.4 1.0-4.8 K/uL Monocytes # (Auto) 0.8 0.1-1.0 K/uL Eosinophils # (Auto) 0.17 0.00-0.70 K/uL Basophils # (Auto) 0.09 0.00-0.20 K/uL Absolute Immature Granulocyte (auto 0.03 0-1 K/uL Nucleated Red Blood Cells 0.0 0.0-0.19 % Chemistry Labs: Test 07/26/24 03:18 07/25/24 04:10 Range/Units Sodium Level 143 136-145 mmol/L Potassium Level 2.3 *L 3.5-5.1 mmol/L Chloride Level 101 101-111 mmol/L Carbon Dioxide Level 33 H 21-32 mmol/L Blood Urea Nitrogen 53 H 7-18 mg/dL Creatinine 2.5 H 0.5-1.3 mg/dL Glomerular Filtration Rate Calc 27 >90 mL/min Random Glucose 107 H 70-105 mg/dL Total Calcium 9.4 8.5-10.1 mg/dL Phosphorus Level 4.5 2.5-4.9 mg/dL Magnesium Level 2.10 1.80-2.40 mg/dL Total Bilirubin 2.2 H 0.2-1.0 mg/dL Aspartate Amino Transf (AST/SGOT) 27 10-37 U/L Alanine Aminotransferase (ALT/SGPT) 37 12-78 U/L Alkaline Phosphatase 78 50-136 U/L Total Protein 6.1 6.0-8.3 g/dL Albumin 3.1 L 3.5-5.0 g/dL B-Type Natriuretic Peptide 1290 H 0-100 pg/mL DIAGNOSTICS / RADIOLOGY: REASON: acute chf ORDERING PHYSICIAN: PRISCILLA GUY PAC PROCEDURE: ECHO FU LD - ECHO 2-D F/U-LTD APPROVED REPORT EXAM: Limited Two-dimensional and M-mode echocardiogram with Doppler and color Doppler. INDICATION ICD: Heart Failure 2D Dimensions RVDd 5.2 cm LVEF(%) 41.8 (>50%) LVED Vol(simp.) 175.0 mL IVSd 1.1 (0.7-1.1cm) FS(%) 21 % LVES Vol(simp.) 75.3 mL LVDd 6.2 (3.8-5.6cm) LA (2D) 4.6 (1.6-4.0cm) LVEF(%, simp.) 57 % PWd 1.2 (0.7-1.1cm) LVOT diam 2.7 (1.8-2.4cm) LA ESV INDEX (4CH) 34.00 mL/m2 IVSs 1.4 cm LA ESV INDEX (2CH) 30.90 mL/m2 LVDs 4.9 (2.5-4.0cm) PWs 1.6 cm Aortic Valve AoV VTI 0.4 m Ao Mean GR 9.0 mmHg LVOT VTI 0.20 m TIM (VMAX) 3.1 cm2 TIM (VTI) 3.1 cm2 Mitral Valve MV E Vmax 83.4 cm/s DECEL Time 127 ms MR Max PG 37 mmHg P 1/2 T 49 ms MVA (PHT) 4.5 cm2 TDI E/E' Medial 10.3 E/E' Lateral 8.3 Medial E' Peak V 8.10 cm/s Lateral E' Peak V 10.10 cm/s Tricuspid Valve RAP (EST) 15 mmHg RVSP 15.0 mmHg Left Ventricle The left ventricle is severely dilated. There is normal LV segmental wall motion. There is normal left ventricular wall thickness. LVEF is 55-60%. The left ventricular diastolic function is normal. Right Ventricle The right ventricle is moderately dilated. The right ventricular systolic function is normal. Atria The left atrium size is normal. The right atrium is severely dilated. Aortic Valve Bioprosthetic aortic valve. Prosthetic aortic valve is normal in appearance and well seated. Trivial aortic regurgitation. No paravalvular leak or perivalvular leak noted. There is no aortic valvular stenosis. Mitral Valve The mitral valve is normal in structure. Mitral regurgitation is trace to mild. There is no mitral valve stenosis. Tricuspid Valve The tricuspid valve is normal in structure. There is mild tricuspid valve regurgitation noted. Pulmonic Valve The pulmonary valve is normal in structure. There is no pulmonic valvular regurgitation. Great Vessels The aortic root is normal in size. IVC is dilated and collapses <50% with inspiration. Pericardium There is no pericardial effusion. Other Information Quality : Adequate Conclusion LVEF is 55-60%. LVEF is 55-60%. There is normal LV segmental wall motion. The left ventricular diastolic function is normal. The right ventricular systolic function is normal. Bioprosthetic aortic valve. Prosthetic aortic valve is normal in appearance and well seated. There is no pericardial effusion. The aortic root is normal in size. DICTATED BY: JANETTE THORPE MD DATE: 07/23/24 1015 REASON: PLEURAL EFFUSION/TRANSAMINITIS ORDERING PHYSICIAN: LEIDA THOMAS PROCEDURE: CAP WO - CT CHEST/ABD/PELV W/O CONTRAST CT CHEST/ABD/PELV W/O CONTRAST HISTORY: Pleural effusion COMPARISON: None TECHNIQUE: Multiple sequential axial images of the chest were obtained from the thoracic inlet through upper abdomen. Patient was not given contrast through intravenous route. FINDINGS: There are small bilateral pleural effusions with compressive atelectasis. Bibasilar linear atelectasis changes are seen. Aortic calcifications are seen. Minimal left lower lung pulmonary infiltrates are seen. No pericardial effusion is seen. There is no evidence of pneumothorax. There are normal size mediastinal and hilar lymph nodes. The heart is not enlarged. Degenerative changes of the thoracolumbar spine are present. There is no evidence of adrenal nodule. IMPRESSION: 1. Small bilateral pleural effusions with compressive atelectasis. Minimal left lower lung pulmonary infiltrates are seen. Minimal left lower lung pulmonary infiltrates are seen. CT CHEST/ABD/PELV W/O CONTRAST HISTORY: Elevated liver enzymes COMPARISON: None TECHNIQUE: Multiple sequential axial images of the abdomen and pelvis were obtained from the dome of the diaphragm through symphysis pubis. Patient was not given contrast through intravenous route. Oral contrast was not given. FINDINGS: Liver is enlarged measuring 21 cm. The liver, spleen, adrenal glands and pancreas are unremarkable. There is no evidence of hydronephrosis bilaterally. No evidence of renal stone is seen. Fecal material is seen in the colon. There are normal size retroperitoneal and mesenteric lymph nodes. Small ascites fluid is seen in the pelvis. Atherosclerotic changes are present. There is left iliac stent. Pelvic sidewalls are symmetric bilaterally. Bladder is poorly distended. Fat stranding is seen adjacent to the bladder may be related to cystitis and urinary analysis correlation may be helpful. There is mild diverticulosis. IMPRESSION: 1. Small amount of fluid is seen in the pelvis. CT was performed with one or more following dose reduction techniques: automated exposure control, adjustment of the mA and kv according to patient's size, or use of a iterative reconstruction technique. DICTATED BY: LORE KNIGHT MD DATE: 07/18/24 2301 REASON: assess for ascites, abdominal distension, hx of fatty liver ORDERING PHYSICIAN: BETO JESUS MD PROCEDURE: ABDOMEN - US ABDOMINAL COMPLETE US ABDOMINAL COMPLETE HISTORY: Abdominal distention, ascites COMPARISON: None TECHNIQUE: Multiple transverse and longitudinal ultrasound images of the abdomen were obtained. FINDINGS: Abdominal aorta and inferior vena cava are unremarkable. There are bilateral pleural effusions. Pancreas is not well seen. Liver measures 16 cm. Liver is echogenic consistent with liver parenchymal disease. No gallstone is seen. Common duct measures 4 mm. No evidence of gallbladder wall thickening is seen. Both kidneys are seen. Right kidney measures 10 x 6 x 7 cm. Left kidney measures 11 x 7 x 6 cm. No hydronephrosis is seen of the both kidneys. The spleen is grossly unremarkable. IMPRESSION: 1. No gallstone or ductal dilatation is seen. Bilateral pleural effusions. 2. No hydronephrosis is seen. DICTATED BY: LORE KNIGHT MD DATE: 07/19/24 1024 REASON: significant lower extremity edema, r/o any DVT ORDERING PHYSICIAN: BETO JESUS MD PROCEDURE: VENOUS JACE - US VENOUS DOPPLER BILATERAL ULTRASOUND VENOUS DOPPLER, BILATERAL LOWER EXTREMITIES INDICATION: Bilateral lower extremity pain and swelling TECHNIQUE: Routine grayscale and color Doppler ultrasound of the bilateral lower extremity veins performed. COMPARISON: No priors. FINDINGS: The demonstrated veins of the bilateral lower extremity including the common femoral vein, femoral vein, and popliteal vein are associated with normal compressibility, augmentation, and flow. Normal respiratory variation was identified. No evidence for echogenic intraluminal thrombus formation. Pulsatile flow may be related to known history of congestive heart failure. IMPRESSION: No sonographic evidence for deep venous thrombosis within the bilateral lower extremity veins. DICTATED BY: MARLON PINZON MD DATE: 07/18/24 183 REASON: SHORTNESS A BREATH ORDERING PHYSICIAN: CINTHIA VICENTE NP PROCEDURE: CXR1VW - CHEST 1VW CHEST 1VW HISTORY: Shortness of breath COMPARISON: 06/11/2024 FINDINGS: A frontal projection of the chest was obtained. Mild bilateral pulmonary infiltrates are seen may be related to mild pulmonary vascular congestion with possible superimposed pneumonitis. The heart is enlarged. Degenerative changes are seen. No evidence of aortic calcification is seen. IMPRESSION: 1. Mild bilateral pulmonary infiltrates are seen may be related to mild pulmonary vascular congestion with possible superimposed pneumonitis. DICTATED BY: LORE KNIGHT MD DATE: 07/18/24 1529 ASSESSMENT: Acute on chronic renal failure Hypokalemia 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, POA, (LV EF 45-50%) Acute hypoxemic respiratory failure, POA History of severe pulmonary hypertension with RVSP of 54, attributed secondary to underlying cardiac comorbidities, group 2, POA Rule out pulmonary arterial hypertension, POA History of moderate aortic regurgitation, POA History of moderate tricuspid regurgitation, POA Severe volume overload, POA Congestive hepatopathy, POA CKD stage 3, likely chronic cardiorenal syndrome, POA Underlying history of atrial fibrillation, POA History of chronic anticoagulation with Eliquis as outpatient, POA Obesity, POA History of severe aortic stenosis status post bioprosthetic aortic wall replacement in 2018, POA PLAN: Labs, diagnostic, radiologic exams reviewed and interpreted by myself and supervising physician. We have reviewed external records in detail Decrease Bumex to 1 mg p.o. b.i.d.. Increase spironolactone to 25 mg p.o. q.day, give one dose of 12.5 mg toay Continue with potassium supplements. Renal function electrolytes were noted, we will continue to monitor renal function electrolytes closely. Continue 1.5 L fluid restriction Require close monitoring of renal function and electrolytes Order CBC, CMP, and electrolytes in am Continue with antibiotics Renal diabetic diet BiPAP as necessary, for respiratory distress Monitor blood pressure adjust medication doses as needed Avoid hypotensive episodes May use Dilaudid 0.5 mg IV every 6 hours as needed for severe pain Monitor blood sugars Strict intake, output, and daily weight should be monitored Please renally adjust medications Avoid nephrotoxic and nonsteroidal drugs Avoid contrast if possible Will continue to monitor renal function, anemia, electrolytes Treatment plan discussed with patient Questions were answered We have discussed with the other team physicians in detail about the care plan We will continue to monitor the patient closely ATTESTATION BY PHYSICIAN I have seen and examined the patient. I reviewed the documentation, medical decision making, and treatment plan as noted by the mid-level provider above. I agree with the findings and plan of care. JOSS AYALA MD, ELIZABETH GRANT COORDINATOR Jul 26, 2024 14:30
--- NOTE | 2024-07-26 15:34 | PN ---
[facility] PROGRESS NOTE Date of Service: Jul 26, 2024 Time of Service: 15:32 SUBJECTIVE: [ ] The patient has been seen and examined today during my rounding, no acute events overnight, patient resting comfortably in bed, alert oriented x3, hemodynamically stable, BP 121/62, afebrile, saturating normal on room air. The patient continue diuretics, having good urine output, has urinated several times throughout this hospitalization. He admits less swollen to both lower extremities. Results of Doppler extremities negative for DVT. The patient with the elevated D-dimer. No chest pain, no shortness a breath at the time of my visit, unable to do V/Q scan or CT PE protocol as the patient elevated creatinine and unable to stay flat on his back. is at bedside during my visit. 07/20 the patient has been seen and examined earlier this morning during my rounding, no acute events overnight, he remains hemodynamically stable, afebrile, saturating normal on room air. The patient has been very good urine output. Per my discussion with the nurse that is taking care of the patient, the patient's weight has improved from 291.8 lb to 283.4 today. He denies chest pain, no shortness a breath, he admits less swollen to both lower extremities compared to time of admission. is not present at the bedside during my visit. 07/21/24 patient was seen and examined and case discussed with RN. He feels that his swelling is going down. We will continue with Bumex. Monitor electrolytes. Monitor weight 07/22 patient seen at bedside, no acute events overnight. Patient continues with diuresis, he was evaluated by Cardiology today, recommendations still pending we will follow up. Patient with notable chronic kidney disease and pulmonary hypertension which likely are contributing to his peripheral pitting edema. Surprisingly his ejection fraction is near normal with 45 to 50% and is unlikely the cause his pitting edema. He does have some valvular dysfunction with some moderate regurgitation. He has ventricle and atria are dilated likely due to increased pressures possibly due to dilated cardiomyopathy. At bedside he is saturating well on room air has no complaints at this time. Further recommendations per Cardiology, pulmonology and Nephrology. Pulmonology recommending to treat underlying causes no direct interventions for pulmonary hypertension at this time as he has a grade 2 in the guidelines state to treat the underlying causes. 07/23 patient seen at bedside, no acute events overnight. He continues with diuresis. Creatinine appears to be at baseline at 2.2, similar to yesterday. Due to renal function he is not able to undergo a left heart catheterization per Cardiology. We will focus on optimal medical management at this time. We will follow up with pulmonology, Nephrology and Cardiology recommendations for clearance for discharge vs further workup 07/24 patient seen at bedside, no acute events overnight. He continues with diuresis. Creatinine at 2.2, same as yesterday. Continue optimal medical management at this time. We will follow up with pulmonology, Nephrology and Cardiology recommendations for clearance for discharge vs further workup. Cardiology recommending continued diuresis 07/25: This is a late dictation. Patient seen at bedside, no acute events overnight. He continues with diuresis. Pt cleared by cardiology and pulmonology. His potassium remains low, spironolactone started and patient continues on potassium supplements. Will recheck renal function and potassium again tomorrow 07/26 Patient seen at bedside, no acute events overnight. He continues with diuresis. His potassium remains low, spironolactone increased to 25mg q24h, bumex dose decreased to 1mg BID, and patient continues on potassium supplements. Will recheck renal function and potassium again tomorrow. If potassium > 3.0 will be good candidate for discharge REVIEW OF SYSTEMS 12 point review of systems negative unless noted in HPI PHYSICAL EXAM GENERAL APPEARANCE: The patient is awake, alert, and oriented, in no acute cardiopulmonary distress. NEUROLOGICAL: Cranial nerves II-XII grossly intact. Motor is 5/5 in bilateral upper and lower extremities proximal to distal. No sensory deficits. HEENT: Face is symmetric. Pupils are equal and reactive. Extraocular movements are intact. NECK: Supple. No JVD. No thyromegaly. No submental, submandibular, pre- /postauricular, occipital or supraclavicular lymphadenopathy. CHEST: Normal chest expansion. No Telemetry. LUNGS: Crackles noted at bilateral lung base CARDIOVASCULAR: Regular. S1 and S2 normal. No appreciable rubs, murmurs or gallops. ABDOMEN: Soft, nontender, and nondistended. There is no rebound, voluntary guarding, or rigidity. : Deferred. No Pritchard. EXTREMITIES: 3+ pitting edema noted of bilateral lower extremities SKIN: No skin breakdown. Vital Signs (last 8hr) Date Time Temp Pulse Resp B/P (MAP) Pulse Ox O2 Delivery O2 Flow Rate FiO2 07/26/24 12:00 97.5 77 19 118/58 90 Room Air 07/26/24 08:08 97.7 57 19 109/73 99 Room Air 07/26/24 08:00 96 Room Air* 0 21 07/26/24 07:35 75 18 N/A Room Air 21 LABS: Laboratory: Test 07/26/24 03:18 07/25/24 04:10 Range/Units White Blood Count 8.0 4.8-10.8 K/uL Red Blood Count 4.52 4.50-6.20 MIL/uL Hemoglobin 13.7 L 14.0-18.0 g/dL Hematocrit 41.7 L 42-54 % Mean Corpuscular Volume 92.3 79-99 fL Mean Corpuscular Hemoglobin 30.3 27.0-33.0 pg Mean Corpuscular Hemoglobin Concent 32.9 32.0-36.0 g/dL Red Cell Distribution Width 15.9 H 11.0-15.5 % Platelet Count 141 130-400 K/uL Mean Platelet Volume 11.6 H 7.5-10.5 fL Immature Granulocyte % (Auto) 0.4 0-1 % Neutrophils (%) (Auto) 69.3 40.0-77.0 % Lymphocytes (%) (Auto) 17.4 L 21.0-51.0 % Monocytes (%) (Auto) 9.7 3.0-13.0 % Eosinophils (%) (Auto) 2.1 0.0-8.0 % Basophils (%) (Auto) 1.1 0.0-5.0 % Neutrophils # (Auto) 5.6 1.8-7.7 K/uL Lymphocytes # (Auto) 1.4 1.0-4.8 K/uL Monocytes # (Auto) 0.8 0.1-1.0 K/uL Eosinophils # (Auto) 0.17 0.00-0.70 K/uL Basophils # (Auto) 0.09 0.00-0.20 K/uL Absolute Immature Granulocyte (auto 0.03 0-1 K/uL Nucleated Red Blood Cells 0.0 0.0-0.19 % Sodium Level 143 136-145 mmol/L Potassium Level 2.3 *L 3.5-5.1 mmol/L Chloride Level 101 101-111 mmol/L Carbon Dioxide Level 33 H 21-32 mmol/L Blood Urea Nitrogen 53 H 7-18 mg/dL Creatinine 2.5 H 0.5-1.3 mg/dL Glomerular Filtration Rate Calc 27 >90 mL/min Random Glucose 107 H 70-105 mg/dL Total Calcium 9.4 8.5-10.1 mg/dL Phosphorus Level 4.5 2.5-4.9 mg/dL Magnesium Level 2.10 1.80-2.40 mg/dL Total Bilirubin 2.2 H 0.2-1.0 mg/dL Aspartate Amino Transf (AST/SGOT) 27 10-37 U/L Alanine Aminotransferase (ALT/SGPT) 37 12-78 U/L Alkaline Phosphatase 78 50-136 U/L Total Protein 6.1 6.0-8.3 g/dL Albumin 3.1 L 3.5-5.0 g/dL B-Type Natriuretic Peptide 1290 H 0-100 pg/mL Current Medications Medications (Trade) Dose Ordered Sig/Samantha Route PRN Reason Start Time Stop Time Status Last Admin Dose Admin Acetaminophen (TYLenol 500MG TAB) 500 mg Q6H PRN PO MILD PAIN (1-3) 07/18/24 18:00 08/17/24 17:59 Acetaminophen (TYLenol 500MG TAB) 500 mg Q6H PRN PO MILD PAIN (1-3) 07/18/24 18:00 08/17/24 17:59 Amiodarone HCl (pacERONE 200MG) 200 mg QMOWEFR PO 07/19/24 09:00 08/18/24 08:59 07/26/24 09:34 200 MG Apixaban (EliquIS) 5 mg BID PO 07/18/24 21:00 08/17/24 20:59 07/26/24 09:37 5 MG Atorvastatin Calcium (LIPItor 10MG) 10 mg DAILY PO 07/19/24 09:00 07/22/24 10:33 DC 07/22/24 09:06 10 MG Atorvastatin Calcium (LIPItor 10MG) 10 mg HS PO 07/23/24 21:00 08/18/24 08:59 07/25/24 20:33 10 MG Budesonide (Pulmicort 0.5 Mg/2ml) 0.5 mg BIDRESP IH 07/18/24 18:00 07/24/24 09:25 DC 07/24/24 06:13 0.5 MG Bumetanide (Bumex 1mg Tab) 1 mg BID PO 07/26/24 21:00 08/25/24 20:59 Bumetanide (Bumex 1mg Tab) 2 mg BID PO 07/23/24 21:00 07/25/24 11:56 DC 07/25/24 09:25 2 MG Bumetanide (Bumex 1mg Tab) 2 mg BID PO 07/25/24 21:00 07/26/24 11:26 DC 07/25/24 20:32 2 MG Bumetanide (Bumex 1mg Vial) 1 mg Q8H IVP 07/18/24 21:00 07/23/24 17:15 DC 07/23/24 13:51 1 MG Bupropion HCl (WellBUTrin SR 150MG) 150 mg BID PO 07/19/24 21:00 08/18/24 20:59 07/26/24 09:37 150 MG Fish Oil (Fish Oil 1000 Mg/Cap) 1,000 mg BID PO 07/19/24 21:00 08/18/24 20:59 07/26/24 09:35 1,000 MG Gabapentin (NEURontin 100 mg CAP) 100 mg HS PO 07/19/24 21:00 08/18/24 20:59 07/25/24 20:33 100 MG Home Med (Home Medication) (Dapagliflozin Propanediol (Farxiga... DAILY PO 07/20/24 09:00 08/19/24 08:59 Ipratropium [place] (AtrovENT UD) 1 mg Q6H PRN IH SHORTNESS OF BREATH 07/18/24 18:00 08/17/24 17:59 Levothyroxine Sodium (SYNTHroid 25MCG TAB) 25 mcg DAILY@0630 PO 07/19/24 06:30 08/18/24 06:29 07/26/24 06:03 25 MCG Magnesium Sulfate 50 ml @ 0 mls/hr PROTOCOL IV 07/18/24 18:00 08/17/24 17:59 Melatonin (Melatonin) 5 mg HS PRN PO insomnia 07/18/24 20:30 07/25/24 14:34 DC Melatonin (Melatonin) 10 mg HS PO 07/19/24 21:00 08/18/24 20:59 07/25/24 20:32 10 MG Metolazone (zarOXOlyn) 5 mg ONCE STAT PO 07/22/24 14:07 07/22/24 14:12 DC 07/22/24 14:24 5 MG Metoprolol Succinate (TopROL XL) 25 mg DAILY PO 07/19/24 09:00 08/18/24 08:59 07/26/24 09:35 25 MG Ondansetron HCl (zoFRAN 4MG INJ) 4 mg Q6H PRN IVP NAUSEA/VOMITING 07/18/24 18:00 08/17/24 17:59 Pantoprazole Sodium (PROTonix 40MG TAB) 40 mg DAILY PO 07/19/24 09:00 08/18/24 08:59 07/26/24 09:37 40 MG Pharmacy Profile Note (Lace Assessment) 1 each AD MISC 07/19/24 17:30 07/19/24 20:58 DC Potassium Chloride 100 ml @ 100 mls/hr AD PRN IV POTASSIUM PROTOCOL 07/18/24 18:00 08/17/24 17:59 07/26/24 09:43 100 MLS/HR Potassium Chloride (K-Dur 10meq Sr Tab) 10 meq AD PRN PO POTASSIUM PROTOCOL 07/22/24 11:00 08/17/24 17:59 07/26/24 12:21 10 MEQ Potassium Chloride (K-Dur 10meq Sr Tab) 10 meq BID PO 07/26/24 09:00 07/26/24 07:45 DC Potassium Chloride (K-Dur/Klor-Con 20meq) 10 meq AD PRN PO POTASSIUM PROTOCOL 07/18/24 18:00 07/22/24 10:35 DC 07/21/24 15:29 10 MEQ Potassium Chloride (K-Dur/Klor-Con 20meq) 20 meq BID PO 07/23/24 21:00 08/22/24 20:59 07/26/24 09:36 20 MEQ Potassium Chloride (KCl 10% Elixir 20meq/15ml) 10 meq AD PRN PO POTASSIUM PROTOCOL 07/18/24 18:00 08/17/24 17:59 07/22/24 09:07 10 MEQ Simethicone (Mylicon) 40 mg ONCE PO 07/20/24 21:00 07/20/24 20:35 DC Spironolactone (Aldactone 25mg) 12.5 mg DAILY PO 07/26/24 09:00 07/26/24 11:26 DC 07/26/24 09:36 12.5 MG Spironolactone (Aldactone 25mg) 25 mg DAILY PO 07/27/24 09:00 08/26/24 08:59 Spironolactone (Aldactone 25mg) 25 mg DAILY PO 07/27/24 09:00 07/26/24 12:03 DC Vitamin B Complex/ Vit C/Folic Acid (Nephrovite Tablet) 1 cap DAILY PO 07/19/24 09:00 08/18/24 08:59 07/26/24 09:32 1 CAP DIAGNOSTICS / RADIOLOGY: [ ] ASSESSMENT: 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, POA, (LV EF 45-50%) Acute hypoxemic respiratory failure, POA History of severe pulmonary hypertension with RVSP of 54, attributed secondary to underlying cardiac comorbidities, group 2, POA Rule out pulmonary arterial hypertension, POA History of moderate aortic regurgitation, POA History of moderate tricuspid regurgitation, POA Severe volume overload, POA Congestive hepatopathy, POA CKD stage 3, likely chronic cardiorenal syndrome, POA Underlying history of atrial fibrillation, POA History of chronic anticoagulation with Eliquis as outpatient, POA Obesity, POA History of severe aortic stenosis status post bioprosthetic aortic valve replacement in 2018, POA PLAN: Patient remains admitted to the medical floor Continue compliance monitor Continue diuresis Monitor urine output closely, obtain daily weight Monitor renal function closely Maintain K greater than four and magnesium greater than two, electrolytes will be repleted per protocol Echocardiogram to evaluate ejection fraction, follow Cardiology input and recommendation Replace electrolytes IV per protocol Continue amiodarone, Eliquis, metoprolol succinate and home medications were reconciled and updated once available We will monitor BMP closely tonight and All labs will be repeated in the morning We will see if patient has undergone prior sleep study to rule out obstructive sleep apnea Disposition: Maintaining potassium levels, possible dc in 24-72 hours TAWANDA CALVIN MD Jul 26, 2024 15:33
--- NOTE | 2024-07-26 16:35 | PN ---
[facility] PROGRESS NOTE Date Patient Seen: Jul 26, 2024 Time of Visit: 16:35 Supervising Physician: Lisbeth Mayers MD Inpatient Consults: BIS PROBLEM LIST: Acute on chronic diastolic Heart failure, ProBNP of 1290 Acute hypoxemic respiratory failure, POA , home 02 , at baseline Pulmonary hypertension with RVSP of 54mmHg, attributed secondary to underlying cardiac comorbidities, group 2, POA History of moderate aortic regurgitation, POA History of moderate tricuspid regurgitation, POA Congestive hepatopathy, POA CKD stage 3, likely chronic cardiorenal syndrome, POA Underlying history of atrial fibrillation, POA History of chronic anticoagulation with Eliquis as outpatient, POA Obesity, POA History of severe aortic stenosis status post bioprosthetic aortic wall replacement in 2018, POA INTERVAL HISTORY: 07/25- Patient was seen and examined today by me at bedside, the patient continues with hypokalemia as he is on aggressive diuresis with Bumex b.i.d.. With marginal blood pressures in the 90 systolic to 102 systolic. His proBNP is downtrending. The patient clinically feels improved and edema has been reduced. He now has fair air entry and has responded to treatment well. Of concern is the patient at this time would benefit from holding Bumex, replacing his electrolytes and adjusting dose thereafter as his renal function is now starting to worsen . Dr. Bang is followign closely. total Urine output in last 48 hours is documented as 6770 cc . 07/26- patient is awake alert and oriented x3 he appears to be in good spirits. He is in no apparent distress saturating 96% on room air with heart rate in the 80s hemodynamically stable. Patient patient has been afebrile since admission. He reports feeling much better and has been for mean that swelling to bilateral lower extremities has decreased. Patient is still continues with plus one pitting edema to bilateral lower extremities but as per patient is much better. Patient continues aggressive diuresis with Bumex b.i.d. and has been added spironolactone for potassium-sparing per Nephrology. 2D echo from 07/23/24 shows LVEF is 55-60% there is normal LV segmental wall motion. Left ventricular diastolic function is normal, the right ventricle systolic function normal bioprosthetic aortic valve. Prosthetic aortic valve is normal in appearance and well seated there is no pericardial effusion. The aortic root is normal in size and RVSP 15 mm Hg. CBC unremarkable, chemistry potassium 2.3 replaced and repeated level resulted in 3.5, chloride 101 carbon dioxide 33 BUN is 53 creatinine is 2.5 improved from yesterday which was 2.9 and GFR improving slightly 27 today from 31/[address] chest abdomen and pelvis shows small bilateral pleural effusion with compressive atelectasis, minimal left lower lung pulmonary infiltrates are seen, small amount of fluid seen in the pelvis. Fevers enlarged 21 senna L. The liver spleen adrenal glands (aerobic unremarkable there is no evidence of hydronephrosis bilaterally. No evidence of renal stone is seen. Also we recommend Holding bumex x 24 hours and adjusting dose thereafter . Patient has pulmonary hypertension from most recent echocardiogram done on 06/01/2024 shows RVSP of 54 mmHg which which is classified as WHO group II classification Recommend treatment is to continue with current cardiac medications, at this time no indication for right heart catheterization. Can have this done outpatient when indicated. Patient has respiratory issues appears to be more cardiac related than pulmonary Patient is bilateral effusion not enough fluid to safely remove, so no indication for thoracentesis at this time Continue to monitor respiratory status and maintain adequate oxygenation Keep O2 sats greater or equal to 90% Patient will need to follow up [facility] with [employer] pipe [address]. Deras within5-7 days upon discharge We will continue to monitor closely REVIEW OF SYSTEMS: 12 point ROS reviewed with patient. Pertinent positives mentioned above. Otherwise negative. PHYSICAL EXAM: GENERAL: alert, weak, awake oriented x 3 HEENT: EOMI, Sclera non icteric, moist mucosa NECK: Supple, no JVD, trachea midline LUNGS: Clear breath sounds bilaterally. No wheezes HEART: Regular rate and rhythm. Normal S1 and S2, without murmurs ABD: Abdomen soft, nontender. Bowel sounds present EXT: No clubbing cyanosis , 1+ edema to RLE and 2+edema to LLE NEURO: Alert and oriented to person, follows commands Vital Signs (last 8hr) Date Time Temp Pulse Resp B/P (MAP) Pulse Ox O2 Delivery O2 Flow Rate FiO2 07/26/24 12:00 97.5 77 19 118/58 90 Room Air LABS: Hematology Labs: Test 07/26/24 03:18 Range/Units White Blood Count 8.0 4.8-10.8 K/uL Red Blood Count 4.52 4.50-6.20 MIL/uL Hemoglobin 13.7 L 14.0-18.0 g/dL Hematocrit 41.7 L 42-54 % Mean Corpuscular Volume 92.3 79-99 fL Mean Corpuscular Hemoglobin 30.3 27.0-33.0 pg Mean Corpuscular Hemoglobin Concent 32.9 32.0-36.0 g/dL Red Cell Distribution Width 15.9 H 11.0-15.5 % Platelet Count 141 130-400 K/uL Mean Platelet Volume 11.6 H 7.5-10.5 fL Immature Granulocyte % (Auto) 0.4 0-1 % Neutrophils (%) (Auto) 69.3 40.0-77.0 % Lymphocytes (%) (Auto) 17.4 L 21.0-51.0 % Monocytes (%) (Auto) 9.7 3.0-13.0 % Eosinophils (%) (Auto) 2.1 0.0-8.0 % Basophils (%) (Auto) 1.1 0.0-5.0 % Neutrophils # (Auto) 5.6 1.8-7.7 K/uL Lymphocytes # (Auto) 1.4 1.0-4.8 K/uL Monocytes # (Auto) 0.8 0.1-1.0 K/uL Eosinophils # (Auto) 0.17 0.00-0.70 K/uL Basophils # (Auto) 0.09 0.00-0.20 K/uL Absolute Immature Granulocyte (auto 0.03 0-1 K/uL Nucleated Red Blood Cells 0.0 0.0-0.19 % Chemistry Labs: Test 07/26/24 15:27 07/26/24 03:18 07/25/24 04:10 Range/Units Potassium Level 3.5 3.5-5.1 mmol/L Sodium Level 143 136-145 mmol/L Chloride Level 101 101-111 mmol/L Carbon Dioxide Level 33 H 21-32 mmol/L Blood Urea Nitrogen 53 H 7-18 mg/dL Creatinine 2.5 H 0.5-1.3 mg/dL Glomerular Filtration Rate Calc 27 >90 mL/min Random Glucose 107 H 70-105 mg/dL Total Calcium 9.4 8.5-10.1 mg/dL Phosphorus Level 4.5 2.5-4.9 mg/dL Magnesium Level 2.10 1.80-2.40 mg/dL Total Bilirubin 2.2 H 0.2-1.0 mg/dL Aspartate Amino Transf (AST/SGOT) 27 10-37 U/L Alanine Aminotransferase (ALT/SGPT) 37 12-78 U/L Alkaline Phosphatase 78 50-136 U/L Total Protein 6.1 6.0-8.3 g/dL Albumin 3.1 L 3.5-5.0 g/dL B-Type Natriuretic Peptide 1290 H 0-100 pg/mL DIAGNOSTICS / RADIOLOGY RESULTS: [ ] PLAN NEURO: Minimize central acting medications as possible. Maintain fall precautions, adequate lighting during the day PULMONARY: Supplemental 02 as needed. Maintain aspiration precautions at all times see plan above CARDIOVASCULAR: Follow hemodynamics. Vital signs per facility protocol GI & NUTRITION: Continue with nutritional support. Continue stool softeners and laxatives as needed. KIDNEYS & ELECTROLYTES: Strict monitoring of intake, output and overall fluid balance. Hold Bumex , Us of renal system Avoid nephrotoxic medications to the extent possible. Medications to be dosed according to renal function. Monitor electrolytes and replace as needed ENDOCRINE: Maintain blood glucose between 100-180 at all times. Hypoglycemia protocol in place INFECTIOUS DISEASE: Trend temperature, WBC and procalcitonin level Follow cultures, deescalate antibiotics as soon as possible. Panculture if new onset fever ONCOLOGY/HEMATOLOGY/COAGULATION: Monitor for s/s of bleeding Monitor hemoglobin, coagulation studies as needed SKIN: Pressure ulcer prevention per facility protocol Specialty mattress ORTHO/REHAB: Continue PT/OT Prophylaxis: Continue GI and DVT prophylaxis Code Status: Full Resuscitation Disposition: Per primary team-discussed with team Other: Case discussed with supervising physician plan of care agreed upon Total time 35 minutes PATTI LOUIS Jul 26, 2024 16:35
[2024-07-26] MEDS: BUMETANIDE 1 MG TAB PO SCH (20:14)
--- NOTE | 2024-07-26 23:46 | PN ---
SUBJECTIVE: The patient is feeling much better. He was sitting up in bed when I saw him. His edema in his ankle is down. His shortness of breath is almost resolved. OBJECTIVE: VITAL SIGNS: Heart rate is 70s, blood pressure is 136/70. HEENT: No JVD. No carotid bruit. LUNGS: Mostly clear to percussion and auscultation. CARDIOVASCULAR: Peripheral pulses are diminished. S1, S2 is heard. I do not hear any distinct murmurs or rubs. No groin bruit, no abdominal bruit. ABDOMEN: Benign. CENTRAL NERVOUS SYSTEM: Nonfocal exam. EXTREMITIES: A 1+ pitting edema is seen. LABORATORY DATA: Labs reveal BUN and creatinine to be high. Potassium was 2.3, he is being replaced, is 3.4 now. FINAL IMPRESSION: * Recurrent congestive heart failure in a patient who is post-aortic valve replacement. * No history of coronary artery disease. * Diastolic congestive heart failure, which is now resolved. * Renal failure. RECOMMENDATIONS: The only activity that I would like to consider from a cardiac standpoint is constrictive pericarditis. I will make arrangements for patient to have MRI in [facility] in [place]. Further recommendations will be based on results of the above. In the meantime, we will change to p.o. diuretics and he should be able to go home tomorrow. TID: [id number] RECEIPT: [id number]
[2024-07-27] VITALS (11 sets, daily range): BP systolic 88–114; BP diastolic 39–67; PULSE 71–103; RESP 18–20; TEMP 97–99.4; O2SAT 93–97
[2024-07-27] MEDS: MAG/ALUM/SIMETH 30 ML UDCUP PO ONE (01:14)
[2024-07-27 04:24] LABS: HEMATOCRIT 41.3 % (42-54); MEAN CORPUSCULAR HEMOGLOBIN 30.6 pg (27.0-33.0); MEAN CORPUSCULAR HGB CONC 32.9 g/dL (32.0-36.0); MEAN CORPUSCULAR VOLUME 92.8 fL (79-99); RED BLOOD CELL COUNT(AUTO) 4.45 MIL/uL (4.50-6.20); RED CELL DISTRIBUTION WIDTH 15.9 % (11.0-15.5); WHITE BLOOD COUNT (AUTO) 7.8 K/uL (4.8-10.8)
[2024-07-27 04:56] LABS: ALBUMIN 3.1 g/dL (3.5-5.0); BILIRUBIN,TOTAL 2.3 mg/dL (0.2-1.0); CREATININE 2.8 mg/dL (0.5-1.3); MAGNESIUM 2.3 mg/dL (1.80-2.40); TOTAL PROTEIN, SERUM 6.1 g/dL (6.0-8.3)
[2024-07-27 04:59] LABS: POTASSIUM 2.8 mmol/L (3.5-5.1)
[2024-07-27] MEDS: SPIRONOLACTONE 25 MG TAB PO SCH (09:00)
[2024-07-27] MEDS ORDERED: SPIRONOLACTONE 25 MG TAB PO SCH (09:00)
--- NOTE | 2024-07-27 11:45 | NUR ---
NOTE SUMMARY/ HELD DIURETICS PATIENT ALERT X4 PATIENT WAS HYPOTENSIVE THIS MORNING 95/49 AND 88/49, ASYMPTOMATIC DR VALENZUELA ROUNDED AND EXPLAINED THE SITUATION AND SAID IT WAS OKAY TO HOLD DIURETICS FOR THE MORNING AND ADMINISTER PM DOSE BASED ON VITALS PATIENT RESTING IN BED CALL LIGHT IN REACH
--- NOTE | 2024-07-27 14:26 | PN ---
FOLLOWUP PROGRESSION NOTE SUBJECTIVE: A 69-year-old male with multiple medical conditions. The patient with a history of known renal dysfunction. The patient with a history of known coronary artery disease. He remains on anticoagulation for his valve replacement. The patient initially presented with volume overload. The patient was started on the diuretics and he is feeling much improved. The patient is being seen by Cardiology. REVIEW OF SYSTEMS: GENERAL: He is feeling improved since admission. HEENT: No change in vision. No change in hearing. CARDIOVASCULAR: There is no current chest pain or palpitations. PULMONARY: Shortness of breath is improved. GASTROINTESTINAL: He is tolerating a diet. MUSCULOSKELETAL: Complains of weakness. PHYSICAL EXAMINATION: VITAL SIGNS: Blood pressure 104/67, pulse in the 100s. GENERAL: He is a chronically ill male, older than appearing. HEENT: Head is atraumatic. Pupils equal, roving to light. Oropharynx is without exudate. Nares clear. NECK: There is no JVP. There is no thyromegaly, no mass. CARDIOVASCULAR: Regular. There is no S3, S4 gallop. LUNGS: Coarse with equal thoracic movement. ABDOMEN: Soft, nondistended, nontender. EXTREMITIES: No clubbing, no cyanosis. NEUROLOGIC: He is awake. He is alert. LABORATORY DATA: Sodium 142, potassium 2.8, BUN 56, creatinine is 2.8. Hemoglobin 13. Hematocrit 41. IMPRESSION: * Renal dysfunction. * Cardiomyopathy. * Valvular heart disease. * Electrolyte abnormalities. PLAN: The patient's potassium continues to be aggressively repleted. The patient does remain on the diuretics. The patient's pulmonary symptoms have improved. He does remain on the Eliquis for the valvular heart disease. We will continue to follow closely. The patient with multiple questions, all of which were all answered. Once the patient is discharged, he can follow up in the [facility]. TID: [id number] RECEIPT: [id number]
--- NOTE | 2024-07-27 14:33 | PN ---
[facility] PROGRESS NOTE Date of Service: Jul 27, 2024 Time of Service: 14:32 SUBJECTIVE: [ ] The patient has been seen and examined today during my rounding, no acute events overnight, patient resting comfortably in bed, alert oriented x3, hemodynamically stable, BP 121/62, afebrile, saturating normal on room air. The patient continue diuretics, having good urine output, has urinated several times throughout this hospitalization. He admits less swollen to both lower extremities. Results of Doppler extremities negative for DVT. The patient with the elevated D-dimer. No chest pain, no shortness a breath at the time of my visit, unable to do V/Q scan or CT PE protocol as the patient elevated creatinine and unable to stay flat on his back. is at bedside during my visit. 07/20 the patient has been seen and examined earlier this morning during my rounding, no acute events overnight, he remains hemodynamically stable, afebrile, saturating normal on room air. The patient has been very good urine output. Per my discussion with the nurse that is taking care of the patient, the patient's weight has improved from 291.8 lb to 283.4 today. He denies chest pain, no shortness a breath, he admits less swollen to both lower extremities compared to time of admission. is not present at the bedside during my visit. 07/21/24 patient was seen and examined and case discussed with RN. He feels that his swelling is going down. We will continue with Bumex. Monitor electrolytes. Monitor weight 07/22 patient seen at bedside, no acute events overnight. Patient continues with diuresis, he was evaluated by Cardiology today, recommendations still pending we will follow up. Patient with notable chronic kidney disease and pulmonary hypertension which likely are contributing to his peripheral pitting edema. Surprisingly his ejection fraction is near normal with 45 to 50% and is unlikely the cause his pitting edema. He does have some valvular dysfunction with some moderate regurgitation. He has ventricle and atria are dilated likely due to increased pressures possibly due to dilated cardiomyopathy. At bedside he is saturating well on room air has no complaints at this time. Further recommendations per Cardiology, pulmonology and Nephrology. Pulmonology recommending to treat underlying causes no direct interventions for pulmonary hypertension at this time as he has a grade 2 in the guidelines state to treat the underlying causes. 07/23 patient seen at bedside, no acute events overnight. He continues with diuresis. Creatinine appears to be at baseline at 2.2, similar to yesterday. Due to renal function he is not able to undergo a left heart catheterization per Cardiology. We will focus on optimal medical management at this time. We will follow up with pulmonology, Nephrology and Cardiology recommendations for clearance for discharge vs further workup 07/24 patient seen at bedside, no acute events overnight. He continues with diuresis. Creatinine at 2.2, same as yesterday. Continue optimal medical management at this time. We will follow up with pulmonology, Nephrology and Cardiology recommendations for clearance for discharge vs further workup. Cardiology recommending continued diuresis 07/25: This is a late dictation. Patient seen at bedside, no acute events overnight. He continues with diuresis. Pt cleared by cardiology and pulmonology. His potassium remains low, spironolactone started and patient continues on potassium supplements. Will recheck renal function and potassium again tomorrow 07/26 Patient seen at bedside, no acute events overnight. He continues with diuresis. His potassium remains low, spironolactone increased to 25mg q24h, bumex dose decreased to 1mg BID, and patient continues on potassium supplements. Will recheck renal function and potassium again tomorrow. If potassium > 3.0 will be good candidate for discharge 07/27 Patient seen at bedside, no acute events overnight. He continues with diuresis. His potassium remains low, am diuretics held and patient continues on potassium supplements. Will recheck renal function and potassium again tomorrow. If potassium > 3.0 will be good candidate for discharge. REVIEW OF SYSTEMS 12 point review of systems negative unless noted in HPI PHYSICAL EXAM GENERAL APPEARANCE: The patient is awake, alert, and oriented, in no acute cardiopulmonary distress. NEUROLOGICAL: Cranial nerves II-XII grossly intact. Motor is 5/5 in bilateral upper and lower extremities proximal to distal. No sensory deficits. HEENT: Face is symmetric. Pupils are equal and reactive. Extraocular movements are intact. NECK: Supple. No JVD. No thyromegaly. No submental, submandibular, pre- /postauricular, occipital or supraclavicular lymphadenopathy. CHEST: Normal chest expansion. No Telemetry. LUNGS: Crackles noted at bilateral lung base CARDIOVASCULAR: Regular. S1 and S2 normal. No appreciable rubs, murmurs or gallops. ABDOMEN: Soft, nontender, and nondistended. There is no rebound, voluntary guarding, or rigidity. : Deferred. No [place]chard. EXTREMITIES: 3+ pitting edema noted of bilateral lower extremities SKIN: No skin breakdown. Vital Signs (last 8hr) Date Time Temp Pulse Resp B/P (MAP) Pulse Ox O2 Delivery O2 Flow Rate FiO2 07/27/24 12:00 99.1 78 20 110/56 94 Room Air 07/27/24 10:00 88/49 07/27/24 10:00 95/49 07/27/24 08:25 84 18 N/A Room Air 07/27/24 08:00 99.3 103 18 104/67 93 Room Air 07/27/24 08:00 93 Room Air* 0 21 LABS: Laboratory: Test 07/27/24 03:47 07/26/24 03:18 Range/Units White Blood Count 7.8 4.8-10.8 K/uL Red Blood Count 4.45 L 4.50-6.20 MIL/uL Hemoglobin 13.6 L 14.0-18.0 g/dL Hematocrit 41.3 L 42-54 % Mean Corpuscular Volume 92.8 79-99 fL Mean Corpuscular Hemoglobin 30.6 27.0-33.0 pg Mean Corpuscular Hemoglobin Concent 32.9 32.0-36.0 g/dL Red Cell Distribution Width 15.9 H 11.0-15.5 % Platelet Count 138 130-400 K/uL Mean Platelet Volume 11.9 H 7.5-10.5 fL Nucleated Red Blood Cells 0.0 0.0-0.19 % Sodium Level 142 136-145 mmol/L Potassium Level 2.8 *L 3.5-5.1 mmol/L Chloride Level 100 L 101-111 mmol/L Carbon Dioxide Level 31 21-32 mmol/L Blood Urea Nitrogen 56 H 7-18 mg/dL Creatinine 2.8 H 0.5-1.3 mg/dL Glomerular Filtration Rate Calc 24 >90 mL/min Random Glucose 114 H 70-105 mg/dL Total Calcium 9.3 8.5-10.1 mg/dL Magnesium Level 2.30 1.80-2.40 mg/dL Total Bilirubin 2.3 H 0.2-1.0 mg/dL Aspartate Amino Transf (AST/SGOT) 29 10-37 U/L Alanine Aminotransferase (ALT/SGPT) 34 12-78 U/L Alkaline Phosphatase 80 50-136 U/L Total Protein 6.1 6.0-8.3 g/dL Albumin 3.1 L 3.5-5.0 g/dL Immature Granulocyte % (Auto) 0.4 0-1 % Neutrophils (%) (Auto) 69.3 40.0-77.0 % Lymphocytes (%) (Auto) 17.4 L 21.0-51.0 % Monocytes (%) (Auto) 9.7 3.0-13.0 % Eosinophils (%) (Auto) 2.1 0.0-8.0 % Basophils (%) (Auto) 1.1 0.0-5.0 % Neutrophils # (Auto) 5.6 1.8-7.7 K/uL Lymphocytes # (Auto) 1.4 1.0-4.8 K/uL Monocytes # (Auto) 0.8 0.1-1.0 K/uL Eosinophils # (Auto) 0.17 0.00-0.70 K/uL Basophils # (Auto) 0.09 0.00-0.20 K/uL Absolute Immature Granulocyte (auto 0.03 0-1 K/uL Phosphorus Level 4.5 2.5-4.9 mg/dL Current Medications Medications (Trade) Dose Ordered Sig/Samantha Route PRN Reason Start Time Stop Time Status Last Admin Dose Admin Acetaminophen (TYLenol 500MG TAB) 500 mg Q6H PRN PO MILD PAIN (1-3) 07/18/24 18:00 08/17/24 17:59 Acetaminophen (TYLenol 500MG TAB) 500 mg Q6H PRN PO MILD PAIN (1-3) 07/18/24 18:00 08/17/24 17:59 Amiodarone HCl (pacERONE 200MG) 200 mg QMOWEFR PO 07/19/24 09:00 08/18/24 08:59 07/26/24 09:34 200 MG Apixaban (EliquIS) 5 mg BID PO 07/18/24 21:00 08/17/24 20:59 07/27/24 08:15 5 MG Atorvastatin Calcium (LIPItor 10MG) 10 mg DAILY PO 07/19/24 09:00 07/22/24 10:33 DC 07/22/24 09:06 10 MG Atorvastatin Calcium (LIPItor 10MG) 10 mg HS PO 07/23/24 21:00 08/18/24 08:59 07/26/24 20:13 10 MG Budesonide (Pulmicort 0.5 Mg/2ml) 0.5 mg BIDRESP IH 07/18/24 18:00 07/24/24 09:25 DC 07/24/24 06:13 0.5 MG Bumetanide (Bumex 1mg Tab) 1 mg BID PO 07/26/24 21:00 08/25/24 20:59 07/26/24 20:14 1 MG Bumetanide (Bumex 1mg Tab) 2 mg BID PO 07/23/24 21:00 07/25/24 11:56 DC 07/25/24 09:25 2 MG Bumetanide (Bumex 1mg Tab) 2 mg BID PO 07/25/24 21:00 07/26/24 11:26 DC 07/25/24 20:32 2 MG Bumetanide (Bumex 1mg Vial) 1 mg Q8H IVP 07/18/24 21:00 07/23/24 17:15 DC 07/23/24 13:51 1 MG Bupropion HCl (WellBUTrin SR 150MG) 150 mg BID PO 07/19/24 21:00 08/18/24 20:59 07/27/24 08:14 150 MG Fish Oil (Fish Oil 1000 Mg/Cap) 1,000 mg BID PO 07/19/24 21:00 08/18/24 20:59 07/27/24 08:14 1,000 MG Gabapentin (NEURontin 100 mg CAP) 100 mg HS PO 07/19/24 21:00 08/18/24 20:59 07/26/24 20:13 100 MG Home Med (Home Medication) (Dapagliflozin Propanediol (Farxiga... DAILY PO 07/20/24 09:00 08/19/24 08:59 Ipratropium [place] (AtrovENT UD) 1 mg Q6H PRN IH SHORTNESS OF BREATH 07/18/24 18:00 08/17/24 17:59 Levothyroxine Sodium (SYNTHroid 25MCG TAB) 25 mcg DAILY@0630 PO 07/19/24 06:30 08/18/24 06:29 07/27/24 06:24 25 MCG Magnesium Sulfate 50 ml @ 0 mls/hr PROTOCOL IV 07/18/24 18:00 08/17/24 17:59 Melatonin (Melatonin) 5 mg HS PRN PO insomnia 07/18/24 20:30 07/25/24 14:34 DC Melatonin (Melatonin) 10 mg HS PO 07/19/24 21:00 08/18/24 20:59 07/26/24 20:14 10 MG Metolazone (zarOXOlyn) 5 mg ONCE STAT PO 07/22/24 14:07 07/22/24 14:12 DC 07/22/24 14:24 5 MG Metoprolol Succinate (TopROL XL) 25 mg DAILY PO 07/19/24 09:00 08/18/24 08:59 07/27/24 11:38 25 MG Ondansetron HCl (zoFRAN 4MG INJ) 4 mg Q6H PRN IVP NAUSEA/VOMITING 07/18/24 18:00 08/17/24 17:59 Pantoprazole Sodium (PROTonix 40MG TAB) 40 mg DAILY PO 07/19/24 09:00 08/18/24 08:59 07/26/24 09:37 40 MG Pharmacy Profile Note (Lace Assessment) 1 each AD MISC 07/19/24 17:30 07/19/24 20:58 DC Potassium Chloride 100 ml @ 100 mls/hr AD PRN IV POTASSIUM PROTOCOL 07/18/24 18:00 08/17/24 17:59 07/27/24 11:13 100 MLS/HR Potassium Chloride (K-Dur 10meq Sr Tab) 10 meq AD PRN PO POTASSIUM PROTOCOL 07/22/24 11:00 08/17/24 17:59 07/27/24 13:50 10 MEQ Potassium Chloride (K-Dur 10meq Sr Tab) 10 meq BID PO 07/26/24 09:00 07/26/24 07:45 DC Potassium Chloride (K-Dur/Klor-Con 20meq) 10 meq AD PRN PO POTASSIUM PROTOCOL 07/18/24 18:00 07/22/24 10:35 DC 07/21/24 15:29 10 MEQ Potassium Chloride (K-Dur/Klor-Con 20meq) 20 meq BID PO 07/23/24 21:00 08/22/24 20:59 07/27/24 08:15 20 MEQ Potassium Chloride (KCl 10% Elixir 20meq/15ml) 10 meq AD PRN PO POTASSIUM PROTOCOL 07/18/24 18:00 08/17/24 17:59 07/22/24 09:07 10 MEQ Simethicone (Mylicon) 40 mg ONCE PO 07/20/24 21:00 07/20/24 20:35 DC Spironolactone (Aldactone 25mg) 12.5 mg DAILY PO 07/26/24 09:00 07/26/24 11:26 DC 07/26/24 09:36 12.5 MG Spironolactone (Aldactone 25mg) 25 mg DAILY PO 07/27/24 09:00 08/26/24 08:59 Spironolactone (Aldactone 25mg) 25 mg DAILY PO 07/27/24 09:00 07/26/24 12:03 DC Vitamin B Complex/ Vit C/Folic Acid (Nephrovite Tablet) 1 cap DAILY PO 07/19/24 09:00 08/18/24 08:59 07/27/24 08:14 1 CAP DIAGNOSTICS / RADIOLOGY: [ ] ASSESSMENT: 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, POA, (LV EF 45-50%) Acute hypoxemic respiratory failure, POA History of severe pulmonary hypertension with RVSP of 54, attributed secondary to underlying cardiac comorbidities, group 2, POA Rule out pulmonary arterial hypertension, POA History of moderate aortic regurgitation, POA History of moderate tricuspid regurgitation, POA Severe volume overload, POA Congestive hepatopathy, POA CKD stage 3, likely chronic cardiorenal syndrome, POA Underlying history of atrial fibrillation, POA History of chronic anticoagulation with Eliquis as outpatient, POA Obesity, POA History of severe aortic stenosis status post bioprosthetic aortic valve replacement in 2018, POA PLAN: Patient remains admitted to the medical floor Continue material clerk Continue diuresis Monitor urine output closely, obtain daily weight Monitor renal function closely Maintain K greater than four and magnesium greater than two, electrolytes will be repleted per protocol Echocardiogram to evaluate ejection fraction, follow Cardiology input and recommendation Replace electrolytes IV per protocol Continue amiodarone, Eliquis, metoprolol succinate and home medications were reconciled and updated once available We will monitor BMP closely tonight and All labs will be repeated in the morning We will see if patient has undergone prior sleep study to rule out obstructive sleep apnea Disposition: Maintaining potassium levels, possible dc in 24-72 hours TAWANDA CALVIN MD Jul 27, 2024 14:33
--- NOTE | 2024-07-27 15:26 | PN ---
[facility] PROGRESS NOTE Date Patient Seen: Jul 27, 2024 Time of Visit: 15:16 Supervising Physician: HUMAIRA PASTRANA MD Inpatient Consults: ERIC PROBLEM LIST: - Acute on chronic diastolic heart failure on admission - Acute hypoxic respiratory failure on admission secondary to above - Cardio renal syndrome - Severe pulmonary hypertension - Hypertensive heart disease - Atrial fibrillation on Eliquis - Chronic kidney disease stage 3 - Morbid obesity, BMI 32.7 - Essential hypertension - Recurrent hypokalemia - Status post bioprosthetic aortic valve replacement due to severe aortic sten osis (2018) INTERVAL HISTORY: 07/27 Patient seen and evaluated by me at bedside Clinical chart reviewed, events of the last 24 hours noted Still having dyspnea on exertion Mild orthopnea Diuretics placed on hold by cardiology due to hypokalemia and elevated creatinine patient with cardio renal syndrome Appetite is good, no nausea Denies chest pain, occasional cough, no congestion. Feels tired and fatigue, complains of generalized muscle weakness REVIEW OF SYSTEMS: 12 point ROS reviewed with patient. Pertinent positives mentioned above. Otherwise negative. PHYSICAL EXAM: GENERAL: alert, weak, awake oriented x 3 HEENT: EOMI, Sclera non icteric, moist mucosa NECK: Supple, no JVD, trachea midline LUNGS: rales bilaterally, no wheezing HEART: Regular rate and rhythm. Normal S1 and S2, without murmurs ABD: Abdomen soft, nontender. Bowel sounds present EXT: No clubbing cyanosis ,BLE edema +++ NEURO: Alert and oriented to person, follows commands Vital Signs (last 8hr) Date Time Temp Pulse Resp B/P (MAP) Pulse Ox O2 Delivery O2 Flow Rate FiO2 07/27/24 12:00 99.1 78 20 110/56 94 Room Air 07/27/24 10:00 88/49 07/27/24 10:00 95/49 07/27/24 08:25 84 18 N/A Room Air 21 07/27/24 08:00 99.3 103 18 104/67 93 Room Air 07/27/24 08:00 93 Room Air* 0 21 LABS: Hematology Labs: Test 07/27/24 03:47 07/26/24 03:18 Range/Units White Blood Count 7.8 4.8-10.8 K/uL Red Blood Count 4.45 L 4.50-6.20 MIL/uL Hemoglobin 13.6 L 14.0-18.0 g/dL Hematocrit 41.3 L 42-54 % Mean Corpuscular Volume 92.8 79-99 fL Mean Corpuscular Hemoglobin 30.6 27.0-33.0 pg Mean Corpuscular Hemoglobin Concent 32.9 32.0-36.0 g/dL Red Cell Distribution Width 15.9 H 11.0-15.5 % Platelet Count 138 130-400 K/uL Mean Platelet Volume 11.9 H 7.5-10.5 fL Nucleated Red Blood Cells 0.0 0.0-0.19 % Immature Granulocyte % (Auto) 0.4 0-1 % Neutrophils (%) (Auto) 69.3 40.0-77.0 % Lymphocytes (%) (Auto) 17.4 L 21.0-51.0 % Monocytes (%) (Auto) 9.7 3.0-13.0 % Eosinophils (%) (Auto) 2.1 0.0-8.0 % Basophils (%) (Auto) 1.1 0.0-5.0 % Neutrophils # (Auto) 5.6 1.8-7.7 K/uL Lymphocytes # (Auto) 1.4 1.0-4.8 K/uL Monocytes # (Auto) 0.8 0.1-1.0 K/uL Eosinophils # (Auto) 0.17 0.00-0.70 K/uL Basophils # (Auto) 0.09 0.00-0.20 K/uL Absolute Immature Granulocyte (auto 0.03 0-1 K/uL Chemistry Labs: Test 07/27/24 03:47 07/26/24 03:18 Range/Units Sodium Level 142 136-145 mmol/L Potassium Level 2.8 *L 3.5-5.1 mmol/L Chloride Level 100 L 101-111 mmol/L Carbon Dioxide Level 31 21-32 mmol/L Blood Urea Nitrogen 56 H 7-18 mg/dL Creatinine 2.8 H 0.5-1.3 mg/dL Glomerular Filtration Rate Calc 24 >90 mL/min Random Glucose 114 H 70-105 mg/dL Total Calcium 9.3 8.5-10.1 mg/dL Magnesium Level 2.30 1.80-2.40 mg/dL Total Bilirubin 2.3 H 0.2-1.0 mg/dL Aspartate Amino Transf (AST/SGOT) 29 10-37 U/L Alanine Aminotransferase (ALT/SGPT) 34 12-78 U/L Alkaline Phosphatase 80 50-136 U/L Total Protein 6.1 6.0-8.3 g/dL Albumin 3.1 L 3.5-5.0 g/dL Phosphorus Level 4.5 2.5-4.9 mg/dL DIAGNOSTICS / RADIOLOGY RESULTS: [ Imaging scans reviewed ] PLAN Stop Bumex Get CBC, CMP in the morning Get chest x-ray in the morning NEURO: Minimize central acting medications as possible. Maintain fall precautions, adequate lighting during the day PULMONARY: Supplemental 02 as needed. Maintain aspiration precautions at all times see plan above CARDIOVASCULAR: Follow hemodynamics. Vital signs per facility protocol GI & NUTRITION: Continue with nutritional support. Continue stool softeners and laxatives as needed. KIDNEYS & ELECTROLYTES: Strict monitoring of intake, output and overall fluid balance. Hold Bumex , Us of renal system Avoid nephrotoxic medications to the extent possible. Medications to be dosed according to renal function. Monitor electrolytes and replace as needed ENDOCRINE: Maintain blood glucose between 100-180 at all times. Hypoglycemia protocol in place INFECTIOUS DISEASE: Trend temperature, WBC and procalcitonin level Follow cultures, deescalate antibiotics as soon as possible. Panculture if new onset fever ONCOLOGY/HEMATOLOGY/COAGULATION: Monitor for s/s of bleeding Monitor hemoglobin, coagulation studies as needed SKIN: Pressure ulcer prevention per facility protocol Specialty mattress ORTHO/REHAB: Continue PT/OT Prophylaxis: Continue GI and DVT prophylaxis Code Status: Full Resuscitation Disposition: Per primary team-discussed with team Other: Complex clinical case Total time spent with patient: 35 minutes ATTESTATION BY PHYSICIAN Note was transcribed by Ranjeet Santana BSc on my behalf. I attest to the accuracy of the clinical documentation. Humaira Pastrana MD I personally scribed for HUMAIRA PASTRANA MD ([email or web address]) on 07/27/24 at 15:26. Electronically submitted by Ranjeet Santana ([email or web address]). HUMAIRA PASTRANA MD Jul 27, 2024 15:26
--- NOTE | 2024-07-27 20:08 | NUR ---
note summary/ dr cesar dc bumex patient alert x4 as per dr cesar, keyla to dc patients bumex due to low bp patient still edematous and sob with exertion, he ordered a cxr for am patient still remains on spironolactone 25mg po daily patient resting in bed, call light in reach
[2024-07-28] VITALS (9 sets, daily range): BP systolic 86–105; BP diastolic 38–70; PULSE 67–101; RESP 18–22; TEMP 97–97.5; O2SAT 97
[2024-07-28 05:55] LABS: BASOPHILS # (AUTO) 0.09 K/uL (0.00-0.20); BASOPHILS % (AUTO) 1.2 % (0.0-5.0); EOSINOPHILS # (AUTO) 0.11 K/uL (0.00-0.70); EOSINOPHILS % (AUTO) 1.5 % (0.0-8.0); HEMATOCRIT 42.4 % (42-54); IMMATURE GRANULOCYTE ABSOLUTE 0.03 K/uL (0-1); LYMPHOCYTES # (AUTO) 1.5 K/uL (1.0-4.8); LYMPHOCYTES % (AUTO) 19.4 % (21.0-51.0); MEAN CORPUSCULAR HEMOGLOBIN 30.6 pg (27.0-33.0); MEAN CORPUSCULAR HGB CONC 32.8 g/dL (32.0-36.0); MEAN CORPUSCULAR VOLUME 93.4 fL (79-99); MONOCYTES # (AUTO) 0.8 K/uL (0.1-1.0); MONOCYTES % (AUTO) 10.2 % (3.0-13.0); NEUTROPHILS % (AUTO) 67.3 % (40.0-77.0); PLATELET COUNT (AUTO) 140 K/uL (130-400); RED BLOOD CELL COUNT(AUTO) 4.54 MIL/uL (4.50-6.20); RED CELL DISTRIBUTION WIDTH 15.9 % (11.0-15.5); WHITE BLOOD COUNT (AUTO) 7.5 K/uL (4.8-10.8)
[2024-07-28 06:07] LABS: CREATININE 2.7 mg/dL (0.5-1.3); MAGNESIUM 2.4 mg/dL (1.80-2.40); POTASSIUM 3.3 mmol/L (3.5-5.1)
--- NOTE | 2024-07-28 08:53 | HMCIMG ---
Exam Type: CHEST 1VW Clinical Information: SOB Comparison: None Findings: The lungs are clear of infiltrates. The heart is enlarged. Bony and soft tissue structures of the chest wall are unremarkable. IMPRESSION: Cardiomegaly. Clear lungs.
--- NOTE | 2024-07-28 12:25 | PN ---
SUBJECTIVE: A 69-year-old male with a history of known cardiomyopathy. The patient presented with significant volume overload. The patient was started on the diuretics. The patient's pulmonary symptoms have greatly improved. The patient with underlying renal dysfunction and the patient is being seen as a followup visit for all of the above. REVIEW OF SYSTEMS: GENERAL: He is feeling weak and tired. HEENT: No change in vision. No change in hearing, no nasal discharge, no sore throat. CARDIOVASCULAR: There is no current chest pain or palpitations. PULMONARY: There is no shortness of breath. GASTROINTESTINAL: The patient is tolerating a diet. MUSCULOSKELETAL: Complains of weakness. PHYSICAL EXAMINATION:. VITAL SIGNS: Blood pressure is 105/70, pulse 100s. GENERAL: He is a chronically ill male, elderly, lying in bed on the medical floor. HEENT: Head is atraumatic. Pupils equal, roving to light. Oropharynx is without exudate. Nares clear. NECK: There is no JVP. There is no thyromegaly, no mass. CARDIOVASCULAR: Regular. There is no S3, S4 gallop. LUNGS: Coarse with equal thoracic movement. ABDOMEN: Soft, nondistended, nontender. EXTREMITIES: No clubbing, no cyanosis. NEUROLOGIC: He is awake. He is alert. LABORATORY DATA: Sodium 141, potassium 3.3, BUN 55, creatinine is 2.7. IMPRESSION: 1. Acute on chronic renal failure. 2. Cardiomyopathy with volume overload. 3. Hypertension. 4. Electrolyte abnormalities. PLAN: The patient's potassium continues to be aggressively repleted. The patient's workup is ongoing per Cardiology. The patient does remain on the amiodarone for the atrial fibrillation. We will continue to follow the chemistries closely. There is no need for any form of renal replacement therapy. TID: [id number] RECEIPT: [id number]
[2024-07-28] MEDS: miDODRine HCL 5 MG TABLET PO ONE (14:25)
--- NOTE | 2024-07-28 15:13 | PN ---
[facility] PROGRESS NOTE Date of Service: Jul 28, 2024 Time of Service: 15:09 SUBJECTIVE: [ ] The patient has been seen and examined today during my rounding, no acute events overnight, patient resting comfortably in bed, alert oriented x3, hemodynamically stable, BP 121/62, afebrile, saturating normal on room air. The patient continue diuretics, having good urine output, has urinated several times throughout this hospitalization. He admits less swollen to both lower extremities. Results of Doppler extremities negative for DVT. The patient with the elevated D-dimer. No chest pain, no shortness a breath at the time of my visit, unable to do V/Q scan or CT PE protocol as the patient elevated creatinine and unable to stay flat on his back. is at bedside during my visit. 07/20 the patient has been seen and examined earlier this morning during my rounding, no acute events overnight, he remains hemodynamically stable, afebrile, saturating normal on room air. The patient has been very good urine output. Per my discussion with the nurse that is taking care of the patient, the patient's weight has improved from 291.8 lb to 283.4 today. He denies chest pain, no shortness a breath, he admits less swollen to both lower extremities compared to time of admission. is not present at the bedside during my visit. 07/21/24 patient was seen and examined and case discussed with RN. He feels that his swelling is going down. We will continue with Bumex. Monitor electrolytes. Monitor weight 07/22 patient seen at bedside, no acute events overnight. Patient continues with diuresis, he was evaluated by Cardiology today, recommendations still pending we will follow up. Patient with notable chronic kidney disease and pulmonary hypertension which likely are contributing to his peripheral pitting edema. Surprisingly his ejection fraction is near normal with 45 to 50% and is unlikely the cause his pitting edema. He does have some valvular dysfunction with some moderate regurgitation. He has ventricle and atria are dilated likely due to increased pressures possibly due to dilated cardiomyopathy. At bedside he is saturating well on room air has no complaints at this time. Further recommendations per Cardiology, pulmonology and Nephrology. Pulmonology recommending to treat underlying causes no direct interventions for pulmonary hypertension at this time as he has a grade 2 in the guidelines state to treat the underlying causes. 07/23 patient seen at bedside, no acute events overnight. He continues with diuresis. Creatinine appears to be at baseline at 2.2, similar to yesterday. Due to renal function he is not able to undergo a left heart catheterization per Cardiology. We will focus on optimal medical management at this time. We will follow up with pulmonology, Nephrology and Cardiology recommendations for clearance for discharge vs further workup 07/24 patient seen at bedside, no acute events overnight. He continues with diuresis. Creatinine at 2.2, same as yesterday. Continue optimal medical management at this time. We will follow up with pulmonology, Nephrology and Cardiology recommendations for clearance for discharge vs further workup. Cardiology recommending continued diuresis 07/25: This is a late dictation. Patient seen at bedside, no acute events overnight. He continues with diuresis. Pt cleared by cardiology and pulmonology. His potassium remains low, spironolactone started and patient continues on potassium supplements. Will recheck renal function and potassium again tomorrow 07/26 Patient seen at bedside, no acute events overnight. He continues with diuresis. His potassium remains low, spironolactone increased to 25mg q24h, bumex dose decreased to 1mg BID, and patient continues on potassium supplements. Will recheck renal function and potassium again tomorrow. If potassium > 3.0 will be good candidate for discharge 07/27 Patient seen at bedside, no acute events overnight. He continues with diuresis. His potassium remains low, am diuretics held and patient continues on potassium supplements. Will recheck renal function and potassium again tomorrow. If potassium > 3.0 will be good candidate for discharge. 07/28 Pt seen at bedside, no acute events overnight. Pt potassium improved however blood pressures on the low side of normal, patient also complaining of increased fatigue. We will start patient on midodrine 5 mg 3 times daily and reassess tomorrow for possible discharge. Ortho static vital signs have been ordered, we will follow up. Bumex has been discontinued, continue spironolactone. REVIEW OF SYSTEMS 12 point review of systems negative unless noted in HPI PHYSICAL EXAM GENERAL APPEARANCE: The patient is awake, alert, and oriented, in no acute cardiopulmonary distress. NEUROLOGICAL: Cranial nerves II-XII grossly intact. Motor is 5/5 in bilateral upper and lower extremities proximal to distal. No sensory deficits. HEENT: Face is symmetric. Pupils are equal and reactive. Extraocular movements are intact. NECK: Supple. No JVD. No thyromegaly. No submental, submandibular, pre- /postauricular, occipital or supraclavicular lymphadenopathy. CHEST: Normal chest expansion. No Telemetry. LUNGS: Crackles noted at bilateral lung base CARDIOVASCULAR: Regular. S1 and S2 normal. No appreciable rubs, murmurs or gallops. ABDOMEN: Soft, nontender, and nondistended. There is no rebound, voluntary guarding, or rigidity. : Deferred. No Pritchard. EXTREMITIES: 3+ pitting edema noted of bilateral lower extremities SKIN: No skin breakdown. Vital Signs (last 8hr) Date Time Temp Pulse Resp B/P (MAP) Pulse Ox O2 Delivery O2 Flow Rate FiO2 07/28/24 12:00 97.5 77 20 96/54 92 Room Air 21 07/28/24 08:00 97 Room Air* 0 21 07/28/24 08:00 97.0 67 18 98/38 97 Room Air 21 LABS: Laboratory: Test 07/28/24 05:03 07/27/24 03:47 Range/Units White Blood Count 7.5 4.8-10.8 K/uL Red Blood Count 4.54 4.50-6.20 MIL/uL Hemoglobin 13.9 L 14.0-18.0 g/dL Hematocrit 42.4 42-54 % Mean Corpuscular Volume 93.4 79-99 fL Mean Corpuscular Hemoglobin 30.6 27.0-33.0 pg Mean Corpuscular Hemoglobin Concent 32.8 32.0-36.0 g/dL Red Cell Distribution Width 15.9 H 11.0-15.5 % Platelet Count 140 130-400 K/uL Mean Platelet Volume 12.1 H 7.5-10.5 fL Immature Granulocyte % (Auto) 0.4 0-1 % Neutrophils (%) (Auto) 67.3 40.0-77.0 % Lymphocytes (%) (Auto) 19.4 L 21.0-51.0 % Monocytes (%) (Auto) 10.2 3.0-13.0 % Eosinophils (%) (Auto) 1.5 0.0-8.0 % Basophils (%) (Auto) 1.2 0.0-5.0 % Neutrophils # (Auto) 5.0 1.8-7.7 K/uL Lymphocytes # (Auto) 1.5 1.0-4.8 K/uL Monocytes # (Auto) 0.8 0.1-1.0 K/uL Eosinophils # (Auto) 0.11 0.00-0.70 K/uL Basophils # (Auto) 0.09 0.00-0.20 K/uL Absolute Immature Granulocyte (auto 0.03 0-1 K/uL Nucleated Red Blood Cells 0.0 0.0-0.19 % Sodium Level 141 136-145 mmol/L Potassium Level 3.3 L 3.5-5.1 mmol/L Chloride Level 101 101-111 mmol/L Carbon Dioxide Level 32 21-32 mmol/L Blood Urea Nitrogen 55 H 7-18 mg/dL Creatinine 2.7 H 0.5-1.3 mg/dL Glomerular Filtration Rate Calc 25 >90 mL/min Random Glucose 103 70-105 mg/dL Total Calcium 9.4 8.5-10.1 mg/dL Phosphorus Level 4.0 2.5-4.9 mg/dL Magnesium Level 2.40 1.80-2.40 mg/dL Total Bilirubin 2.3 H 0.2-1.0 mg/dL Aspartate Amino Transf (AST/SGOT) 29 10-37 U/L Alanine Aminotransferase (ALT/SGPT) 34 12-78 U/L Alkaline Phosphatase 80 50-136 U/L Total Protein 6.1 6.0-8.3 g/dL Albumin 3.1 L 3.5-5.0 g/dL Current Medications Medications (Trade) Dose Ordered Sig/Samantha Route PRN Reason Start Time Stop Time Status Last Admin Dose Admin Acetaminophen (TYLenol 500MG TAB) 500 mg Q6H PRN PO MILD PAIN (1-3) 07/18/24 18:00 08/17/24 17:59 Acetaminophen (TYLenol 500MG TAB) 500 mg Q6H PRN PO MILD PAIN (1-3) 07/18/24 18:00 08/17/24 17:59 Amiodarone HCl (pacERONE 200MG) 200 mg QMOWEFR PO 07/19/24 09:00 08/18/24 08:59 07/26/24 09:34 200 MG Apixaban (EliquIS) 5 mg BID PO 07/18/24 21:00 08/17/24 20:59 07/28/24 09:04 5 MG Atorvastatin Calcium (LIPItor 10MG) 10 mg DAILY PO 07/19/24 09:00 07/22/24 10:33 DC 07/22/24 09:06 10 MG Atorvastatin Calcium (LIPItor 10MG) 10 mg HS PO 07/23/24 21:00 08/18/24 08:59 07/27/24 20:35 10 MG Budesonide (Pulmicort 0.5 Mg/2ml) 0.5 mg BIDRESP IH 07/18/24 18:00 07/24/24 09:25 DC 07/24/24 06:13 0.5 MG Bumetanide (Bumex 1mg Tab) 1 mg BID PO 07/26/24 21:00 07/27/24 15:34 DC 07/26/24 20:14 1 MG Bumetanide (Bumex 1mg Tab) 2 mg BID PO 07/23/24 21:00 07/25/24 11:56 DC 07/25/24 09:25 2 MG Bumetanide (Bumex 1mg Tab) 2 mg BID PO 07/25/24 21:00 07/26/24 11:26 DC 07/25/24 20:32 2 MG Bumetanide (Bumex 1mg Vial) 1 mg Q8H IVP 07/18/24 21:00 07/23/24 17:15 DC 07/23/24 13:51 1 MG Bupropion HCl (WellBUTrin SR 150MG) 150 mg BID PO 07/19/24 21:00 08/18/24 20:59 07/28/24 09:04 150 MG Fish Oil (Fish Oil 1000 Mg/Cap) 1,000 mg BID PO 07/19/24 21:00 08/18/24 20:59 07/28/24 09:03 1,000 MG Gabapentin (NEURontin 100 mg CAP) 100 mg HS PO 07/19/24 21:00 08/18/24 20:59 07/27/24 20:36 100 MG Home Med (Home Medication) (Dapagliflozin Propanediol (Farxiga... DAILY PO 07/20/24 09:00 08/19/24 08:59 Ipratropium [place] (AtrovENT UD) 1 mg Q6H PRN IH SHORTNESS OF BREATH 07/18/24 18:00 08/17/24 17:59 Levothyroxine Sodium (SYNTHroid 25MCG TAB) 25 mcg DAILY@0630 PO 07/19/24 06:30 08/18/24 06:29 07/28/24 06:04 25 MCG Magnesium Sulfate 50 ml @ 0 mls/hr PROTOCOL IV 07/18/24 18:00 08/17/24 17:59 Melatonin (Melatonin) 5 mg HS PRN PO insomnia 07/18/24 20:30 07/25/24 14:34 DC Melatonin (Melatonin) 10 mg HS PO 07/19/24 21:00 08/18/24 20:59 07/27/24 20:36 10 MG Metolazone (zarOXOlyn) 5 mg ONCE STAT PO 07/22/24 14:07 07/22/24 14:12 DC 07/22/24 14:24 5 MG Metoprolol Succinate (TopROL XL) 25 mg DAILY PO 07/19/24 09:00 08/18/24 08:59 07/28/24 12:37 25 MG Midodrine (PROAMatine 5 MG TABLET) 5 mg TID PO 07/28/24 21:00 08/27/24 20:59 Ondansetron HCl (zoFRAN 4MG INJ) 4 mg Q6H PRN IVP NAUSEA/VOMITING 07/18/24 18:00 08/17/24 17:59 Pantoprazole Sodium (PROTonix 40MG TAB) 40 mg DAILY PO 07/19/24 09:00 08/18/24 08:59 07/28/24 09:04 40 MG Pharmacy Profile Note (Lace Assessment) 1 each AD MISC 07/19/24 17:30 07/19/24 20:58 DC Potassium Chloride 100 ml @ 100 mls/hr AD PRN IV POTASSIUM PROTOCOL 07/18/24 18:00 08/17/24 17:59 07/27/24 11:13 100 MLS/HR Potassium Chloride (K-Dur 10meq Sr Tab) 10 meq AD PRN PO POTASSIUM PROTOCOL 07/22/24 11:00 08/17/24 17:59 07/28/24 14:25 10 MEQ Potassium Chloride (K-Dur 10meq Sr Tab) 10 meq BID PO 07/26/24 09:00 07/26/24 07:45 DC Potassium Chloride (K-Dur/Klor-Con 20meq) 10 meq AD PRN PO POTASSIUM PROTOCOL 07/18/24 18:00 07/22/24 10:35 DC 07/21/24 15:29 10 MEQ Potassium Chloride (K-Dur/Klor-Con 20meq) 20 meq BID PO 07/23/24 21:00 08/22/24 20:59 07/28/24 09:04 20 MEQ Potassium Chloride (KCl 10% Elixir 20meq/15ml) 10 meq AD PRN PO POTASSIUM PROTOCOL 07/18/24 18:00 08/17/24 17:59 07/22/24 09:07 10 MEQ Simethicone (Mylicon) 40 mg ONCE PO 07/20/24 21:00 07/20/24 20:35 DC Spironolactone (Aldactone 25mg) 12.5 mg DAILY PO 07/26/24 09:00 07/26/24 11:26 DC 07/26/24 09:36 12.5 MG Spironolactone (Aldactone 25mg) 25 mg DAILY PO 07/27/24 09:00 08/26/24 08:59 Spironolactone (Aldactone 25mg) 25 mg DAILY PO 07/27/24 09:00 07/26/24 12:03 DC Vitamin B Complex/ Vit C/Folic Acid (Nephrovite Tablet) 1 cap DAILY PO 07/19/24 09:00 08/18/24 08:59 07/28/24 09:03 1 CAP DIAGNOSTICS / RADIOLOGY: [ ] ASSESSMENT: 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, POA, (LV EF 45-50%) Acute hypoxemic respiratory failure, POA History of severe pulmonary hypertension with RVSP of 54, attributed secondary to underlying cardiac comorbidities, group 2, POA Rule out pulmonary arterial hypertension, POA History of moderate aortic regurgitation, POA History of moderate tricuspid regurgitation, POA Severe volume overload, POA Congestive hepatopathy, POA CKD stage 3, likely chronic cardiorenal syndrome, POA Underlying history of atrial fibrillation, POA History of chronic anticoagulation with Eliquis as outpatient, POA Obesity, POA History of severe aortic stenosis status post bioprosthetic aortic valve replacement in 2018, POA PLAN: Patient remains admitted to the medical floor Continue surveillance monitor Continue diuresis Monitor urine output closely, obtain daily weight Monitor renal function closely Start midodrine 5mg TID Maintain K greater than four and magnesium greater than two, electrolytes will be repleted per protocol Echocardiogram to evaluate ejection fraction, follow Cardiology input and recommendation Replace electrolytes IV per protocol Continue amiodarone, Eliquis, metoprolol succinate and home medications were reconciled and updated once available We will monitor BMP closely tonight and All labs will be repeated in the morning We will see if patient has undergone prior sleep study to rule out obstructive sleep apnea Disposition: Maintaining blood pressure, possible dc in 24-72 hours TAWANDA CALVIN MD Jul 28, 2024 15:13
--- NOTE | 2024-07-28 16:54 | PN ---
[facility] PROGRESS NOTE Date Patient Seen: Jul 28, 2024 Time of Visit: 16:51 Supervising Physician: HUMAIRA PASTRANA MD Inpatient Consults: ERIC PROBLEM LIST: - Acute on chronic diastolic heart failure on admission - Acute hypoxic respiratory failure on admission secondary to above - Cardio renal syndrome - Severe pulmonary hypertension - Hypertensive heart disease - Atrial fibrillation on Eliquis - Chronic kidney disease stage 3 - Morbid obesity, BMI 32.7 - Essential hypertension - Recurrent hypokalemia - Status post bioprosthetic aortic valve replacement due to severe aortic sten osis (2018) INTERVAL HISTORY: 07/28 69 years old man seen and evaluated at bedside He has been having soft blood pressure readings with systolic in the low one 100s and high 90s Patient continues to complain of shortness of breath With exertion He denies chest pain, he denies palpitations Patient denies orthopnea As per cardiology note, patient is to follow up at [facility] in [facility] REVIEW OF SYSTEMS: 12 point ROS reviewed with patient. Pertinent positives mentioned above. Otherwise negative. PHYSICAL EXAM: GENERAL: alert, weak, awake oriented x 3 HEENT: EOMI, Sclera non icteric, moist mucosa NECK: Supple, no JVD, trachea midline LUNGS: rales bilaterally, no wheezing HEART: Regular rate and rhythm. Normal S1 and S2, without murmurs ABD: Abdomen soft, nontender. Bowel sounds present EXT: No clubbing cyanosis ,BLE edema +++ NEURO: Alert and oriented to person, follows commands Vital Signs (last 8hr) Date Time Temp Pulse Resp B/P (MAP) Pulse Ox O2 Delivery O2 Flow Rate FiO2 07/28/24 16:15 76 92/50 Room Air 21 07/28/24 16:13 73 86/45 Room Air 21 07/28/24 16:11 87 93/55 Room Air 21 07/28/24 16:00 97.5 80 18 88/43 95 Room Air 21 07/28/24 12:00 97.5 77 20 96/54 92 Room Air 21 LABS: Hematology Labs: Test 07/28/24 05:03 Range/Units White Blood Count 7.5 4.8-10.8 K/uL Red Blood Count 4.54 4.50-6.20 MIL/uL Hemoglobin 13.9 L 14.0-18.0 g/dL Hematocrit 42.4 42-54 % Mean Corpuscular Volume 93.4 79-99 fL Mean Corpuscular Hemoglobin 30.6 27.0-33.0 pg Mean Corpuscular Hemoglobin Concent 32.8 32.0-36.0 g/dL Red Cell Distribution Width 15.9 H 11.0-15.5 % Platelet Count 140 130-400 K/uL Mean Platelet Volume 12.1 H 7.5-10.5 fL Immature Granulocyte % (Auto) 0.4 0-1 % Neutrophils (%) (Auto) 67.3 40.0-77.0 % Lymphocytes (%) (Auto) 19.4 L 21.0-51.0 % Monocytes (%) (Auto) 10.2 3.0-13.0 % Eosinophils (%) (Auto) 1.5 0.0-8.0 % Basophils (%) (Auto) 1.2 0.0-5.0 % Neutrophils # (Auto) 5.0 1.8-7.7 K/uL Lymphocytes # (Auto) 1.5 1.0-4.8 K/uL Monocytes # (Auto) 0.8 0.1-1.0 K/uL Eosinophils # (Auto) 0.11 0.00-0.70 K/uL Basophils # (Auto) 0.09 0.00-0.20 K/uL Absolute Immature Granulocyte (auto 0.03 0-1 K/uL Nucleated Red Blood Cells 0.0 0.0-0.19 % Chemistry Labs: Test 07/28/24 05:03 07/27/24 03:47 Range/Units Sodium Level 141 136-145 mmol/L Potassium Level 3.3 L 3.5-5.1 mmol/L Chloride Level 101 101-111 mmol/L Carbon Dioxide Level 32 21-32 mmol/L Blood Urea Nitrogen 55 H 7-18 mg/dL Creatinine 2.7 H 0.5-1.3 mg/dL Glomerular Filtration Rate Calc 25 >90 mL/min Random Glucose 103 70-105 mg/dL Total Calcium 9.4 8.5-10.1 mg/dL Phosphorus Level 4.0 2.5-4.9 mg/dL Magnesium Level 2.40 1.80-2.40 mg/dL Total Bilirubin 2.3 H 0.2-1.0 mg/dL Aspartate Amino Transf (AST/SGOT) 29 10-37 U/L Alanine Aminotransferase (ALT/SGPT) 34 12-78 U/L Alkaline Phosphatase 80 50-136 U/L Total Protein 6.1 6.0-8.3 g/dL Albumin 3.1 L 3.5-5.0 g/dL DIAGNOSTICS / RADIOLOGY RESULTS: [Reviewed ] PLAN As per Cardiology, patient to continue with diuretics If Cardiology approves, start midodrine 10 mg orally b.i.d. NEURO: Minimize central acting medications as possible. Maintain fall precautions, adequate lighting during the day PULMONARY: Supplemental 02 as needed. Maintain aspiration precautions at all times see plan above CARDIOVASCULAR: Follow hemodynamics. Vital signs per facility protocol GI & NUTRITION: Continue with nutritional support. Continue stool softeners and laxatives as needed. KIDNEYS & ELECTROLYTES: Strict monitoring of intake, output and overall fluid balance. Hold Bumex , Us of renal system Avoid nephrotoxic medications to the extent possible. Medications to be dosed according to renal function. Monitor electrolytes and replace as needed ENDOCRINE: Maintain blood glucose between 100-180 at all times. Hypoglycemia protocol in place INFECTIOUS DISEASE: Trend temperature, WBC and procalcitonin level Follow cultures, deescalate antibiotics as soon as possible. Panculture if new onset fever ONCOLOGY/HEMATOLOGY/COAGULATION: Monitor for s/s of bleeding Monitor hemoglobin, coagulation studies as needed SKIN: Pressure ulcer prevention per facility protocol Specialty mattress ORTHO/REHAB: Continue PT/OT Prophylaxis: Continue GI and DVT prophylaxis Code Status: Full Resuscitation Disposition: Per primary team-discussed with team Other: Complex clinical case Total time spent with patient: 35 minutes ATTESTATION BY PHYSICIAN Clinical note transcribed by center medical and lab director. I can attest to the accuracy of the note. Humaira Pastrana MD I personally scribed for HUMAIRA PASTRANA MD ([email or web address]) on 07/28/24 at 16:54. Electronically submitted by Ranjeet Santana ([email or web address]). HUMAIRA PASTRANA MD Jul 28, 2024 16:54
[2024-07-28] MEDS: miDODRine HCL 5 MG TABLET PO SCH (20:50)
[2024-07-29] VITALS: BP 101/60; PULSE 78; RESP 20; TEMP 96.5
[2024-07-29 03:59] LABS: CREATININE 2.7 mg/dL (0.5-1.3); POTASSIUM 4.3 mmol/L (3.5-5.1)
[2024-07-29 04:00] VITALS: BP 105/48; PULSE 89; RESP 20; TEMP 98.2
[2024-07-29 04:01] LABS: BASOPHILS # (AUTO) 0.11 K/uL (0.00-0.20); BASOPHILS % (AUTO) 1.4 % (0.0-5.0); EOSINOPHILS # (AUTO) 0.09 K/uL (0.00-0.70); EOSINOPHILS % (AUTO) 1.2 % (0.0-8.0); HEMATOCRIT 43.6 % (42-54); IMMATURE GRANULOCYTE ABSOLUTE 0.03 K/uL (0-1); LYMPHOCYTES # (AUTO) 1.2 K/uL (1.0-4.8); LYMPHOCYTES % (AUTO) 15.9 % (21.0-51.0); MEAN CORPUSCULAR HEMOGLOBIN 30.5 pg (27.0-33.0); MEAN CORPUSCULAR HGB CONC 32.6 g/dL (32.0-36.0); MEAN CORPUSCULAR VOLUME 93.8 fL (79-99); MONOCYTES # (AUTO) 0.7 K/uL (0.1-1.0); MONOCYTES % (AUTO) 9.3 % (3.0-13.0); NEUTROPHILS # (AUTO) 5.6 K/uL (1.8-7.7); NEUTROPHILS % (AUTO) 71.8 % (40.0-77.0); PLATELET COUNT (AUTO) 135 K/uL (130-400); RED BLOOD CELL COUNT(AUTO) 4.65 MIL/uL (4.50-6.20); RED CELL DISTRIBUTION WIDTH 15.9 % (11.0-15.5); WHITE BLOOD COUNT (AUTO) 7.8 K/uL (4.8-10.8)
[2024-07-29 08:00] VITALS: BP 117/49; PULSE 66; RESP 19; TEMP 98.3; O2SAT 94
--- NOTE | 2024-07-29 08:17 | PN ---
[facility] PROGRESS NOTE Date of Service: Jul 29, 2024 Time of Service: 08:17 SUBJECTIVE: [ ] The patient has been seen and examined today during my rounding, no acute events overnight, patient resting comfortably in bed, alert oriented x3, hemodynamically stable, BP 121/62, afebrile, saturating normal on room air. The patient continue diuretics, having good urine output, has urinated several times throughout this hospitalization. He admits less swollen to both lower extremities. Results of Doppler extremities negative for DVT. The patient with the elevated D-dimer. No chest pain, no shortness a breath at the time of my visit, unable to do V/Q scan or CT PE protocol as the patient elevated creatinine and unable to stay flat on his back. is at bedside during my visit. 07/20 the patient has been seen and examined earlier this morning during my rounding, no acute events overnight, he remains hemodynamically stable, afebrile, saturating normal on room air. The patient has been very good urine output. Per my discussion with the nurse that is taking care of the patient, the patient's weight has improved from 291.8 lb to 283.4 today. He denies chest pain, no shortness a breath, he admits less swollen to both lower extremities compared to time of admission. is not present at the bedside during my visit. 07/21/24 patient was seen and examined and case discussed with RN. He feels that his swelling is going down. We will continue with Bumex. Monitor electrolytes. Monitor weight 07/22 patient seen at bedside, no acute events overnight. Patient continues with diuresis, he was evaluated by Cardiology today, recommendations still pending we will follow up. Patient with notable chronic kidney disease and pulmonary hypertension which likely are contributing to his peripheral pitting edema. Surprisingly his ejection fraction is near normal with 45 to 50% and is unlikely the cause his pitting edema. He does have some valvular dysfunction with some moderate regurgitation. He has ventricle and atria are dilated likely due to increased pressures possibly due to dilated cardiomyopathy. At bedside he is saturating well on room air has no complaints at this time. Further recommendations per Cardiology, pulmonology and Nephrology. Pulmonology recommending to treat underlying causes no direct interventions for pulmonary hypertension at this time as he has a grade 2 in the guidelines state to treat the underlying causes. 07/23 patient seen at bedside, no acute events overnight. He continues with diuresis. Creatinine appears to be at baseline at 2.2, similar to yesterday. Due to renal function he is not able to undergo a left heart catheterization per Cardiology. We will focus on optimal medical management at this time. We will follow up with pulmonology, Nephrology and Cardiology recommendations for clearance for discharge vs further workup 07/24 patient seen at bedside, no acute events overnight. He continues with diuresis. Creatinine at 2.2, same as yesterday. Continue optimal medical management at this time. We will follow up with pulmonology, Nephrology and Cardiology recommendations for clearance for discharge vs further workup. Cardiology recommending continued diuresis 07/25: This is a late dictation. Patient seen at bedside, no acute events overnight. He continues with diuresis. Pt cleared by cardiology and pulmonology. His potassium remains low, spironolactone started and patient continues on potassium supplements. Will recheck renal function and potassium again tomorrow 07/26 Patient seen at bedside, no acute events overnight. He continues with diuresis. His potassium remains low, spironolactone increased to 25mg q24h, bumex dose decreased to 1mg BID, and patient continues on potassium supplements. Will recheck renal function and potassium again tomorrow. If potassium > 3.0 will be good candidate for discharge 07/27 Patient seen at bedside, no acute events overnight. He continues with diuresis. His potassium remains low, am diuretics held and patient continues on potassium supplements. Will recheck renal function and potassium again tomorrow. If potassium > 3.0 will be good candidate for discharge. 07/28 Pt seen at bedside, no acute events overnight. Pt potassium improved however blood pressures on the low side of normal, patient also complaining of increased fatigue. We will start patient on midodrine 5 mg 3 times daily and reassess tomorrow for possible discharge. Ortho static vital signs have been ordered, we will follow up. Bumex has been discontinued, continue spironolactone. 07/29 the patient has been seen and examined during my rounding, no acute events overnight, he remains alert and oriented x3, walking around room, he remains on midodrine 5 mg p.o. 3 times daily, blood pressure has remained in the low side but stable. Denies dizziness, no chest pain, no shortness a breath. REVIEW OF SYSTEMS 12 point review of systems negative unless noted in HPI PHYSICAL EXAM GENERAL APPEARANCE: The patient is awake, alert, and oriented, in no acute cardiopulmonary distress. NEUROLOGICAL: Cranial nerves II-XII grossly intact. Motor is 5/5 in bilateral upper and lower extremities proximal to distal. No sensory deficits. HEENT: Face is symmetric. Pupils are equal and reactive. Extraocular movements are intact. NECK: Supple. No JVD. No thyromegaly. No submental, submandibular, pre- /postauricular, occipital or supraclavicular lymphadenopathy. CHEST: Normal chest expansion. No Telemetry. LUNGS: Crackles noted at bilateral lung base CARDIOVASCULAR: Regular. S1 and S2 normal. No appreciable rubs, murmurs or gallops. ABDOMEN: Soft, nontender, and nondistended. There is no rebound, voluntary guarding, or rigidity. : Deferred. No Pritchard. EXTREMITIES: 3+ pitting edema noted of bilateral lower extremities SKIN: No skin breakdown. Vital Signs (last 8hr) Date Time Temp Pulse Resp B/P (MAP) Pulse Ox O2 Delivery O2 Flow Rate FiO2 07/29/24 04:00 98.2 89 20 105/48 94 Room Air LABS: Laboratory: Test 07/29/24 03:16 07/28/24 05:03 Range/Units White Blood Count 7.8 4.8-10.8 K/uL Red Blood Count 4.65 4.50-6.20 MIL/uL Hemoglobin 14.2 14.0-18.0 g/dL Hematocrit 43.6 42-54 % Mean Corpuscular Volume 93.8 79-99 fL Mean Corpuscular Hemoglobin 30.5 27.0-33.0 pg Mean Corpuscular Hemoglobin Concent 32.6 32.0-36.0 g/dL Red Cell Distribution Width 15.9 H 11.0-15.5 % Platelet Count 135 130-400 K/uL Mean Platelet Volume 12.2 H 7.5-10.5 fL Immature Granulocyte % (Auto) 0.4 0-1 % Neutrophils (%) (Auto) 71.8 40.0-77.0 % Lymphocytes (%) (Auto) 15.9 L 21.0-51.0 % Monocytes (%) (Auto) 9.3 3.0-13.0 % Eosinophils (%) (Auto) 1.2 0.0-8.0 % Basophils (%) (Auto) 1.4 0.0-5.0 % Neutrophils # (Auto) 5.6 1.8-7.7 K/uL Lymphocytes # (Auto) 1.2 1.0-4.8 K/uL Monocytes # (Auto) 0.7 0.1-1.0 K/uL Eosinophils # (Auto) 0.09 0.00-0.70 K/uL Basophils # (Auto) 0.11 0.00-0.20 K/uL Absolute Immature Granulocyte (auto 0.03 0-1 K/uL Nucleated Red Blood Cells 0.0 0.0-0.19 % Sodium Level 141 136-145 mmol/L Potassium Level 4.3 3.5-5.1 mmol/L Chloride Level 103 101-111 mmol/L Carbon Dioxide Level 33 H 21-32 mmol/L Blood Urea Nitrogen 57 H 7-18 mg/dL Creatinine 2.7 H 0.5-1.3 mg/dL Glomerular Filtration Rate Calc 25 >90 mL/min Random Glucose 106 H 70-105 mg/dL Total Calcium 9.3 8.5-10.1 mg/dL Phosphorus Level 4.0 2.5-4.9 mg/dL Magnesium Level 2.40 1.80-2.40 mg/dL Current Medications Medications (Trade) Dose Ordered Sig/Samantha Route PRN Reason Start Time Stop Time Status Last Admin Dose Admin Acetaminophen (TYLenol 500MG TAB) 500 mg Q6H PRN PO MILD PAIN (1-3) 07/18/24 18:00 08/17/24 17:59 Acetaminophen (TYLenol 500MG TAB) 500 mg Q6H PRN PO MILD PAIN (1-3) 07/18/24 18:00 08/17/24 17:59 Amiodarone HCl (pacERONE 200MG) 200 mg QMOWEFR PO 07/19/24 09:00 08/18/24 08:59 07/26/24 09:34 200 MG Apixaban (EliquIS) 5 mg BID PO 07/18/24 21:00 08/17/24 20:59 07/28/24 20:50 5 MG Atorvastatin Calcium (LIPItor 10MG) 10 mg DAILY PO 07/19/24 09:00 07/22/24 10:33 DC 07/22/24 09:06 10 MG Atorvastatin Calcium (LIPItor 10MG) 10 mg HS PO 07/23/24 21:00 08/18/24 08:59 07/28/24 20:49 10 MG Budesonide (Pulmicort 0.5 Mg/2ml) 0.5 mg BIDRESP IH 07/18/24 18:00 07/24/24 09:25 DC 07/24/24 06:13 0.5 MG Bumetanide (Bumex 1mg Tab) 1 mg BID PO 07/26/24 21:00 07/27/24 15:34 DC 07/26/24 20:14 1 MG Bumetanide (Bumex 1mg Tab) 2 mg BID PO 07/23/24 21:00 07/25/24 11:56 DC 07/25/24 09:25 2 MG Bumetanide (Bumex 1mg Tab) 2 mg BID PO 07/25/24 21:00 07/26/24 11:26 DC 07/25/24 20:32 2 MG Bumetanide (Bumex 1mg Vial) 1 mg Q8H IVP 07/18/24 21:00 07/23/24 17:15 DC 07/23/24 13:51 1 MG Bupropion HCl (WellBUTrin SR 150MG) 150 mg BID PO 07/19/24 21:00 08/18/24 20:59 07/28/24 20:49 150 MG Fish Oil (Fish Oil 1000 Mg/Cap) 1,000 mg BID PO 07/19/24 21:00 08/18/24 20:59 07/28/24 20:49 1,000 MG Gabapentin (NEURontin 100 mg CAP) 100 mg HS PO 07/19/24 21:00 08/18/24 20:59 07/28/24 20:49 100 MG Home Med (Home Medication) (Dapagliflozin Propanediol (Farxiga... DAILY PO 07/20/24 09:00 08/19/24 08:59 Ipratropium [place] (AtrovENT UD) 1 mg Q6H PRN IH SHORTNESS OF BREATH 07/18/24 18:00 08/17/24 17:59 Levothyroxine Sodium (SYNTHroid 25MCG TAB) 25 mcg DAILY@0630 PO 07/19/24 06:30 08/18/24 06:29 07/29/24 05:55 25 MCG Magnesium Sulfate 50 ml @ 0 mls/hr PROTOCOL IV 07/18/24 18:00 08/17/24 17:59 Melatonin (Melatonin) 5 mg HS PRN PO insomnia 07/18/24 20:30 07/25/24 14:34 DC Melatonin (Melatonin) 10 mg HS PO 07/19/24 21:00 08/18/24 20:59 07/28/24 20:48 10 MG Metolazone (zarOXOlyn) 5 mg ONCE STAT PO 07/22/24 14:07 07/22/24 14:12 DC 07/22/24 14:24 5 MG Metoprolol Succinate (TopROL XL) 25 mg DAILY PO 07/19/24 09:00 08/18/24 08:59 07/28/24 12:37 25 MG Midodrine (PROAMatine 5 MG TABLET) 5 mg TID PO 07/28/24 21:00 08/27/24 20:59 07/28/24 20:50 5 MG Ondansetron HCl (zoFRAN 4MG INJ) 4 mg Q6H PRN IVP NAUSEA/VOMITING 07/18/24 18:00 08/17/24 17:59 Pantoprazole Sodium (PROTonix 40MG TAB) 40 mg DAILY PO 07/19/24 09:00 08/18/24 08:59 07/28/24 09:04 40 MG Pharmacy Profile Note (Lace Assessment) 1 each AD MISC 07/19/24 17:30 07/19/24 20:58 DC Potassium Chloride 100 ml @ 100 mls/hr AD PRN IV POTASSIUM PROTOCOL 07/18/24 18:00 08/17/24 17:59 07/27/24 11:13 100 MLS/HR Potassium Chloride (K-Dur 10meq Sr Tab) 10 meq AD PRN PO POTASSIUM PROTOCOL 07/22/24 11:00 08/17/24 17:59 07/28/24 14:25 10 MEQ Potassium Chloride (K-Dur 10meq Sr Tab) 10 meq BID PO 07/26/24 09:00 07/26/24 07:45 DC Potassium Chloride (K-Dur/Klor-Con 20meq) 10 meq AD PRN PO POTASSIUM PROTOCOL 07/18/24 18:00 07/22/24 10:35 DC 07/21/24 15:29 10 MEQ Potassium Chloride (K-Dur/Klor-Con 20meq) 20 meq BID PO 07/23/24 21:00 08/22/24 20:59 07/28/24 20:49 20 MEQ Potassium Chloride (KCl 10% Elixir 20meq/15ml) 10 meq AD PRN PO POTASSIUM PROTOCOL 07/18/24 18:00 08/17/24 17:59 07/22/24 09:07 10 MEQ Simethicone (Mylicon) 40 mg ONCE PO 07/20/24 21:00 07/20/24 20:35 DC Spironolactone (Aldactone 25mg) 12.5 mg DAILY PO 07/26/24 09:00 07/26/24 11:26 DC 07/26/24 09:36 12.5 MG Spironolactone (Aldactone 25mg) 25 mg DAILY PO 07/27/24 09:00 08/26/24 08:59 Spironolactone (Aldactone 25mg) 25 mg DAILY PO 07/27/24 09:00 07/26/24 12:03 DC Vitamin B Complex/ Vit C/Folic Acid (Nephrovite Tablet) 1 cap DAILY PO 07/19/24 09:00 08/18/24 08:59 07/28/24 09:03 1 CAP DIAGNOSTICS / RADIOLOGY: [ ] ASSESSMENT: 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, POA, (LV EF 45-50%) Acute hypoxemic respiratory failure, POA History of severe pulmonary hypertension with RVSP of 54, attributed secondary to underlying cardiac comorbidities, group 2, POA Rule out pulmonary arterial hypertension, POA History of moderate aortic regurgitation, POA History of moderate tricuspid regurgitation, POA Severe volume overload, POA Congestive hepatopathy, POA CKD stage 3, likely chronic cardiorenal syndrome, POA Underlying history of atrial fibrillation, POA History of chronic anticoagulation with Eliquis as outpatient, POA Obesity, POA History of severe aortic stenosis status post bioprosthetic aortic valve replacement in 2018, POA PLAN: Patient remains admitted to the medical floor Continue sap ppm consultant Continue diuresis Monitor urine output closely, obtain daily weight Monitor renal function closely Start midodrine 5mg TID Maintain K greater than four and magnesium greater than two, electrolytes will be repleted per protocol Echocardiogram to evaluate ejection fraction, follow Cardiology input and recommendation Replace electrolytes IV per protocol Continue amiodarone, Eliquis, metoprolol succinate and home medications were reconciled and updated once available We will monitor BMP closely tonight and All labs will be repeated in the morning We will see if patient has undergone prior sleep study to rule out obstructive sleep apnea Disposition: Discharged home in the next 24 hours if blood pressure stable and 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 Cardiology to arrange for MRI at [facility] in [place] to rule out constrictive pericarditis. Discussed with the patient. JEAN FERNANDEZ MD Jul 29, 2024 08:17
[2024-07-29 12:00] VITALS: BP 103/47; PULSE 77; RESP 19; TEMP 98.6
--- NOTE | 2024-07-29 14:00 | PN ---
NEPHROLOGY PROGRESS NOTE Date/Time Patient Seen: Jul 29, 2024 SUBJECTIVE: This is a 69-year-old male with underlying history of hypertension, hyperlipidemia, CKD stage 3, underlying history of atrial fibrillation, heart failure with mildly reduced ejection fraction of 45-50% (RVSP of 54 concerning for severe pulmonary hypertension), history of chronic anticoagulation with Eliquis, history of severe aortic stenosis secondary to bicuspid aortic valve status post bioprosthetic aortic valve replacement in 2018 He presented to the ER for further evaluation of progressive lower extremity edema and weight gain. Patient states diuretics were stopped and his urine output decreased He was noted to have elevated BUN/creatinine We are consulted for renal failure Renal function and electrolytes are stable. Bumex was discontinued due to hypotension. He continues on spironolactone and KCL 20 mEq PO BID. 24 hour urine output and daily weight noted. Continue with lower extremity edema He was seen in the medical floor, in no acute distress Family at the bedside. REVIEW OF SYSTEMS: GENERAL: Negative for any nausea, vomiting, fevers, chills, or weight loss. NEUROLOGIC: Negative for any blurry vision, blind spots, double vision, facial asymmetry, dysphagia, dysarthria, hemiparesis, hemisensory deficits, vertigo, ataxia. HEENT: Negative for any head trauma, neck trauma, neck stiffness, photophobia, phonophobia, sinusitis, rhinitis. CARDIAC: Negative for any chest pain, dyspnea on exertion, paroxysmal nocturnal dyspnea, peripheral edema. PULMONARY: Negative for any shortness of breath, wheezing, COPD, or TB exposure. GASTROINTESTINAL: Negative for any abdominal pain, nausea, vomiting, bright red blood per rectum, melena. GENITOURINARY: Negative for any dysuria, hematuria, incontinence. INTEGUMENTARY: Negative for any rashes, cuts, insect bites. RHEUMATOLOGIC: Negative for any joint pains, photosensitive rashes, history of vasculitis or kidney problems. HEMATOLOGIC: Negative for any abnormal bruising, frequent infections or bleeding. Current Medications Medications (Trade) Dose Ordered Sig/Samantha Route Start Time Stop Time Status Last Admin Dose Admin Amiodarone HCl (pacERONE 200MG) 200 mg QMOWEFR PO 07/19/24 09:00 08/18/24 08:59 07/26/24 09:34 200 MG Apixaban (EliquIS) 5 mg BID PO 07/18/24 21:00 08/17/24 20:59 07/26/24 09:37 5 MG Atorvastatin Calcium (LIPItor 10MG) 10 mg DAILY PO 07/19/24 09:00 07/22/24 10:33 DC 07/22/24 09:06 10 MG Atorvastatin Calcium (LIPItor 10MG) 10 mg HS PO 07/23/24 21:00 08/18/24 08:59 07/25/24 20:33 10 MG Budesonide (Pulmicort 0.5 Mg/2ml) 0.5 mg BIDRESP IH 07/18/24 18:00 07/24/24 09:25 DC 07/24/24 06:13 0.5 MG Bumetanide (Bumex 1mg Tab) 1 mg BID PO 07/26/24 21:00 08/25/24 20:59 Bumetanide (Bumex 1mg Tab) 2 mg BID PO 07/23/24 21:00 07/25/24 11:56 DC 07/25/24 09:25 2 MG Bumetanide (Bumex 1mg Tab) 2 mg BID PO 07/25/24 21:00 07/26/24 11:26 DC 07/25/24 20:32 2 MG Bumetanide (Bumex 1mg Vial) 1 mg Q8H IVP 07/18/24 21:00 07/23/24 17:15 DC 07/23/24 13:51 1 MG Bupropion HCl (WellBUTrin SR 150MG) 150 mg BID PO 07/19/24 21:00 08/18/24 20:59 07/26/24 09:37 150 MG Fish Oil (Fish Oil 1000 Mg/Cap) 1,000 mg BID PO 07/19/24 21:00 08/18/24 20:59 07/26/24 09:35 1,000 MG Gabapentin (NEURontin 100 mg CAP) 100 mg HS PO 07/19/24 21:00 08/18/24 20:59 07/25/24 20:33 100 MG Home Med (Home Medication) (Dapagliflozin Propanediol (Farxiga... DAILY PO 07/20/24 09:00 08/19/24 08:59 Levothyroxine Sodium (SYNTHroid 25MCG TAB) 25 mcg DAILY@0630 PO 07/19/24 06:30 08/18/24 06:29 07/26/24 06:03 25 MCG Magnesium Sulfate 50 ml @ 0 mls/hr PROTOCOL IV 07/18/24 18:00 08/17/24 17:59 Melatonin (Melatonin) 10 mg HS PO 07/19/24 21:00 08/18/24 20:59 07/25/24 20:32 10 MG Metolazone (zarOXOlyn) 5 mg ONCE STAT PO 07/22/24 14:07 07/22/24 14:12 DC 07/22/24 14:24 5 MG Metoprolol Succinate (TopROL XL) 25 mg DAILY PO 07/19/24 09:00 08/18/24 08:59 07/26/24 09:35 25 MG Pantoprazole Sodium (PROTonix 40MG TAB) 40 mg DAILY PO 07/19/24 09:00 08/18/24 08:59 07/26/24 09:37 40 MG Pharmacy Profile Note (Lace Assessment) 1 each AD MISC 07/19/24 17:30 07/19/24 20:58 DC Potassium Chloride (K-Dur 10meq Sr Tab) 10 meq BID PO 07/26/24 09:00 07/26/24 07:45 DC Potassium Chloride (K-Dur/Klor-Con 20meq) 20 meq BID PO 07/23/24 21:00 08/22/24 20:59 07/26/24 09:36 20 MEQ Simethicone (Mylicon) 40 mg ONCE PO 07/20/24 21:00 07/20/24 20:35 DC Spironolactone (Aldactone 25mg) 12.5 mg DAILY PO 07/26/24 09:00 07/26/24 11:26 DC 07/26/24 09:36 12.5 MG Spironolactone (Aldactone 25mg) 25 mg DAILY PO 07/27/24 09:00 07/26/24 12:03 DC Vitamin B Complex/ Vit C/Folic Acid (Nephrovite Tablet) 1 cap DAILY PO 07/19/24 09:00 08/18/24 08:59 07/26/24 09:32 1 CAP PHYSICAL EXAM: GENERAL: Alert and oriented x 3. No acute distress. Well-nourished. EYES: EOMI. Anicteric. HENT: Moist mucous membranes. No scleral icterus. No cervical lymphadenopathy. LUNGS: Clear to auscultation bilaterally. No accessory muscle use. CARDIOVASCULAR: Regular rate and rhythm. No murmur. No JVD. ABDOMEN: Soft, non-tender and non-distended. No palpable masses. EXTREMITIES: No edema. Non-tender. SKIN: No rashes or lesions. Warm. NEUROLOGIC: No focal neurological deficits. CN II-XII grossly intact, but not individually tested. PSYCHIATRIC: Cooperative. Appropriate mood and affect. Intake and Output 07/26/24 07:00 Intake Total 100.0 ml Output Total 2200 ml Balance -2100.0 ml IV Total 100.0 ml Output Urine Total 2200 ml Vital Signs (last 8hr) Date Time Temp Pulse Resp B/P (MAP) Pulse Ox O2 Delivery O2 Flow Rate FiO2 07/26/24 12:00 97.5 77 19 118/58 90 Room Air 07/26/24 08:08 97.7 57 19 109/73 99 Room Air 07/26/24 08:00 96 Room Air* 0 21 07/26/24 07:35 75 18 N/A Room Air 21 LABORATORY: [ ] Hematology Labs: Test 07/29/24 03:16 Range/Units White Blood Count 7.8 4.8-10.8 K/uL Red Blood Count 4.65 4.50-6.20 MIL/uL Hemoglobin 14.2 14.0-18.0 g/dL Hematocrit 43.6 42-54 % Mean Corpuscular Volume 93.8 79-99 fL Mean Corpuscular Hemoglobin 30.5 27.0-33.0 pg Mean Corpuscular Hemoglobin Concent 32.6 32.0-36.0 g/dL Red Cell Distribution Width 15.9 H 11.0-15.5 % Platelet Count 135 130-400 K/uL Mean Platelet Volume 12.2 H 7.5-10.5 fL Immature Granulocyte % (Auto) 0.4 0-1 % Neutrophils (%) (Auto) 71.8 40.0-77.0 % Lymphocytes (%) (Auto) 15.9 L 21.0-51.0 % Monocytes (%) (Auto) 9.3 3.0-13.0 % Eosinophils (%) (Auto) 1.2 0.0-8.0 % Basophils (%) (Auto) 1.4 0.0-5.0 % Neutrophils # (Auto) 5.6 1.8-7.7 K/uL Lymphocytes # (Auto) 1.2 1.0-4.8 K/uL Monocytes # (Auto) 0.7 0.1-1.0 K/uL Eosinophils # (Auto) 0.09 0.00-0.70 K/uL Basophils # (Auto) 0.11 0.00-0.20 K/uL Absolute Immature Granulocyte (auto 0.03 0-1 K/uL Nucleated Red Blood Cells 0.0 0.0-0.19 % Chemistry Labs: Test 07/29/24 03:16 07/28/24 05:03 Range/Units Sodium Level 141 136-145 mmol/L Potassium Level 4.3 3.5-5.1 mmol/L Chloride Level 103 101-111 mmol/L Carbon Dioxide Level 33 H 21-32 mmol/L Blood Urea Nitrogen 57 H 7-18 mg/dL Creatinine 2.7 H 0.5-1.3 mg/dL Glomerular Filtration Rate Calc 25 >90 mL/min Random Glucose 106 H 70-105 mg/dL Total Calcium 9.3 8.5-10.1 mg/dL Phosphorus Level 4.0 2.5-4.9 mg/dL Magnesium Level 2.40 1.80-2.40 mg/dL DIAGNOSTICS / RADIOLOGY: REASON: SOB ORDERING PHYSICIAN: HUMAIRA LUNSFORD MD PROCEDURE: CXR1VW - CHEST 1VW Exam Type: CHEST 1VW Clinical Information: SOB Comparison: None Findings: The lungs are clear of infiltrates. The heart is enlarged. Bony and soft tissue structures of the chest wall are unremarkable. IMPRESSION: Cardiomegaly. Clear lungs. DICTATED BY: THERESA RIVAS MD DATE: 07/28/24 0851 REASON: acute chf ORDERING PHYSICIAN: PRISCILLA GUY PAC PROCEDURE: ECHO FU LD - ECHO 2-D F/U-LTD APPROVED REPORT EXAM: Limited Two-dimensional and M-mode echocardiogram with Doppler and color Doppler. INDICATION ICD: Heart Failure 2D Dimensions RVDd 5.2 cm LVEF(%) 41.8 (>50%) LVED Vol(simp.) 175.0 mL IVSd 1.1 (0.7-1.1cm) FS(%) 21 % LVES Vol(simp.) 75.3 mL LVDd 6.2 (3.8-5.6cm) LA (2D) 4.6 (1.6-4.0cm) LVEF(%, simp.) 57 % PWd 1.2 (0.7-1.1cm) LVOT diam 2.7 (1.8-2.4cm) LA ESV INDEX (4CH) 34.00 mL/m2 IVSs 1.4 cm LA ESV INDEX (2CH) 30.90 mL/m2 LVDs 4.9 (2.5-4.0cm) PWs 1.6 cm Aortic Valve AoV VTI 0.4 m Ao Mean GR 9.0 mmHg LVOT VTI 0.20 m TIM (VMAX) 3.1 cm2 TIM (VTI) 3.1 cm2 Mitral Valve MV E Vmax 83.4 cm/s DECEL Time 127 ms MR Max PG 37 mmHg P 1/2 T 49 ms MVA (PHT) 4.5 cm2 TDI E/E' Medial 10.3 E/E' Lateral 8.3 Medial E' Peak V 8.10 cm/s Lateral E' Peak V 10.10 cm/s Tricuspid Valve RAP (EST) 15 mmHg RVSP 15.0 mmHg Left Ventricle The left ventricle is severely dilated. There is normal LV segmental wall motion. There is normal left ventricular wall thickness. LVEF is 55-60%. The left ventricular diastolic function is normal. Right Ventricle The right ventricle is moderately dilated. The right ventricular systolic function is normal. Atria The left atrium size is normal. The right atrium is severely dilated. Aortic Valve Bioprosthetic aortic valve. Prosthetic aortic valve is normal in appearance and well seated. Trivial aortic regurgitation. No paravalvular leak or perivalvular leak noted. There is no aortic valvular stenosis. Mitral Valve The mitral valve is normal in structure. Mitral regurgitation is trace to mild. There is no mitral valve stenosis. Tricuspid Valve The tricuspid valve is normal in structure. There is mild tricuspid valve regurgitation noted. Pulmonic Valve The pulmonary valve is normal in structure. There is no pulmonic valvular regurgitation. Great Vessels The aortic root is normal in size. IVC is dilated and collapses <50% with inspiration. Pericardium There is no pericardial effusion. Other Information Quality : Adequate Conclusion LVEF is 55-60%. LVEF is 55-60%. There is normal LV segmental wall motion. The left ventricular diastolic function is normal. The right ventricular systolic function is normal. Bioprosthetic aortic valve. Prosthetic aortic valve is normal in appearance and well seated. There is no pericardial effusion. The aortic root is normal in size. DICTATED BY: JANETTE THORPE MD DATE: 07/23/24 1015 REASON: PLEURAL EFFUSION/TRANSAMINITIS ORDERING PHYSICIAN: LEIDA THOMAS PROCEDURE: CAP WO - CT CHEST/ABD/PELV W/O CONTRAST CT CHEST/ABD/PELV W/O CONTRAST HISTORY: Pleural effusion COMPARISON: None TECHNIQUE: Multiple sequential axial images of the chest were obtained from the thoracic inlet through upper abdomen. Patient was not given contrast through intravenous route. FINDINGS: There are small bilateral pleural effusions with compressive atelectasis. Bibasilar linear atelectasis changes are seen. Aortic calcifications are seen. Minimal left lower lung pulmonary infiltrates are seen. No pericardial effusion is seen. There is no evidence of pneumothorax. There are normal size mediastinal and hilar lymph nodes. The heart is not enlarged. Degenerative changes of the thoracolumbar spine are present. There is no evidence of adrenal nodule. IMPRESSION: 1. Small bilateral pleural effusions with compressive atelectasis. Minimal left lower lung pulmonary infiltrates are seen. Minimal left lower lung pulmonary infiltrates are seen. CT CHEST/ABD/PELV W/O CONTRAST HISTORY: Elevated liver enzymes COMPARISON: None TECHNIQUE: Multiple sequential axial images of the abdomen and pelvis were obtained from the dome of the diaphragm through symphysis pubis. Patient was not given contrast through intravenous route. Oral contrast was not given. FINDINGS: Liver is enlarged measuring 21 cm. The liver, spleen, adrenal glands and pancreas are unremarkable. There is no evidence of hydronephrosis bilaterally. No evidence of renal stone is seen. Fecal material is seen in the colon. There are normal size retroperitoneal and mesenteric lymph nodes. Small ascites fluid is seen in the pelvis. Atherosclerotic changes are present. There is left iliac stent. Pelvic sidewalls are symmetric bilaterally. Bladder is poorly distended. Fat stranding is seen adjacent to the bladder may be related to cystitis and urinary analysis correlation may be helpful. There is mild diverticulosis. IMPRESSION: 1. Small amount of fluid is seen in the pelvis. CT was performed with one or more following dose reduction techniques: automated exposure control, adjustment of the mA and kv according to patient's size, or use of a iterative reconstruction technique. DICTATED BY: LORE KNIGHT MD DATE: 07/18/24 230 REASON: assess for ascites, abdominal distension, hx of fatty liver ORDERING PHYSICIAN: BTEO JESUS MD PROCEDURE: ABDOMEN - US ABDOMINAL COMPLETE US ABDOMINAL COMPLETE HISTORY: Abdominal distention, ascites COMPARISON: None TECHNIQUE: Multiple transverse and longitudinal ultrasound images of the abdomen were obtained. FINDINGS: Abdominal aorta and inferior vena cava are unremarkable. There are bilateral pleural effusions. Pancreas is not well seen. Liver measures 16 cm. Liver is echogenic consistent with liver parenchymal disease. No gallstone is seen. Common duct measures 4 mm. No evidence of gallbladder wall thickening is seen. Both kidneys are seen. Right kidney measures 10 x 6 x 7 cm. Left kidney measures 11 x 7 x 6 cm. No hydronephrosis is seen of the both kidneys. The spleen is grossly unremarkable. IMPRESSION: 1. No gallstone or ductal dilatation is seen. Bilateral pleural effusions. 2. No hydronephrosis is seen. DICTATED BY: LORE KNIGHT MD DATE: 07/19/24 1024 REASON: significant lower extremity edema, r/o any DVT ORDERING PHYSICIAN: BETO JESUS MD PROCEDURE: VENOUS JACE - US VENOUS DOPPLER BILATERAL ULTRASOUND VENOUS DOPPLER, BILATERAL LOWER EXTREMITIES INDICATION: Bilateral lower extremity pain and swelling TECHNIQUE: Routine grayscale and color Doppler ultrasound of the bilateral lower extremity veins performed. COMPARISON: No priors. FINDINGS: The demonstrated veins of the bilateral lower extremity including the common femoral vein, femoral vein, and popliteal vein are associated with normal compressibility, augmentation, and flow. Normal respiratory variation was identified. No evidence for echogenic intraluminal thrombus formation. Pulsatile flow may be related to known history of congestive heart failure. IMPRESSION: No sonographic evidence for deep venous thrombosis within the bilateral lower extremity veins. DICTATED BY: MARLON PINZON MD DATE: 07/18/24 183 REASON: SHORTNESS A BREATH ORDERING PHYSICIAN: CINTHIA VICENTE NP PROCEDURE: CXR1VW - CHEST 1VW CHEST 1VW HISTORY: Shortness of breath COMPARISON: 06/11/2024 FINDINGS: A frontal projection of the chest was obtained. Mild bilateral pulmonary infiltrates are seen may be related to mild pulmonary vascular congestion with possible superimposed pneumonitis. The heart is enlarged. Degenerative changes are seen. No evidence of aortic calcification is seen. IMPRESSION: 1. Mild bilateral pulmonary infiltrates are seen may be related to mild pulmonary vascular congestion with possible superimposed pneumonitis. DICTATED BY: LORE KNIGHT MD DATE: 07/18/24 1529 ASSESSMENT: Acute on chronic renal failure Hypokalemia 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, POA, (LV EF 45-50%) Acute hypoxemic respiratory failure, POA History of severe pulmonary hypertension with RVSP of 54, attributed secondary to underlying cardiac comorbidities, group 2, POA Rule out pulmonary arterial hypertension, POA History of moderate aortic regurgitation, POA History of moderate tricuspid regurgitation, POA Severe volume overload, POA Congestive hepatopathy, POA CKD stage 3, likely chronic cardiorenal syndrome, POA Underlying history of atrial fibrillation, POA History of chronic anticoagulation with Eliquis as outpatient, POA Obesity, POA History of severe aortic stenosis status post bioprosthetic aortic wall replacement in 2018, POA PLAN: Labs, diagnostic, radiologic exams reviewed and interpreted by myself and supervising physician. We have reviewed external records in detail Discontinue spironolactone and potassium chloride. We will continue to monitor renal function electrolytes closely. Continue 1.5 L fluid restriction Require close monitoring of renal function and electrolytes Order CBC, CMP, and electrolytes in am Continue with antibiotics Renal diabetic diet BiPAP as necessary, for respiratory distress Monitor blood pressure adjust medication doses as needed Avoid hypotensive episodes May use Dilaudid 0.5 mg IV every 6 hours as needed for severe pain Monitor blood sugars Strict intake, output, and daily weight should be monitored Please renally adjust medications Avoid nephrotoxic and nonsteroidal drugs Avoid contrast if possible Will continue to monitor renal function, anemia, electrolytes Treatment plan discussed with patient Questions were answered We have discussed with the other team physicians in detail about the care plan We will continue to monitor the patient closely ATTESTATION BY PHYSICIAN I have seen and examined the patient. I reviewed the documentation, medical decision making, and treatment plan as noted by the mid-level provider above. I agree with the findings and plan of care. JOSS AYALA MD, [facility] Jul 29, 2024 14:00
[2024-07-29] MEDS: ondanSETRON 4MG INJ IVP PRN (16:55)
[2024-07-29 17:23] VITALS: BP 109/54; PULSE 88; RESP 19; TEMP 98
[2024-07-29 20:00] VITALS: BP 118/47; PULSE 71; RESP 20; TEMP 97.6; O2SAT 94
--- NOTE | 2024-07-29 22:04 | PN ---
[facility] PROGRESS NOTE Date Patient Seen: Jul 29, 2024 Time of Visit: 22:01 Supervising Physician: [PARTH PASTRANA MD ] Inpatient Consults: BIS PROBLEM LIST: - Acute on chronic diastolic heart failure on admission - Acute hypoxic respiratory failure on admission secondary to above - Cardio renal syndrome - Severe pulmonary hypertension - Hypertensive heart disease - Atrial fibrillation on Eliquis - Chronic kidney disease stage 3 - Morbid obesity, BMI 32.7 - Essential hypertension - Recurrent hypokalemia - Status post bioprosthetic aortic valve replacement due to severe aortic stenosis (2017) INTERVAL HISTORY: 07/29 Patient is 69 years old, he is awake and he is resting in bed He is on room air, does not appear to be in distress and he is well hydrated Blood pressure seems to be under better control Still in the low 100s He denies shortness of breath, denies orthopnea Mentions that the edema to the lower extremities is slightly better Denies chest pain Denies cough Denies congestion REVIEW OF SYSTEMS: 12 point ROS reviewed with patient. Pertinent positives mentioned above. Otherwise negative. PHYSICAL EXAM: GENERAL: alert, weak, awake oriented x 3 HEENT: EOMI, Sclera non icteric, moist mucosa NECK: Supple, no JVD, trachea midline LUNGS: rales bilaterally, no wheezing HEART: Regular rate and rhythm. Normal S1 and S2, without murmurs ABD: Abdomen soft, nontender. Bowel sounds present EXT: No clubbing cyanosis ,BLE edema +++ NEURO: Alert and oriented to person, follows commands Vital Signs (last 8hr) Date Time Temp Pulse Resp B/P (MAP) Pulse Ox O2 Delivery O2 Flow Rate FiO2 07/29/24 20:00 97.5 71 20 118/47 94 Room Air 07/29/24 17:23 98.1 88 19 109/54 99 Room Air 21 LABS: Hematology Labs: Test 07/29/24 03:16 Range/Units White Blood Count 7.8 4.8-10.8 K/uL Red Blood Count 4.65 4.50-6.20 MIL/uL Hemoglobin 14.2 14.0-18.0 g/dL Hematocrit 43.6 42-54 % Mean Corpuscular Volume 93.8 79-99 fL Mean Corpuscular Hemoglobin 30.5 27.0-33.0 pg Mean Corpuscular Hemoglobin Concent 32.6 32.0-36.0 g/dL Red Cell Distribution Width 15.9 H 11.0-15.5 % Platelet Count 135 130-400 K/uL Mean Platelet Volume 12.2 H 7.5-10.5 fL Immature Granulocyte % (Auto) 0.4 0-1 % Neutrophils (%) (Auto) 71.8 40.0-77.0 % Lymphocytes (%) (Auto) 15.9 L 21.0-51.0 % Monocytes (%) (Auto) 9.3 3.0-13.0 % Eosinophils (%) (Auto) 1.2 0.0-8.0 % Basophils (%) (Auto) 1.4 0.0-5.0 % Neutrophils # (Auto) 5.6 1.8-7.7 K/uL Lymphocytes # (Auto) 1.2 1.0-4.8 K/uL Monocytes # (Auto) 0.7 0.1-1.0 K/uL Eosinophils # (Auto) 0.09 0.00-0.70 K/uL Basophils # (Auto) 0.11 0.00-0.20 K/uL Absolute Immature Granulocyte (auto 0.03 0-1 K/uL Nucleated Red Blood Cells 0.0 0.0-0.19 % Chemistry Labs: Test 07/29/24 03:16 07/28/24 05:03 Range/Units Sodium Level 141 136-145 mmol/L Potassium Level 4.3 3.5-5.1 mmol/L Chloride Level 103 101-111 mmol/L Carbon Dioxide Level 33 H 21-32 mmol/L Blood Urea Nitrogen 57 H 7-18 mg/dL Creatinine 2.7 H 0.5-1.3 mg/dL Glomerular Filtration Rate Calc 25 >90 mL/min Random Glucose 106 H 70-105 mg/dL Total Calcium 9.3 8.5-10.1 mg/dL Phosphorus Level 4.0 2.5-4.9 mg/dL Magnesium Level 2.40 1.80-2.40 mg/dL DIAGNOSTICS / RADIOLOGY RESULTS: [ No imaging scans reviewed today] PLAN Optimize blood pressure medications as per cardiology recommendations Patient is still pending transfer to [facility] in [facility] We will continue to follow closely All questions answered No family at bedside NEURO: Minimize central acting medications as possible. Maintain fall precautions, adequate lighting during the day PULMONARY: Supplemental 02 as needed. Maintain aspiration precautions at all times see plan above CARDIOVASCULAR: Follow hemodynamics. Vital signs per facility protocol GI & NUTRITION: Continue with nutritional support. Continue stool softeners and laxatives as needed. KIDNEYS & ELECTROLYTES: Strict monitoring of intake, output and overall fluid balance. Hold Bumex , Us of renal system Avoid nephrotoxic medications to the extent possible. Medications to be dosed according to renal function. Monitor electrolytes and replace as needed ENDOCRINE: Maintain blood glucose between 100-180 at all times. Hypoglycemia protocol in place INFECTIOUS DISEASE: Trend temperature, WBC and procalcitonin level Follow cultures, deescalate antibiotics as soon as possible. Panculture if new onset fever ONCOLOGY/HEMATOLOGY/COAGULATION: Monitor for s/s of bleeding Monitor hemoglobin, coagulation studies as needed SKIN: Pressure ulcer prevention per facility protocol Specialty mattress ORTHO/REHAB: Continue PT/OT Prophylaxis: Continue GI and DVT prophylaxis Code Status: Full Resuscitation Disposition: Per primary team-discussed with team Other: Complex clinical case Total time spent with patient: 35 minutes ATTESTATION BY PHYSICIAN Note transcribed by my medical dosimetrist. I can attest to the accuracy of the note. Humaira Pastrana MD I personally scribed for HUMAIRA PASTRANA MD ([email or web address]) on 07/29/24 at 22:04. Electronically submitted by Ranjeet Santana ([email or web address]). HUMAIRA PASTRANA MD Jul 29, 2024 22:04
[2024-07-30] VITALS: BP 110/42; PULSE 75; RESP 18; TEMP 97.5
[2024-07-30 02:00] VITALS: O2SAT 97
--- NOTE | 2024-07-30 02:00 | NUR ---
PT ARRIVED TO ROOM 224 VIA HOSPITAL BED. PT DOES NOT APPEAR TO BE IN ANY DISTRESS.ORIENTATED PT TO ROOM INSTRUCTED PT TO USE THE CALL LIGHT FOR ANY ASSISTANCE WHEN NEEDED.PT UNDERSTOOD BED IS LOW AND LOCKED CALL LIGHT WITHIN REACH . PTS BELONGINGS PLACED IN THE CLOSET UNDER THE TV IN ROOM 224.
[2024-07-30 04:09] VITALS: BP 105/59; PULSE 71; RESP 18; TEMP 98.2
[2024-07-30 06:02] LABS: BASOPHILS # (AUTO) 0.08 K/uL (0.00-0.20); EOSINOPHILS # (AUTO) 0.14 K/uL (0.00-0.70); EOSINOPHILS % (AUTO) 1.7 % (0.0-8.0); HEMATOCRIT 43.9 % (42-54); IMMATURE GRANULOCYTE ABSOLUTE 0.03 K/uL (0-1); LYMPHOCYTES # (AUTO) 1.7 K/uL (1.0-4.8); LYMPHOCYTES % (AUTO) 20.3 % (21.0-51.0); MEAN CORPUSCULAR HEMOGLOBIN 30.8 pg (27.0-33.0); MEAN CORPUSCULAR HGB CONC 32.8 g/dL (32.0-36.0); MEAN CORPUSCULAR VOLUME 93.8 fL (79-99); MONOCYTES # (AUTO) 0.9 K/uL (0.1-1.0); MONOCYTES % (AUTO) 10.9 % (3.0-13.0); NEUTROPHILS # (AUTO) 5.4 K/uL (1.8-7.7); NEUTROPHILS % (AUTO) 65.7 % (40.0-77.0); PLATELET COUNT (AUTO) 139 K/uL (130-400); RED BLOOD CELL COUNT(AUTO) 4.68 MIL/uL (4.50-6.20); RED CELL DISTRIBUTION WIDTH 15.9 % (11.0-15.5); WHITE BLOOD COUNT (AUTO) 8.2 K/uL (4.8-10.8)
[2024-07-30 06:21] LABS: ALBUMIN 3.1 g/dL (3.5-5.0); CREATININE 2.7 mg/dL (0.5-1.3); PHOSPHORUS 3.9 mg/dL (2.5-4.9); POTASSIUM 3.8 mmol/L (3.5-5.1)
[2024-07-30 06:23] LABS: BILIRUBIN,TOTAL 2.9 mg/dL (0.2-1.0); MAGNESIUM 2.4 mg/dL (1.80-2.40); TOTAL PROTEIN, SERUM 6.1 g/dL (6.0-8.3)
[2024-07-30 07:35] VITALS: BP 104/51; PULSE 74; RESP 20; TEMP 97.4
[2024-07-30 08:10] VITALS: O2SAT 97
--- NOTE | 2024-07-30 08:25 | PN ---
[facility] PROGRESS NOTE Date of Service: Jul 30, 2024 Time of Service: 08:25 SUBJECTIVE: [ ] The patient has been seen and examined today during my rounding, no acute events overnight, patient resting comfortably in bed, alert oriented x3, hemodynamically stable, BP 121/62, afebrile, saturating normal on room air. The patient continue diuretics, having good urine output, has urinated several times throughout this hospitalization. He admits less swollen to both lower extremities. Results of Doppler extremities negative for DVT. The patient with the elevated D-dimer. No chest pain, no shortness a breath at the time of my visit, unable to do V/Q scan or CT PE protocol as the patient elevated creatinine and unable to stay flat on his back. is at bedside during my visit. 07/20 the patient has been seen and examined earlier this morning during my rounding, no acute events overnight, he remains hemodynamically stable, afebrile, saturating normal on room air. The patient has been very good urine output. Per my discussion with the nurse that is taking care of the patient, the patient's weight has improved from 291.8 lb to 283.4 today. He denies chest pain, no shortness a breath, he admits less swollen to both lower extremities compared to time of admission. is not present at the bedside during my visit. 07/21/24 patient was seen and examined and case discussed with RN. He feels that his swelling is going down. We will continue with Bumex. Monitor electrolytes. Monitor weight 07/22 patient seen at bedside, no acute events overnight. Patient continues with diuresis, he was evaluated by Cardiology today, recommendations still pending we will follow up. Patient with notable chronic kidney disease and pulmonary hypertension which likely are contributing to his peripheral pitting edema. Surprisingly his ejection fraction is near normal with 45 to 50% and is unlikely the cause his pitting edema. He does have some valvular dysfunction with some moderate regurgitation. He has ventricle and atria are dilated likely due to increased pressures possibly due to dilated cardiomyopathy. At bedside he is saturating well on room air has no complaints at this time. Further recommendations per Cardiology, pulmonology and Nephrology. Pulmonology recommending to treat underlying causes no direct interventions for pulmonary hypertension at this time as he has a grade 2 in the guidelines state to treat the underlying causes. 07/23 patient seen at bedside, no acute events overnight. He continues with diuresis. Creatinine appears to be at baseline at 2.2, similar to yesterday. Due to renal function he is not able to undergo a left heart catheterization per Cardiology. We will focus on optimal medical management at this time. We will follow up with pulmonology, Nephrology and Cardiology recommendations for clearance for discharge vs further workup 07/24 patient seen at bedside, no acute events overnight. He continues with diuresis. Creatinine at 2.2, same as yesterday. Continue optimal medical management at this time. We will follow up with pulmonology, Nephrology and Cardiology recommendations for clearance for discharge vs further workup. Cardiology recommending continued diuresis 07/25: This is a late dictation. Patient seen at bedside, no acute events overnight. He continues with diuresis. Pt cleared by cardiology and pulmonology. His potassium remains low, spironolactone started and patient continues on potassium supplements. Will recheck renal function and potassium again tomorrow 07/26 Patient seen at bedside, no acute events overnight. He continues with diuresis. His potassium remains low, spironolactone increased to 25mg q24h, bumex dose decreased to 1mg BID, and patient continues on potassium supplements. Will recheck renal function and potassium again tomorrow. If potassium > 3.0 will be good candidate for discharge 07/27 Patient seen at bedside, no acute events overnight. He continues with diuresis. His potassium remains low, am diuretics held and patient continues on potassium supplements. Will recheck renal function and potassium again tomorrow. If potassium > 3.0 will be good candidate for discharge. 07/28 Pt seen at bedside, no acute events overnight. Pt potassium improved however blood pressures on the low side of normal, patient also complaining of increased fatigue. We will start patient on midodrine 5 mg 3 times daily and reassess tomorrow for possible discharge. Ortho static vital signs have been ordered, we will follow up. Bumex has been discontinued, continue spironolactone. 07/29 the patient has been seen and examined during my rounding, no acute events overnight, he remains alert and oriented x3, walking around room, he remains on midodrine 5 mg p.o. 3 times daily, blood pressure has remained in the low side but stable. Denies dizziness, no chest pain, no shortness a breath. 07/30 patient is seen and examined today during my rounding, no acute events overnight, hemodynamically stable. REVIEW OF SYSTEMS 12 point review of systems negative unless noted in HPI PHYSICAL EXAM GENERAL APPEARANCE: The patient is awake, alert, and oriented, in no acute cardiopulmonary distress. NEUROLOGICAL: Cranial nerves II-XII grossly intact. Motor is 5/5 in bilateral upper and lower extremities proximal to distal. No sensory deficits. HEENT: Face is symmetric. Pupils are equal and reactive. Extraocular movements are intact. NECK: Supple. No JVD. No thyromegaly. No submental, submandibular, pre- /postauricular, occipital or supraclavicular lymphadenopathy. CHEST: Normal chest expansion. No Telemetry. LUNGS: Crackles noted at bilateral lung base CARDIOVASCULAR: Regular. S1 and S2 normal. No appreciable rubs, murmurs or gallops. ABDOMEN: Soft, nontender, and nondistended. There is no rebound, voluntary guarding, or rigidity. : Deferred. No Pritchard. EXTREMITIES: 3+ pitting edema noted of bilateral lower extremities SKIN: No skin breakdown. Vital Signs (last 8hr) Date Time Temp Pulse Resp B/P (MAP) Pulse Ox O2 Delivery O2 Flow Rate FiO2 07/30/24 07:35 97.3 74 20 104/51 97 Room Air 07/30/24 04:09 98.2 71 18 105/59 97 Room Air 07/30/24 02:00 97 Room Air* 0 21 LABS: Laboratory: Test 07/30/24 05:56 Range/Units White Blood Count 8.2 4.8-10.8 K/uL Red Blood Count 4.68 4.50-6.20 MIL/uL Hemoglobin 14.4 14.0-18.0 g/dL Hematocrit 43.9 42-54 % Mean Corpuscular Volume 93.8 79-99 fL Mean Corpuscular Hemoglobin 30.8 27.0-33.0 pg Mean Corpuscular Hemoglobin Concent 32.8 32.0-36.0 g/dL Red Cell Distribution Width 15.9 H 11.0-15.5 % Platelet Count 139 130-400 K/uL Mean Platelet Volume 11.9 H 7.5-10.5 fL Immature Granulocyte % (Auto) 0.4 0-1 % Neutrophils (%) (Auto) 65.7 40.0-77.0 % Lymphocytes (%) (Auto) 20.3 L 21.0-51.0 % Monocytes (%) (Auto) 10.9 3.0-13.0 % Eosinophils (%) (Auto) 1.7 0.0-8.0 % Basophils (%) (Auto) 1.0 0.0-5.0 % Neutrophils # (Auto) 5.4 1.8-7.7 K/uL Lymphocytes # (Auto) 1.7 1.0-4.8 K/uL Monocytes # (Auto) 0.9 0.1-1.0 K/uL Eosinophils # (Auto) 0.14 0.00-0.70 K/uL Basophils # (Auto) 0.08 0.00-0.20 K/uL Absolute Immature Granulocyte (auto 0.03 0-1 K/uL Nucleated Red Blood Cells 0.0 0.0-0.19 % Sodium Level 139 136-145 mmol/L Potassium Level 3.8 3.5-5.1 mmol/L Chloride Level 101 101-111 mmol/L Carbon Dioxide Level 30 21-32 mmol/L Blood Urea Nitrogen 58 H 7-18 mg/dL Creatinine 2.7 H 0.5-1.3 mg/dL Glomerular Filtration Rate Calc 25 >90 mL/min Random Glucose 96 70-105 mg/dL Total Calcium 9.5 8.5-10.1 mg/dL Phosphorus Level 3.9 2.5-4.9 mg/dL Magnesium Level 2.40 1.80-2.40 mg/dL Total Bilirubin 2.9 H 0.2-1.0 mg/dL Aspartate Amino Transf (AST/SGOT) 50 H 10-37 U/L Alanine Aminotransferase (ALT/SGPT) 53 12-78 U/L Alkaline Phosphatase 84 50-136 U/L Total Protein 6.1 6.0-8.3 g/dL Albumin 3.1 L 3.5-5.0 g/dL Current Medications Medications (Trade) Dose Ordered Sig/Samantha Route PRN Reason Start Time Stop Time Status Last Admin Dose Admin Acetaminophen (TYLenol 500MG TAB) 500 mg Q6H PRN PO MILD PAIN (1-3) 07/18/24 18:00 08/17/24 17:59 Acetaminophen (TYLenol 500MG TAB) 500 mg Q6H PRN PO MILD PAIN (1-3) 07/18/24 18:00 08/17/24 17:59 Amiodarone HCl (pacERONE 200MG) 200 mg QMOWEFR PO 07/19/24 09:00 08/18/24 08:59 07/29/24 08:37 200 MG Apixaban (EliquIS) 5 mg BID PO 07/18/24 21:00 08/17/24 20:59 07/29/24 20:58 5 MG Atorvastatin Calcium (LIPItor 10MG) 10 mg DAILY PO 07/19/24 09:00 07/22/24 10:33 DC 07/22/24 09:06 10 MG Atorvastatin Calcium (LIPItor 10MG) 10 mg HS PO 07/23/24 21:00 08/18/24 08:59 07/29/24 21:00 10 MG Budesonide (Pulmicort 0.5 Mg/2ml) 0.5 mg BIDRESP IH 07/18/24 18:00 07/24/24 09:25 DC 07/24/24 06:13 0.5 MG Bumetanide (Bumex 1mg Tab) 1 mg BID PO 07/26/24 21:00 07/27/24 15:34 DC 07/26/24 20:14 1 MG Bumetanide (Bumex 1mg Tab) 2 mg BID PO 07/23/24 21:00 07/25/24 11:56 DC 07/25/24 09:25 2 MG Bumetanide (Bumex 1mg Tab) 2 mg BID PO 07/25/24 21:00 07/26/24 11:26 DC 07/25/24 20:32 2 MG Bumetanide (Bumex 1mg Vial) 1 mg Q8H IVP 07/18/24 21:00 07/23/24 17:15 DC 07/23/24 13:51 1 MG Bupropion HCl (WellBUTrin SR 150MG) 150 mg BID PO 07/19/24 21:00 08/18/24 20:59 07/29/24 21:01 150 MG Fish Oil (Fish Oil 1000 Mg/Cap) 1,000 mg BID PO 07/19/24 21:00 08/18/24 20:59 07/29/24 21:01 1,000 MG Gabapentin (NEURontin 100 mg CAP) 100 mg HS PO 07/19/24 21:00 08/18/24 20:59 07/29/24 21:00 100 MG Home Med (Home Medication) (Dapagliflozin Propanediol (Farxiga... DAILY PO 07/20/24 09:00 08/19/24 08:59 Ipratropium Mcdade (AtrovENT UD) 1 mg Q6H PRN IH SHORTNESS OF BREATH 07/18/24 18:00 08/17/24 17:59 Levothyroxine Sodium (SYNTHroid 25MCG TAB) 25 mcg DAILY@0630 PO 07/19/24 06:30 08/18/24 06:29 07/30/24 05:43 25 MCG Magnesium Sulfate 50 ml @ 0 mls/hr PROTOCOL IV 07/18/24 18:00 08/17/24 17:59 Melatonin (Melatonin) 5 mg HS PRN PO insomnia 07/18/24 20:30 07/25/24 14:34 DC Melatonin (Melatonin) 10 mg HS PO 07/19/24 21:00 08/18/24 20:59 07/29/24 20:59 10 MG Metolazone (zarOXOlyn) 5 mg ONCE STAT PO 07/22/24 14:07 07/22/24 14:12 DC 07/22/24 14:24 5 MG Metoprolol Succinate (TopROL XL) 25 mg DAILY PO 07/19/24 09:00 08/18/24 08:59 07/29/24 08:36 25 MG Midodrine (PROAMatine 5 MG TABLET) 5 mg TID PO 07/28/24 21:00 08/27/24 20:59 07/29/24 20:59 5 MG Ondansetron HCl (zoFRAN 4MG INJ) 4 mg Q6H PRN IVP NAUSEA/VOMITING 07/18/24 18:00 08/17/24 17:59 07/29/24 16:55 4 MG Pantoprazole Sodium (PROTonix 40MG TAB) 40 mg DAILY PO 07/19/24 09:00 08/18/24 08:59 07/29/24 08:36 40 MG Pharmacy Profile Note (Lace Assessment) 1 each AD MISC 07/19/24 17:30 07/19/24 20:58 DC Potassium Chloride 100 ml @ 100 mls/hr AD PRN IV POTASSIUM PROTOCOL 07/18/24 18:00 08/17/24 17:59 07/27/24 11:13 100 MLS/HR Potassium Chloride (K-Dur 10meq Sr Tab) 10 meq AD PRN PO POTASSIUM PROTOCOL 07/22/24 11:00 08/17/24 17:59 07/28/24 14:25 10 MEQ Potassium Chloride (K-Dur 10meq Sr Tab) 10 meq BID PO 07/26/24 09:00 07/26/24 07:45 DC Potassium Chloride (K-Dur/Klor-Con 20meq) 10 meq AD PRN PO POTASSIUM PROTOCOL 07/18/24 18:00 07/22/24 10:35 DC 07/21/24 15:29 10 MEQ Potassium Chloride (K-Dur/Klor-Con 20meq) 20 meq BID PO 07/23/24 21:00 07/29/24 15:54 DC 07/29/24 08:36 20 MEQ Potassium Chloride (KCl 10% Elixir 20meq/15ml) 10 meq AD PRN PO POTASSIUM PROTOCOL 07/18/24 18:00 08/17/24 17:59 07/22/24 09:07 10 MEQ Simethicone (Mylicon) 40 mg ONCE PO 07/20/24 21:00 07/20/24 20:35 DC Spironolactone (Aldactone 25mg) 12.5 mg DAILY PO 07/26/24 09:00 07/26/24 11:26 DC 07/26/24 09:36 12.5 MG Spironolactone (Aldactone 25mg) 25 mg DAILY PO 07/27/24 09:00 07/26/24 12:03 DC Spironolactone (Aldactone 25mg) 25 mg DAILY PO 07/27/24 09:00 07/29/24 15:54 DC Vitamin B Complex/ Vit C/Folic Acid (Nephrovite Tablet) 1 cap DAILY PO 07/19/24 09:00 08/18/24 08:59 07/29/24 08:36 1 CAP DIAGNOSTICS / RADIOLOGY: [ ] ASSESSMENT: 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, POA, (LV EF 45-50%) Acute hypoxemic respiratory failure, POA History of severe pulmonary hypertension with RVSP of 54, attributed secondary to underlying cardiac comorbidities, group 2, POA Rule out pulmonary arterial hypertension, POA History of moderate aortic regurgitation, POA History of moderate tricuspid regurgitation, POA Severe volume overload, POA Congestive hepatopathy, POA CKD stage 3, likely chronic cardiorenal syndrome, POA Underlying history of atrial fibrillation, POA History of chronic anticoagulation with Eliquis as outpatient, POA Obesity, POA History of severe aortic stenosis status post bioprosthetic aortic valve replacement in 2018, POA PLAN: Patient remains admitted to the medical floor Continue library monitor Continue diuresis Monitor urine output closely, obtain daily weight Monitor renal function closely Start midodrine 5mg TID Maintain K greater than four and magnesium greater than two, electrolytes will be repleted per protocol Echocardiogram to evaluate ejection fraction, follow Cardiology input and recommendation Replace electrolytes IV per protocol Continue amiodarone, Eliquis, metoprolol succinate and home medications were reconciled and updated once available We will monitor BMP closely tonight and All labs will be repeated in the morning We will see if patient has undergone prior sleep study to rule out obstructive sleep apnea Disposition: Patient to be discharged home today, discussed with water proofer over the phone today. Cardiology to arrange for MRI at [facility] in [place] to rule out constrictive pericarditis. Please refer to final summary. JEAN FERNANDEZ MD Jul 30, 2024 08:25
[2024-07-30] MEDS ORDERED: Folic Acid/Vitamin B Comp W-C PO (12:39)
[2024-07-30] MEDS ORDERED: BUME1TAB7 PO (12:39)
[2024-07-30] MEDS ORDERED: miDODRine HCL 5 MG TABLET PO (12:39)
--- NOTE | 2024-07-30 12:48 | DS ---
Discharge Summary Hospital Course Summary: Patient admitted to the hospital 07/18/2024 with the following history of the present illness: 69-year-old male with underlying history of hypertension, hyperlipidemia, CKD stage 3, underlying history of atrial fibrillation, heart failure with mildly reduced ejection fraction of 45-50% (RVSP of 54 concerning for severe pulmonary hypertension), history of chronic anticoagulation with Eliquis, history of severe aortic stenosis secondary to bicuspid aortic valve status post bioprosthetic aortic valve replacement in 2018 who presented to the ER for further evaluation of progressive lower extremity edema and weight gain. Patient was hospitalized in [facility] on 05/31/2024 and discharged from the hospital on 06/12/2024 for heart failure exacerbation, respiratory failure, MYA on CKD and received IV diuretics, IV antibiotics and steroids during hospitalization. Patient stated that over the past two weeks, he has noticed significant lower extremity edema with weight gain of 30 lb. He had seen his primary care provider recently who stopped his outpatient Lasix and was recommended to continue with metolazone. Since stopping Lasix, patient has continued to develop significant lower extremity edema, shortness of breath, dyspnea on exertion as well. Patient is followed by Dr. Bocanegra with Cardiology as outpatient. Patient is followed by Dr. Deras with pulmonology as outpatient. Patient admitted for further management of decompensated heart failure and will receive IV diuresis with Bumex. Pulmonary and Cardiology consultation requested, recommendations followed. Venous Doppler no evidence of deep vein thrombosis within the bilateral lower extremity veins. Abdominal ultrasound no gallstones or ductal dilatation, bilateral pleural effusions, no hydronephrosis seen. CT [id number] without contrast was done, small amount of fluid in the pelvis. Small bilateral pleural effusion with compressive atelectasis. Minimal left lower lung pulmonary infiltrates. Minimal left lower lung pulmonary infiltrate seen. Echocardiogram done, reported as follows: LVEF is 55-60%. LVEF is 55-60%. There is normal LV segmental wall motion. The left ventricular diastolic function is normal. The right ventricular systolic function is normal. Bioprosthetic aortic valve. Prosthetic aortic valve is normal in appearance and well seated. There is no pericardial effusion. The aortic root is normal in size. Patient evaluated by his diagnostics sales developer, we will arrange for MRI at [facility] rule out possible constrictive pericarditis. During the course of the hospitalization patient is started on midodrine 5 mg p.o. t.i.d. to improve his blood pressure. Today he is hemodynamically stable, to be started on Bumex 1 mg p.o. b.i.d., discussed with diagnostics sales developer, clear to be discharged and follow up as an outpatient this week. The patient denies dizziness, no headache, no blurry vision, no chest pain, no shortness a breath, no nausea, no vomiting, no abdominal pain, no diarrhea, no constipation, no melena, no hematochezia, no hematemesis, no hematuria, no dysuria. President & Ceo(s): Cardiology and Pulmonary. 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, POA, (LV EF 45-50%) Acute hypoxemic respiratory failure, POA History of severe pulmonary hypertension with RVSP of 54, attributed secondary to underlying cardiac comorbidities, group 2, POA Rule out pulmonary arterial hypertension, POA History of moderate aortic regurgitation, POA History of moderate tricuspid regurgitation, POA Severe volume overload, POA Congestive hepatopathy, POA CKD stage 3, likely chronic cardiorenal syndrome, POA Underlying history of atrial fibrillation, POA History of chronic anticoagulation with Eliquis as outpatient, POA Obesity, POA History of severe aortic stenosis status post bioprosthetic aortic valve replacement in 2018, POA Discharge Instructions: The patient to follow up with diagnostics sales developer this week as an outpatient and to return to the hospital if his condition changes. Patient agreed with the plan and understood the information provided. Home Medications: Active Scripts Pantoprazole Sodium (Protonix) 40 Mg Tablet.dr, 40 MG PO DAILY, #60 TAB Prov:JOAQUIM MOMIN [facility] 06/11/24 Melatonin (Melatonin) 5 Mg Tablet, 10 MG PO HS, #15 TAB Prov:JOAQUIM MOMIN [facility] 06/11/24 Metolazone (Metolazone) 2.5 Mg Tablet, 5 MG PO DAILY, #60 TAB Prov:JOAQUIM MOMIN [facility] 06/11/24 Apixaban (Eliquis) 5 Mg Tablet, 5 MG PO BID, #60 TAB Prov:JOAQUIM MOMIN [facility] 06/11/24 Reported Medications Gabapentin (Gabapentin) 100 Mg Capsule, 1 CAP PO HS for 30 Days, #90 CAP 0 Refills 07/18/24 Furosemide (Furosemide) 40 Mg Tablet, 1 TAB PO HS for 30 Days, #30 TAB 0 Refills 07/18/24 Furosemide (Furosemide) 20 Mg Tablet, 1 TAB PO DAILY for 30 Days, #30 TAB 0 Refills 07/18/24 Levothyroxine Sodium (Levothyroxine Sodium) 25 Mcg Tablet, 1 TAB PO DAILY for 30 Days, #30 TAB 0 Refills 07/18/24 Potassium Citrate (Potassium Citrate ER) 15 Meq (1620 Mg) Tablet.er, 20 MEQ PO DAILY, TAB 07/18/24 Dapagliflozin Propanediol (Farxiga) 10 Mg Tablet, 1 TAB PO DAILY for 30 Days, #30 TAB 0 Refills 05/31/24 Amiodarone HCl (Amiodarone HCl) 200 Mg Tablet, 1 TAB PO QMOWEFR for 30 Days, #30 TAB 0 Refills 05/31/24 Albuterol Sulfate (Ventolin Hfa) 90 Mcg Hfa.aer.ad, 2 PUFF IH Q4HPRN PRN for wheezing for 30 Days, #18 GM 0 Refills 05/31/24 Bupropion HCl (Bupropion HCl Sr) 150 Mg Tablet.er, 1 TAB PO BID for 30 Days, #60 TAB 0 Refills 05/31/24 Metoprolol Succinate (Metoprolol Succinate) 25 Mg Tab.er.24h, 25 MG PO DAILY, TAB 10/31/23 Amiodarone HCl (Amiodarone HCl) 200 Mg Tablet, 200 MG PO AD, TAB 10/31/23 [place]-3 Fatty Acids/Fish Oil ([place] 3 1,000 mg Softgel) 300 Mg-1,000 Mg Capsule, 2 EACH PO BID, CAP 10/31/23 Atorvastatin Calcium (LIPITOR) 10 Mg Tab, 10 MG PO HS, TAB 10/31/23 Time spent arranging discharge: 31-60 minutes JEAN FERNANDEZ MD Jul 30, 2024 12:47
[2024-07-30 12:50] VITALS: BP 100/52; PULSE 72; RESP 20; TEMP 97.8
--- NOTE | 2024-07-30 13:59 | PN ---
NEPHROLOGY PROGRESS NOTE Date/Time Patient Seen: Jul 30, 2024 SUBJECTIVE: This is a 69-year-old male with underlying history of hypertension, hyperlipidemia, CKD stage 3, underlying history of atrial fibrillation, heart failure with mildly reduced ejection fraction of 45-50% (RVSP of 54 concerning for severe pulmonary hypertension), history of chronic anticoagulation with Eliquis, history of severe aortic stenosis secondary to bicuspid aortic valve status post bioprosthetic aortic valve replacement in 2018 He presented to the ER for further evaluation of progressive lower extremity edema and weight gain. Patient states diuretics were stopped and his urine output decreased He was noted to have elevated BUN/creatinine We are consulted for renal failure Renal function and electrolytes are stable. Bumex was discontinued due to hypotension. 24 hour urine output and daily weight noted. Pending discharge disposition later today He was seen in the medical floor, in no acute distress Family at the bedside. REVIEW OF SYSTEMS: GENERAL: Negative for any nausea, vomiting, fevers, chills, or weight loss. NEUROLOGIC: Negative for any blurry vision, blind spots, double vision, facial asymmetry, dysphagia, dysarthria, hemiparesis, hemisensory deficits, vertigo, ataxia. HEENT: Negative for any head trauma, neck trauma, neck stiffness, photophobia, phonophobia, sinusitis, rhinitis. CARDIAC: Negative for any chest pain, dyspnea on exertion, paroxysmal nocturnal dyspnea, peripheral edema. PULMONARY: Negative for any shortness of breath, wheezing, COPD, or TB exposure. GASTROINTESTINAL: Negative for any abdominal pain, nausea, vomiting, bright red blood per rectum, melena. GENITOURINARY: Negative for any dysuria, hematuria, incontinence. INTEGUMENTARY: Negative for any rashes, cuts, insect bites. RHEUMATOLOGIC: Negative for any joint pains, photosensitive rashes, history of vasculitis or kidney problems. HEMATOLOGIC: Negative for any abnormal bruising, frequent infections or b leeding. Current Medications Medications (Trade) Dose Ordered Sig/Samantha Route Start Time Stop Time Status Last Admin Dose Admin Amiodarone HCl (pacERONE 200MG) 200 mg QMOWEFR PO 07/19/24 09:00 08/18/24 08:59 07/26/24 09:34 200 MG Apixaban (EliquIS) 5 mg BID PO 07/18/24 21:00 08/17/24 20:59 07/26/24 09:37 5 MG Atorvastatin Calcium (LIPItor 10MG) 10 mg DAILY PO 07/19/24 09:00 07/22/24 10:33 DC 07/22/24 09:06 10 MG Atorvastatin Calcium (LIPItor 10MG) 10 mg HS PO 07/23/24 21:00 08/18/24 08:59 07/25/24 20:33 10 MG Budesonide (Pulmicort 0.5 Mg/2ml) 0.5 mg BIDRESP IH 07/18/24 18:00 07/24/24 09:25 DC 07/24/24 06:13 0.5 MG Bumetanide (Bumex 1mg Tab) 1 mg BID PO 07/26/24 21:00 08/25/24 20:59 Bumetanide (Bumex 1mg Tab) 2 mg BID PO 07/23/24 21:00 07/25/24 11:56 DC 07/25/24 09:25 2 MG Bumetanide (Bumex 1mg Tab) 2 mg BID PO 07/25/24 21:00 07/26/24 11:26 DC 07/25/24 20:32 2 MG Bumetanide (Bumex 1mg Vial) 1 mg Q8H IVP 07/18/24 21:00 07/23/24 17:15 DC 07/23/24 13:51 1 MG Bupropion HCl (WellBUTrin SR 150MG) 150 mg BID PO 07/19/24 21:00 08/18/24 20:59 07/26/24 09:37 150 MG Fish Oil (Fish Oil 1000 Mg/Cap) 1,000 mg BID PO 07/19/24 21:00 08/18/24 20:59 07/26/24 09:35 1,000 MG Gabapentin (NEURontin 100 mg CAP) 100 mg HS PO 07/19/24 21:00 08/18/24 20:59 07/25/24 20:33 100 MG Home Med (Home Medication) (Dapagliflozin Propanediol (Farxiga... DAILY PO 07/20/24 09:00 08/19/24 08:59 Levothyroxine Sodium (SYNTHroid 25MCG TAB) 25 mcg DAILY@0630 PO 07/19/24 06:30 08/18/24 06:29 07/26/24 06:03 25 MCG Magnesium Sulfate 50 ml @ 0 mls/hr PROTOCOL IV 07/18/24 18:00 08/17/24 17:59 Melatonin (Melatonin) 10 mg HS PO 07/19/24 21:00 08/18/24 20:59 07/25/24 20:32 10 MG Metolazone (zarOXOlyn) 5 mg ONCE STAT PO 07/22/24 14:07 07/22/24 14:12 DC 07/22/24 14:24 5 MG Metoprolol Succinate (TopROL XL) 25 mg DAILY PO 07/19/24 09:00 08/18/24 08:59 07/26/24 09:35 25 MG Pantoprazole Sodium (PROTonix 40MG TAB) 40 mg DAILY PO 07/19/24 09:00 08/18/24 08:59 07/26/24 09:37 40 MG Pharmacy Profile Note (Lace Assessment) 1 each AD MISC 07/19/24 17:30 07/19/24 20:58 DC Potassium Chloride (K-Dur 10meq Sr Tab) 10 meq BID PO 07/26/24 09:00 07/26/24 07:45 DC Potassium Chloride (K-Dur/Klor-Con 20meq) 20 meq BID PO 07/23/24 21:00 08/22/24 20:59 07/26/24 09:36 20 MEQ Simethicone (Mylicon) 40 mg ONCE PO 07/20/24 21:00 07/20/24 20:35 DC Spironolactone (Aldactone 25mg) 12.5 mg DAILY PO 07/26/24 09:00 07/26/24 11:26 DC 07/26/24 09:36 12.5 MG Spironolactone (Aldactone 25mg) 25 mg DAILY PO 07/27/24 09:00 07/26/24 12:03 DC Vitamin B Complex/ Vit C/Folic Acid (Nephrovite Tablet) 1 cap DAILY PO 07/19/24 09:00 08/18/24 08:59 07/26/24 09:32 1 CAP PHYSICAL EXAM: GENERAL: Alert and oriented x 3. No acute distress. Well-nourished. EYES: EOMI. Anicteric. HENT: Moist mucous membranes. No scleral icterus. No cervical lymphadenopathy. LUNGS: Clear to auscultation bilaterally. No accessory muscle use. CARDIOVASCULAR: Regular rate and rhythm. No murmur. No JVD. ABDOMEN: Soft, non-tender and non-distended. No palpable masses. EXTREMITIES: No edema. Non-tender. SKIN: No rashes or lesions. Warm. NEUROLOGIC: No focal neurological deficits. CN II-XII grossly intact, but not individually tested. PSYCHIATRIC: Cooperative. Appropriate mood and affect. Intake and Output 07/26/24 07:00 Intake Total 100.0 ml Output Total 2200 ml Balance -2100.0 ml IV Total 100.0 ml Output Urine Total 2200 ml Vital Signs (last 8hr) Date Time Temp Pulse Resp B/P (MAP) Pulse Ox O2 Delivery O2 Flow Rate FiO2 07/26/24 12:00 97.5 77 19 118/58 90 Room Air 07/26/24 08:08 97.7 57 19 109/73 99 Room Air 07/26/24 08:00 96 Room Air* 0 21 07/26/24 07:35 75 18 N/A Room Air 21 LABORATORY: [ ] Hematology Labs: Test 07/30/24 05:56 Range/Units White Blood Count 8.2 4.8-10.8 K/uL Red Blood Count 4.68 4.50-6.20 MIL/uL Hemoglobin 14.4 14.0-18.0 g/dL Hematocrit 43.9 42-54 % Mean Corpuscular Volume 93.8 79-99 fL Mean Corpuscular Hemoglobin 30.8 27.0-33.0 pg Mean Corpuscular Hemoglobin Concent 32.8 32.0-36.0 g/dL Red Cell Distribution Width 15.9 H 11.0-15.5 % Platelet Count 139 130-400 K/uL Mean Platelet Volume 11.9 H 7.5-10.5 fL Immature Granulocyte % (Auto) 0.4 0-1 % Neutrophils (%) (Auto) 65.7 40.0-77.0 % Lymphocytes (%) (Auto) 20.3 L 21.0-51.0 % Monocytes (%) (Auto) 10.9 3.0-13.0 % Eosinophils (%) (Auto) 1.7 0.0-8.0 % Basophils (%) (Auto) 1.0 0.0-5.0 % Neutrophils # (Auto) 5.4 1.8-7.7 K/uL Lymphocytes # (Auto) 1.7 1.0-4.8 K/uL Monocytes # (Auto) 0.9 0.1-1.0 K/uL Eosinophils # (Auto) 0.14 0.00-0.70 K/uL Basophils # (Auto) 0.08 0.00-0.20 K/uL Absolute Immature Granulocyte (auto 0.03 0-1 K/uL Nucleated Red Blood Cells 0.0 0.0-0.19 % Chemistry Labs: Test 07/30/24 05:56 Range/Units Sodium Level 139 136-145 mmol/L Potassium Level 3.8 3.5-5.1 mmol/L Chloride Level 101 101-111 mmol/L Carbon Dioxide Level 30 21-32 mmol/L Blood Urea Nitrogen 58 H 7-18 mg/dL Creatinine 2.7 H 0.5-1.3 mg/dL Glomerular Filtration Rate Calc 25 >90 mL/min Random Glucose 96 70-105 mg/dL Total Calcium 9.5 8.5-10.1 mg/dL Phosphorus Level 3.9 2.5-4.9 mg/dL Magnesium Level 2.40 1.80-2.40 mg/dL Total Bilirubin 2.9 H 0.2-1.0 mg/dL Aspartate Amino Transf (AST/SGOT) 50 H 10-37 U/L Alanine Aminotransferase (ALT/SGPT) 53 12-78 U/L Alkaline Phosphatase 84 50-136 U/L Total Protein 6.1 6.0-8.3 g/dL Albumin 3.1 L 3.5-5.0 g/dL DIAGNOSTICS / RADIOLOGY: REASON: SOB ORDERING PHYSICIAN: HUMAIRA LUNSFORD MD PROCEDURE: CXR1VW - CHEST 1VW Exam Type: CHEST 1VW Clinical Information: SOB Comparison: None Findings: The lungs are clear of infiltrates. The heart is enlarged. Bony and soft tissue structures of the chest wall are unremarkable. IMPRESSION: Cardiomegaly. Clear lungs. DICTATED BY: THERESA RIVAS MD DATE: 07/28/24 0851 REASON: acute chf ORDERING PHYSICIAN: PRISCILLA GUY PAC PROCEDURE: ECHO FU LD - ECHO 2-D F/U-LTD APPROVED REPORT EXAM: Limited Two-dimensional and M-mode echocardiogram with Doppler and color Doppler. INDICATION ICD: Heart Failure 2D Dimensions RVDd 5.2 cm LVEF(%) 41.8 (>50%) LVED Vol(simp.) 175.0 mL IVSd 1.1 (0.7-1.1cm) FS(%) 21 % LVES Vol(simp.) 75.3 mL LVDd 6.2 (3.8-5.6cm) LA (2D) 4.6 (1.6-4.0cm) LVEF(%, simp.) 57 % PWd 1.2 (0.7-1.1cm) LVOT diam 2.7 (1.8-2.4cm) LA ESV INDEX (4CH) 34.00 mL/m2 IVSs 1.4 cm LA ESV INDEX (2CH) 30.90 mL/m2 LVDs 4.9 (2.5-4.0cm) PWs 1.6 cm Aortic Valve AoV VTI 0.4 m Ao Mean GR 9.0 mmHg LVOT VTI 0.20 m TIM (VMAX) 3.1 cm2 TIM (VTI) 3.1 cm2 Mitral Valve MV E Vmax 83.4 cm/s DECEL Time 127 ms MR Max PG 37 mmHg P 1/2 T 49 ms MVA (PHT) 4.5 cm2 TDI E/E' Medial 10.3 E/E' Lateral 8.3 Medial E' Peak V 8.10 cm/s Lateral E' Peak V 10.10 cm/s Tricuspid Valve RAP (EST) 15 mmHg RVSP 15.0 mmHg Left Ventricle The left ventricle is severely dilated. There is normal LV segmental wall motion. There is normal left ventricular wall thickness. LVEF is 55-60%. The left ventricular diastolic function is normal. Right Ventricle The right ventricle is moderately dilated. The right ventricular systolic funct ion is normal. Atria The left atrium size is normal. The right atrium is severely dilated. Aortic Valve Bioprosthetic aortic valve. Prosthetic aortic valve is normal in appearance and well seated. Trivial aortic regurgitation. No paravalvular leak or perivalvular leak noted. There is no aortic valvular stenosis. Mitral Valve The mitral valve is normal in structure. Mitral regurgitation is trace to mild. There is no mitral valve stenosis. Tricuspid Valve The tricuspid valve is normal in structure. There is mild tricuspid valve regurgitation noted. Pulmonic Valve The pulmonary valve is normal in structure. There is no pulmonic valvular regurgitation. Great Vessels The aortic root is normal in size. IVC is dilated and collapses <50% with inspiration. Pericardium There is no pericardial effusion. Other Information Quality : Adequate Conclusion LVEF is 55-60%. LVEF is 55-60%. There is normal LV segmental wall motion. The left ventricular diastolic function is normal. The right ventricular systolic function is normal. Bioprosthetic aortic valve. Prosthetic aortic valve is normal in appearance and well seated. There is no pericardial effusion. The aortic root is normal in size. DICTATED BY: JANETTE THORPE MD DATE: 07/23/24 1015 REASON: PLEURAL EFFUSION/TRANSAMINITIS ORDERING PHYSICIAN: LEIDA THOMAS PROCEDURE: CAP WO - CT CHEST/ABD/PELV W/O CONTRAST CT CHEST/ABD/PELV W/O CONTRAST HISTORY: Pleural effusion COMPARISON: None TECHNIQUE: Multiple sequential axial images of the chest were obtained from the thoracic inlet through upper abdomen. Patient was not given contrast through intravenous route. FINDINGS: There are small bilateral pleural effusions with compressive atelectasis. Bibasilar linear atelectasis changes are seen. Aortic calcifications are seen. Minimal left lower lung pulmonary infiltrates are seen. No pericardial effusion is seen. There is no evidence of pneumothorax. There are normal size mediastinal and hilar lymph nodes. The heart is not enlarged. Degenerative changes of the thoracolumbar spine are present. There is no evidence of adrenal nodule. IMPRESSION: 1. Small bilateral pleural effusions with compressive atelectasis. Minimal left lower lung pulmonary infiltrates are seen. Minimal left lower lung pulmonary infiltrates are seen. CT CHEST/ABD/PELV W/O CONTRAST HISTORY: Elevated liver enzymes COMPARISON: None TECHNIQUE: Multiple sequential axial images of the abdomen and pelvis were obtained from the dome of the diaphragm through symphysis pubis. Patient was not given contrast through intravenous route. Oral contrast was not given. FINDINGS: Liver is enlarged measuring 21 cm. The liver, spleen, adrenal glands and pancreas are unremarkable. There is no evidence of hydronephrosis bilaterally. No evidence of renal stone is seen. Fecal material is seen in the colon. There are normal size retroperitoneal and mesenteric lymph nodes. Small ascites fluid is seen in the pelvis. Atherosclerotic changes are present. There is left iliac stent. Pelvic sidewalls are symmetric bilaterally. Bladder is poorly distended. Fat stranding is seen adjacent to the bladder may be related to cystitis and urinary analysis correlation may be helpful. There is mild diverticulosis. IMPRESSION: 1. Small amount of fluid is seen in the pelvis. CT was performed with one or more following dose reduction techniques: automated exposure control, adjustment of the mA and kv according to patient's size, or use of a iterative reconstruction technique. DICTATED BY: LORE KNIGHT MD DATE: 07/18/24 2301 REASON: assess for ascites, abdominal distension, hx of fatty liver ORDERING PHYSICIAN: BETO JESUS MD PROCEDURE: ABDOMEN - US ABDOMINAL COMPLETE US ABDOMINAL COMPLETE HISTORY: Abdominal distention, ascites COMPARISON: None TECHNIQUE: Multiple transverse and longitudinal ultrasound images of the abdomen were obtained. FINDINGS: Abdominal aorta and inferior vena cava are unremarkable. There are bilateral pleural effusions. Pancreas is not well seen. Liver measures 16 cm. Liver is echogenic consistent with liver parenchymal disease. No gallstone is seen. Common duct measures 4 mm. No evidence of gallbladder wall thickening is seen. Both kidneys are seen. Right kidney measures 10 x 6 x 7 cm. Left kidney measures 11 x 7 x 6 cm. No hydronephrosis is seen of the both kidneys. The spleen is grossly unremarkable. IMPRESSION: 1. No gallstone or ductal dilatation is seen. Bilateral pleural effusions. 2. No hydronephrosis is seen. DICTATED BY: LORE KNIGHT MD DATE: 07/19/24 1024 REASON: significant lower extremity edema, r/o any DVT ORDERING PHYSICIAN: BETO JESUS MD PROCEDURE: VENOUS JACE - US VENOUS DOPPLER BILATERAL ULTRASOUND VENOUS DOPPLER, BILATERAL LOWER EXTREMITIES INDICATION: Bilateral lower extremity pain and swelling TECHNIQUE: Routine grayscale and color Doppler ultrasound of the bilateral lower extremity veins performed. COMPARISON: No priors. FINDINGS: The demonstrated veins of the bilateral lower extremity including the common femoral vein, femoral vein, and popliteal vein are associated with normal compressibility, augmentation, and flow. Normal respiratory variation was identified. No evidence for echogenic intraluminal thrombus formation. Pulsatile flow may be related to known history of congestive heart failure. IMPRESSION: No sonographic evidence for deep venous thrombosis within the bilateral lower extremity veins. DICTATED BY: MARLON PINZON MD DATE: 07/18/24 1837 REASON: SHORTNESS A BREATH ORDERING PHYSICIAN: CINTHIA VICENTE NP PROCEDURE: CXR1VW - CHEST 1VW CHEST 1VW HISTORY: Shortness of breath COMPARISON: 06/11/2024 FINDINGS: A frontal projection of the chest was obtained. Mild bilateral pulmonary infiltrates are seen may be related to mild pulmonary vascular congestion with possible superimposed pneumonitis. The heart is enlarged. Degenerative changes are seen. No evidence of aortic calcification is seen. IMPRESSION: 1. Mild bilateral pulmonary infiltrates are seen may be related to mild pulmonary vascular congestion with possible superimposed pneumonitis. DICTATED BY: LORE KNIGHT MD DATE: 07/18/24 1529 ASSESSMENT: Acute on chronic renal failure Hypokalemia 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, POA, (LV EF 45-50%) Acute hypoxemic respiratory failure, POA History of severe pulmonary hypertension with RVSP of 54, attributed secondary to underlying cardiac comorbidities, group 2, POA Rule out pulmonary arterial hypertension, POA History of moderate aortic regurgitation, POA History of moderate tricuspid regurgitation, POA Severe volume overload, POA Congestive hepatopathy, POA CKD stage 3, likely chronic cardiorenal syndrome, POA Underlying history of atrial fibrillation, POA History of chronic anticoagulation with Eliquis as outpatient, POA Obesity, POA History of severe aortic stenosis status post bioprosthetic aortic wall replacement in 2018, POA PLAN: Labs, diagnostic, radiologic exams reviewed and interpreted by myself and supervising physician. We have reviewed external records in detail Pending discharge disposition later today. Recommend patient to continue Bumex1 mg p.o. b.i.d. Follow up with Cardiology Follow up in the renal clinic in one week. We will continue to monitor renal function electrolytes closely. Continue 1.5 L fluid restriction Continue with antibiotics Renal diabetic diet BiPAP as necessary, for respiratory distress Monitor blood pressure adjust medication doses as needed Avoid hypotensive episodes May use Dilaudid 0.5 mg IV every 6 hours as needed for severe pain Monitor blood sugars Strict intake, output, and daily weight should be monitored Please renally adjust medications Avoid nephrotoxic and nonsteroidal drugs Avoid contrast if possible Will continue to monitor renal function, anemia, electrolytes Treatment plan discussed with patient Questions were answered We have discussed with the other team physicians in detail about the care plan We will continue to monitor the patient closely ATTESTATION BY PHYSICIAN I have seen and examined the patient. I reviewed the documentation, medical decision making, and treatment plan as noted by the mid-level provider above. I agree with the findings and plan of care. JOSS AYALA MD, [facility] Jul 30, 2024 13:59
--- NOTE | 2024-07-30 19:14 | PN ---
[facility] PROGRESS NOTE Date Patient Seen: Jul 30, 2024 Time of Visit: 13:11 Supervising Physician: JONN GERARDO Inpatient Consults: ERIC PROBLEM LIST: - Acute on chronic diastolic heart failure on admission - Acute hypoxic respiratory failure on admission secondary to above - Cardio renal syndrome - Severe pulmonary hypertension - Hypertensive heart disease - Atrial fibrillation on Eliquis - Chronic kidney disease stage 3 - Morbid obesity, BMI 32.7 - Essential hypertension - Recurrent hypokalemia - Status post bioprosthetic aortic valve replacement due to severe aortic stenosis (2018) INTERVAL HISTORY: 07/29 Patient is 69 years old, he is awake and he is resting in bed He is on room air, does not appear to be in distress and he is well hydrated Blood pressure seems to be under better control Still in the low 100s He denies shortness of breath, denies orthopnea Mentions that the edema to the lower extremities is slightly better Denies chest pain Denies cough Denies congestion 07/30 Patient seen and examined, he is awake, alert, well oriented, not in distress on room air denies chest pain or SOB, no nausea or vomiting patient seem to be doing much better and plan is to be discharge home per primary no new issues reported. REVIEW OF SYSTEMS: 12 point ROS reviewed with patient. Pertinent positives mentioned above. Otherwise negative. PHYSICAL EXAM: GENERAL: alert, weak, awake oriented x 3 HEENT: EOMI, Sclera non icteric, moist mucosa NECK: Supple, no JVD, trachea midline LUNGS: rales bilaterally, no wheezing HEART: Regular rate and rhythm. Normal S1 and S2, without murmurs ABD: Abdomen soft, nontender. Bowel sounds present EXT: No clubbing cyanosis NEURO: Alert and oriented to person, follows commands Vital Signs (last 8hr) Date Time Temp Pulse Resp B/P (MAP) Pulse Ox O2 Delivery O2 Flow Rate FiO2 07/30/24 12:50 97.9 72 20 100/52 97 Room Air LABS: Hematology Labs: Test 07/30/24 05:56 Range/Units White Blood Count 8.2 4.8-10.8 K/uL Red Blood Count 4.68 4.50-6.20 MIL/uL Hemoglobin 14.4 14.0-18.0 g/dL Hematocrit 43.9 42-54 % Mean Corpuscular Volume 93.8 79-99 fL Mean Corpuscular Hemoglobin 30.8 27.0-33.0 pg Mean Corpuscular Hemoglobin Concent 32.8 32.0-36.0 g/dL Red Cell Distribution Width 15.9 H 11.0-15.5 % Platelet Count 139 130-400 K/uL Mean Platelet Volume 11.9 H 7.5-10.5 fL Immature Granulocyte % (Auto) 0.4 0-1 % Neutrophils (%) (Auto) 65.7 40.0-77.0 % Lymphocytes (%) (Auto) 20.3 L 21.0-51.0 % Monocytes (%) (Auto) 10.9 3.0-13.0 % Eosinophils (%) (Auto) 1.7 0.0-8.0 % Basophils (%) (Auto) 1.0 0.0-5.0 % Neutrophils # (Auto) 5.4 1.8-7.7 K/uL Lymphocytes # (Auto) 1.7 1.0-4.8 K/uL Monocytes # (Auto) 0.9 0.1-1.0 K/uL Eosinophils # (Auto) 0.14 0.00-0.70 K/uL Basophils # (Auto) 0.08 0.00-0.20 K/uL Absolute Immature Granulocyte (auto 0.03 0-1 K/uL Nucleated Red Blood Cells 0.0 0.0-0.19 % Chemistry Labs: Test 07/30/24 05:56 Range/Units Sodium Level 139 136-145 mmol/L Potassium Level 3.8 3.5-5.1 mmol/L Chloride Level 101 101-111 mmol/L Carbon Dioxide Level 30 21-32 mmol/L Blood Urea Nitrogen 58 H 7-18 mg/dL Creatinine 2.7 H 0.5-1.3 mg/dL Glomerular Filtration Rate Calc 25 >90 mL/min Random Glucose 96 70-105 mg/dL Total Calcium 9.5 8.5-10.1 mg/dL Phosphorus Level 3.9 2.5-4.9 mg/dL Magnesium Level 2.40 1.80-2.40 mg/dL Total Bilirubin 2.9 H 0.2-1.0 mg/dL Aspartate Amino Transf (AST/SGOT) 50 H 10-37 U/L Alanine Aminotransferase (ALT/SGPT) 53 12-78 U/L Alkaline Phosphatase 84 50-136 U/L Total Protein 6.1 6.0-8.3 g/dL Albumin 3.1 L 3.5-5.0 g/dL DIAGNOSTICS / RADIOLOGY RESULTS: [ ] PLAN plan is to be discharge home per primary ATTESTATION BY PHYSICIAN Documentation assistance provided by a scribe, information recorded by the scr nolvia was done at my direction and has been reviewed and validated by me." HUMAIRA LUNSFORD MD I personally scribed for HUMAIRA LUNSFORD MD ([email or web address]) on 07/30/24 at 19:13. Electronically submitted by Barb Christopher ([id number]). HUMAIRA LUNSFORD MD Jul 30, 2024 19:13
== END 2024-07-30 15:13 | disposition home or self-care (01) | DRG 291 ==
LOC: EDH 14:52 → EDHIP 17:40 → 4AH 20:48 → 2DH 07-30 01:57
PROVIDERS: ADMIT Internal Medicine; ATTEND Internal Medicine
DX: I13.0 Hypertensive heart and chronic kidney disease with heart failure and stage 1 through stage 4 chronic kidney disease, or unspecified chronic kidney disease (principal); I50.43 Acute on chronic combined systolic (congestive) and diastolic (congestive) heart failure; J96.01 Acute respiratory failure with hypoxia; N17.9 Acute kidney failure, unspecified; J98.11 Atelectasis; I42.9 Cardiomyopathy, unspecified; N18.30 Chronic kidney disease, stage 3 unspecified; K76.1 Chronic passive congestion of liver; D64.9 Anemia, unspecified; I27.21 Secondary pulmonary arterial hypertension; I08.2 Rheumatic disorders of both aortic and tricuspid valves; I48.91 Unspecified atrial fibrillation; E87.6 Hypokalemia; E66.01 Morbid (severe) obesity due to excess calories; I95.9 Hypotension, unspecified; E78.00 Pure hypercholesterolemia, unspecified; F02.80 Dementia in other diseases classified elsewhere, unspecified severity, without behavioral disturbance, psychotic disturbance, mood disturbance, and anxiety; G30.9 Alzheimer's disease, unspecified; I25.10 Atherosclerotic heart disease of native coronary artery without angina pectoris; J44.9 Chronic obstructive pulmonary disease, unspecified; K76.0 Fatty (change of) liver, not elsewhere classified; Z68.32 Body mass index [BMI] 32.0-32.9, adult; Z79.01 Long term (current) use of anticoagulants; Z95.3 Presence of xenogenic heart valve; Z82.49 Family history of ischemic heart disease and other diseases of the circulatory system; Z79.899 Other long term (current) drug therapy
CPT/HCPCS: 36415; 36600; 71045; 71250; 74176; 76700; 80048; 80053; 80076; 81001; 82570; 82803; 83735; 83880; 84100; 84132; 84145; 84156; 84484; 85025; 85027; 85378; 86140; 93005; 93308; 93970; 94640; 94664; 96374; 99285; G0378; J1940; J2405; J3480; J3490